=== PATIENT | male | born 1980 | race Caucasian/White ===

== ENCOUNTER 2025-04-27 23:52 | Inpatient (IN) | payer MEDICARE, SELFPAY ==
[2025-04-27] VITALS (16 sets, daily range): BP systolic 146–186; BP diastolic 69–94; PULSE 54; BMI 29.9
[2025-04-27 18:06] LABS: Hematocrit 19.3 % (39.0-52.0); Hemoglobin 6.4 g/dL (13.0-18.0); Mean Corp Hgb Conc. 33.2 g/dL (33.0-37.0); Mean Corpuscular Volume 90.6 fL (80.0-94.0); Nucleated Red Blood Cells % 0 % (-); Platelet Count 213 10^3/uL (130-400); Red Cell Dist. Width 14.4 % (11.5-14.5)
[2025-04-27 18:14] LABS: ALT (SGPT) 22 U/L (0-50); AST (SGOT) 19 U/L (17-59); Albumin 4.0 g/dl (3.5-5.0); Alkaline Phosphatase 188 U/L (38-126); Blood Urea Nitrogen 52 mg/dl (9-20); Calcium 8.7 mg/dl (8.4-10.2); Carbon Dioxide 27 mmol/L (22-30); Chloride 98 mmol/L (98-107); Estimated Creatinine Clearance 14 ml/min; Glucose 139 mg/dl (70-99); Potassium 5.2 mmol/L (3.5-5.1); Sodium 132 mmol/L (135-145); Total Protein 6.7 g/dl (6.3-8.2); eGFR 8.65
--- NOTE | 2025-04-27 18:32 | ED.GENMED ---
History of Present Illness
<Megha Romero NP - Last Filed: 04/28/25 15:01>
General
Chief Complaint: Abnormal Lab Value
Source: patient
Exam Limitations: none
Time Seen by Provider: 04/27/25 17:48
Nursing documentation reviewed up to this point in time: agreed with
History of Present Illness
History of Present Illness:
Patient to ED for anemia, SOB. He had dialysis today. Hgb noted to b 6.6, He reports fatigue. Brought to ED by EMS for eval. Denies any rectal bleeding, hematuria, vomiting. CRF by history. Dialysis m-w-
Past History
<Megha Romero NP - Last Filed: 04/28/25 15:01>
Past History
ED Past Medical History: COPD, HTN, Hypercholesterolemia, IDDM, Renal failure, Psychiatric (anxiety, depression, bipolar) and Other (Hyperkalemia, hypoxia )
Review of Systems
<Megha Romero NP - Last Filed: 04/28/25 15:01>
Review of Systems
Allergies reviewed?: Yes
All Other Systems: ROS reviewed and negative except as documented in HPI and ROS
Constitutional: Reports fatigue
EENT: Reports no symptoms
Respiratory: Reports no symptoms
Cardiac: Reports no symptoms
ABD/GI: Reports no symptoms
: Reports no symptoms
Musculoskeletal: Reports no symptoms
Skin: Reports no symptoms
Neurological: Reports weakness
Psychiatric: Reports no symptoms
Phy Exam
<Megha Romero NP - Last Filed: 04/28/25 15:01>
General Physical Exam
General Presentation: moderate distress
General age: appears stated age
General Skin: warm and dry
General Habitus: normal
General Mental: alert
Cardiovascular Exam
Cardiovascular Exam: regular rate/rhythm
Pulmonary Exam
Pulmonary Exam: chest non tender
Oxygen Status: oxygen 4 liters via NC (88%)
Cough: no cough
Breath Sounds: Crackles: left lower
Neurological Exam
Neurological Exam: alert and oriented x3
Musculoskeletal Exam
Musculoskeletal Exam: full ROM, edema (+2 edema bilateral feet/ankles) and neuro vasc intact
Skin Exam
Skin Exam: normal color, warm/dry and no rash
Psychiatric Exam
Psychiatric Exam: agitated
Course
<Megha Romero CORRESPONDENCE SPECIALIST - Last Filed: 04/28/25 15:01>
Orders/Labs/Results
Orders:
Orders
04/27/25 17:44
Type And Crossmatch [Type+Screen] Urgent
Complete Blood Count/With Diff Urgent
Comprehensive Metabolic Panel Urgent
Ferritin Urgent
Folate Urgent
Iron Urgent
Comment: ADD ON
NT-proBNP Urgent
Comment: ADD ON
Total Iron Binding Urgent
Vitamin B12 Urgent
Comment: ADD ON
04/27/25 18:25
* Blood Bank Products Urgent
Blood Bank Products: *Packed RBC Leuko (PRBC's
Quantity: 1
Transfuse Today: Yes
Reason: Anemia
04/27/25 21:01
CR Chest - 2 Views Urgent
Comment:
Reason For Exam: SOB
04/27/25 21:34
Acetaminophen [Tylenol] 1,000 mg .ROUTE .STK-MED ONE
04/27/25 21:37
Acetaminophen [Tylenol] 1,000 mg PO NOW STA
04/27/25 21:48
Azithromycin [Zithromax] 500 mg PO NOW STA
Doxycycline [Vibramycin] 100 mg PO NOW STA
04/27/25 22:40
Add On- LAB Urgent
Tests Added?: BNP
04/27/25 23:30
Nitroglycerin 100 mg/250 ml [Nitroglycerin Premix] 100 mg in 250 ml IV PER PROTOCOL
Initial dose in mcg/min, then titrate:: 5
Titrate to keep:: SBP < 160 mmHg
Titrate by mcg/min:: 5 mcg/min, may increase by 10 mcg/min if dose > 20 mcg/min
Frequency of titrations (minutes):: every 3-5 minutes
Maximum dose in mcg/min:: 200
Begin to taper infusion when:: Remained at goal for 2hrs
Taper by mcg/min:: 5 mcg/min
Frequency of taper (minutes) if patient maintains goal:: 30
Taper to off?: Yes
If infusion off & no longer maintaining goal:: Contact Provider
04/27/25 23:31
Admit/Transfer Patient As Directed
Co-Sign Provider:
Level of Care: Inpatient admission
Assign to:: ICU
Physician / Group: kristine holloway
Diagnosis: fluid overload, Esrd, anemia , hypoxic resp failure 2/2 fluid overload,
Reason for Hospitalization: fluid overload, Esrd, anemia , hypoxic resp failure 2/2 fluid overload,
Expected length of stay greater than two midnights?: Yes
ELOS- Estimated Length of Stay in days: 5
I certify the patient meets the requirements for IP care: Yes
NEPHROLOGY CONSULT Routine
Consulting Provider: Jenifer Mckeon
Was physician already notified: Yes
Reason for consult: esrd acute chf hypoxia
04/27/25 23:32
Code Status As Directed
Resuscitation Status: Full Code
04/27/25 23:40
PRN Pain Medication Management As Directed
May give lesser potent ordered pain med per pt: Yes
preference::
Protocol:: Medication orders for pain may be administered in a
manner that supports deferring to patient preference
when the pt is:
- Requesting an ordered lesser potent pain medication.
Least to most potent pain medications are defined
as: acetaminophen < NSAID < tramadol < opioids
(morphine, oxycodone, hydromorphone).
- Requesting a lesser dose of the same medication IF
ORDERED.
- Requesting a less intrusive route of administration
if both routes are prescribed by the provider (PO <
IV).
04/27/25 23:44
Add On- LAB Urgent
Tests Added?: iron tibc, ferritin b12 folate
04/27/25 23:46
Telemetry Rn Consult Routine
Consulting Provider: Christiano Toro
Was physician already notified: Yes
Reason for consult: ypoxic resp failure fluid overload, esrd anemia
04/28/25 01:19
Acetaminophen [Tylenol] 650 mg PO Q6HPRN PRN mild pain
Dextrose 50%-Water [Dextrose 50% Syringe] 12.5 grams IV [id number] PRN
Glucagon [GlucaGen] 1 mg IM PRN PRN
Sorbitol Solution [Sorbitol 70% Solution] 30 ml PO DAILYPRN PRN constipation
Tramadol HCl [Ultram] 50 mg PO BIDPRN PRN moderate pains
04/28/25 01:19
Activity As Directed
Activity Level: With Assistance
Comment: Patient transfers to wheelchair only
Bedside Glucose Monitoring As Directed
Frequency: AC&HS
Additional Instructions:: Change to q6h if pt on TPN, tube feeding or not eating
Intake/ Output As Directed
Frequency: Per unit guidelines
Vital Signs As Directed
Frequency: Per unit guidelines
Weight As Directed
Frequency: Daily
Pulse Ox/spot Check [RESP] Routine
Quantity: 1
Pt Eval And Treat Routine
Activity Level: With Assistance
DX Deep Vein Thrombosis Video Routine
04/28/25 03:43
Complete Blood Count/With Diff IN AM
Comprehensive Metabolic Panel IN AM
Glycohemoglobin (HgbA1c) IN AM
Magnesium IN AM
04/28/25 Breakfast
1800 calorie (15 carb) Diabetic
At Your Request: Full Participation
Does patient need a safe tray?: No
Fluid Restriction: 1200 mL/day (40 oz)
Diabetic Diet: Potassium, 2 Gram
Sodium, 2 Gram
04/28/25 07:30
Insulin Aspart Corrective Low [Novolog Flexpen-Low Resistance] See Protocol SC AC
Insulin Aspart Pen [Novolog Flexpen] 6 units SC AC
Sevelamer Carbonate [Renvela] 800 mg PO AC
04/28/25 08:00
ARIPiprazole [Abilify] 5 mg PO DAILY
Amlodipine [Norvasc] 10 mg PO DAILY
Aspirin Chewable [Low Strength Aspirin] 81 mg PO DAILY
Carvedilol [Coreg] 25 mg PO BID
Clopidogrel Bisulfate [Plavix] 75 mg PO DAILY
Diazepam [Valium] 5 mg PO BID
Gabapentin [Neurontin] 300 mg PO DAILY
Heparin 5,000 units SC Q12
Nicotine [Nicoderm Transdermal] 14 mg TRANSDERM DAILY
Sertraline HCl [Zoloft] 50 mg PO DAILY
04/28/25 18:00
Atorvastatin [Lipitor] 80 mg PO QPM
04/28/25 22:00
insulin glargine [Lantus Solostar U-100 Insulin] 15 unit SC HS
04/29/25 06:00
Complete Blood Count/With Diff IN AM
Comprehensive Metabolic Panel IN AM
04/29/25 08:00
Clonidine [Bwvjrssa-Tqe-9] 0.3 mg TRANSDERM FR
04/30/25 06:00
Complete Blood Count/With Diff IN AM
Comprehensive Metabolic Panel IN AM
05/01/25 06:00
Complete Blood Count/With Diff IN AM
Comprehensive Metabolic Panel IN AM
05/02/25 06:00
Complete Blood Count/With Diff IN AM
Comprehensive Metabolic Panel IN AM
Abnormal Lab Results
04/27/25
17:44
RBC 2.13 L 10^6/uL
(4.70-6.10)
Hgb 6.4 L* g/dL
(13.0-18.0)
Hct 19.3 L* %
(39.0-52.0)
Absolute Neuts (auto) 7.1 H 10^3/uL
(1.4-6.5)
Absolute Lymphs (auto) 0.5 L 10^3/uL
(1.2-3.4)
Absolute Monos (auto) 0.7 H 10^3/uL
(0.1-0.6)
Neutrophils % 84.5 H %
(42.2-75.2)
Lymphocytes % 6.1 L %
(20.5-51.1)
Sodium 132 L mmol/L
(135-145)
Potassium 5.2 H mmol/L
(3.5-5.1)
BUN 52 H mg/dl
(9-20)
Creatinine 7.3 H* mg/dL
(0.7-1.3)
Glucose 139 H mg/dl
(70-99)
% Saturation 62 H %
(20-50)
Alkaline Phosphatase 188 H U/L
(38-126)
Crossmatch IS Only See Detail
04/27/25 17:44
04/27/25 17:44
Vital Signs
Initial and Last Documented VS:
Initial Vital Signs
Temp Pulse Resp BP Pulse Ox
98.2 F 55 10 146/69 92
04/27/25 17:33 04/27/25 17:33 04/27/25 17:33 04/27/25 17:33 04/27/25 17:33
Last Documented Vital Signs
Temp Pulse Resp BP Pulse Ox
97.7 F 53 18 137/69 96
04/28/25 15:00 04/28/25 15:00 04/28/25 15:00 04/28/25 15:00 04/28/25 14:12
<Christiano Barajas, DO - Last Filed: 04/27/25 22:43>
Orders/Labs/Results
Orders:
Orders
04/27/25 17:44
Type And Crossmatch [Type+Screen] Urgent
Complete Blood Count/With Diff Urgent
Comprehensive Metabolic Panel Urgent
Ferritin Urgent
Folate Urgent
Iron Urgent
Comment: ADD ON
NT-proBNP Urgent
Comment: ADD ON
Total Iron Binding Urgent
Vitamin B12 Urgent
Comment: ADD ON
04/27/25 18:25
* Blood Bank Products Urgent
Blood Bank Products: *Packed RBC Leuko (PRBC's
Quantity: 1
Transfuse Today: Yes
Reason: Anemia
04/27/25 21:01
CR Chest - 2 Views Urgent
Comment:
Reason For Exam: SOB
04/27/25 21:34
Acetaminophen [Tylenol] 1,000 mg .ROUTE .STK-MED ONE
04/27/25 21:37
Acetaminophen [Tylenol] 1,000 mg PO NOW STA
04/27/25 21:48
Azithromycin [Zithromax] 500 mg PO NOW STA
Doxycycline [Vibramycin] 100 mg PO NOW STA
04/27/25 22:40
Add On- LAB Urgent
Tests Added?: BNP
04/27/25 23:30
Nitroglycerin 100 mg/250 ml [Nitroglycerin Premix] 100 mg in 250 ml IV PER PROTOCOL
Initial dose in mcg/min, then titrate:: 5
Titrate to keep:: SBP < 160 mmHg
Titrate by mcg/min:: 5 mcg/min, may increase by 10 mcg/min if dose > 20 mcg/min
Frequency of titrations (minutes):: every 3-5 minutes
Maximum dose in mcg/min:: 200
Begin to taper infusion when:: Remained at goal for 2hrs
Taper by mcg/min:: 5 mcg/min
Frequency of taper (minutes) if patient maintains goal:: 30
Taper to off?: Yes
If infusion off & no longer maintaining goal:: Contact Provider
04/27/25 23:31
Admit/Transfer Patient As Directed
Co-Sign Provider:
Level of Care: Inpatient admission
Assign to:: ICU
Physician / Group: kristine holloway
Diagnosis: fluid overload, Esrd, anemia , hypoxic resp failure 2/2 fluid overload,
Reason for Hospitalization: fluid overload, Esrd, anemia , hypoxic resp failure 2/2 fluid overload,
Expected length of stay greater than two midnights?: Yes
ELOS- Estimated Length of Stay in days: 5
I certify the patient meets the requirements for IP care: Yes
NEPHROLOGY CONSULT Routine
Consulting Provider: Jenifer Mckeon
Was physician already notified: Yes
Reason for consult: esrd acute chf hypoxia
04/27/25 23:32
Code Status As Directed
Resuscitation Status: Full Code
04/27/25 23:40
PRN Pain Medication Management As Directed
May give lesser potent ordered pain med per pt: Yes
preference::
Protocol:: Medication orders for pain may be administered in a
manner that supports deferring to patient preference
when the pt is:
- Requesting an ordered lesser potent pain medication.
Least to most potent pain medications are defined
as: acetaminophen < NSAID < tramadol < opioids
(morphine, oxycodone, hydromorphone).
- Requesting a lesser dose of the same medication IF
ORDERED.
- Requesting a less intrusive route of administration
if both routes are prescribed by the provider (PO <
IV).
04/27/25 23:44
Add On- LAB Urgent
Tests Added?: iron tibc, ferritin b12 folate
04/27/25 23:46
Telemetry Rn Consult Routine
Consulting Provider: Christiano Toro
Was physician already notified: Yes
Reason for consult: ypoxic resp failure fluid overload, esrd anemia
04/28/25 01:19
Acetaminophen [Tylenol] 650 mg PO Q6HPRN PRN mild pain
Dextrose 50%-Water [Dextrose 50% Syringe] 12.5 grams IV [id number] PRN
Glucagon [GlucaGen] 1 mg IM PRN PRN
Sorbitol Solution [Sorbitol 70% Solution] 30 ml PO DAILYPRN PRN constipation
Tramadol HCl [Ultram] 50 mg PO BIDPRN PRN moderate pains
04/28/25 01:19
Activity As Directed
Activity Level: With Assistance
Comment: Patient transfers to wheelchair only
Bedside Glucose Monitoring As Directed
Frequency: AC&HS
Additional Instructions:: Change to q6h if pt on TPN, tube feeding or not eating
Intake/ Output As Directed
Frequency: Per unit guidelines
Vital Signs As Directed
Frequency: Per unit guidelines
Weight As Directed
Frequency: Daily
Pulse Ox/spot Check [RESP] Routine
Quantity: 1
Pt Eval And Treat Routine
Activity Level: With Assistance
DX Deep Vein Thrombosis Video Routine
04/28/25 03:43
Complete Blood Count/With Diff IN AM
Comprehensive Metabolic Panel IN AM
Glycohemoglobin (HgbA1c) IN AM
Magnesium IN AM
04/28/25 Breakfast
1800 calorie (15 carb) Diabetic
At Your Request: Full Participation
Does patient need a safe tray?: No
Fluid Restriction: 1200 mL/day (40 oz)
Diabetic Diet: Potassium, 2 Gram
Sodium, 2 Gram
04/28/25 07:30
Insulin Aspart Corrective Low [Novolog Flexpen-Low Resistance] See Protocol SC AC
Insulin Aspart Pen [Novolog Flexpen] 6 units SC AC
Sevelamer Carbonate [Renvela] 800 mg PO AC
04/28/25 08:00
ARIPiprazole [Abilify] 5 mg PO DAILY
Amlodipine [Norvasc] 10 mg PO DAILY
Aspirin Chewable [Low Strength Aspirin] 81 mg PO DAILY
Carvedilol [Coreg] 25 mg PO BID
Clopidogrel Bisulfate [Plavix] 75 mg PO DAILY
Diazepam [Valium] 5 mg PO BID
Gabapentin [Neurontin] 300 mg PO DAILY
Heparin 5,000 units SC Q12
Nicotine [Nicoderm Transdermal] 14 mg TRANSDERM DAILY
Sertraline HCl [Zoloft] 50 mg PO DAILY
04/28/25 18:00
Atorvastatin [Lipitor] 80 mg PO QPM
04/28/25 22:00
insulin glargine [Lantus Solostar U-100 Insulin] 15 unit SC HS
04/29/25 06:00
Complete Blood Count/With Diff IN AM
Comprehensive Metabolic Panel IN AM
04/29/25 08:00
Clonidine [Eioluwwt-Ciu-2] 0.3 mg TRANSDERM FR
04/30/25 06:00
Complete Blood Count/With Diff IN AM
Comprehensive Metabolic Panel IN AM
05/01/25 06:00
Complete Blood Count/With Diff IN AM
Comprehensive Metabolic Panel IN AM
05/02/25 06:00
Complete Blood Count/With Diff IN AM
Comprehensive Metabolic Panel IN AM
Abnormal Lab Results
04/27/25
17:44
RBC 2.13 L 10^6/uL
(4.70-6.10)
Hgb 6.4 L* g/dL
(13.0-18.0)
Hct 19.3 L* %
(39.0-52.0)
Absolute Neuts (auto) 7.1 H 10^3/uL
(1.4-6.5)
Absolute Lymphs (auto) 0.5 L 10^3/uL
(1.2-3.4)
Absolute Monos (auto) 0.7 H 10^3/uL
(0.1-0.6)
Neutrophils % 84.5 H %
(42.2-75.2)
Lymphocytes % 6.1 L %
(20.5-51.1)
Sodium 132 L mmol/L
(135-145)
Potassium 5.2 H mmol/L
(3.5-5.1)
BUN 52 H mg/dl
(9-20)
Creatinine 7.3 H* mg/dL
(0.7-1.3)
Glucose 139 H mg/dl
(70-99)
% Saturation 62 H %
(20-50)
Alkaline Phosphatase 188 H U/L
(38-126)
Crossmatch IS Only See Detail
04/27/25 17:44
04/27/25 17:44
Vital Signs
Initial and Last Documented VS:
Initial Vital Signs
Temp Pulse Resp BP Pulse Ox
98.2 F 55 10 146/69 92
04/27/25 17:33 04/27/25 17:33 04/27/25 17:33 04/27/25 17:33 04/27/25 17:33
Last Documented Vital Signs
Temp Pulse Resp BP Pulse Ox
97.7 F 53 18 137/69 96
04/28/25 15:00 04/28/25 15:00 04/28/25 15:00 04/28/25 15:00 04/28/25 14:12
<Megha Romero CORRESPONDENCE SPECIALIST - Last Filed: 04/28/25 15:01>
*Radiology
Radiology exam reviewed: radiology read reviewed
*Pulse Oximetry
SaO2: 94
Nasal Cannula flow liters per minute: 4
Patient hypoxic: yes
Comment: 88% on 4L NC. Increased O2 to 5L, now 92%
*Critical Care Note
Total Time (30-74mins, 75-104mins- exclusive of procedures): Not Applicable
<Megha Romero NP - Last Filed: 04/28/25 15:01>
Update Note
Update Note:
Patient to ED for anemia, SOB. Hgb 6.4, transfused with 1U PRBc's. Pulse ox 88% on his typical 4L NC. O2 increased to 5L and he is now 92% at rest. CXR reveiwed - pulmonary edema, possible LLLpneumonia. CRF on dialysis. He had dialysis today
but is unsure if he completed session. Case discussed with Dr. Barajas who spoke with this patient. Recommend admission for his hypoxemia however he is refusing to stay. Risks discussed with him but he continues to decline admission. Transport is
unable to take him back to the assisted due to current hypoxemia. He does not have private transportation. He now agrees to admission WIll admit to hospitalist. ANtibiotics started.
ED Attending Note
<Megha Romero NP - Last Filed: 04/28/25 15:01>
-
Portions of this chart may have been created with voice recognition software.� Occasional wrong word or��sound alike� substitutions may have occurred due to the inherent limitations of voice recognition software.
<Christiano Barajas DO - Last Filed: 04/27/25 22:43>
ED Attending Note
Patient seen and examined by attending physician: Yes
I performed the substantive portion of visit, reviewed & personally made and approve the management plan that is documented in note by myself or SOPHIE.: Yes
ED Attending Note:
I have seen and evaluated the patient with a [id number] encounter. I have spoken to the advance practicer provider and involved in the medical history, the physical exam, medical decision making.
Evaluation and management service: agree unless noted differently below.
Results interpretation: agree unless noted differently below.
Focused HPI: 44-year-old male presenting for evaluation of low hemoglobin. Patient has history of renal failure and is on dialysis. Patient unsure if he received a full session today
Physical exam: Mildly edematous. Rhonchorous breath sounds throughout
Medical Decision Making: Patient was consented for 1 unit of blood transfusion. Initial plan was a discharge but patient becoming more hypoxic. At 1 point, patient was on 10 L of O2 to keep his sats at 90%. He initially refused admission.
Patient was going to sign out AMA and we called transport to take him back to his facility but transport also refused to take him due to his hypoxia. At this point, patient is consenting for admission
Discharge Plan
Departure
Patient Disposition: Admit
Date of Disposition: 04/27/25
Time of Disposition: 22:35
Presentation/result/management discussed w/ accepting MD/DO: Hospitalist
Patient with high blood pressure during this ER visit?: No
Condition: Fair
Covid-19: Not Applicable
Discharge Problem:
Anemia, Pneumonia, Hypoxemia
Interventions
Interventions:
*Risk Screen - Suicide Last Done: 04/27/25 17:37
*General Assessment Last Done: 04/27/25 17:37
*Neglect/Abuse Screening Last Done: 04/27/25 17:37
*ED COVID-19 Vaccine History Last Done: 04/27/25 17:37
*ED Influenza Vaccine History Last Done: 04/27/25 17:37
*Nursing Disposition Last Done: 04/28/25 01:26
Discharge Date and Time
Discharge Date/Time: 04/28/25 01:26
[2025-04-27] MEDS: TYLENOL 1000 MG PO (21:38)
[2025-04-27] MEDS: VIBRAMYCIN 100 MG PO (22:08)
[2025-04-27] MEDS: ZITHROMAX 500 MG PO (22:08)
--- NOTE | 2025-04-27 22:53 | HPS.HSE ---
Family Physician
-
Family Physician: Suad Sears
Chief Complaint
-
Fatigue, hypoxia, anemia
History of Present Illness
44-year-old male who states he had his dialysis today half session 1.5 hours normally gets 3-1/2 hours where hemoglobin was noted to be 6.6 he states he was brought to the emergency room by EMS for evaluation he does complain of fatigue. He reports
he has been at [facility] for approximately 1 to 2 weeks prior was at [facility] second week in March diagnosed with pneumonia, COPD put on chronic 4 L of oxygen. He reports prior to living at [facility] he was living in
[place] for 2 years but grew up in [place]. He denies any rectal bleeding, hematuria, hemataemesis, chest pain, palpitations, cough, abdominal pain, nausea, vomiting, diarrhea, urinary symptoms. He was hypoxic on arrival at 89% on room air
currently 94% on 5 L nasal cannula
He has past medical history ESRD dialysis Friday, diabetic type 1 diagnosed age 24, diabetic neuropathy feet,angina chronic right shoulder pain, HTN, HLD, COPD, chronic 4 L oxygen, former smoker 1 pack a day quit approximately 4
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
Medical History
Past Medical History
Past Medical History: Reports Other
Additional Past Medical History:
ESRD dialysis Friday
diabetic type 1 diagnosed age 24,
diabetic neuropathy feet
chronic right shoulder pain
angina
HTN
HLD
COPD, chronic 4 L oxygen
former smoker 1 pack a day quit approximately 4 weeks ago March 2025
bipolar disorder
anxiety
depression
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
Past Surgical History: Reports Other
Additional Past Surgical History:
Right upper chest wall catheter
Social History
Tobacco: Smoker (Former smoker up until 1 month ago)
Alcohol: None
Drug: None
Personal: Single
Living: [facility]entiary ([facility])
Employment: Disabled
Family History
Family History: Not pertinent
Allergies / Home Medications
Allergies reflects when Allergies were last updated in [employer].
Home Medications with original date entered in [employer]
Allergy/Medication List:
Allergies
Allergy/AdvReac Type Severity Reaction Status Date / Time
No Known Allergies Allergy Verified 04/27/25 17:46
Home Medications
acetaminophen 325 mg tablet (Tylenol) 650 mg PO Q6HPRN PRN mild pain 04/27/25
amlodipine 10 mg tablet (Norvasc) 10 mg PO DAILY 04/27/25
aripiprazole 5 mg tablet (Abilify) 5 mg PO DAILY 04/27/25
aspirin 81 mg chewable tablet 81 mg PO DAILY 04/27/25
atorvastatin 80 mg tablet (Lipitor) 80 mg PO QPM 04/27/25
bisacodyl 10 mg rectal suppository (Dulcolax (bisacodyl)) 10 mg [place] DAILYPRN PRN if no bm aftr mom 04/27/25
carvedilol 25 mg tablet (Coreg) 25 mg PO BID 04/27/25
clonidine 0.3 mg/24 hr weekly transdermal patch 1 patch transdermal FR 04/27/25
clopidogrel 75 mg tablet (Plavix) 75 mg PO DAILY 04/27/25
diazepam 5 mg tablet (Valium) 5 mg PO BID 04/27/25
gabapentin 300 mg capsule 300 mg PO DAILY 04/27/25
hydralazine 100 mg tablet 100 mg PO TID 04/27/25
insulin glargine 100 unit/mL (3 mL) subcutaneous pen (Lantus Solostar U-100 Insulin) 15 unit SC HS 04/27/25
insulin lispro 100 unit/mL subcutaneous pen 6 sliding scale dose SC AC 04/27/25
isosorbide mononitrate 30 mg tablet,extended release 24 hr 30 mg PO DAILY 04/27/25
lidocaine 5 % topical patch 1 patch topical DAILY 04/27/25
nicotine 14 mg/24 hr daily transdermal patch 1 patch transdermal DAILY 04/27/25
patiromer calcium sorbitex 16.8 gram oral powder packet 16.8 g PO DAILY 04/27/25
sertraline 50 mg tablet 50 mg PO DAILY 04/27/25
sevelamer carbonate 800 mg tablet 800 mg PO AC 04/27/25
sorbitol 70 % solution 30 ml PO DAILYPRN PRN constipation 04/27/25
tramadol 50 mg tablet 50 mg PO BIDPRN PRN moderate pains 04/27/25
Review of Systems
-
History Source: Patient and Other (Nurse)
A 12 point ROS was completed and negative except as noted: Yes
Constitutional: Reports Fatigue; Denies Chills
EENT: Reports Other (Upper eyelid swelling); Denies Sore Throat or Runny Nose
Respiratory: Reports Trouble Breathing and Other (Rales left lung); Denies Cough
Cardiac: Denies Chest Pain, Diaphoresis, Palpitations or Syncope
Abdomen/GI: Denies Abdominal Pain, Nausea, Vomiting, Diarrhea or Constipated
: Reports Other (Patient reports does not make urine is dialysis dependent)
Musculoskeletal: Reports Edema (+2 nonpitting edema lower legs); Denies Joint Pain
Skin: Denies Itching or Rash
Neurological: Denies Dizzy or Headache
Endocrine: Reports No Symptoms
Psych: Reports Calm
Physical Exam
Vital Signs
Vital Signs
Temp Pulse Resp BP Pulse Ox
97.7 F 60 22 171/94 94
04/27/25 20:32 04/27/25 22:00 04/27/25 22:00 04/27/25 22:00 04/27/25 22:00
Physical Exam
General: Conversant and Other (Dyspnea/hypoxia); No Fever or Chills
HEENT: NormoCephalic, Anicteric, PERRLA, [place] Conjunctivae, No Ptosis and Other (Swelling of upper eyelids)
Respiratory: Rales (Most prominent throughout left lung slight prominence right lung); No Wheezes
Cardiac: S1/S2, Regular Rhythm and Peripheral Edema (Bilateral lower legs +2 nonpitting); No Murmur, Rub or Gallop
Breast: Deferred by me
GI: Soft, Non Tender, Non Distended, Normal Bowel Sounds and No Hepatosplenomegaly
Rectal: Deferred by Provider
Genito-urinary: Deferred by me
Musculoskeletal: No Clubbing, No Cyanosis, Edema, Left Lower Extremity (+2 nonpitting) and Edema, Right Lower Extremity (+2 nonpitting); No Edema, Left Upper Extremity or Edema, Right Upper Extremity
Skin: Warm, Dry and Other (Dialysis catheter right upper chest wall); No Rash
Neuro: AO x 3, No Motor Deficits, Nonfocal/grossly intact, Cranial Nerves Intact and No Sensory Deficits; No Slurred Speech, Facial Droop, Tremors or Sedated
Psych: Calm
Laboratory Results
-
04/27/25 17:44
04/27/25 17:44
Laboratory Results
Total Bilirubin 0.5 mg/dl (0.2-1.3) 04/27/25 17:44
AST 19 U/L (17-59) 04/27/25 17:44
ALT 22 U/L (0-50) 04/27/25 17:44
Alkaline Phosphatase 188 U/L (38-126) H 04/27/25 17:44
Data Reviewed
-
Diagnostic Radiology: Report Reviewed by me
Lab Data: Labs Reviewed by me
Impression/Plan
-
Impression/plan:
Admit to ICU
#Acute hypoxic respiratory insufficiency likely secondary to fluid overload
83% room air currently 95% on 10 L of oxygen
-Will start BiPAP
- Consult aircraft line assembler
#History of COPD on chronic 4 L nasal cannula since March 2025
Reports has been on chronic 4 L of oxygen since March 2025 when seen at [facility] for pneumonia
#Acute symptomatic anemia history ESRD on dialysis
Hgb 6.4, MCV 90.6
-Type and screen
-Transfuse 1 units PRBC
-Check iron panel, B12, folate
#ESRD on dialysis Friday
Completed 1.5 hours out of 3-hour session today at [facility] 04/27/2025
As right upper chest dialysis catheter x 2 years
Patient does not make urine
Creat 7.3/bun 52
Check mag, Phos
-Consult Nephro
- Continue sevelamer 800 mg AC, Patiromer calcium sorbitex 16.8 g daily
#HTN
BP 171/94
-Continue Norvasc 10 mg daily, Coreg 25 mg twice daily, clonidine 1 patch transdermal Fridays,
-Hold hydralazine 100 mg 3 times daily
Angina
-Hold Imdur 30 mg daily
- Continue Plavix 75 mg daily
Obtain records from [facility] admission March 2025
#Diabetic type 1 Dx age 24
Accu-Cheks with SSI, check HgbA1c
Continue Lantus 15 units at bedtime, lispro 6 units with meals
#HLD
-Continue atorvastatin 80 mg every afternoon
#Bipolar disorder/anxiety/depression
-Continue Abilify 5 mg daily, Zoloft 50 mg daily
#Constipation
Continue sorbitol 30 mL daily as needed constipation
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
DVT prophSubcu heparin
Full code
[2025-04-27] MEDS: NITROGLYCERIN PREMIX 250 IV (23:52)
[2025-04-28] VITALS (64 sets, daily range): BP systolic 132–188; BP diastolic 64–99; PULSE 2–54; BMI 29.1
[2025-04-28 00:18] LABS: Iron 165 ug/dl (49-181)
[2025-04-28 00:30] LABS: Total Iron Binding Capacity 263 ug/dl (261-462)
[2025-04-28 00:38] LABS: Ferritin 391.0 ng/ml (17.9-464.0)
[2025-04-28 00:52] LABS: Vitamin B12 697 pg/ml (239-931)
--- NOTE | 2025-04-28 01:00 | W.PN.UPDATE ---
Update Note
Progress Note Update
Patient seen conjunction with EL. I agree with the findings on history and physical. I concur with assessment and plan.
Patient is a 44-year-old with insulin-dependent diabetes, end-stage renal disease on hemodialysis Friday currently via PermCath, bipolar, uncontrolled hypertension, ?CAD on aspirin and Plavix who presents to the emergency department
from [facility] for low hemoglobin of 6.6. Patient himself denied feeling lightheaded or dizzy. He denies having any abdominal pain nausea vomiting melena or hematochezia. He reports that he was recently admitted to [facility] several weeks
ago and treated for multifocal pneumonia. At the time of discharge patient was maintained on 4 L of oxygen. He states prior to that he has no known pulmonary disease and has not been on oxygen. He has been maintained on his 4 L. In the ED
patient was admitted for transfusion and then was found to be hypoxic on his 4 L 90 was 1 to 5 L. Despite this he remained hypoxic to the high 80s. He had no increased work of breathing.
Patient did report that he had a truncated dialysis session of about 1.5 hours. He is unclear how much fluid was removed. He does note increasing bilateral lower extremity edema. He reports some shortness of breath. Denies orthopnea or PND. He
denies having any chest pain. He denies any fevers or chills. He denies any cough. Reports that he is respiratory symptoms and chest discomfort has improved status post completion of his antibiotics. He otherwise has been on usual dialysis. He
denies no history of congestive heart failure.
In the emergency department he was afebrile with temp of 98.5, blood pressure was in the 170s over 80s with a pulse of 52 and was satting 87% on 5 L. Transiently to 92% on 5 L when awake. ECG pending. CBC with a hemoglobin of 6.4 white count of
8.4 platelet of 213. His electrolytes were stable given dialysis although K is 5.2 despite session of dialysis today. Chest x-ray shows bilateral vascular flow cephalization, increased interstitial lung markings diffusely with indistinctness of
the central pulmonary vasculature suggestive of mild interstitial edema, patchy remote confined parenchymal opacities within the left mid to lower lung. BNP is elevated at 13,000.
Auscultation does reveal crackles on the left side. No wheezing.
Assessment plan
Patient with end-stage renal disease who appears to be markedly volume overloaded and hypertensive with interstitial edema on x-ray and mild worsening of his baseline hypoxia since his recent pneumonia. No known history of CHF but appears to have
uncontrolled hypertension and dialysis dependent volume overload. The x-ray with a confirmed opacity likely reflects his recent pneumonia as he has no current signs symptoms of pneumonia.
Hypoxia -suspect secondary to volume overload with increased total body volume and mild CHF. Patient is effectively anuric. His work of breathing is moderate and is satting around 89% on 5 L. Work of breathing is moderate.
-Admit to ICU given new hypoxia and volume overload
-Started on BiPAP 06/24
-Titrate oxygen to keep SaO2 greater than 93%
-Nitroglycerin drip to keep SBP less than 140
-Echo in a.m.
-Cardiology consult
-Nephrology consult for UF
Anemia -suspect anemia of chronic disease. No evidence of acute bleed at this time. Iron ferritin and's saturation within the normal range.
- Type and screen, he was transfused for 1 unit, monitor while on this low transfusion with posttransfusion on dialysis likely tomorrow
- Transfuse to goal hemoglobin of 7
- Check reticulocyte
- Likely will need YAIR per renal
Cardiovascular disease/hypertension
-Continue carvedilol, clonidine patch
-Started on nitroglycerin drip, holding hold hydralazine until of nitroglycerin drip
- Continue DAPT and statin
- Echo as above
- Cardiology consult for acute CHF exacerbation
End-stage renal disease on hemodialysis Friday via PermCath
-Nephrology consultation
-Fluid restriction
-Continue patiromer, sevelamer
Pneumonia -suspect is sequela of his recent pneumonia
-Obtain records and imaging from recent physician at [facility]
DM II
- continue basal bolus insulin per home regimen
DVT PPX - heparin sq for now
Code status - Full Code
[2025-04-28 01:37] LABS: Glucose - Point of Care 153 mg/dl (70-99)
--- NOTE | 2025-04-28 02:00 | PTCARENOTE ---
Received pt from ED RN via stretcher. Received pt on nitro gtt at 10 mcg/min via left peripheral IV site. Pt also on bipap, 15/6 w/ 6L of O2 and is satting at 95% pulse ox. Pt alert and oriented x3 and can make needs known.
[2025-04-28 02:08] LABS: Folate 5.9 ng/ml (2.76-20)
[2025-04-28] MEDS: ULTRAM 50 MG PO ×3 (02:27→20:31)
[2025-04-28 04:13] LABS: Hematocrit 20.4 % (39.0-52.0); Hemoglobin 6.6 g/dL (13.0-18.0); Mean Corp Hgb Conc. 32.4 g/dL (33.0-37.0); Mean Corpuscular Volume 89.9 fL (80.0-94.0); Nucleated Red Blood Cells % 0 % (-); Platelet Count 202 10^3/uL (130-400); Red Cell Dist. Width 14.3 % (11.5-14.5)
[2025-04-28 04:18] LABS: ALT (SGPT) 20 U/L (0-50); AST (SGOT) 18 U/L (17-59); Albumin 3.7 g/dl (3.5-5.0); Alkaline Phosphatase 168 U/L (38-126); Blood Urea Nitrogen 54 mg/dl (9-20); Calcium 8.7 mg/dl (8.4-10.2); Carbon Dioxide 24 mmol/L (22-30); Chloride 99 mmol/L (98-107); Estimated Creatinine Clearance 13 ml/min; Glucose 150 mg/dl (70-99); Magnesium 2.1 mg/dl (1.6-2.3); Potassium 5.2 mmol/L (3.5-5.1); Sodium 133 mmol/L (135-145); Total Protein 6.3 g/dl (6.3-8.2); eGFR 8.24
--- NOTE | 2025-04-28 04:22 | W.PN.UPDATE ---
Update Note
Progress Note Update
HGB = 6.4, transfused�1 unit of�blood�in ED; only�increase to 6.6. �Discussed with admitting hospitalist richard Barriga to hold off on any�more�blood transfusion until dialysis.
[2025-04-28] MEDS: TYLENOL 650 MG PO ×4 (07:43→20:32)
[2025-04-28] MEDS: HEPARIN SC ×3 (07:43→20:33)
[2025-04-28] MEDS: NICODERM TRANSDERMAL 14 MG TRANSDERM (07:43)
[2025-04-28] MEDS: NEURONTIN 300 MG PO (07:44)
--- NOTE | 2025-04-28 08:24 | PTCARENOTE ---
Rec'd care of patient at 0700. Patient alert and oriented. MAEx4; weak in b/l LE. Agitated and uncooperative with care. Attempted to administer SQ Heparin; patient refused. While trying to educate patient on purpose and risk, patient angry and
refusing teaching. C/o headache; Tylenol administered. SB, rate in the 40-50's. Titrating Nitro gtt for SBP <160. +1 anasarca; +3 edema in b/l LE. Palpable pulses. RT at bedside to try and wean patient off BiPAP. Lung sounds shallow, diminished
throughout. Pulse ox low 90's on 4L nc. Patient tolerated a few minutes off mask before c/o SOB. Pulse ox down to low 80's. RT notified. Patient placed back on mask. Settings: 15/6 6L. +BS. Anuric. HD in progress.
[2025-04-28 08:42] LABS: Glycohemoglobin (HgbA1c) 6.0 % (4.0-5.6)
[2025-04-28] MEDS: RETACRIT 10000 UNITS IV (09:07)
[2025-04-28] MEDS: ROXICODONE 5 MG PO (09:28)
--- NOTE | 2025-04-28 09:34 | W.CON.NEPH ---
Consultation
-
Date/Time Consultation Requested: 04/27/25 5861
Date/Time Consultation Performed: 04/28/25 0995
Requesting Provider: Katrina Dean MD
Performing Provider: Jenifer Hammond
Reason for Consultation: ESRD
Medical History
-
Chief Complaint: Fatigue, hypoxia, anemia
History of Present Illness:
44-year-old with insulin-dependent diabetes since age of 24, end-stage renal disease on hemodialysis Friday currently via PermCath at [facility] for last 2weeks, bipolar on Abilify, valium, sertraline, uncontrolled hypertension on
Amlodipine, hydralazine, clonidine, coreg, ?CAD on imdur, aspirin and Plavix who presents to the emergency department from [facility] for low hemoglobin of 6.6. He reports that he was recently admitted to [facility] several weeks ago and
treated for multifocal pneumonia. At the time of discharge patient was maintained on 4 L of oxygen and discharged to [facility]. There no blood in stools, no n/v or kylah. In the ED patient noted hypoxic despite on O2 and needed to change to
BIPAP. CXR shows pulm edema and opacity of left mid and lower lobe likely PNA. he also started on Nitro gtt. He did get 1 unit of PRBC in ER however hb with out improvement at 6.6 from 6.4. DUring visit in ICU pt remains on BIPAP. c/o sob, mild
chest discomfort from fluids. He reports no issues with HD but only had half treatment yesterday, has catheter for 2yr. Not sure how complaint he is with diet and FR. History is limited since pt on BIPAP. Offers no fever or chills. No abd pain or
diarrhea.
per chart-prior to living at [facility] he was living in [place] for 2 years but grew up in [place].
Nephrology asked for dialysis management.
Past Medical History
ESRD dialysis Friday
diabetic type 1 diagnosed age 24,
diabetic neuropathy feet
chronic right shoulder pain
angina
HTN
HLD
COPD, chronic 4 L oxygen
former smoker 1 pack a day quit approximately 4 weeks ago March 2025
bipolar disorder
anxiety
depression
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
Past Surgical History: Other (Right upper chest wall catheter)
Social History
Tobacco: Smoker
Alcohol: None
Drug: None
Personal: Single
Living: Penitentiary
Employment: Disabled
Family History
Family History: Not Pertinent
Allergies / Home Medications
Allergy/AdvReac Type Severity Reaction Status Date / Time
No Known Allergies Allergy Verified 04/27/25 17:46
�Medication �Instructions �Recorded �Confirmed �Type
acetaminophen 325 mg tablet 650 mg PO Q6HPRN PRN mild pain 04/27/25 04/27/25 History
(Tylenol)
amlodipine 10 mg tablet (Norvasc) 10 mg PO DAILY 04/27/25 04/27/25 History
aripiprazole 5 mg tablet (Abilify) 5 mg PO DAILY 04/27/25 04/27/25 History
aspirin 81 mg chewable tablet 81 mg PO DAILY 04/27/25 04/27/25 History
atorvastatin 80 mg tablet (Lipitor) 80 mg PO QPM 04/27/25 04/27/25 History
bisacodyl 10 mg rectal suppository 10 mg [place] DAILYPRN PRN if no bm 04/27/25 04/27/25 History
(Dulcolax (bisacodyl)) aftr mom
carvedilol 25 mg tablet (Coreg) 25 mg PO BID 04/27/25 04/27/25 History
clonidine 0.3 mg/24 hr weekly 1 patch transdermal FR 04/27/25 04/27/25 History
transdermal patch
clopidogrel 75 mg tablet (Plavix) 75 mg PO DAILY 04/27/25 04/27/25 History
diazepam 5 mg tablet (Valium) 5 mg PO BID 04/27/25 04/27/25 History
gabapentin 300 mg capsule 300 mg PO DAILY 04/27/25 04/27/25 History
hydralazine 100 mg tablet 100 mg PO TID 04/27/25 04/27/25 History
insulin glargine 100 unit/mL (3 15 unit SC HS 04/27/25 04/27/25 History
mL) subcutaneous pen (Lantus
Solostar U-100 Insulin)
insulin lispro 100 unit/mL 6 sliding scale dose SC AC 04/27/25 04/27/25 History
subcutaneous pen
isosorbide mononitrate 30 mg 30 mg PO DAILY 04/27/25 04/27/25 History
tablet,extended release 24 hr
lidocaine 5 % topical patch 1 patch topical DAILY 04/27/25 04/27/25 History
nicotine 14 mg/24 hr daily 1 patch transdermal DAILY 04/27/25 04/27/25 History
transdermal patch
patiromer calcium sorbitex 16.8 16.8 g PO DAILY 04/27/25 04/27/25 History
gram oral powder packet
sertraline 50 mg tablet 50 mg PO DAILY 04/27/25 04/27/25 History
sevelamer carbonate 800 mg tablet 800 mg PO AC 04/27/25 04/27/25 History
sorbitol 70 % solution 30 ml PO DAILYPRN PRN constipation 04/27/25 04/27/25 History
tramadol 50 mg tablet 50 mg PO BIDPRN PRN moderate pains 04/27/25 04/27/25 History
Review of Systems
-
Unable to obtain full review of systems at this time due to: Other (On BIPAP so difficult to get history )
All other systems: Negative unless noted
Physical Exam
Vital Signs
Vital Signs
Temp Pulse Resp BP Pulse Ox
97.9 F 52 12 168/80 93
04/28/25 07:54 04/28/25 09:15 04/28/25 09:15 04/28/25 09:15 04/28/25 09:15
Lab Results
WBC 6.7 10^3/uL (4.8-10.8) 04/28/25 03:43
RBC 2.27 10^6/uL (4.70-6.10) L 04/28/25 03:43
Plt Count 202 10^3/uL (130-400) 04/28/25 03:43
Sodium 133 mmol/L (135-145) L 04/28/25 03:43
Potassium 5.2 mmol/L (3.5-5.1) H 04/28/25 03:43
Chloride 99 mmol/L (98-107) 04/28/25 03:43
Carbon Dioxide 24 mmol/L (22-30) 04/28/25 03:43
BUN 54 mg/dl (9-20) H 04/28/25 03:43
Creatinine 7.6 mg/dL (0.7-1.3) H* 04/28/25 03:43
eGFR 8.24 04/28/25 03:43
Glucose 150 mg/dl (70-99) H 04/28/25 03:43
Calcium 8.7 mg/dl (8.4-10.2) 04/28/25 03:43
Qoa-B-Jsjfqraluim Pept 92402 pg/ml 04/27/25 17:44
Albumin 3.7 g/dl (3.5-5.0) 04/28/25 03:43
Physical Exam
General: Awake, Alert, Oriented, AOx3 and No Distress
HEENT: EOMI, Conjunctivae Clear and Facial Symmetry
Respiratory: Crackels, Normal Excursion, Nonlabored Respirations and Other (on BIPAP)
Cardiac: S1/S2 and Regular Rate/Rhythm
Breast: Deferred by me
Abdomen: Soft, Nontender and Nondistended
Musculoskeletal: Edema (3+)
Skin: No Rash
Neuro: Nonfocal/Grossly Intact
Psych: Appropriate
Vascular Access: CVC
Assessment/Plan
-
IMP:
Acute hypoxic respiratory insufficiency likely secondary to fluid overload
History of COPD on chronic 4 L nasal cannula since March 2025
Acute symptomatic anemia history ESRD on dialysis
ESRD on dialysis Friday at [facility]
HTN
Hyponatremia
mild hyperkalemia
CAD
Diabetic type 1 Dx age 24
HLD
Bipolar disorder/anxiety/depression
Constipation
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
Hyperphosphatemia
Plan:
A/w SOB, anemia ,noted pulm edema , currently on BIPAP
will arrange HD today since he only has half HD yesterday
try UF as much as possible and attempt wean BIPAP and nitro gtt
transfuse for anemia, adequate fe stores and b12, folate
high dose of YAIR with HD
strict renal diet and FR
He seem non complaint with care and treatments and it will be challenge to keep him euvolemic
HD again tomorrow
resume phos binder
d/w pt and nursing
--- NOTE | 2025-04-28 10:12 | W.PN.NEPH.HD ---
Assessment
-
pt seen during HD
vitals stable on nitro gtt
attempt UF as much as possible
try weaning BIPAP and nitro post HD
need HD again tomorrow
CVC functions fine
pt wanted to leave, reviewed with him that he is not medically stable for d/c
Progress Note - Hemodialysis
-
Date of Service: April 28, 2025
Duration: 3 hours
Potassium Bath: 2
Calcium Bath: 2.5
Opti-Dialyzer: 160
Ultrafiltration: Other (3-3.5kg)
Blood Flow: 400
Dialysate Flow: 600
Heparin: no
EPO: [id number]
[2025-04-28] MEDS: VALIUM 5 MG PO ×2 (10:14→20:32)
[2025-04-28] MEDS: ZOLOFT 50 MG PO (10:14)
--- NOTE | 2025-04-28 10:25 | CON.INTV ---
Consultation
Consultation Request
Date/Time Consultation Requested: 04/27/2025 00:17
Date/Time Consultation Performed: 04/28/2025 08:00
Requesting Provider: Sejal Medina
Performing Provider: Atul Mcginnis DO (Resident); Christiano Bran MD
Reason for Consultation: Acute Hypoxic Respiratory Failure
Medical History
-
Chief Complaint: Fatigue, SOB, Low Hb
History of Present Illness:
Diogenes Og is a 44M PMHx ESRD on HD (MWF), T1DM , HTN, HLD, chronic oxygen at home? 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 for low Hb as found during a dialysis session.
Patient only received a truncated session of his HD yesterday (1.5 hours). He notes he was feeling fatigued and SOB. Otherwise denies lightheadedness, syncope, CP, abdominal pain, nausea/vomiting/diarrhea, melena, hematochezia, fever, chills, or
cough.
He had a recent admission to [facility] for pneumonia and was apparently discharged on 4L O2 at that time. Specific history is limited due to patient cooperativity.
ED COURSE
Afebrile, BP 170s over 80s, pulse 52, initially hypoxic to high 80s on 4 L with no increased work of breathing, supplemental oxygen increased to 5 L with 87% saturation, hemoglobin 6.4, normal WBC, normal platelet, electrolytes stable
Chest x-ray showed bilateral vascular flow cephalization, increased interstitial lung markings diffusely, mild interstitial edema. BNP elevated to 13K.
Admitted to ICU, started on BiPAP 12/5, nitroglycerin drip, transfused 1 unit of packed red blood cells.
Past Medical History
Past Medical History: Other (ESRD on HD (MWF), T1DM , HTN, HLD, chronic oxygen at home? 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
Past Surgical History: Other (permacath)
Social History
Tobacco: Former Smoker (quit 4 weeks ago)
Living: Other (currently at [facility])
Family History
Family History: Reviewed & Not Pertinent
Allergies / Home Medications
Allergies
Allergy/AdvReac Type Severity Reaction Status Date / Time
No Known Allergies Allergy Verified 04/27/25 17:46
Home Medications
�Medication �Instructions �Recorded �Confirmed �Last Taken �Type
acetaminophen 325 mg tablet 650 mg PO Q6HPRN PRN mild pain 04/27/25 04/27/25 Unknown History
(Tylenol)
amlodipine 10 mg tablet (Norvasc) 10 mg PO DAILY 04/27/25 04/27/25 Unknown History
aripiprazole 5 mg tablet (Abilify) 5 mg PO DAILY 04/27/25 04/27/25 Unknown History
aspirin 81 mg chewable tablet 81 mg PO DAILY 04/27/25 04/27/25 Unknown History
atorvastatin 80 mg tablet (Lipitor) 80 mg PO QPM 04/27/25 04/27/25 Unknown History
bisacodyl 10 mg rectal suppository 10 mg TX DAILYPRN PRN if no bm 04/27/25 04/27/25 Unknown History
(Dulcolax (bisacodyl)) aftr mom
carvedilol 25 mg tablet (Coreg) 25 mg PO BID 04/27/25 04/27/25 Unknown History
clonidine 0.3 mg/24 hr weekly 1 patch transdermal FR 04/27/25 04/27/25 Unknown History
transdermal patch
clopidogrel 75 mg tablet (Plavix) 75 mg PO DAILY 04/27/25 04/27/25 Unknown History
diazepam 5 mg tablet (Valium) 5 mg PO BID 04/27/25 04/27/25 Unknown History
gabapentin 300 mg capsule 300 mg PO DAILY 04/27/25 04/27/25 Unknown History
hydralazine 100 mg tablet 100 mg PO TID 04/27/25 04/27/25 Unknown History
insulin glargine 100 unit/mL (3 15 unit SC HS 04/27/25 04/27/25 Unknown History
mL) subcutaneous pen (Lantus
Solostar U-100 Insulin)
insulin lispro 100 unit/mL 6 sliding scale dose SC AC 04/27/25 04/27/25 Unknown History
subcutaneous pen
isosorbide mononitrate 30 mg 30 mg PO DAILY 04/27/25 04/27/25 Unknown History
tablet,extended release 24 hr
lidocaine 5 % topical patch 1 patch topical DAILY 04/27/25 04/27/25 Unknown History
nicotine 14 mg/24 hr daily 1 patch transdermal DAILY 04/27/25 04/27/25 Unknown History
transdermal patch
patiromer calcium sorbitex 16.8 16.8 g PO DAILY 04/27/25 04/27/25 Unknown History
gram oral powder packet
sertraline 50 mg tablet 50 mg PO DAILY 04/27/25 04/27/25 Unknown History
sevelamer carbonate 800 mg tablet 800 mg PO AC 04/27/25 04/27/25 Unknown History
sorbitol 70 % solution 30 ml PO DAILYPRN PRN constipation 04/27/25 04/27/25 Unknown History
tramadol 50 mg tablet 50 mg PO BIDPRN PRN moderate pains 04/27/25 04/27/25 Unknown History
Review of Systems
-
History Source: Patient
All other systems: Negative unless noted
Vitals / Labs / Diagnostic Testing
Vital Signs
Temp Pulse Resp BP Pulse Ox
97.9 F 59 18 163/91 96
04/28/25 07:54 04/28/25 10:16 04/28/25 10:16 04/28/25 10:16 04/28/25 10:16
Lab Data
04/28/25 03:43
Diagnostic Testing:
Physical Exam
-
HEENT: Normocephalic and Anicteric
Cardiovascular: S1/S2, Regular Rhythm and Other (bradycardia; 1-2+ lower extremity edema)
Respiratory: Other (Currently on BiPAP, with non labored respirations. No wheezing, difficult to auscultate bases secondary to body habitus and BiPAP, mildly diminished breath sounds )
GI: Soft
Neurology: Awake and Oriented
Skin: Warm
Assessment
-
Diogenes Og is a 44M PMHx ESRD on HD (MWF), T1DM , HTN, HLD, and chronic oxygen at home? (4L NC) who presents with increased oxygen requirements, hypertension, and low hemoglobin as found in the middle of a dialysis session, and was found to have
pulmonary congestion on chest imaging and a hemoglobin of 6.6 on admission.
ASSESSMENT
Acute Hypoxic Respiratory Failure 2/2 Volume Overload in the setting of insufficient hemodialysis
Severe Hypertension
Anemia of unknown etiology
Conditions Present Prior to Arrival
Chronic supplemental oxygen use
ESRD on dialysis
Type 1 diabetes
Hyperlipidemia
Bipolar disorder
Generalized anxiety disorder
Major depressive disorder
Chronic constipation
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
Wheelchair-bound
PLAN
Scheduled for dialysis today; may need extra tomorrow
Continue BiPAP and wean as tolerated to home O2 req
Will give 1 more unit of pRBC after dialysis complete this AM
Recheck CBC in PM
Continue nitro drip for now; wean as tolerated after dialyzed
Reintroduce home BP meds after taken off of drip
Other electrolytes as advised by nephrology
Follow up with ECHO
Data Reviewed
-
EKG: Tracing personally visualized and interpreted and Report reviewed by me
Radiology: Image personally visualized and interpreted and Report reviewed by me
Labs: Labs reviewed by me
[2025-04-28] MEDS: LOW STRENGTH ASPIRIN 81 MG PO (11:22)
[2025-04-28] MEDS: ABILIFY 5 MG PO (11:22)
[2025-04-28] MEDS: NORVASC 10 MG PO (11:22)
[2025-04-28] MEDS: PLAVIX 75 MG PO (11:22)
[2025-04-28] MEDS: RENVELA 800 MG PO ×3 (11:23→18:28)
[2025-04-28] MEDS: COREG 25 MG PO (11:23)
--- NOTE | 2025-04-28 11:32 | W.PN.HOSP.TC ---
Today's Communication/Plan
-
See plan
Assessment / Plan
Assessment / Plan
Physical exam:
General: Acutely ill
HEENT: Normocephalic, Atraumatic and Moist Mucous Membranes
Respiratory: Bilateral coarse crackles; Negative Wheezes, or Rhonchi
Cardiac: Regular Rhythm and S1/S2
GI: Soft, Nontender and Nondistended
Musculoskeletal: No Clubbing, No Cyanosis. Bilateral lower extremity edema
Neuro: Awake, Alert and Oriented, no neurological deficits but generalized weakness and wheelchair-bound
Psych: Calm
A/P:
#Acute hypoxic respiratory insufficiency likely secondary to fluid overload
83% room air currently 95% on 10 L of oxygen
-Will start BiPAP
- Consulted gis application developer
- Wean BiPAP as able
#History of COPD on chronic 4 L nasal cannula since March 2025
Reports has been on chronic 4 L of oxygen since March 2025 when seen at [facility] for pneumonia
#Acute symptomatic anemia history ESRD on dialysis
Hgb 6.4, MCV 90.6
-Type and screen
-Transfuse 1 units PRBC
-Check iron panel, B12, folate
#ESRD on dialysis Friday
Completed 1.5 hours out of 3-hour session today at [facility] 04/27/2025
As right upper chest dialysis catheter x 2 years
Creat 7.3/bun 52
Check mag, Phos
-Consult Nephro-discussed with nephrology today
- Continue sevelamer 800 mg AC, Patiromer calcium sorbitex 16.8 g daily
#HTN emergency
-On nitro drip
-Continue Norvasc 10 mg daily, Coreg 25 mg twice daily, clonidine 1 patch transdermal Fridays,
- Restart hydralazine 100 mg 3 times daily
- Wean off nitro drip
#Unknown coronary status
- Restart Imdur 30 mg daily
- Continue Plavix 75 mg daily
Obtain records from [facility] admission March 2025
#Diabetic type 1 Dx age 24
Accu-Cheks with SSI, check HgbA1c
Continue Lantus 15 units at bedtime, lispro 6 units with meals
#HLD
-Continue atorvastatin 80 mg every afternoon
#Bipolar disorder/anxiety/depression
-Continue Abilify 5 mg daily, Zoloft 50 mg daily
#Constipation
Continue sorbitol 30 mL daily as needed constipation
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
DVT proph- Subcu heparin
Full code
Total Critical Care Time___45__ minutes. I was immediately available to the patient and staff. I personally examined, reviewed labs, diagnostic images/reports, interpretations, treatment plans, discussed patient care with other providers and
family or caregivers (if patient is unable to make decisions), entered orders as appropriate and documented the medical record.
Anticipated Discharge: > 48 hours
Subjective/Interval History
-
Date of Service: April 28, 2025
Patient received hemodialysis and on BiPAP at the time of my evaluation. He still short of breath. Denies chest pain.
Objective Data
-
Labs:
Laboratory Results
04/28/25 04/28/25
03:43 10:00
WBC 6.7
Hgb 6.6 L* Pending
Hct 20.4 L* Pending
Plt Count 202
Sodium 133 L
Potassium 5.2 H
Chloride 99
Carbon Dioxide 24
BUN 54 H
Creatinine 7.6 H*
Glucose 150 H
Calcium 8.7
Total Bilirubin 0.7
AST 18
ALT 20
Alkaline Phosphatase 168 H
Vital Signs:
Vital Signs
Temp Pulse Resp BP Pulse Ox
97.9 F 64 10 157/79 94
04/28/25 07:54 04/28/25 11:22 04/28/25 11:00 04/28/25 11:22 04/28/25 11:00
I&O
04/27/25 04/28/25 04/29/25
06:59 06:59 06:59
Intake Total 250 / 251.5 7.5 / 7.5
Balance 250 / 251.5 7.5 / 7.5
[2025-04-28] MEDS: NOVOLOG FLEXPEN 6 UNITS SC ×3 (11:45→18:28)
[2025-04-28] MEDS: NOVOLOG FLEXPEN-LOW RESISTANCE SC ×2 (11:46→18:29)
[2025-04-28 11:56] LABS: Glucose - Point of Care 145 mg/dl (70-99)
--- NOTE | 2025-04-28 12:07 | VATNOTE ---
Second IV site requested by PCN. One attempt made and not successful. Midline suggested by this VAT RN, pt refusing. Legislators made aware.
--- NOTE | 2025-04-28 12:15 | W.PN.UPDATE ---
Update Note
Progress Note Update
Patient refusing additional IV line placement.
Completed dialysis with improvement.
No access to provide further blood transfusion.
For now hold off on further transfusion.
All other medications have been restarted
He is clinically improved-Will observe for a few hours in the ICU, hopefully as antihypertensive started we will be able to wean off nitroglycerin drip.
Suspect his blood pressure is always elevated as the patient states that his pressures are always high-Will target systolic blood pressure of around 150-- 160. Would not aim for normalization of blood pressures.
Continue to use BiPAP as needed for increased work of breathing.
--- NOTE | 2025-04-28 12:17 | PTCARENOTE ---
Patient continuing to refuse care. Currently, patient has one peripheral site. Nitro gtt infusing. Patient educated that additional access required to administer 1 unit PRBCs. VAT RN at bedside. Unsuccessful placement of peripheral site. VAT RN
requesting to place midline. Patient agitated and arguing that he had blood transfused last night through existing peripheral site. RN explained that blood products need to be administered in their own line. Patient telling RN to just get rid of the
nitro gtt. When attempting to explain the purpose of the nitro gtt, patient asking what his bp is. Blood pressure at the time 185/85. Patient screaming out 'that's it?'. Educated on risk of stroke. Patient's response, 'so what, I have already had
11'. Fireworks Maker notified. Blood transfusion postponed until able to wean off nitro gtt. Remainder of patient's home bp medications ordered.
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
[2025-04-28] MEDS: CATAPRES-TTS-3 0.3 MG TRANSDERM (12:42)
[2025-04-28] MEDS: APRESOLINE 100 MG PO ×2 (12:42→20:33)
[2025-04-28] MEDS: IMDUR (EXTENDED RELEASE) 30 MG PO (12:42)
[2025-04-28 14:29] LABS: Hematocrit 19.6 % (39.0-52.0); Hemoglobin 6.6 g/dL (13.0-18.0)
[2025-04-28] MEDS: NOVOLOG FLEXPEN-LOW RESISTANCE 1 UNITS SC (15:29)
--- NOTE | 2025-04-28 15:37 | PTCARENOTE ---
Nitro gtt weaned off at 1445. VSS. Repeat H&H- 6.6/19.6. 1 unit PRBCs transfusing. Patient more cooperative with care. C/o pain; prn Ultram administered. Oxygen weaned to 3L nc. No other changes.
[2025-04-28 15:46] LABS: Glucose - Point of Care 186 mg/dl (70-99)
--- NOTE | 2025-04-28 16:14 | PTCARENOTE ---
Echo in progress.
--- NOTE | 2025-04-28 16:59 | W.PN.UPDATE ---
Update Note
Progress Note Update
Clinically improved after dialysis-has not required BiPAP since.
On low rate supplemental oxygen
He ate lunch independently
Nitroglycerin drip has been discontinued-systolic blood pressure currently 155.
He reports clinical improvement
Will transfer to telemetry.
Critical care team will sign off, pulmonary will continue to follow briefly for hypoxemic respiratory failure.
May use BiPAP only as needed.
--- NOTE | 2025-04-28 17:12 | PTCARENOTE ---
Patient downgraded to tele level of care.
[2025-04-28] MEDS: LIPITOR 80 MG PO (17:20)
[2025-04-28 18:42] LABS: Glucose - Point of Care 114 mg/dl (70-99)
[2025-04-28] MEDS: COREG PO (21:10)
[2025-04-28 21:41] LABS: Glucose - Point of Care 129 mg/dl (70-99)
[2025-04-28] MEDS: NOVOLOG FLEXPEN 2 UNITS SC (21:50)
[2025-04-29] VITALS (37 sets, daily range): BP systolic 127–196; BP diastolic 50–147; PULSE 2–68; O2SAT 98; BMI 28.1
[2025-04-29] MEDS: TYLENOL 650 MG PO ×5 (02:33→20:05)
[2025-04-29] MEDS: ULTRAM 50 MG PO ×2 (02:38→12:04)
[2025-04-29] MEDS: ROXICODONE 5 MG PO (02:59)
[2025-04-29 03:21] LABS: Glucose - Point of Care 145 mg/dl (70-99)
[2025-04-29] MEDS: TYLENOL PO (05:17)
[2025-04-29] MEDS: NICODERM TRANSDERMAL 14 MG TRANSDERM (07:34)
[2025-04-29] MEDS: NOVOLOG FLEXPEN-LOW RESISTANCE SC (07:35)
[2025-04-29] MEDS: NOVOLOG FLEXPEN SC ×2 (07:35→07:44)
[2025-04-29] MEDS: ZOLOFT 50 MG PO (07:36)
[2025-04-29] MEDS: PLAVIX 75 MG PO (07:36)
[2025-04-29] MEDS: LOW STRENGTH ASPIRIN 81 MG PO (07:36)
[2025-04-29] MEDS: VALIUM 5 MG PO ×3 (07:36→20:05)
[2025-04-29] MEDS: NEURONTIN 300 MG PO (07:36)
[2025-04-29] MEDS: RENVELA PO (07:37)
[2025-04-29] MEDS: ABILIFY 5 MG PO (07:37)
[2025-04-29] MEDS: HEPARIN 5000 UNITS SC (07:38)
[2025-04-29] MEDS: LANTUS 0.15 UNITS SC (07:43)
[2025-04-29 07:51] LABS: Glucose - Point of Care 140 mg/dl (70-99)
[2025-04-29] MEDS: APRESOLINE PO (07:56)
[2025-04-29] MEDS: CATAPRES-TTS-3 TRANSDERM (07:56)
[2025-04-29] MEDS: IMDUR (EXTENDED RELEASE) PO (07:56)
[2025-04-29] MEDS: COREG PO (07:56)
[2025-04-29] MEDS: NORVASC PO (07:57)
[2025-04-29 08:24] LABS: Hematocrit 23.6 % (39.0-52.0); Hemoglobin 7.7 g/dL (13.0-18.0)
[2025-04-29] MEDS: MANNITOL 25% 12.5 GRAMS IV (08:51)
[2025-04-29] MEDS: RETACRIT 10000 UNITS IV (08:52)
[2025-04-29 08:53] LABS: Carbon Dioxide 27 mmol/L (22-30); Chloride 98 mmol/L (98-107); Potassium 4.9 mmol/L (3.5-5.1); Sodium 134 mmol/L (135-145)
--- NOTE | 2025-04-29 09:47 | W.PN.NEPH.HD ---
Assessment
-
Seen on HD. c/o right sided pain (shoulder, ribs, hips). VSS, access ok
wants to drink more, but understands that this will prolong his hospitalization to get volume under control
Progress Note - Hemodialysis
-
Date of Service: April 29, 2025
Duration: 45 minutes and 3 hours
Potassium Bath: 2
Calcium Bath: 2.5
Opti-Dialyzer: 160
Ultrafiltration: Other (4kg)
Blood Flow: 400
Dialysate Flow: 600
Heparin: 0
EPO: 04911 units
[2025-04-29 10:13] LABS: Hepatitis B Surface Antigen Negative (Negative)
[2025-04-29 10:31] LABS: Hepatitis C Antibody Negative (Negative)
--- NOTE | 2025-04-29 10:43 | PN.CDI ---
CDI
- -
CDI:
Physician Documentation Request
Admit Date: 04/27/25 23:52
Dear Doctor Daigle,
Please review the following and provide your response in the progress notes.
Clinical Indicators:
- 04/28 PN 'Acute hypoxic respiratory insufficiency'
- '83% room air currently 95% on 10 L of oxygen'
- 04/28 Pulmonary 'Acute Hypoxic Respiratory Failure'
- 04/27-04/29 on BiPAP intermittently
In an attempt to clarify potentially conflicting documentation, please clarify the respiratory status:
Acute on chronic respiratory failure
Hypoxia only
Other (please specify)
Additional information for Respiratory Failure:
Recognized criteria for Respiratory Failure (Source: Nahed Celestin. 2018June 09.
Documentation tips: Acute Respiratory Failure, The Hospitalist.)
ABGs: (1 or more) Symptoms Please indicate type if known
1. p)2 <60 or RA SPO2 <91% on RA 1. Tachypnea, SOB, dyspnea Hypoxic
2. pCO2 >45 and pH <7.35 2. Use of accessory muscles Hypercapnic
3. pO2 decrease of pCO2 increase by 3. Pallor or cyanosis Hypoxic and Hypercapnic
10 mmHg from baseline if known 4. Anxiety or restlessness Unable to determine
4. P/F Ratio (pO2/FiO2)nless than 300 5. Unable to speak in full sentences
Use of terms such as suspected, likely, concern for, or probable (associated with a specific diagnosis that is being evaluated, monitored, or treated as if it exists) are acceptable and can be coded in the inpatient setting, when documented at the
time of discharge.
Thank you,
Can Miller RN
CDI Specialist
Please use your independent medical judgment in providing your response.
--- NOTE | 2025-04-29 10:49 | PN.CDI ---
CDI
- -
CDI:
Physician Documentation Request
Admit Date: 04/27/25 23:52
Dear Doctor Pilo,
Please review the following and provide your response in the progress notes.
Clinical Indicators:
The diagnosis of pneumonia was documented on 04/27 H&P but is not consistently noted in subsequent documentation.
- 04/27 H&P '[facility]'
- 04/27 Update 'Pneumonia -suspect is sequela of his recent pneumonia'
- 04/27 CXR 'Patchy more confluent parenchymal opacity within the left mid to lower lung. This could represent pneumonia'
- IV abx azithromycin, doxycycline
Please clarify the following:
____ - Pneumonia was present on admission and is now resolved.
____ - Pneumonia was present on admission and is still being monitored, evaluated or treated
____ - Pneumonia was ruled out
____ - Pneumonia is still a likely, suspected, probable diagnosis
____ - Other
Use of terms such as suspected, likely, concern for, or probable (associated with a specific diagnosis that is being evaluated, monitored, or treated as if it exists) are acceptable and can be coded in the inpatient setting, when documented at the
time of discharge.
Thank you,
Can Miller RN
CDI Specialist
Please use your independent medical judgment in providing your response.
--- NOTE | 2025-04-29 10:59 | PN.CDI ---
CDI
- -
CDI:
Physician Documentation Request
Admit Date: 04/27/25 23:52
Dear Doctor Daigle,
Please review the following and provide your response in the progress notes.
Clinical Indicators:
- RN skin assessments indicates Stage 1 sacrum pressure injury, POA
- per H&P 'patient is wheelchair-bound can stand to transfer only'
Physician documentation of the type and location of wounds is required for compliant documentation. Based on the above clinical findings and your assessment, please provide the following in your progress note:
1. Location of the ulcer/wound, including laterality.
2. Type (etiology) of ulcer/wound:
- Diabetic ulcer
- Arterial (ischemic) ulcer
- Traumatic wound
- Venous stasis ulcer
- Pressure (decubitus) ulcer
- Other
Use of terms such as suspected, likely, concern for, or probable (associated with a specific diagnosis that is being evaluated, monitored, or treated as if it exists) are acceptable and can be coded in the inpatient setting, when documented at the
time of discharge.
Thank you,
Can Miller RN
CDI Specialist
Please use your independent medical judgment in providing your response.
*Source: National Pressure Ulcer Advisory Panel (NPUAP)
--- NOTE | 2025-04-29 11:02 | W.PN.INTV ---
Today's Communication / Plan
Recommendations
Dialysis ongoing
Continue antihypertensive
Wean down FiO2 as able
Discontinue BiPAP
Follow H&H
Repeat chest x-ray tomorrow morning
Pulmonary will follow
Assessment
-
Diogenes Og is a 44M PMHx ESRD on HD (MWF), T1DM , HTN, HLD, and chronic oxygen at home? (4L NC) who presents with increased oxygen requirements, hypertension, and low hemoglobin as found in the middle of a dialysis session, and was found to have
pulmonary congestion on chest imaging and a hemoglobin of 6.6 on admission.
ASSESSMENT
Acute Hypoxic Respiratory Failure 2/2 Volume Overload in the setting of insufficient hemodialysis
Hypertensive urgency
Anemia of unknown etiology
Conditions Present Prior to Arrival
Chronic supplemental oxygen use
ESRD on dialysis
Type 1 diabetes
Hyperlipidemia
Bipolar disorder
Generalized anxiety disorder
Major depressive disorder
Chronic constipation
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
Wheelchair-bound
PLAN
-
Overall clinically improved postdialysis
Did not require BiPAP overnight-Will discontinue
Continue oxygen supplementation currently at 8 L mid flow-pulse ox 100%
Undergoing dialysis-hopefully ongoing improvement
Echocardiogram 04/28/2025: Reviewed showed ejection fraction 55-60%. Mild LVH. Stage II diastolic dysfunction. Normal right ventricular size and function. Mild to moderate TR with pulmonary artery pressure 38 mmHg
-
Blood pressure control per primary team-outpatient medication restarted
Hopefully to continue to improve after dialysis.
Patient stated that his blood pressure is always hide
-
Incentive spirometry encouraged
Aspiration precautions
-
Repeat chest x-ray tomorrow morning to document improvement on infiltrate and to follow-up on pleural effusion plan
-
Severe anemia status post 2 units of packed red blood cells. Hemoglobin 7.7 04/29/2025.
Suspect due to chronic kidney disease
So far no evidence for bleeding
-
Pulmonary will continue to follow
Subjective Dataa
Subjective Data
Date of Service:
Date of Service: April 29, 2025
Chief Complaint: Project Management Specialist Follow Up (Acute hypoxemic respiratory failure-volume overload/pulmonary edema)
Subjective:
No particular complaints this morning
Did not require BiPAP overnight
Remains on supplemental oxygen
Review of Systems
General: Fever (n)
Cardiopulmonary: Dyspnea (none at rest) and Dyspnea on Exertion
GI: Abdominal Pain (n) and Nausea (n)
Objective Data
Data Reviewed
Vital Signs / I&O / Oxygen:
Vital Signs
Temp Pulse Resp BP Pulse Ox
97.8 F 53 10 166/79 93
04/29/25 08:00 04/29/25 05:43 04/29/25 05:43 04/29/25 05:43 04/29/25 08:05
Intake and Output
04/28/25 04/29/25 04/30/25
06:59 06:59 06:59
Intake Total 250 / 251.5 860.6 / 860.6 240 / 240
Balance 250 / 251.5 860.6 / 860.6 240 / 240
SaO2 93
Nasal Cannula flow liters per 6
minute
Physical Exam
General: Respiratory Distress (none at rest)
Cardiovascular: S1-S2
Respiratory: Crackles
GI: Soft and Non Distended
Neurology: Awake and Alert
Skin: Warm
Labs/Micro/Reports
Lab Data
04/29/25 07:50
04/29/25 07:50
Microbiology
04/28/25 03:43 Nose MRSA Screen - Final
No Methicillin Resistant Staphylococcus aureus isolated.
[2025-04-29] MEDS: RENVELA 800 MG PO ×2 (12:05→15:55)
[2025-04-29] MEDS: APRESOLINE 100 MG PO ×2 (12:08→22:20)
[2025-04-29] MEDS: NOVOLOG FLEXPEN 6 UNITS SC ×2 (12:17→15:56)
[2025-04-29] MEDS: NOVOLOG FLEXPEN-LOW RESISTANCE 1 UNITS SC ×2 (12:18→15:56)
--- NOTE | 2025-04-29 12:26 | W.PN.HOSP.TC ---
Addendum entered and electronically signed by Roverto Daigle MD 04/29/25 18:27:
Pneumonia was ruled out
Acute on chronic respiratory failure
Stage 1 sacrum pressure injury, POA
Original Note:
Today's Communication/Plan
-
Hemodialysis. Antihypertensive adjustments. Follow-up chest x-ray
Assessment / Plan
Assessment / Plan
Physical exam:
General: Acutely ill
HEENT: Normocephalic, Atraumatic and Moist Mucous Membranes
Respiratory: Bilateral coarse crackles; Negative Wheezes, or Rhonchi
Cardiac: Regular Rhythm and S1/S2
GI: Soft, Nontender and Nondistended
Musculoskeletal: No Clubbing, No Cyanosis. Bilateral lower extremity edema
Neuro: Awake, Alert and Oriented, no neurological deficits but generalized weakness and wheelchair-bound
Psych: Calm
A/P:
Acute on chronic hypoxic respiratory failure:
Due to pulmonary edema and end-stage renal disease
On BiPAP-plan to discontinue today
Apparently he is on home oxygen, (?4 L)
Status post hemodialysis x 2 [id number]
Echocardiogram EF 55 to 60%, stage II diastolic dysfunction, mild mitral valve regurgitation mild to moderate tricuspid regurgitation.
Probable left pleural effusion but no clinical evidence of pneumonia
Plan to repeat chest x-ray tomorrow
Hypertensive emergency:
Off nitro drip
Continue home antihypertensive regimen, including carvedilol 25 mg twice a day, clonidine 0.2 mg patch, amlodipine 10 mg p.o. daily, hydralazine 100 mg 3 times a day, Imdur 30 mg p.o. daily-increase to 60 mg.
Updated echocardiogram
Headache:
Known history of migraine
Add Tylenol as needed
On tramadol as needed
He is also on other pain medications that are not available in formulary
Probable CAD (unknown coronary anatomy):
On dual antiplatelet therapy beta-blockers nitrates and statins
Reviewed echocardiogram
Remains chest pain-free
Worsening anemia:
Worsening anemia of chronic disease
Status post blood transfusion
Hemoglobin as low as 6.4--> today hemoglobin 7.7
Continue to monitor hemoglobin
Hyperlipidemia:
Continue home statins, atorvastatin 80 mg p.o. every night
Diabetes mellitus type 1:
Continue Lantus 15 units daily
Continue aspart 6 units before meals
Continue insulin sliding scale
Generalized anxiety disorder:
On diazepam 5 mg twice a day
Needed extra dose today
Continue to monitor
End-stage renal disease on hemodialysis:
Nephrology on board
Hemodialysis per renal
On Renvela
Bipolar disorder:
Continue aripiprazole 5 mg p.o. daily
On Zoloft 50 mg p.o. daily
On benzodiazepine
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
Wheelchair-bound
DVT prophylaxis:
Heparin SQ
CODE STATUS:
Full code
Total time spent on today's encounter was 52 minutes which included time spent in counseling the patient/family regarding diagnosis and treatment plan as listed above, goals of care, and symptom management. Case was discussed with nursing staff,
specialists, and care coordinators/case management. All labs and imaging personally reviewed by me. Remainder the time spent in detailed review of previous records, lab data, imaging, and other medical provider documentation.
Anticipated Discharge: > 48 hours
Subjective/Interval History
-
Date of Service: April 29, 2025
Patient feels less short of breath. Receiving another session of hemodialysis today. No chest pain. Does complain of headache
Objective Data
-
Labs:
Laboratory Results
04/29/25
07:50
Hgb 7.7 L
Hct 23.6 L
Sodium 134 L
Potassium 4.9
Chloride 98
Carbon Dioxide 27
Vital Signs:
Vital Signs
Temp Pulse Resp BP Pulse Ox
98.1 F 59 10 183/74 96
04/29/25 11:55 04/29/25 12:08 04/29/25 05:43 04/29/25 12:08 04/29/25 12:13
I&O
04/28/25 04/29/25 04/30/25
06:59 06:59 06:59
Intake Total 250 / 251.5 860.6 / 860.6 240 / 240
Balance 250 / 251.5 860.6 / 860.6 240 / 240
[2025-04-29 12:28] LABS: Glucose - Point of Care 166 mg/dl (70-99)
[2025-04-29] MEDS: CATAPRES-TTS-3 0.3 MG TRANSDERM (13:46)
--- NOTE | 2025-04-29 15:33 | CM ---
Following up on Patient. JACKSON Norman saw previous Case Management note that patient will return to [facility]. JACKSON Norman left message for Vania because saw that patient was just STR there, but want to confirm. No call back as of yet so assuming
Authorization will be needed for a return.
PLAN: Return to [facility] needing SNF Auth
[2025-04-29 15:54] LABS: Glucose - Point of Care 153 mg/dl (70-99)
[2025-04-29] MEDS: IMDUR (EXTENDED RELEASE) 30 MG PO (15:55)
[2025-04-29] MEDS: APRESOLINE 10 MG IV (17:33)
[2025-04-29] MEDS: LIPITOR 80 MG PO (17:33)
[2025-04-29] MEDS: COMPAZINE 10 MG IV (18:23)
[2025-04-29] MEDS: HEPARIN SC ×2 (20:04→20:10)
[2025-04-29] MEDS: COREG 25 MG PO (20:05)
[2025-04-29 21:35] LABS: Glucose - Point of Care 190 mg/dl (70-99)
[2025-04-29 21:38] LABS: B.E. 4.0 mmol/L; HCO3 28.5 mmol/L (21-28); O2 Saturation % 89.9 % (94-98); PCO2 42 mmHg (35-48); PO2 60 mmHg (83-108)
--- NOTE | 2025-04-29 21:40 | PTCARENOTE ---
Patient calling out 'I can't breathe'. Increased work of breathing, sats in mid 80s on 6L, respiratory therapist contacted to place BiPAP. Even with BiPAP on, sats remain high 80s/low 90s. W[employer] BRUSHER covering house contacted and on floor to see patient.
Decision made to increase level of care. Telephone report called to receiving IMU RN. Patient transferred to IMU, with all belongings, with 2 RNs & RT.
--- NOTE | 2025-04-29 23:16 | PTCARENOTE ---
Pt received from 2N to IMU. Pt AAOX3. Denies pain or discomfort. Received on BIPAP 15/8/15L POX 96%. O2 decreased by RT to 10L on BIPAP POX remains 96%. Lungs diminished B/L. SB/PQT on CM rate 50's. Hypertensive 183/76. Received HS Apresoline before
arriving to IMU. Shadia GALLEGOS on floor and updated. Will continue to monitor for now. +2 edema LE's +P, +1 GA, trace facial edema. +BS. Foam intact to sacrum for stage 1. Heels elevated on pillow. Maintained on Q2hr turns. Rest of assessment as
documented. Call davis remains within reach. Will continue to monitor.
[2025-04-30] VITALS (13 sets, daily range): BP systolic 147–179; BP diastolic 65–97; PULSE 2–68
[2025-04-30] MEDS: ULTRAM 50 MG PO ×2 (00:13→09:28)
[2025-04-30] MEDS: APRESOLINE 10 MG IV ×2 (00:14→06:17)
--- NOTE | 2025-04-30 00:51 | RESPNOTE ---
PT is oredered a repeat ABG, but is refusing the blood draw. Will attempt again in the AM, if he allows.
[2025-04-30] MEDS: TYLENOL 650 MG PO ×3 (03:44→17:57)
--- NOTE | 2025-04-30 05:50 | W.PN.UPDATE ---
Update Note
Progress Note Update
episode of SOB, sats mid 80s.on 6 L NC placed on bipap.� ABG PO2 60. Transferred to IMU for bipap therapy refused second ABG at midnight. Maintained 92-95% overnight without further complaints.
[2025-04-30] MEDS: FLUSH (NSS) 2 FLUSH IV (06:18)
--- NOTE | 2025-04-30 08:18 | PTCARENOTE ---
Patient received from shift coordinator. Patient resting comfortably in bed. AAO, VSS. No events noted overnight once arriving on BiPAP. Currently on 6L N/C, will try to wean. BiPAP HS and for naps. No testing scheduled at this time. Moving patient
to new room once available for HD since current room is blocked for HD. Call davis in reach.
[2025-04-30 08:42] LABS: Glucose - Point of Care 139 mg/dl (70-99)
[2025-04-30] MEDS: PLAVIX 75 MG PO (08:45)
[2025-04-30] MEDS: COREG PO ×2 (08:46→19:35)
[2025-04-30] MEDS: ZOLOFT 50 MG PO (08:46)
[2025-04-30] MEDS: ABILIFY 5 MG PO (08:46)
[2025-04-30] MEDS: NEURONTIN 300 MG PO (08:46)
[2025-04-30] MEDS: APRESOLINE 100 MG PO ×3 (08:46→21:03)
[2025-04-30] MEDS: LOW STRENGTH ASPIRIN 81 MG PO (08:46)
[2025-04-30] MEDS: NORVASC 10 MG PO (08:46)
[2025-04-30] MEDS: VALIUM 5 MG PO ×2 (08:47→19:35)
[2025-04-30] MEDS: NICODERM TRANSDERMAL 14 MG TRANSDERM (08:47)
[2025-04-30] MEDS: HEPARIN SC ×3 (08:48→19:37)
[2025-04-30] MEDS: NOVOLOG FLEXPEN-LOW RESISTANCE SC (08:48)
[2025-04-30] MEDS: RENVELA 800 MG PO ×3 (08:48→16:53)
[2025-04-30] MEDS: IMDUR (EXTENDED RELEASE) 60 MG PO (09:28)
[2025-04-30] MEDS: NOVOLOG FLEXPEN 6 UNITS SC ×3 (09:29→17:02)
[2025-04-30] MEDS: LANTUS 0.15 UNITS SC (09:29)
--- NOTE | 2025-04-30 09:46 | CON.CAR ---
Addendum entered and electronically signed by Hector Haley DO 04/30/25 13:15:
I saw and examined the patient.
The Curtain Worker's note was reviewed and I agree with the note.
Comment:
Patient resting comfortably in bed on BiPAP. Denies any chest pain, shortness of breath, weakness. Notes mild headache. Patient with history of diabetes, end-stage renal disease, bipolar disorder, hypertension who presented due to low hemoglobin,
headache, hypertensive urgency.
GENERAL: no acute distress, on BiPAP
EYE: sclera anicteric
NECK: Supple, no JVD appreciated, difficult to assess due to BiPAP straps
ENT: normal nose, moist mucosal membranes
CARDIAC: Regular rate and rhythm, +S1/S2, 2/6 systolic murmur; no rubs, or gallops
CHEST/PULMONARY: Normal effort, bibasilar crackles
ABDOMEN: Soft, without focal tenderness or distention
NEUROLOGICAL: Alert and oriented x3
SKIN: Warm and dry, no rash
PSYCH: Normal and appropriate interaction.
Telemetry shows sinus rhythm
A/P as below
Blood pressure remains elevated despite significant medical therapy with 5 medications. Would strongly encourage aggressive fluid reduction through hemodialysis and compliance with full hemodialysis sessions. Would not increase current medical
therapy however, if following completion of full fluid reduction with dialysis patient still remains hypertensive, could consider up titration of Imdur as additional possibility. However, patient reported headaches associated with Imdur and
therefore I am reluctant to keep increasing this medication. Elevated BNP likely related to fluid and volume overload.
Continue goal-directed therapy on outpatient aspirin, Plavix, statin as well as carvedilol, amlodipine, hydralazine, Imdur
Echocardiography 04/28 normal LV RV function without regional wall motion abnormalities. EKG without evidence of ischemic changes no reported chest pain or anginal equivalents.
Strongly encourage outpatient follow-up primary care, nephrology, general cardiology
No further recommendations from CV standpoint. Will sign off. Please call back with questions.
Original Note:
Consultation
Consultation Request
Date/Time Consultation Performed: 04/30/25
Requesting Provider: Dr. Daigle
Performing Provider: Livia Gama PA-C for Dr. Haley
Reason for Consultation: HTN
Medical History
-
Chief Complaint: anemia
History of Present Illness:
Patient is a 44-year-old male with past medical history of type 1 diabetes since age 24, ESRD on HD Friday, bipolar disorder, hypertension who presented to ER from [facility] for hemoglobin of 6.6. He had a recent
admission to [facility] several weeks ago for pneumonia resulting in discharge to [facility]. In the ER here he required BiPAP. Reportedly has significant issues with compliance with full dialysis sessions and only had half treatment day
before admission. He states they 'kick him out' at times. He is not compliant with diet or fluid restriction. Cardiology consulted due to hypertension refractory to multiple medication regimen.
PMH:
Type 1 diabetes
ESRD Friday, noncompliant with full treatments
Bipolar disorder
Hypertension
Hyperlipidemia
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
Past Medical History
Past Medical History: Other (in HPI)
Social History
Tobacco: Former Smoker (quit 4 weeks ago)
Personal: Single
Living: Senior Living (SNF at [facility])
Employment: Not Employed
Family History
Family History: Reviewed & Not Pertinent
Allergies / Home Medications
Allergy/AdvReac Type Severity Reaction Status Date / Time
No Known Allergies Allergy Verified 04/27/25 17:46
�Medication �Instructions �Recorded �Confirmed �Type
acetaminophen 325 mg tablet 650 mg PO Q6HPRN PRN mild pain 04/27/25 04/27/25 History
(Tylenol)
amlodipine 10 mg tablet (Norvasc) 10 mg PO DAILY Blood Pressure 04/27/25 04/27/25 History
aripiprazole 5 mg tablet (Abilify) 5 mg PO DAILY Mental Health/Anxiety 04/27/25 04/27/25 History
aspirin 81 mg chewable tablet 81 mg PO DAILY Blood Pressure 04/27/25 04/27/25 History
atorvastatin 80 mg tablet (Lipitor) 80 mg PO QPM High Cholesterol 04/27/25 04/27/25 History
bisacodyl 10 mg rectal suppository 10 mg FL DAILYPRN PRN if no bm 04/27/25 04/27/25 History
(Dulcolax (bisacodyl)) aftr mom
carvedilol 25 mg tablet (Coreg) 25 mg PO BID Blood Pressure 04/27/25 04/27/25 History
clonidine 0.3 mg/24 hr weekly 1 patch transdermal FR Blood 04/27/25 04/27/25 History
transdermal patch Pressure
clopidogrel 75 mg tablet (Plavix) 75 mg PO DAILY Blood Clot 04/27/25 04/27/25 History
Prevention/Tx
diazepam 5 mg tablet (Valium) 5 mg PO BID Mental Health/Anxiety 04/27/25 04/27/25 History
gabapentin 300 mg capsule 300 mg PO DAILY Pain 04/27/25 04/27/25 History
hydralazine 100 mg tablet 100 mg PO TID Blood Pressure 04/27/25 04/27/25 History
insulin glargine 100 unit/mL (3 15 unit SC HS Diabetes 04/27/25 04/27/25 History
mL) subcutaneous pen (Lantus
Solostar U-100 Insulin)
insulin lispro 100 unit/mL 6 sliding scale dose SC AC Diabetes 04/27/25 04/27/25 History
subcutaneous pen
isosorbide mononitrate 30 mg 30 mg PO DAILY Blood Pressure 04/27/25 04/27/25 History
tablet,extended release 24 hr
lidocaine 5 % topical patch 1 patch topical DAILY Pain 04/27/25 04/27/25 History
nicotine 14 mg/24 hr daily 1 patch transdermal DAILY SMOKING 04/27/25 04/27/25 History
transdermal patch CESSASION
patiromer calcium sorbitex 16.8 16.8 g PO DAILY Kidney Disease 04/27/25 04/27/25 History
gram oral powder packet
sertraline 50 mg tablet 50 mg PO DAILY Mental 04/27/25 04/27/25 History
Health/Anxiety
sevelamer carbonate 800 mg tablet 800 mg PO AC Kidney Disease 04/27/25 04/27/25 History
sorbitol 70 % solution 30 ml PO DAILYPRN PRN constipation 04/27/25 04/27/25 History
tramadol 50 mg tablet 50 mg PO BIDPRN PRN moderate pains 04/27/25 04/27/25 History
Review of Systems
-
History Source: Patient
All other systems: Negative unless noted
Physical Exam
Vital Signs
Temp Pulse Resp BP Pulse Ox
98.3 F 58 14 160/66 98
04/30/25 08:03 04/30/25 08:46 04/30/25 06:00 04/30/25 08:46 04/30/25 06:00
Lab Results
Sjv-Y-Aqhtabvexel Pept 16472 pg/ml 04/27/25 17:44
Physical Exam
General: No Apparent Distress and Comfortable
HEENT: Normocephalic, Anicteric and Moist Mucous Membranes
Respiratory: Clear and Non Labored Respirations
Cardiac: S1/S2 and Regular Rhythm
GI: Soft, Non Tender, Non Distended and Normal Bowel Sounds
Musculoskeletal: No Clubbing, No Cyanosis and No Edema
Skin: Warm and Dry
Neuro: Awake (but lethargic)
Impression / Plan
-
Primary Call Box Wirer: none prior to admission
Assessment:
Presentation with acute on chronic anemia
Acute on chronic hypoxic respiratory failure
Hypertensive emergency
Recent admission to [facility] for pneumonia
Multidrug resistant hypertension
Type 1 diabetes
ESRD Friday, noncompliant with full treatments
Bipolar disorder
Hyperlipidemia
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
ECHO 04/28/25: EF 55 to 60%, mild concentric LVH, stage II diastolic dysfunction, Aortic sclerosis, mild MR, mild to moderate TR with PAP 38 mmHg, left pleural effusion noted
Plan:
- Patient presented with acute on chronic anemia. Workup ongoing per primary service
- Also noted to have acute on chronic hypoxic respiratory failure with associated hypertensive emergency
- Discussed with nephrology. Patient has issues with compliance with full HD sessions, frequently cutting sessions early or as patient describes 'they kick him out'
- Blood pressures remain elevated on regimen of Norvasc 10 mg daily, Coreg 25 mg twice daily, hydralazine 100 mg 3 times daily, clonidine 0.3 mg transdermally, Imdur 60 mg daily
- Would continue aggressive volume removal through HD. Encouraged compliance with full HD sessions
- Could consider increasing Imdur dose, however patient already complains of headaches, unclear if this is secondary to hypertension or from medication
- There has been speculation about patient having underlying CAD, which is reasonable to consider given his history of type 1 diabetes since age 24 with suboptimal control. Unfortunately at this time also presents with acute on chronic anemia and
with his compliance issues, would not cath patient at this time. Continue outpatient aspirin, Plavix, statin, Coreg, Norvasc. Patient does not complain of chest discomfort and EKG is sinus bradycardia without acute ischemic changes. Echo 04/28
with preserved EF and no regional wall motion abnormalities noted. Could reassess for ischemic evaluation in the outpatient setting if proves compliance and anemia improved
- Discussed with nephrology
Data Reviewed
-
EKG: Tracing Personally Visualized and interpreted
Radiology: Report Reviewed by me
Medical Tests (Nuc Med, Echo etc): Report Reviewed by me
Labs: Labs Reviewed by me
Old Records: Reviewed
--- NOTE | 2025-04-30 10:11 | W.PN.NEPH.PH ---
Today's Communication / Plan
-
HD friday
Assessment/Plan
-
IMP:
Acute hypoxic respiratory insufficiency likely secondary to fluid overload
History of COPD on chronic 4 L nasal cannula since March 2025
Acute symptomatic anemia history ESRD on dialysis
ESRD on dialysis Friday at [facility]
HTN
Hyponatremia
mild hyperkalemia
CAD
Diabetic type 1 Dx age 24
HLD
Bipolar disorder/anxiety/depression
Constipation
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
Hyperphosphatemia
Plan:
while additional antiHTN meds could be added, his noncompliance with HD and subsequently UF is likely a large factor in the HTN
he has been counselled on compliance in hospital and i am certain at [facility].
HD friday
-
-
Date of Service: April 30, 2025
CC / HPI / ROS
-
Chief Complaint:
ESRD
History of Present Illness:
tolerated HD yesterday
BP high stable
on CPAP
Review of Systems:
no CP/SOB
Labs
-
Labs:
WBC 6.7 10^3/uL (4.8-10.8) 04/28/25 03:43
RBC 2.27 10^6/uL (4.70-6.10) L 04/28/25 03:43
Plt Count 202 10^3/uL (130-400) 04/28/25 03:43
BUN 54 mg/dl (9-20) H 04/28/25 03:43
Creatinine 7.6 mg/dL (0.7-1.3) H* 04/28/25 03:43
eGFR 8.24 04/28/25 03:43
Glucose 150 mg/dl (70-99) H 04/28/25 03:43
Calcium 8.7 mg/dl (8.4-10.2) 04/28/25 03:43
Erb-C-Nhrznhlfqpz Pept 03508 pg/ml 04/27/25 17:44
Albumin 3.7 g/dl (3.5-5.0) 04/28/25 03:43
Physical Exam
-
Vital Signs:
Vital Signs
Temp Pulse Resp BP Pulse Ox
98.3 F 58 14 160/66 98
04/30/25 08:03 04/30/25 08:46 04/30/25 06:00 04/30/25 08:46 04/30/25 06:00
Cardiovascular:: Regular rate and rhythm
Respiratory:: Bilateral: Coarse
Lung Excursion:: Normal
Abdomen:: Nontender and Soft
Bowel Sounds:: Normal
Extremity Edema:: +1: Bilateral:
--- NOTE | 2025-04-30 11:29 | W.PN.HOSP.TC ---
Today's Communication/Plan
-
BiPAP. Antihypertensives
Assessment / Plan
Assessment / Plan
Physical exam:
General: Acutely ill
HEENT: Normocephalic, Atraumatic and Moist Mucous Membranes
Respiratory: Bilateral coarse crackles; Negative Wheezes, or Rhonchi
Cardiac: Regular Rhythm and S1/S2
GI: Soft, Nontender and Nondistended
Musculoskeletal: No Clubbing, No Cyanosis. Bilateral lower extremity edema
Neuro: Awake, Alert and Oriented, no neurological deficits but generalized weakness and wheelchair-bound
Psych: Calm
A/P:
Acute on chronic hypoxic respiratory failure:
Due to pulmonary edema and end-stage renal disease
On BiPAP-plan to discontinue today
Apparently he is on home oxygen, (?4 L)
Status post hemodialysis x 2 [id number]
Echocardiogram EF 55 to 60%, stage II diastolic dysfunction, mild mitral valve regurgitation mild to moderate tricuspid regurgitation.
Probable left pleural effusion but no clinical evidence of pneumonia
Plan to repeat chest x-ray tomorrow
04/30:
Back on BiPAP
Hemodialysis per nephrology
Follow-up pulmonary further recommendations
Hypertensive emergency:
Off nitro drip
Continue home antihypertensive regimen, including carvedilol 25 mg twice a day, clonidine 0.2 mg patch, amlodipine 10 mg p.o. daily, hydralazine 100 mg 3 times a day, Imdur 30 mg p.o. daily-increase to 60 mg.
Updated echocardiogram
04/30:
Cardiology consulted given difficult to control hypertension and on multiple antihypertensives and already adjusted doses
Headache:
Known history of migraine
Add Tylenol as needed
On tramadol as needed
He is also on other pain medications that are not available in formulary
Probable CAD (unknown coronary anatomy):
On dual antiplatelet therapy beta-blockers nitrates and statins
Reviewed echocardiogram
Remains chest pain-free
Worsening anemia:
Worsening anemia of chronic disease
Status post blood transfusion
Hemoglobin as low as 6.4--> today hemoglobin 7.7
Continue to monitor hemoglobin
Hyperlipidemia:
Continue home statins, atorvastatin 80 mg p.o. every night
Diabetes mellitus type 1:
Continue Lantus 15 units daily
Continue aspart 6 units before meals
Continue insulin sliding scale
Generalized anxiety disorder:
On diazepam 5 mg twice a day
Needed extra dose today
Continue to monitor
End-stage renal disease on hemodialysis:
Nephrology on board
Hemodialysis per renal
On Renvela
Bipolar disorder:
Continue aripiprazole 5 mg p.o. daily
On Zoloft 50 mg p.o. daily
On benzodiazepine
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
Wheelchair-bound
DVT prophylaxis:
Heparin SQ
CODE STATUS:
Full code
Total time spent on today's encounter was 55 minutes which included time spent in counseling the patient/family regarding diagnosis and treatment plan as listed above, goals of care, and symptom management. Case was discussed with nursing staff,
specialists, and care coordinators/case management. All labs and imaging personally reviewed by me. Remainder the time spent in detailed review of previous records, lab data, imaging, and other medical provider documentation.
Anticipated Discharge: > 48 hours
Subjective/Interval History
-
Date of Service: April 30, 2025
Patient was transferred to IMU overnight due to shortness of breath and hypertension. Placed back on BiPAP. Currently denies chest pain. Comfortable on BiPAP. Afebrile
Objective Data
-
Labs:
Laboratory Results
04/30/25 04/30/25
00:20 06:00
Hgb Pending
Hct Pending
HCO3 Pending
Sodium Pending
Potassium Pending
Chloride Pending
Carbon Dioxide Pending
Vital Signs:
Vital Signs
Temp Pulse Resp BP Pulse Ox
98.3 F 58 14 160/66 97
04/30/25 08:03 04/30/25 08:46 04/30/25 06:00 04/30/25 08:46 04/30/25 08:25
I&O
04/29/25 04/30/25 05/01/25
06:59 06:59 06:59
Intake Total 860.6 / 860.6 960 / 960
Balance 860.6 / 860.6 960 / 960
--- NOTE | 2025-04-30 12:03 | W.PN.PUL3 ---
Today's Communication / Plan
-
Continue dialysis
Continue cardiac medications
BiPAP at bedtime and with naps
Continue oxygen supplementation, wean off as able. Currently on 5 L
Assessment
-
Diogenes Og is a 44M PMHx ESRD on HD (MWF), T1DM , HTN, HLD, and chronic oxygen at home? (4L NC) who presents with increased oxygen requirements, hypertension, and low hemoglobin as found in the middle of a dialysis session, and was found to have
pulmonary congestion on chest imaging and a hemoglobin of 6.6 on admission.
ASSESSMENT
Acute Hypoxic Respiratory Failure 2/2 Volume Overload in the setting of insufficient hemodialysis
Hypertensive urgency
Anemia of unknown etiology
Conditions Present Prior to Arrival
Chronic supplemental oxygen use
ESRD on dialysis
Type 1 diabetes
Hyperlipidemia
Bipolar disorder
Generalized anxiety disorder
Major depressive disorder
Chronic constipation
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
Wheelchair-bound
PLAN
-
Initially transferred to telemetry but patient developed hypoxemia and shortness of breath overnight
Back on IMU level
-
Chest x-ray this morning: Improved pulmonary edema but persistent left lower lobe abnormality.
Left lower lobe abnormality may be reflection of recurrent pneumonia-recent admission in another institution.
No evidence for infection: Afebrile without leukocytosis
-
Continues to suspect main reason for hypoxemia and breathing issues with volume overload-likely dietary indiscretion
Continue dialysis per nephrology
Cardiology has evaluated the patient: Eventual ischemic evaluation in the future. Not necessary at this point.
Echocardiogram noted with normal LVEF. No regional motion wall abnormalities plan
-
Continue ox supplementation to maintain pulse ox above 90%.
Currently on mid flow oxygen-5 L.
He is comfortable.
Continue BiPAP 15/8 at bedtime and with naps, while in the hospital. He is benefiting from this
-
Hypertension,- Not controlled.
Continue dialysis continue medical management
Cardiology and nephrology following
-
Incentive spirometry encouraged
Aspiration precautions
-
Severe anemia status post 2 units of packed red blood cells. Hemoglobin 7.7 04/29/2025.
Suspect due to chronic kidney disease
So far no evidence for bleeding
-
Pulmonary will continue to follow
Echocardiogram 04/29/2025:
1. Normal left ventricular size and function.
2. Ejection fraction is 55-60% by visual assessment.
3. Mild concentric left ventricular hypertrophy.
4. Stage II diastolic dysfunction suggestive of abnormal relaxation and increased filling pressures.
5. Right ventricular size and systolic function are within normal limits.
6. Indexed left atrial volume is mildly abnormal (35-41 ml/m2).
7. Aortic sclerosis with no significant stenosis.
8. Mild mitral valve regurgitation.
9. Mild to moderate tricuspid regurgitation. Estimated pulmonary artery pressure of 38 mmHg assuming a right atrial pressure of 15 mmHg.
10. Left pleural effusion is noted.
11. There are no prior studies available for comparison.
Subjective Data
-
Date of Service:
Date of Service: April 30, 2025
Chief Complaint: Pulmonary Follow Up (Hypoxemic respiratory failure)
Objective Data
Data Reviewed
Vital Signs / I&O / Oxygen:
Vital Signs
Temp Pulse Resp BP Pulse Ox
98.3 F 58 14 160/66 97
04/30/25 08:03 04/30/25 08:46 04/30/25 06:00 04/30/25 08:46 04/30/25 08:25
Intake and Output
04/29/25 04/30/25 05/01/25
06:59 06:59 06:59
Intake Total 860.6 / 860.6 960 / 960
Balance 860.6 / 860.6 960 / 960
SaO2 97
Nasal Cannula flow liters per 6
minute
Labs/Micro/Reports
Laboratory Results
04/29/25
21:32
pH 7.44
pCO2 42
pO2 60 L
HCO3 28.5 H
O2 Delivery Level
Microbiology
04/28/25 03:43 Nose MRSA Screen - Final
No Methicillin Resistant Staphylococcus aureus isolated.
[2025-04-30 13:43] LABS: Glucose - Point of Care 198 mg/dl (70-99)
[2025-04-30] MEDS: NOVOLOG FLEXPEN-LOW RESISTANCE 1 UNITS SC ×2 (14:00→17:02)
[2025-04-30 15:55] LABS: Hematocrit 23.6 % (39.0-52.0); Hemoglobin 7.8 g/dL (13.0-18.0)
[2025-04-30 16:22] LABS: Carbon Dioxide 28 mmol/L (22-30); Chloride 97 mmol/L (98-107); Potassium 4.5 mmol/L (3.5-5.1); Sodium 133 mmol/L (135-145)
[2025-04-30] MEDS: LIPITOR 80 MG PO (17:02)
[2025-04-30 17:12] LABS: Glucose - Point of Care 150 mg/dl (70-99)
[2025-04-30 21:25] LABS: Glucose - Point of Care 95 mg/dl (70-99)
[2025-05-01] VITALS (23 sets, daily range): BP systolic 146–191; BP diastolic 64–92; PULSE 2–62; BMI 27.9
[2025-05-01 04:09] LABS: Glucose - Point of Care 55 mg/dl (70-99)
[2025-05-01 04:22] LABS: Glucose - Point of Care 81 mg/dl (70-99)
[2025-05-01] MEDS: ULTRAM 50 MG PO ×3 (04:42→19:45)
[2025-05-01] MEDS: TYLENOL 650 MG PO ×2 (04:43→19:44)
[2025-05-01] MEDS: APRESOLINE 10 MG IV ×3 (05:54→18:29)
[2025-05-01] MEDS: FLUSH (NSS) 2 FLUSH IV (05:55)
[2025-05-01 06:23] LABS: Glucose - Point of Care 87 mg/dl (70-99)
[2025-05-01] MEDS: NOVOLOG FLEXPEN SC ×2 (07:58→12:22)
[2025-05-01] MEDS: NOVOLOG FLEXPEN-LOW RESISTANCE SC ×2 (07:59→12:22)
[2025-05-01] MEDS: NEURONTIN 300 MG PO (08:08)
[2025-05-01] MEDS: APRESOLINE 100 MG PO ×3 (08:09→21:40)
[2025-05-01] MEDS: RENVELA 800 MG PO ×3 (08:09→16:03)
[2025-05-01] MEDS: IMDUR (EXTENDED RELEASE) 60 MG PO (08:09)
[2025-05-01] MEDS: PLAVIX 75 MG PO (08:09)
[2025-05-01] MEDS: ABILIFY 5 MG PO (08:09)
[2025-05-01] MEDS: LOW STRENGTH ASPIRIN 81 MG PO (08:10)
[2025-05-01] MEDS: NICODERM TRANSDERMAL 14 MG TRANSDERM (08:10)
[2025-05-01] MEDS: ZOLOFT 50 MG PO (08:10)
[2025-05-01] MEDS: VALIUM 5 MG PO ×2 (08:10→19:30)
[2025-05-01] MEDS: NORVASC 10 MG PO (08:10)
[2025-05-01] MEDS: COREG PO ×2 (08:10→19:30)
[2025-05-01] MEDS: HEPARIN SC ×2 (08:11→19:31)
--- NOTE | 2025-05-01 08:17 | PTCARENOTE ---
Patient refused SQ heparin this AM. Patient stated 'I take plavix, I am on enough blood thinners'. Patient education provided and he verbalized understanding. Dr. Daigle made aware.
[2025-05-01] MEDS: LANTUS 0.15 UNITS SC (08:42)
--- NOTE | 2025-05-01 08:43 | PTCARENOTE ---
OK to give AM lantus per Dr. Daigle. Blood sugar 139. aware of hypoglycemia overnight.
[2025-05-01 08:50] LABS: Glucose - Point of Care 139 mg/dl (70-99)
[2025-05-01 09:08] LABS: Hematocrit 27.5 % (39.0-52.0); Hemoglobin 8.9 g/dL (13.0-18.0)
[2025-05-01 09:48] LABS: Carbon Dioxide 26 mmol/L (22-30); Chloride 96 mmol/L (98-107); Potassium 4.9 mmol/L (3.5-5.1); Sodium 134 mmol/L (135-145)
[2025-05-01] MEDS: NOVOLOG FLEXPEN-LOW RESISTANCE 2 UNITS SC (12:35)
[2025-05-01] MEDS: NOVOLOG FLEXPEN 6 UNITS SC ×2 (12:35→17:21)
[2025-05-01 12:46] LABS: Glucose - Point of Care 234 mg/dl (70-99)
--- NOTE | 2025-05-01 14:09 | W.PN.NEPH.PH ---
Today's Communication / Plan
-
HD tomorrow
Assessment/Plan
-
IMP:
Acute hypoxic respiratory insufficiency likely secondary to fluid overload
History of COPD on chronic 4 L nasal cannula since March 2025
Acute symptomatic anemia history ESRD on dialysis
ESRD on dialysis Friday at [facility]
HTN
Hyponatremia
mild hyperkalemia
CAD
Diabetic type 1 Dx age 24
HLD
Bipolar disorder/anxiety/depression
Constipation
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
Hyperphosphatemia
Plan:
HD friday
-
-
Date of Service: May 01, 2025
CC / HPI / ROS
-
Chief Complaint:
ESRD
History of Present Illness:
tolerated HD friday
BP high stable
on CPAP
Review of Systems:
no CP/SOB
Labs
-
Labs:
WBC 6.7 10^3/uL (4.8-10.8) 04/28/25 03:43
RBC 2.27 10^6/uL (4.70-6.10) L 04/28/25 03:43
Hgb 8.9 g/dL (13.0-18.0) L 05/01/25 08:51
Hct 27.5 % (39.0-52.0) L 05/01/25 08:51
Plt Count 202 10^3/uL (130-400) 04/28/25 03:43
Sodium 134 mmol/L (135-145) L 05/01/25 08:51
Potassium 4.9 mmol/L (3.5-5.1) 05/01/25 08:51
Chloride 96 mmol/L (98-107) L 05/01/25 08:51
Carbon Dioxide 26 mmol/L (22-30) 05/01/25 08:51
BUN 54 mg/dl (9-20) H 04/28/25 03:43
Creatinine 7.6 mg/dL (0.7-1.3) H* 04/28/25 03:43
eGFR 8.24 04/28/25 03:43
Glucose 150 mg/dl (70-99) H 04/28/25 03:43
Calcium 8.7 mg/dl (8.4-10.2) 04/28/25 03:43
Bzn-[id number] Pept 52191 pg/ml 04/27/25 17:44
Albumin 3.7 g/dl (3.5-5.0) 04/28/25 03:43
Physical Exam
-
Vital Signs:
Vital Signs
Temp Pulse Resp BP Pulse Ox
97.5 F 60 16 177/85 95
05/01/25 11:17 05/01/25 12:27 05/01/25 12:25 05/01/25 12:27 05/01/25 12:25
Cardiovascular:: Regular rate and rhythm
Respiratory:: Bilateral: Coarse
Lung Excursion:: Normal
Abdomen:: Nontender and Soft
Bowel Sounds:: Normal
Extremity Edema:: +1: Bilateral:
--- NOTE | 2025-05-01 14:39 | W.PN.HOSP.TC ---
Today's Communication/Plan
-
BiPAP. Plan for hemodialysis tomorrow. Continue antihypertensives and monitor blood pressure.
Assessment / Plan
Assessment / Plan
Physical exam:
General: Acutely ill
HEENT: Normocephalic, Atraumatic and Moist Mucous Membranes
Respiratory: Bilateral coarse crackles; Negative Wheezes, or Rhonchi
Cardiac: Regular Rhythm and S1/S2
GI: Soft, Nontender and Nondistended
Musculoskeletal: No Clubbing, No Cyanosis. Bilateral lower extremity edema
Neuro: Awake, Alert and Oriented, no neurological deficits but generalized weakness and wheelchair-bound
Psych: Calm
A/P:
Acute on chronic hypoxic respiratory failure:
Due to pulmonary edema and end-stage renal disease
On BiPAP-plan to discontinue today
Apparently he is on home oxygen, (?4 L)
Status post hemodialysis x 2 [id number]
Echocardiogram EF 55 to 60%, stage II diastolic dysfunction, mild mitral valve regurgitation mild to moderate tricuspid regurgitation.
Probable left pleural effusion but no clinical evidence of pneumonia
Plan to repeat chest x-ray tomorrow
04/30:
Back on BiPAP
Hemodialysis per nephrology
Follow-up pulmonary further recommendations
05/01:
Continue to be on BiPAP this morning
Plan for hemodialysis tomorrow
Hypertensive emergency:
Off nitro drip
Continue home antihypertensive regimen, including carvedilol 25 mg twice a day, clonidine 0.2 mg patch, amlodipine 10 mg p.o. daily, hydralazine 100 mg 3 times a day, Imdur 30 mg p.o. daily-increase to 60 mg.
Updated echocardiogram
04/30:
Cardiology consulted given difficult to control hypertension and on multiple antihypertensives and already adjusted doses
05/01:
Already on 5 antihypertensives as mentioned above blood pressure remains difficult to control.
Follow-up further cardiology recommendations
Added IV hydralazine as needed
Will reevaluate blood pressure also after dialysis.
Follow-up chest x-ray showed improvement on the right side but persistent abnormality on the left and pulmonary on board.
Headache:
Known history of migraine
Add Tylenol as needed
On tramadol as needed
He is also on other pain medications that are not available in formulary
Probable CAD (unknown coronary anatomy):
On dual antiplatelet therapy beta-blockers nitrates and statins
Reviewed echocardiogram
Remains chest pain-free
Worsening anemia:
Worsening anemia of chronic disease
Status post blood transfusion
Hemoglobin as low as 6.4--> today hemoglobin 8.9
Continue to monitor hemoglobin
Hyperlipidemia:
Continue home statins, atorvastatin 80 mg p.o. every night
Diabetes mellitus type 1:
Continue Lantus 15 units daily
Continue aspart 6 units before meals
Continue insulin sliding scale
Generalized anxiety disorder:
On diazepam 5 mg twice a day
Continue to monitor
End-stage renal disease on hemodialysis:
Nephrology on board
Hemodialysis per renal
On Renvela
Bipolar disorder:
Continue aripiprazole 5 mg p.o. daily
On Zoloft 50 mg p.o. daily
On benzodiazepine
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
Wheelchair-bound
DVT prophylaxis:
Heparin SQ
CODE STATUS:
Full code
Total time spent on today's encounter was 55 minutes which included time spent in counseling the patient/family regarding diagnosis and treatment plan as listed above, goals of care, and symptom management. Case was discussed with nursing staff,
specialists, and care coordinators/case management. All labs and imaging personally reviewed by me. Remainder the time spent in detailed review of previous records, lab data, imaging, and other medical provider documentation.
Anticipated Discharge: > 48 hours
Subjective/Interval History
-
Date of Service: May 01, 2025
No chest pain. Patient on BiPAP earlier this morning. No fevers.
Objective Data
-
Labs:
Laboratory Results
05/01/25
08:51
Hgb 8.9 L
Hct 27.5 L
Sodium 134 L
Potassium 4.9
Chloride 96 L
Carbon Dioxide 26
Vital Signs:
Vital Signs
Temp Pulse Resp BP Pulse Ox
97.5 F 60 16 177/85 95
05/01/25 11:17 05/01/25 12:27 05/01/25 12:25 05/01/25 12:27 05/01/25 12:25
I&O
04/30/25 05/01/25 05/02/25
06:59 06:59 06:59
Intake Total 960 / 960 340 / 340
Balance 960 / 960 340 / 340
--- NOTE | 2025-05-01 15:43 | PTCARENOTE ---
Patient AOx3. Anxious and forgetful. Bed alarm on and audible. 4L NC with SpO2 92%. Wears BIPAP PRN. BP running high, PRN hydralazine given. Dr. Daigle aware. NSR-sinus neptali on monitor. Anuric. HD M,W,F. Tolerating oral diet. Call davis within reach,
bed in lowest position, and bed of wheels locked.
--- NOTE | 2025-05-01 16:07 | W.PN.PUL3 ---
Today's Communication / Plan
-
Dialysis tomorrow
Wean down FiO2-hopefully can be weaned off soon.
Home oxygen assessment prior to discharge
Will need radiographic follow-up in the future, particularly for the left lower lobe abnormality.
May use BiPAP while in the hospital at bedtime and as needed
Assessment
-
Diogenes Og is a 44M PMHx ESRD on HD (MWF), T1DM , HTN, HLD, and chronic oxygen at home? (4L NC) who presents with increased oxygen requirements, hypertension, and low hemoglobin as found in the middle of a dialysis session, and was found to have
pulmonary congestion on chest imaging and a hemoglobin of 6.6 on admission.
ASSESSMENT
Acute Hypoxic Respiratory Failure 2/2 Volume Overload in the setting of insufficient hemodialysis
Hypertensive urgency
Anemia of unknown etiology
Conditions Present Prior to Arrival
Chronic supplemental oxygen use
ESRD on dialysis
Type 1 diabetes
Hyperlipidemia
Bipolar disorder
Generalized anxiety disorder
Major depressive disorder
Chronic constipation
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
Wheelchair-bound
PLAN
-
Stable overnight.
Remains on supplemental oxygen
-
Chest x-ray 04/30/2025: Improved pulmonary edema but persistent left lower lobe abnormality.
Left lower lobe abnormality may be reflection of recurrent pneumonia-recent admission in another institution.
No evidence for infection: Afebrile without leukocytosis
-
Continues to suspect main reason for hypoxemia and breathing issues with volume overload-likely dietary indiscretion-he also did not complete last outpatient dialysis.
Continue dialysis per nephrology-next session on Friday. Responded well to 2 for sessions.
-
Cardiology has evaluated the patient: Eventual ischemic evaluation in the future. Not necessary at this point.
Echocardiogram noted with normal LVEF. No regional motion wall abnormalities plan
-
Continue ox supplementation to maintain pulse ox above 90%.
Currently on mid flow oxygen-5 L.(Usually not on oxygen therapy)
He is comfortable.
Continue BiPAP 04/03 at bedtime and with naps, while in the hospital. He is benefiting from this-can be also used for increased work of breathing.
-
Hypertension,- Not controlled.
Continue dialysis continue medical management
Cardiology and nephrology following
-
Incentive spirometry encouraged
Aspiration precautions
-
Severe anemia status post 2 units of packed red blood cells. Hemoglobin 7.7 04/29/2025.
Hemoglobin 8.9-10 07/09/2025
Suspect due to chronic kidney disease
So far no evidence for bleeding
-
Pulmonary will continue to follow
Echocardiogram 04/29/2025:
1. Normal left ventricular size and function.
2. Ejection fraction is 55-60% by visual assessment.
3. Mild concentric left ventricular hypertrophy.
4. Stage II diastolic dysfunction suggestive of abnormal relaxation and increased filling pressures.
5. Right ventricular size and systolic function are within normal limits.
6. Indexed left atrial volume is mildly abnormal (35-41 ml/m2).
7. Aortic sclerosis with no significant stenosis.
8. Mild mitral valve regurgitation.
9. Mild to moderate tricuspid regurgitation. Estimated pulmonary artery pressure of 38 mmHg assuming a right atrial pressure of 15 mmHg.
10. Left pleural effusion is noted.
11. There are no prior studies available for comparison.
Subjective Data
-
Date of Service:
Date of Service: May 01, 2025
Chief Complaint: Pulmonary Follow Up (Hypoxemic respiratory failure)
Subjective:
No new complaints
Remains on supplemental oxygen
Tolerating BiPAP at night while in the hospital
Objective Data
Data Reviewed
Vital Signs / I&O / Oxygen:
Vital Signs
Temp Pulse Resp BP Pulse Ox
97.5 F 55 16 191/64 92
05/01/25 15:28 05/01/25 16:00 05/01/25 16:00 05/01/25 16:03 05/01/25 16:00
Intake and Output
04/30/25 05/01/25 05/02/25
06:59 06:59 06:59
Intake Total 960 / 960 340 / 340
Balance 960 / 960 340 / 340
SaO2 92
Nasal Cannula flow liters per 6
minute
Physical Exam
General: Comfortable
HEENT: Normocephalic
Cardiovascular: S1-S2
Respiratory: Non-Labored Respirations
GI: Soft and Non Distended
Neurology: Awake, Alert and Oriented
Skin: Warm
Labs/Micro/Reports
Lab Data
05/01/25 08:51
05/01/25 08:51
Microbiology
04/28/25 03:43 Nose MRSA Screen - Final
No Methicillin Resistant Staphylococcus aureus isolated.
[2025-05-01 17:01] LABS: Glucose - Point of Care 186 mg/dl (70-99)
[2025-05-01] MEDS: LIPITOR 80 MG PO (17:21)
[2025-05-01] MEDS: NOVOLOG FLEXPEN-LOW RESISTANCE 1 UNITS SC (17:21)
[2025-05-01 21:34] LABS: Glucose - Point of Care 189 mg/dl (70-99)
[2025-05-02] VITALS (38 sets, daily range): BP systolic 130–186; BP diastolic 61–127; PULSE 2–58; BMI 28.5
[2025-05-02] MEDS: APRESOLINE 10 MG IV (01:03)
[2025-05-02] MEDS: ULTRAM 50 MG PO ×3 (01:07→19:53)
[2025-05-02] MEDS: TYLENOL 650 MG PO ×3 (04:19→22:01)
[2025-05-02 04:36] LABS: Glucose - Point of Care 178 mg/dl (70-99)
--- NOTE | 2025-05-02 06:04 | PTCARENOTE ---
Pt remains oriented. Rang for placement of BiPAP mask. Mask placed by RT. Pt removed mask and asked for it to be replaced several times throughout the night. Pt with episode of desat to 85% on 5L NC, NRB placed for recovery. RT placed pt back on
BiPAP with improvement to 92%. Call davis within reach. Care ongoing.
[2025-05-02 08:11] LABS: Glucose - Point of Care 130 mg/dl (70-99)
[2025-05-02] MEDS: NOVOLOG FLEXPEN-LOW RESISTANCE SC ×2 (08:17→16:52)
[2025-05-02] MEDS: NEURONTIN 300 MG PO (08:26)
[2025-05-02] MEDS: NICODERM TRANSDERMAL 14 MG TRANSDERM (08:26)
[2025-05-02] MEDS: PLAVIX 75 MG PO (08:26)
[2025-05-02] MEDS: LOW STRENGTH ASPIRIN 81 MG PO (08:26)
[2025-05-02] MEDS: IMDUR (EXTENDED RELEASE) 60 MG PO (08:26)
[2025-05-02] MEDS: RENVELA 800 MG PO ×3 (08:26→15:57)
[2025-05-02] MEDS: APRESOLINE 100 MG PO ×3 (08:27→22:01)
[2025-05-02] MEDS: COREG 25 MG PO ×2 (08:27→19:50)
[2025-05-02] MEDS: VALIUM 5 MG PO ×2 (08:27→19:50)
[2025-05-02] MEDS: ZOLOFT 50 MG PO (08:27)
[2025-05-02] MEDS: ABILIFY 5 MG PO (08:27)
[2025-05-02] MEDS: NORVASC 10 MG PO (08:27)
[2025-05-02] MEDS: LANTUS 0.15 UNITS SC (08:28)
[2025-05-02] MEDS: NOVOLOG FLEXPEN 6 UNITS SC ×3 (08:28→17:00)
[2025-05-02] MEDS: HEPARIN SC ×2 (08:28→19:54)
--- NOTE | 2025-05-02 09:50 | W.PN.PUL.V3 ---
Today's Communication / Plan
-
Wean oxygen.
Hemodialysis.
BiPAP as needed
Assessment
-
Diogenes Og is a 44M PMHx ESRD on HD (MWF), T1DM , HTN, HLD, and chronic oxygen at home? (4L NC) who presents with increased oxygen requirements, hypertension, and low hemoglobin as found in the middle of a dialysis session, and was found to have
pulmonary congestion on chest imaging and a hemoglobin of 6.6 on admission.
ASSESSMENT
Acute Hypoxic Respiratory Failure 2/2 Volume Overload in the setting of insufficient hemodialysis
Hypertensive urgency
Anemia of unknown etiology
Conditions Present Prior to Arrival
Chronic supplemental oxygen use
ESRD on dialysis
Type 1 diabetes
Hyperlipidemia
Bipolar disorder
Generalized anxiety disorder
Major depressive disorder
Chronic constipation
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
Wheelchair-bound
PLAN
Respiratory status slowly improving-suspect increased hypoxemia due to volume overload
Continue supplemental onset-attempt to wean to outpatient levels.
Aspiration precautions.
Nebulizers as needed.
Follow-up chest x-ray..
BiPAP. 15/8 cm as needed-at bedtime and with
Observe off antibiotics.
Nephrology follow
Hemodialysis.
Cardiology follow
Potential ischemia evaluation
Monitor hemoglobin-severe anemia felt to be secondary to end-stage renal disease.
No evidence for bleeding
Transfuse as needed
DVT prophylaxis-on heparin.
Nutrition-renal diet.
Reviewed with nursing
Data:
Echocardiogram 04/29/2025:
1. Normal left ventricular size and function.
2. Ejection fraction is 55-60% by visual assessment.
3. Mild concentric left ventricular hypertrophy.
4. Stage II diastolic dysfunction suggestive of abnormal relaxation and increased filling pressures.
5. Right ventricular size and systolic function are within normal limits.
6. Indexed left atrial volume is mildly abnormal (35-41 ml/m2).
7. Aortic sclerosis with no significant stenosis.
8. Mild mitral valve regurgitation.
9. Mild to moderate tricuspid regurgitation. Estimated pulmonary artery pressure of 38 mmHg assuming a right atrial pressure of 15 mmHg.
10. Left pleural effusion is noted.
11. There are no prior studies available for comparison.
Subjective Data
-
Date of Service:
Date of Service: May 02, 2025
Chief Complaint: Pulmonary Follow Up (Hypoxemic respiratory failure) and Dyspnea Follow Up
Subjective:
Complains of some chest congestion, some shortness of breath, tolerating BiPAP, no chest pain or abdominal pain
Review of Systems
General: Other (Per HPI)
Objective Data
Data Reviewed
Vital Signs / I&O:
Vital Signs
Temp Pulse Resp BP Pulse Ox
97.2 F 61 16 173/74 95
05/02/25 07:30 05/02/25 08:27 05/02/25 08:25 05/02/25 08:27 05/02/25 08:25
Intake and Output
05/01/25 05/02/25 05/03/25
06:59 06:59 06:59
Intake Total 340 / 340 1440 / 1440 360 / 360
Balance 340 / 340 1440 / 1440 360 / 360
SaO2: 95
Nasal Cannula flow liters per minute: 6
Physical Exam
General: Respiratory Distress (n) and Comfortable
HEENT: Normocephalic and Anicteric
Cardiovascular: Regular Rhythm
Respiratory: Crackles, Non-Labored Respirations, Accessory Resp Muscle Use (n) and Stridor (n)
GI: Soft, Non Distended and Non Tender
Neurology: Awake, Alert and No Motor Deficits
Skin: Warm, Good Color, Cyanosis (n), Jaundice (n) and Rash (n)
Labs/Micro/Reports
Microbiology
04/28/25 03:43 Nose MRSA Screen - Final
No Methicillin Resistant Staphylococcus aureus isolated.
[2025-05-02] MEDS: NOVOLOG FLEXPEN-LOW RESISTANCE 1 UNITS SC (11:52)
[2025-05-02 12:02] LABS: Glucose - Point of Care 186 mg/dl (70-99)
--- NOTE | 2025-05-02 12:36 | CM ---
Following up on Patient. Patient was in the ICU on admission than went to the floors, but now in the IMU on BIPAP due to fluid overload according to Hospitalist/ Nephrology Notes. No notes to say that patient was on BIPAP at [facility], will have to
see if patient truly needs this on discharge. PLAN: Return to [facility] when he is ready.
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
[2025-05-02 13:08] LABS: Hematocrit 23.1 % (39.0-52.0); Hemoglobin 7.5 g/dL (13.0-18.0)
[2025-05-02 13:30] LABS: Carbon Dioxide 27 mmol/L (22-30); Chloride 95 mmol/L (98-107); Potassium 5.3 mmol/L (3.5-5.1); Sodium 131 mmol/L (135-145)
[2025-05-02] MEDS: RETACRIT 10000 UNITS IV (13:55)
[2025-05-02] MEDS: DUONEB 3 ML INH ×2 (14:41→20:18)
--- NOTE | 2025-05-02 15:07 | W.PN.NEPH.HD ---
Assessment
-
Tolerating dialysis ultrafiltration goal 4 L
Progress Note - Hemodialysis
-
Date of Service: May 02, 2025
Duration: 45 minutes and 3 hours
Potassium Bath: 2
Calcium Bath: 2.5
Opti-Dialyzer: 160
Ultrafiltration: Other (4kg)
Blood Flow: 400
Dialysate Flow: 600
Heparin: 0
EPO: 76373 units
[2025-05-02] MEDS: HEPARIN 3200 UNITS INTRACATH (16:28)
[2025-05-02 16:50] LABS: Glucose - Point of Care 107 mg/dl (70-99)
[2025-05-02] MEDS: LIPITOR 80 MG PO (17:00)
--- NOTE | 2025-05-02 17:19 | PTCARENOTE ---
Patient AOx3. Anxious and forgetful. Bed alarm on and audible. Weaned patient to 4L NC with SpO2 92%. Wears BIPAP PRN. BP running high, PRN hydralazine given. NSR-sinus neptali on monitor. Anuric. HD completed during shift. Tolerating oral diet.
Refused hygiene to be completed. Call davis within reach, bed in lowest position, and bed of wheels locked.
[2025-05-02 22:27] LABS: Glucose - Point of Care 140 mg/dl (70-99)
[2025-05-03] VITALS (16 sets, daily range): BP systolic 146–189; BP diastolic 63–90; PULSE 2–60; O2SAT 92; BMI 28.0
[2025-05-03] MEDS: APRESOLINE 10 MG IV (02:04)
[2025-05-03 02:16] LABS: Glucose - Point of Care 144 mg/dl (70-99)
[2025-05-03] MEDS: TYLENOL 650 MG PO ×2 (05:31→16:13)
[2025-05-03 06:02] LABS: Blood Urea Nitrogen 29 mg/dl (9-20); Calcium 8.8 mg/dl (8.4-10.2); Carbon Dioxide 25 mmol/L (22-30); Chloride 98 mmol/L (98-107); Estimated Creatinine Clearance 22 ml/min; Glucose 109 mg/dl (70-99); Potassium 5.2 mmol/L (3.5-5.1); Sodium 131 mmol/L (135-145); eGFR 14.68
[2025-05-03 07:58] LABS: Glucose - Point of Care 115 mg/dl (70-99)
[2025-05-03] MEDS: VALIUM 5 MG PO ×2 (08:51→21:34)
[2025-05-03] MEDS: APRESOLINE 100 MG PO ×3 (08:51→21:40)
[2025-05-03] MEDS: ULTRAM 50 MG PO ×2 (08:52→21:44)
[2025-05-03] MEDS: ABILIFY 5 MG PO (08:52)
[2025-05-03] MEDS: COREG PO (08:53)
[2025-05-03] MEDS: NEURONTIN 300 MG PO (08:53)
[2025-05-03] MEDS: NORVASC 10 MG PO (08:53)
[2025-05-03] MEDS: IMDUR (EXTENDED RELEASE) 60 MG PO (08:53)
[2025-05-03] MEDS: RENVELA 800 MG PO ×3 (08:54→18:15)
[2025-05-03] MEDS: PLAVIX 75 MG PO (08:54)
[2025-05-03] MEDS: LOW STRENGTH ASPIRIN 81 MG PO (08:54)
[2025-05-03] MEDS: HEPARIN 5000 UNITS SC (08:54)
[2025-05-03] MEDS: ZOLOFT 50 MG PO (08:54)
[2025-05-03] MEDS: NICODERM TRANSDERMAL 14 MG TRANSDERM (08:54)
[2025-05-03] MEDS: LANTUS 0.15 UNITS SC (09:08)
[2025-05-03] MEDS: NOVOLOG FLEXPEN 6 UNITS SC ×3 (09:10→18:19)
[2025-05-03] MEDS: NOVOLOG FLEXPEN-LOW RESISTANCE SC ×2 (09:10→18:19)
--- NOTE | 2025-05-03 09:48 | W.PN.PUL.V3 ---
Today's Communication / Plan
-
Wean oxygen
Hemodialysis tomorrow
BiPAP at night and during the daytime as needed
Assessment
-
Diogenes Og is a 44M PMHx ESRD on HD (MWF), T1DM , HTN, HLD, and chronic oxygen at home? (4L NC) who presents with increased oxygen requirements, hypertension, and low hemoglobin as found in the middle of a dialysis session, and was found to have
pulmonary congestion on chest imaging and a hemoglobin of 6.6 on admission.
ASSESSMENT
Acute Hypoxic Respiratory Failure 2/2 Volume Overload in the setting of insufficient hemodialysis
Hypertensive urgency
Anemia of unknown etiology
Conditions Present Prior to Arrival
Chronic supplemental oxygen use
ESRD on dialysis
Type 1 diabetes
Hyperlipidemia
Bipolar disorder
Generalized anxiety disorder
Major depressive disorder
Chronic constipation
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
Wheelchair-bound
PLAN
Respiratory status slowly improving-suspect increased hypoxemia due to volume overload-improving with hemodialysis
Continue supplemental onset-attempt to wean to outpatient levels.
Aspiration precautions.
Nebulizers as needed.
Follow-up chest x-ray..
BiPA. 15/8 cm as needed-at bedtime and with
Observe off antibiotics.
Nephrology follow
Hemodialysis planned for tomorrow
Cardiology follow
Potential ischemia evaluation
Monitor hemoglobin-severe anemia felt to be secondary to end-stage renal disease.
No evidence for bleeding
Transfuse as needed
DVT prophylaxis-on heparin.
Nutrition-renal diet.
Patient's respiratory status much improved and stable-expected discharge after hemodialysis tomorrow
Reviewed with nursing
Data:
Echocardiogram 04/29/2025:
1. Normal left ventricular size and function.
2. Ejection fraction is 55-60% by visual assessment.
3. Mild concentric left ventricular hypertrophy.
4. Stage II diastolic dysfunction suggestive of abnormal relaxation and increased filling pressures.
5. Right ventricular size and systolic function are within normal limits.
6. Indexed left atrial volume is mildly abnormal (35-41 ml/m2).
7. Aortic sclerosis with no significant stenosis.
8. Mild mitral valve regurgitation.
9. Mild to moderate tricuspid regurgitation. Estimated pulmonary artery pressure of 38 mmHg assuming a right atrial pressure of 15 mmHg.
10. Left pleural effusion is noted.
11. There are no prior studies available for comparison.
Subjective Data
-
Date of Service:
Date of Service: May 03, 2025
Chief Complaint: Pulmonary Follow Up (Hypoxemic respiratory failure) and Dyspnea Follow Up
Subjective:
. He feels better, 'I want to go home', some shortness of breath, tolerated BiPAP, some chest congestion, no chest pain or abdominal pain
Review of Systems
General: Other (Per HPI)
Objective Data
Data Reviewed
Vital Signs / I&O:
Vital Signs
Temp Pulse Resp BP Pulse Ox
98.0 F 55 11 172/90 96
05/03/25 03:00 05/03/25 08:53 05/03/25 06:29 05/03/25 08:53 05/03/25 06:29
Intake and Output
05/02/25 05/03/25 05/04/25
06:59 06:59 06:59
Intake Total 1440 / 1440 1560 / 1560
Balance 1440 / 1440 1560 / 1560
SaO2: 96
Nasal Cannula flow liters per minute: 4
Physical Exam
General: Respiratory Distress (n) and Comfortable
HEENT: Normocephalic and Anicteric
Cardiovascular: Regular Rhythm
Respiratory: Crackles, Non-Labored Respirations, Accessory Resp Muscle Use (n) and Stridor (n)
GI: Soft, Non Distended and Non Tender
Neurology: Awake, Alert and No Motor Deficits
Skin: Warm, Good Color, Cyanosis (n), Jaundice (n) and Rash (n)
Labs/Micro/Reports
Lab Data
05/03/25 05:34
[2025-05-03 09:56] LABS: Hematocrit 26.5 % (39.0-52.0); Hemoglobin 8.3 g/dL (13.0-18.0); Mean Corp Hgb Conc. 31.3 g/dL (33.0-37.0); Mean Corpuscular Volume 96.4 fL (80.0-94.0); Platelet Count 232 10^3/uL (130-400); Red Cell Dist. Width 15.7 % (11.5-14.5)
--- NOTE | 2025-05-03 10:34 | W.PN.HOSP.TC ---
Addendum entered and electronically signed by Joe Jacinto MD 05/03/25 13:14:
Acute non-cardiac pulmonary edema due to fluid overload
Original Note:
Today's Communication/Plan
-
d/c tomorrow after HD
Assessment / Plan
Assessment / Plan
Gen: NAD
CV: remains RRR, +S1/S2, no m/r/g.
Resp: remains CTAB anteriorly, no rales, wheezes, or rhonchi.
Abd: remains +BS, soft, NT, ND
Skin: No rashes. 1+ B/L LE edema
Neuro: sleeping
Psych: calm
CXR 04/27: Right-sided hemodialysis catheter is present with tip near the cavoatrial junction. Vascular flow appears cephalized, suggesting elevated pulmonary venous pressures. Slight increase in interstitial lung markings diffusely with
indistinctness of the central pulmonary vasculature, findings suggestive of mild interstitial edema. Patchy more confluent parenchymal opacity within the left mid to lower lung. This could represent pneumonia. With no comparison examination
available, this could also represent chronic parenchymal disease/scarring. Minimal blunting of the posterior costophrenic angles, and could represent minimal bilateral pleural effusions versus chronic pleural thickening.
CXR 04/30: Interval improved aeration on the right. Persistent and slightly increased opacity left lung base. This could represent progressive pneumonia versus atelectasis. The possibility of small left pleural effusion cannot be excluded.
Echo 04/28:
1. Normal left ventricular size and function.
2. Ejection fraction is 55-60% by visual assessment.
3. Mild concentric left ventricular hypertrophy.
4. Stage II diastolic dysfunction suggestive of abnormal relaxation and increased filling pressures.
5. Right ventricular size and systolic function are within normal limits.
6. Indexed left atrial volume is mildly abnormal (35-41 ml/m2).
7. Aortic sclerosis with no significant stenosis.
8. Mild mitral valve regurgitation.
9. Mild to moderate tricuspid regurgitation. Estimated pulmonary artery pressure of 38 mmHg assuming a right atrial pressure of 15 mmHg.
10. Left pleural effusion is noted.
11. There are no prior studies available for comparison.
Acute on chronic hypoxic respiratory failure:
-due to pulmonary edema due to ESRD and hypertensive emergency
-was on BiPAP, now on 4L NC O2 (reportedly on 5L NC O2 at baseline) and BIPAP HS
-volume removal via HD (wt down 6.5kg)
-was on NTG gtt, now off
-cont Norvasc/Coreg/Clonidine/Hydralazine/Imdur
-renal/pulm following
Other problems:
Migraine h/a: Tramadol/Tylenol PRN
Probable CAD: cont ASA/Plavix/statin/BB
Anemia of chronic renal disease: s/p 2U pRBCs
Hyperlipidemia: cont statin
DM1: cont Lantus/premeal Novolog/SSI/accuchecks/diabetic diet
Anxiety/Bipolar: cont Valium/Zoloft/Abilify
History of Guillain-Smith� syndrome: Wheelchair-bound
Right hip and shoulder pain:
-Xrays without fx
FULL/Heparin
Anticipated Discharge: Within 24 hours
Subjective/Interval History
-
Date of Service: May 03, 2025
Pt sleeping comfortably.
Objective Data
-
Labs:
Laboratory Results
05/03/25 05/03/25
05:34 09:46
WBC 8.8
Hgb 8.3 L
Hct 26.5 L
Plt Count 232
Sodium 131 L
Potassium 5.2 H
Chloride 98
Carbon Dioxide 25
BUN 29 H
Creatinine 4.7 H*
Glucose 109 H
Calcium 8.8
Vital Signs:
Vital Signs
Temp Pulse Resp BP Pulse Ox
98.0 F 55 11 172/90 96
05/03/25 03:00 05/03/25 08:53 05/03/25 06:29 05/03/25 08:53 05/03/25 09:48
I&O
05/02/25 05/03/25 05/04/25
06:59 06:59 06:59
Intake Total 1440 / 1440 1560 / 1560
Balance 1440 / 1440 1560 / 1560
--- NOTE | 2025-05-03 11:52 | PN.CDI ---
CDI
- -
CDI:
Physician Documentation Request
Admit Date: 04/27/25 23:52
Dear Doctor Ophelia,
Please review the following and provide your response in the progress notes.
Clinical Indicators:
- 05/03 PN Respiratory failure 'due to pulmonary edema due to ESRD and hypertensive emergency'
- 'volume removal via HD'
- 04/28 Echo 'Stage II diastolic dysfunction suggestive of abnormal relaxation and increased filling pressures'
- 04/28 CXR 'Slight increase in interstitial lung markings...suggestive of mild interstitial edema'
-
Please clarify the acuity and etiology of the pulmonary edema:
Acute non-cardiac pulmonary edema due to fluid overload
Acute non-cardiac pulmonary edema due to other cause (please specify)
Acute pulmonary edema due to heart failure (please specify type and acuity)
Type: systolic, diastolic, combined or other type
Acuity: acute (new onset), chronic or acute on chronic
Chronic pulmonary edema due to non-cardiac etiology (specify cause)
Chronic pulmonary edema due to heart failure - (specify type and acuity as above)
Other (please specify)
Use of terms such as suspected, likely, concern for, or probable (associated with a specific diagnosis that is being evaluated, monitored, or treated as if it exists) are acceptable and can be coded in the inpatient setting, when documented at the
time of discharge.
Thank you,
Can Miller RN
CDI Specialist
Please use your independent medical judgment in providing your response.
[2025-05-03 12:11] LABS: Glucose - Point of Care 193 mg/dl (70-99)
--- NOTE | 2025-05-03 12:20 | W.PN.NEPH.PH ---
Today's Communication / Plan
-
No acute need for dialysis today. HD tomorrow
Assessment/Plan
-
IMP:
Acute hypoxic respiratory insufficiency likely secondary to fluid overload
History of COPD on chronic 4 L nasal cannula since March 2025
Acute symptomatic anemia history ESRD on dialysis
ESRD on dialysis Friday at [facility]
HTN
Hyponatremia
mild hyperkalemia
CAD
Diabetic type 1 Dx age 24
HLD
Bipolar disorder/anxiety/depression
Constipation
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
Hyperphosphatemia
Plan:
Continue MWF
See orders for tomorrow
Epogen for anemia
UF 4 plus liters as tolerated
-
-
Date of Service: May 03, 2025
CC / HPI / ROS
-
Chief Complaint:
ESRD
History of Present Illness:
tolerated HD friday
BP high stable
on CPAP
Review of Systems:
no CP/SOB
Labs
-
Labs:
WBC 8.8 10^3/uL (4.8-10.8) 05/03/25 09:46
RBC 2.75 10^6/uL (4.70-6.10) L 05/03/25 09:46
Hgb 8.3 g/dL (13.0-18.0) L 05/03/25 09:46
Hct 26.5 % (39.0-52.0) L 05/03/25 09:46
Plt Count 232 10^3/uL (130-400) 05/03/25 09:46
Sodium 131 mmol/L (135-145) L 05/03/25 05:34
Potassium 5.2 mmol/L (3.5-5.1) H 05/03/25 05:34
Chloride 98 mmol/L (98-107) 05/03/25 05:34
Carbon Dioxide 25 mmol/L (22-30) 05/03/25 05:34
BUN 29 mg/dl (9-20) H 05/03/25 05:34
Creatinine 4.7 mg/dL (0.7-1.3) H* 05/03/25 05:34
eGFR 14.68 05/03/25 05:34
Glucose 109 mg/dl (70-99) H 05/03/25 05:34
Calcium 8.8 mg/dl (8.4-10.2) 05/03/25 05:34
Jgp-P-Suclaeehnqq Pept 65353 pg/ml 04/27/25 17:44
Albumin 3.7 g/dl (3.5-5.0) 04/28/25 03:43
Physical Exam
-
Vital Signs:
Vital Signs
Temp Pulse Resp BP Pulse Ox
98.0 F 55 13 160/71 95
05/03/25 03:00 05/03/25 11:00 05/03/25 11:00 05/03/25 10:00 05/03/25 11:07
Cardiovascular:: Regular rate and rhythm
Respiratory:: Bilateral: Coarse
Lung Excursion:: Normal
Abdomen:: Nontender and Soft
Bowel Sounds:: Normal
Extremity Edema:: +1: Bilateral:
[2025-05-03] MEDS: NOVOLOG FLEXPEN-LOW RESISTANCE 1 UNITS SC (13:18)
--- NOTE | 2025-05-03 13:31 | CM ---
F/U: JACKSON Norman saw note that patient will be ready tomorrow. Sent updates to [facility] and spoke to Liaison. PLAN: Return to [facility].
--- NOTE | 2025-05-03 16:22 | PTCARENOTE ---
Rec'd pt this AM. vital signs stable. refused PT today. can be argumentative at times. Does not want to move to new room. RN educated pt on Med Surg status and encouraged him to cooperate as he has been doing much better. He remained calm. for 2
[facility]olar for report for transfer.
--- NOTE | 2025-05-03 17:56 | PTCARENOTE ---
Received pt as a transfer from IMU, VSS, assessment as documented.
[2025-05-03] MEDS: LIPITOR 80 MG PO (18:15)
[2025-05-03 18:19] LABS: Glucose - Point of Care 92 mg/dl (70-99)
[2025-05-03 21:19] LABS: Glucose - Point of Care 127 mg/dl (70-99)
[2025-05-03] MEDS: HEPARIN SC ×2 (21:34→21:42)
[2025-05-03] MEDS: COREG 25 MG PO (21:41)
[2025-05-04] MEDS: TYLENOL 650 MG PO (01:14)
[2025-05-04 04:25] VITALS: PULSE 2; PULSE 66
[2025-05-04 04:35] VITALS: BP 165/73
[2025-05-04 05:22] VITALS: BMI 28.3
[2025-05-04 07:00] VITALS: BP 181/103
[2025-05-04] MEDS: NOVOLOG FLEXPEN-LOW RESISTANCE SC (08:04)
[2025-05-04 08:05] LABS: Glucose - Point of Care 93 mg/dl (70-99)
[2025-05-04] MEDS: NICODERM TRANSDERMAL 14 MG TRANSDERM (08:05)
[2025-05-04] MEDS: NEURONTIN 300 MG PO (08:07)
[2025-05-04] MEDS: VALIUM 5 MG PO (08:07)
[2025-05-04] MEDS: PLAVIX 75 MG PO (08:07)
[2025-05-04] MEDS: LANTUS 0.15 UNITS SC (08:07)
[2025-05-04] MEDS: ZOLOFT 50 MG PO (08:08)
[2025-05-04] MEDS: LOW STRENGTH ASPIRIN 81 MG PO (08:08)
[2025-05-04] MEDS: ABILIFY 5 MG PO (08:09)
[2025-05-04] MEDS: ULTRAM 50 MG PO (08:10)
[2025-05-04] MEDS: NOVOLOG FLEXPEN 6 UNITS SC ×2 (08:27→12:04)
[2025-05-04] MEDS: RENVELA 800 MG PO ×2 (08:29→12:03)
[2025-05-04 08:34] LABS: Carbon Dioxide 27 mmol/L (22-30); Chloride 93 mmol/L (98-107); Potassium 5.2 mmol/L (3.5-5.1); Sodium 130 mmol/L (135-145)
--- NOTE | 2025-05-04 08:49 | W.PN.HOSP.TC ---
Today's Communication/Plan
-
d/c
Assessment / Plan
Assessment / Plan
Gen: NAD, Awake and alert
Eyes: EOMI, PERRLA, no scleral icterus.
Neck: supple.
CV: RRR, +S1/S2, no m/r/g.
Resp: CTAB anteriorly, no rales, wheezes, or rhonchi.
Abd: +BS, soft, NT, ND
Skin: No rashes.
Neuro: CN 2-12 intact, non-focal.
Psych: Normal mood and affect.
CXR 04/27: Right-sided hemodialysis catheter is present with tip near the cavoatrial junction. Vascular flow appears cephalized, suggesting elevated pulmonary venous pressures. Slight increase in interstitial lung markings diffusely with
indistinctness of the central pulmonary vasculature, findings suggestive of mild interstitial edema. Patchy more confluent parenchymal opacity within the left mid to lower lung. This could represent pneumonia. With no comparison examination
available, this could also represent chronic parenchymal disease/scarring. Minimal blunting of the posterior costophrenic angles, and could represent minimal bilateral pleural effusions versus chronic pleural thickening.
CXR 04/30: Interval improved aeration on the right. Persistent and slightly increased opacity left lung base. This could represent progressive pneumonia versus atelectasis. The possibility of small left pleural effusion cannot be excluded.
Echo 04/28:
1. Normal left ventricular size and function.
2. Ejection fraction is 55-60% by visual assessment.
3. Mild concentric left ventricular hypertrophy.
4. Stage II diastolic dysfunction suggestive of abnormal relaxation and increased filling pressures.
5. Right ventricular size and systolic function are within normal limits.
6. Indexed left atrial volume is mildly abnormal (35-41 ml/m2).
7. Aortic sclerosis with no significant stenosis.
8. Mild mitral valve regurgitation.
9. Mild to moderate tricuspid regurgitation. Estimated pulmonary artery pressure of 38 mmHg assuming a right atrial pressure of 15 mmHg.
10. Left pleural effusion is noted.
11. There are no prior studies available for comparison.
Acute on chronic hypoxic respiratory failure:
-due to pulmonary edema due to ESRD and hypertensive emergency
-was on BiPAP, now on 4L NC O2 (reportedly on 5L NC O2 at baseline) and BIPAP PRN
-volume removal via HD (wt down 5.3kg)
-was on NTG gtt, now off
-cont Norvasc/Coreg/Clonidine/Hydralazine/Imdur
-renal/pulm following
Other problems:
Migraine h/a: Tramadol/Tylenol PRN
Probable CAD: cont ASA/Plavix/statin/BB
Anemia of chronic renal disease: s/p 2U pRBCs
Hyperlipidemia: cont statin
DM1: cont Lantus/premeal Novolog/SSI/accuchecks/diabetic diet
Anxiety/Bipolar: cont Valium/Zoloft/Abilify
History of Guillain-Smith� syndrome: Wheelchair-bound
Right hip and shoulder pain:
-Xrays without fx
FULL/Heparin
Medically cleared for d/c after HD today.
Total time spent on d/c = 32 min. This included today's physical exam, progress note, review of laboratory and diagnostic data, preparation of discharge documents and prescriptions, and discussions about the pt's hospital course and discharge plan
with the patient and other medical imaging specialist involved in the patient's care.
Anticipated Discharge: Today
Subjective/Interval History
-
Date of Service: May 04, 2025
No new complaints.
Objective Data
-
Labs:
Laboratory Results
05/04/25
07:50
Sodium 130 L
Potassium 5.2 H
Chloride 93 L
Carbon Dioxide 27
Vital Signs:
Vital Signs
Temp Pulse Resp BP Pulse Ox
98.1 F 51 16 165/73 96
05/03/25 23:10 05/04/25 04:35 05/03/25 23:10 05/04/25 04:35 05/04/25 01:35
I&O
05/03/25 05/04/25 05/05/25
06:59 06:59 06:59
Intake Total 1560 / 1560 960 / 960
Balance 1560 / 1560 960 / 960
[2025-05-04] MEDS: RETACRIT 10000 UNITS IV (09:25)
--- NOTE | 2025-05-04 09:42 | W.PN.NEPH.HD ---
Assessment
-
pt seen during HD
vitals stable
UF as tolerates
CVC functions fine
reviewed in detail about imp of FR -32ounces.day
for d/c to [facility] today
Progress Note - Hemodialysis
-
Date of Service: May 04, 2025
Duration: 45 minutes and 3 hours
Potassium Bath: 2
Calcium Bath: 2.5
Opti-Dialyzer: 160
Ultrafiltration: Other (3.5-4)
Blood Flow: 400
Dialysate Flow: 600
Heparin: no
EPO: [id number]
--- NOTE | 2025-05-04 09:46 | W.PN.PUL.V3 ---
Today's Communication / Plan
-
Hemodialysis
Wean oxygen
Increase activity
Assessment
-
Diogenes Og is a 44M PMHx ESRD on HD (MWF), T1DM , HTN, HLD, and chronic oxygen at home? (4L NC) who presents with increased oxygen requirements, hypertension, and low hemoglobin as found in the middle of a dialysis session, and was found to have
pulmonary congestion on chest imaging and a hemoglobin of 6.6 on admission.
ASSESSMENT
Acute Hypoxic Respiratory Failure 2/2 Volume Overload in the setting of insufficient hemodialysis
Hypertensive urgency
Anemia of unknown etiology
Conditions Present Prior to Arrival
Chronic supplemental oxygen use
ESRD on dialysis
Type 1 diabetes
Hyperlipidemia
Bipolar disorder
Generalized anxiety disorder
Major depressive disorder
Chronic constipation
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
Wheelchair-bound
PLAN
Respiratory status slowly improving-suspect increased hypoxemia due to volume overload-improving with hemodialysis
Continue supplemental onset-attempt to wean to outpatient levels.
Aspiration precautions.
Nebulizers as needed.
Follow radiographically
BiPAP 15/8 cm as needed-at bedtime and with
Continue to observe-correspondence reviewed off antibiotics.
Nephrology follow
Hemodialysis today-goal for liter removal
Cardiology follow-correspondence reviewed
Potential ischemia evaluation
Monitor hemoglobin-severe anemia felt to be secondary to end-stage renal disease.
No evidence for bleeding
Transfuse as needed
Ongoing smoking cessation counseling-quit 1 month ago
Nicotine patch
DVT prophylaxis-on heparin.
Nutrition-renal diet.
Respiratory status stable for proposed discharge after hemodialysis
Data:
Echocardiogram 04/29/2025:
1. Normal left ventricular size and function.
2. Ejection fraction is 55-60% by visual assessment.
3. Mild concentric left ventricular hypertrophy.
4. Stage II diastolic dysfunction suggestive of abnormal relaxation and increased filling pressures.
5. Right ventricular size and systolic function are within normal limits.
6. Indexed left atrial volume is mildly abnormal (35-41 ml/m2).
7. Aortic sclerosis with no significant stenosis.
8. Mild mitral valve regurgitation.
9. Mild to moderate tricuspid regurgitation. Estimated pulmonary artery pressure of 38 mmHg assuming a right atrial pressure of 15 mmHg.
10. Left pleural effusion is noted.
11. There are no prior studies available for comparison.
Subjective Data
-
Date of Service:
Date of Service: May 04, 2025
Chief Complaint: Pulmonary Follow Up (Hypoxemic respiratory failure) and Dyspnea Follow Up
Subjective:
Overall feels better, less short of breath, no chest pain or abdominal pain, on dialysis
Review of Systems
General: Other (Per HPI)
Objective Data
Data Reviewed
Vital Signs / I&O:
Vital Signs
Temp Pulse Resp BP Pulse Ox
97.7 F 54 20 181/103 95
05/04/25 07:00 05/04/25 07:00 05/04/25 07:00 05/04/25 07:00 05/04/25 07:35
Intake and Output
05/03/25 05/04/25 05/05/25
06:59 06:59 06:59
Intake Total 1560 / 1560 960 / 960
Balance 1560 / 1560 960 / 960
SaO2: 95
Nasal Cannula flow liters per minute: 4
Physical Exam
General: Respiratory Distress (n) and Comfortable
HEENT: Normocephalic and Anicteric
Cardiovascular: Regular Rhythm
Respiratory: Crackles, Non-Labored Respirations, Accessory Resp Muscle Use (n) and Stridor (n)
GI: Soft, Non Distended and Non Tender
Neurology: Awake, Alert and No Motor Deficits
Skin: Warm, Good Color, Cyanosis (n), Jaundice (n) and Rash (n)
Labs/Micro/Reports
Lab Data
05/03/25 09:46
05/04/25 07:50
--- NOTE | 2025-05-04 09:57 | CM ---
CM following re: discharge planning.
Reviewed pt's chart, met with pt during HD treatment.
Discharge order noted. Pt is aware, expressed his agreement and stated [facility] is [facility].
IMM reviewed, placed on chart, pt has a copy.
Updated clinical faxed to [facility], spoke to liaison Vania and she confirmed that pt is a short term at [facility], was there only 3 weeks and an auth for skilled services requested.
An auth for SNF level of care at [facility] from [employer] initiated, spoke to branch sales and service representative lady Boss and based on pt's clinical pt is approved for skilled level of care for 7 initial days from today 05/04/25 till 05/10/25 with LCD and NRD 05/10/25.
Auth: [id number]. Per branch sales and service representative lady Boss no clinical needed for approval and SNF needs to send clinical to [phone].
Auth information forwarded to [facility] student liaison officer and she confirmed that pt is accepted for admission today.
Requested flow sheet will be faxed to [facility] at [phone]
to arrange ambulance transport [facility] with pickling tank operator time 2:00 p.m. [facility] and [facility] with .
[facility] nursing rapport: [phone]
Discharge instructions fax: [phone]
D/C plan: return back to [facility] to continue on skilled services and transitioning to a LTC.
[2025-05-04 11:39] LABS: Glucose - Point of Care 160 mg/dl (70-99)
[2025-05-04] MEDS: COREG 25 MG PO (12:00)
[2025-05-04] MEDS: IMDUR (EXTENDED RELEASE) 60 MG PO (12:00)
[2025-05-04] MEDS: APRESOLINE 100 MG PO (12:01)
[2025-05-04] MEDS: NORVASC 10 MG PO (12:01)
[2025-05-04] MEDS: HEPARIN 5000 UNITS SC (12:02)
[2025-05-04] MEDS: NOVOLOG FLEXPEN-LOW RESISTANCE 1 UNITS SC (12:04)
[2025-05-04 12:07] VITALS: BP 155/73
--- NOTE | 2025-05-04 13:12 | PTCARENOTE ---
Discharge in place s/p HD. Report called to Maico at [facility]. IV site removed. Acute care transport picked up pt.
--- NOTE | 2025-05-04 14:02 | W.DCSUMMARY ---
Discharge Summary
Discharge Data
Date of Admission: 04/27/25
Date of Discharge: 05/04/25
-
Pending Results: No
Hospital Course
Primary diagnoses:
Acute on chronic hypoxic respiratory failure due to pulmonary edema due to hypertensive emergency in the setting of ESRD
Secondary diagnoses:
Migraine headaches
Probable coronary artery disease
Anemia of chronic renal disease
Hyperlipidemia
Type 1 diabetes mellitus
Anxiety
Bipolar disorder
History of Guillain-Msith� syndrome, Wheelchair-bound
Consultants:
Nephrology
Pulmonary/Critical care medicine
Imaging:
CXR 04/27: Right-sided hemodialysis catheter is present with tip near the cavoatrial junction. Vascular flow appears cephalized, suggesting elevated pulmonary venous pressures. Slight increase in interstitial lung markings diffusely with
indistinctness of the central pulmonary vasculature, findings suggestive of mild interstitial edema. Patchy more confluent parenchymal opacity within the left mid to lower lung. This could represent pneumonia. With no comparison examination
available, this could also represent chronic parenchymal disease/scarring. Minimal blunting of the posterior costophrenic angles, and could represent minimal bilateral pleural effusions versus chronic pleural thickening.
CXR 04/30: Interval improved aeration on the right. Persistent and slightly increased opacity left lung base. This could represent progressive pneumonia versus atelectasis. The possibility of small left pleural effusion cannot be excluded.
Echo 04/28:
1. Normal left ventricular size and function.
2. Ejection fraction is 55-60% by visual assessment.
3. Mild concentric left ventricular hypertrophy.
4. Stage II diastolic dysfunction suggestive of abnormal relaxation and increased filling pressures.
5. Right ventricular size and systolic function are within normal limits.
6. Indexed left atrial volume is mildly abnormal (35-41 ml/m2).
7. Aortic sclerosis with no significant stenosis.
8. Mild mitral valve regurgitation.
9. Mild to moderate tricuspid regurgitation. Estimated pulmonary artery pressure of 38 mmHg assuming a right atrial pressure of 15 mmHg.
10. Left pleural effusion is noted.
11. There are no prior studies available for comparison.
Hospital course: 44-year-old male presented with chief complaints of fatigue, hypoxemia, and anemia as outlined in the H&P done on admission. On the day of admission the patient only had a half session of hemodialysis. His hemoglobin was noted to
be 6.6. Chest x-ray above and notable for interstitial edema. The patient developed hypertensive emergency and required a nitroglycerin drip. He was volume overloaded and had volume removed via hemodialysis. His weight decreased by 5.3 kg while
hospitalized. His blood pressures improved and his nitroglycerin drip was weaned off. He was continued on Norvasc/Coreg/Clonidine/Hydralazine/Imdur. Patient required BiPAP for respiratory support. Of note he was on BiPAP at baseline as needed.
By the time of discharge the patient's oxygen requirements had improved to 4L NC O2 (reportedly on 5L NC O2 at baseline). Patient was discharged in medically stable condition. He has a very high risk of readmission.
Discharge Plan
-
Patient Disposition: Skilled Nursing/SNF
Discharge Diagnosis/Procedures: Acute on chronic hypoxic respiratory failure due to pulmonary edema due to ESRD and hypertensive emergency
Condition: Fair
Diet: Diabetic, Carb Controlled
Activity: Other activity
Additional Activity: as prior to admission
Driving Restrictions: No driving
Bathing Restrictions: None
Specialty Instructions: Weigh Daily- Call MD for wt gain/loss 3 lbs overnight/5 lbs in 1 week
Activity Restrictions/Additional Instructions:
Pt is on BIPAP when sleeping as well as PRN 15/8, 4L O2
Referrals:
Suad Sears MD [Family Provider] - in less than 1 week
Prescriptions:
Continued
atorvastatin [Lipitor] 80 mg Tablet
80 mg PO QPM
carvedilol [Coreg] 25 mg Tablet
25 mg PO BID
acetaminophen [Tylenol] 325 mg Tablet
650 mg PO Q6HPRN PRN (Reason: mild pain)
nicotine 14 mg/24 hr Patch 24 Hour
1 patch TRANSDERMAL DAILY
isosorbide mononitrate 30 mg Tablet Extended Release 24 Hr
30 mg PO DAILY
clopidogrel [Plavix] 75 mg Tablet
75 mg PO DAILY
tramadol 50 mg Tablet
50 mg PO BIDPRN PRN (Reason: moderate pains)
amlodipine [Norvasc] 10 mg Tablet
10 mg PO DAILY
bisacodyl [Dulcolax (bisacodyl)] 10 mg Suppository
[address] DAILYPRN PRN (Reason: if no bm aftr mom)
hydralazine 100 mg Tablet
100 mg PO TID
lidocaine 5 % Adhesive Patch,Medicated
1 patch TOPICAL DAILY
gabapentin 300 mg Capsule
300 mg PO DAILY
aspirin 81 mg Tablet,Chewable
81 mg PO DAILY
clonidine 0.3 mg/24 hr Patch Weekly
1 patch TRANSDERMAL FR
sorbitol 70 % Solution
30 ml PO DAILYPRN PRN (Reason: constipation)
sertraline 50 mg Tablet
50 mg PO DAILY
diazepam [Valium] 5 mg Tablet
5 mg PO BID
insulin lispro 100 unit/mL Insulin Pen
6 sliding scale dose SC AC
aripiprazole [Abilify] 5 mg Tablet
5 mg PO DAILY
insulin glargine [Lantus Solostar U-100 Insulin] 100 unit/mL (3 mL) Insulin Pen
15 unit SC HS
sevelamer carbonate 800 mg Tablet
800 mg PO AC
patiromer calcium sorbitex 16.8 gram Powder In Packet
16.8 g PO DAILY
Discharge Orders:
Discharge Patient (As Directed); Ordered 05/04/25
Ordered By: Joe Jacinto
Discharge Date and Time
Discharge Date/Time: 05/04/25 13:07
Print Language: [id number]
== END 2025-05-04 13:07 | DRG 640 ==
LOC: 2 NORTH 23:52
PROVIDERS: Clinical Nurse Specialist Family Health; Hospitalist; Nurse Practitioner Primary Care; Registered Nurse; Specialist; ADMITTING PHYSICIAN Internal Medicine; ATTENDING PHYSICIAN Internal Medicine; CONSULT PHYSICIAN Internal Medicine; CONSULT PHYSICIAN Internal Medicine Cardiovascular Disease; CONSULT PHYSICIAN Internal Medicine Critical Care Medicine; EMERGENCY PHYSICIAN Student in an Organized Health Care Education/Training Program; FAMILY PHYSICIAN Internal Medicine
DX: E87.79 Other fluid overload (principal); J96.21 Acute and chronic respiratory failure with hypoxia; N18.6 End stage renal disease; I16.1 Hypertensive emergency; I12.0 Hypertensive chronic kidney disease with stage 5 chronic kidney disease or end stage renal disease; G61.0 Guillain-Barre syndrome; E87.1 Hypo-osmolality and hyponatremia; Z99.2 Dependence on renal dialysis; E10.22 Type 1 diabetes mellitus with diabetic chronic kidney disease; G43.909 Migraine, unspecified, not intractable, without status migrainosus; I25.119 Atherosclerotic heart disease of native coronary artery with unspecified angina pectoris; D63.1 Anemia in chronic kidney disease; F31.9 Bipolar disorder, unspecified; Z99.3 Dependence on wheelchair; E10.40 Type 1 diabetes mellitus with diabetic neuropathy, unspecified; G89.29 Other chronic pain; J44.9 Chronic obstructive pulmonary disease, unspecified; L89.151 Pressure ulcer of sacral region, stage 1; E78.00 Pure hypercholesterolemia, unspecified; E87.5 Hyperkalemia; F17.200 Nicotine dependence, unspecified, uncomplicated; F41.1 Generalized anxiety disorder; K59.09 Other constipation; Z79.02 Long term (current) use of antithrombotics/antiplatelets; Z79.4 Long term (current) use of insulin; Z79.82 Long term (current) use of aspirin; Z79.899 Other long term (current) drug therapy; Z91.199 Patient's noncompliance with other medical treatment and regimen due to unspecified reason
CPT/HCPCS: 36600; 71045; 71046; 73030; 73502; 80048; 80051; 80053; 82607; 82728; 82746; 82805; 82962; 83036; 83540; 83550; 83735; 83880; 85014; 85018; 85025; 85027; 86704; 86803; 86850; 86900; 86901; 86920; 87070; 87340; 93005; 93306; 94640; 94660; 97163; 97167; 97530; 99285; P9016; P9047; Q5106

== ENCOUNTER 2025-05-15 13:02 | Inpatient (IN) | payer MEDICARE, SELFPAY ==
[2025-05-15] VITALS (32 sets, daily range): BP systolic 153–212; BP diastolic 77–104; PULSE 2–69; BMI 29.7; BMI 29.4
--- NOTE | 2025-05-15 11:29 | ED.GENMED ---
History of Present Illness
<Abe Hall PA-C - Last Filed: 05/15/25 17:47>
General
Chief Complaint: Breathing Problem
Source: patient and records
Time Seen by Provider: 05/15/25 11:10
History of Present Illness
History of Present Illness:
44-year-old male with past medical history of chronic kidney disease (dialysis Friday/Friday/Friday), hypertension, hyperlipidemia, insulin-dependent diabetes, anxiety and bipolar disorder presenting to the emergency department from [facility]
where patient is a long-term resident for evaluation of acute on chronic shortness of breath patient stating he feels as if he cannot catch his breath, slight cough, diffuse headache and generally feeling unwell. No reported fevers. Patient did
report that he got dialysis on Friday but states to me that he believes he is only getting half sessions and is not sure as to why he is not getting a full dialysis session. Currently denying any chest pain, palpitations, diaphoresis, abdominal
pain, nausea or vomiting. At baseline patient does not make urine anymore. Recently discharged from this facility for similar presentation.
Past History
<Abe Hall PA-C - Last Filed: 05/15/25 17:47>
Past History
ED Past Medical History: COPD, HTN, Hypercholesterolemia, IDDM, Renal failure, Psychiatric (anxiety, depression, bipolar) and Other (Hyperkalemia, hypoxia )
ED Past Surgical History: None
Social History
Tobacco: Non-smoker
Alcohol: None
Drug: None
Personal: Single
Living: alf
Review of Systems
<Abe Hall PA-C - Last Filed: 05/15/25 17:47>
Review of Systems
All Other Systems: ROS reviewed and negative except as documented in HPI and ROS
Phy Exam
<Abe Hall PA-C - Last Filed: 05/15/25 17:47>
Physical Exam
Physical Exam:
GENERAL: Alert , appears older than stated age, sickly, increased WOB
HEAD: Normocephalic atraumatic
EYE: clear conjunctiva
NECK: Supple
ENT: o/p clr, mmm.
CARDIAC: Regular rate and rhythm .
LUNGS: Bilateral rails, left slightly worse than right, increased work of breathing, mild accessory muscle use, somewhat rapid pressured speech
ABDOMEN: Soft, without focal tenderness, no r/g, no cvat
NEUROLOGICAL: Alert and oriented
SKIN: Warm and dry, skin intact.
MUSCULOSKELETAL: Bilateral pitting edema to the knees, well perfused.
PSYCH: Normal and appropriate interaction.
Scores
<Abe Hall PA-C - Last Filed: 05/15/25 17:47>
Heart Failure Risk
Heart Failure Risk Score: Not Applicable
Heart Score for Chest Pain Patients
STEMI patient?: Not applicable
Withdrawal Assessment of Alcohol
Withdrawal Assessment Completed?: Not applicable
Course
<Abe Hall PA-C - Last Filed: 05/15/25 17:47>
Orders/Labs/Results
Orders:
Orders
05/15/25 08:50
Electrocardiogram (*1) Urgent
Reason for Study: Shortness of Breath
EKG- Treatment ONCE
05/15/25 11:25
CR Chest Portable - 1 View Urgent
Comment:
Reason For Exam: SOB, hypoxia, dialysis
Reason Study Needs to be Portable: Patient Unstable
Bipap [RESP] Urgent
Patient to use own unit?: No
Inspiratory Pressure (cm H2O): 14
Expiratory Pressure (cm H2O): 6
05/15/25 12:04
ABG [Arterial Blood Gas] Urgent
%Oxygen/Room Air: NRB
05/15/25 12:05
Epoetin Kamron-Epbx [Retacrit] 10,000 units IV HD-ONCE ONE
Heparin See Dose Instructions INTRACATH HD-ONCE ONE
Mannitol 25% 12.5 grams IV HD-Q1HPRN PRN
Sodium Chloride [Sodium Chloride 4 Meq/ml For Hemodialysis] 10 ml IV HD-Q1HPRN PRN
Hemodialysis treatment As Directed
Treatment date:: 05/15/25
Treatment type: Hemodialysis
Ultrafiltration (kg): 3-1/2 to 4 kg
Treatment time (duration): 3 hours 30 minutes
Use dialysis access:: Tunneled Cath
Dialyzer:: Optiflux 160
Blood flow rate minimum: 300
Blood flow rate maximum: 400
Dialysis flow rate: 600 mL/min
Dialysate temperature: 37 degrees Celsius
Sodium (Na): 137
Potassium (K): 2
Calcium (Ca): 2.5
Bicarbonate (HCO3): 38
05/15/25 12:08
CT Head W/o Iv Contrast Urgent
Comment:
Reason For Exam: headache, HTN
05/15/25 12:22
Add On- LAB Urgent
Tests Added?: mag phos
05/15/25 12:23
Real Estate Investor Consult Routine
Consulting Provider: Dominic Shipman
Was physician already notified: Yes
Reason for consult: acute chronc hypoxic resp failyre acute overload/esrd
NEPHROLOGY CONSULT Routine
Consulting Provider: Ry Mccauley V.
Was physician already notified: Yes
Reason for consult: esrd volume overload hypoxic resp failure
05/15/25 12:25
Admit/Transfer Patient As Directed
Co-Sign Provider:
Level of Care: Inpatient admission
Assign to:: ICU
Physician / Group: cesar rubin
Diagnosis: anasarca/volume overload, esrd/dialysis, a./Ch hypoxic resp failure
Reason for Hospitalization: anasarca/volume overload, esrd/dialysis, a./Ch hypoxic resp failure
Expected length of stay greater than two midnights?: Yes
ELOS- Estimated Length of Stay in days: 5
I certify the patient meets the requirements for IP care: Yes
Code Status As Directed
Resuscitation Status: Full Code
05/15/25 12:29
PRN Pain Medication Management As Directed
May give lesser potent ordered pain med per pt: Yes
preference::
Protocol:: Medication orders for pain may be administered in a
manner that supports deferring to patient preference
when the pt is:
- Requesting an ordered lesser potent pain medication.
Least to most potent pain medications are defined
as: acetaminophen < NSAID < tramadol < opioids
(morphine, oxycodone, hydromorphone).
- Requesting a lesser dose of the same medication IF
ORDERED.
- Requesting a less intrusive route of administration
if both routes are prescribed by the provider (PO <
IV).
05/15/25 12:57
Type+Screen Urgent
Complete Blood Count/With Diff Urgent
Comprehensive Metabolic Panel Urgent
Magnesium Urgent
Comment: ADD ON
Phosphorus Urgent
Comment: ADD ON
Troponin I Urgent
05/15/25 12:59
Acetaminophen [Tylenol] 650 mg PO NOW STA
05/15/25 13:45
Bisacodyl [Dulcolax] 10 mg RECTAL [id number] PRN
Docusate W/Senna [Senokot-S] 1 tablet PO BIDPRN PRN
Polyethylene Glycol Powder [Miralax] 17 grams PO DAILYPRN PRN
Sorbitol Solution [Sorbitol 70% Solution] 30 ml PO DAILYPRN PRN constipation
Tramadol HCl [Ultram] 50 mg PO BIDPRN PRN moderate pains
05/15/25 13:45
Activity As Directed
Activity Level: With Assistance
Intake/ Output As Directed
Frequency: Per unit guidelines
Pneumatic Compression Sleeves As Directed
Type: Knee high
Vital Signs As Directed
Frequency: Per unit guidelines
Weight As Directed
Frequency: Daily
O2 Therapy [RESP] Routine
Non-Rebreather Mask: Yes
Titrate/Wean O2 to maintain O2 sat greater than (%): 92
Special Instructions: pt normally on 4-5 liters nc depenedent , may wean to this as tolerated
Pulse Ox/spot Check [RESP] Routine
Quantity: 1
Pt Eval And Treat Routine
Activity Level: As Tolerated
DX Deep Vein Thrombosis Video Routine
DX Deep Vein Thrombosis Video Routine
05/15/25 Dinner
1800 calorie (15 carb) Diabetic
At Your Request: Limited Participation
Diabetic Diet: Potassium, 2 Gram
05/15/25 16:00
HydrALAZINE [Apresoline] 100 mg PO TID
05/15/25 16:30
Sevelamer Carbonate [Renvela] 800 mg PO AC
05/15/25 18:00
Atorvastatin [Lipitor] 80 mg PO QPM
05/15/25 20:00
Carvedilol [Coreg] 25 mg PO BID
Diazepam [Valium] 5 mg PO BID
Heparin 5,000 units SC Q12
05/16/25 06:00
Complete Blood Count/With Diff IN AM
Comprehensive Metabolic Panel IN AM
05/16/25 08:00
ARIPiprazole [Abilify] 5 mg PO DAILY
Amlodipine [Norvasc] 10 mg PO DAILY
Aspirin Chewable [Low Strength Aspirin] 81 mg PO DAILY
Clopidogrel Bisulfate [Plavix] 75 mg PO DAILY
ISOSORBIDE MONOnitrate ER [Imdur (Extended Release)] 30 mg PO DAILY
Lidocaine [Lidocaine 4% Patch] 1 patch TOPICAL DAILY
Apply Lidocaine patch(s) to:: shoulder right
Lisinopril [Zestril] 40 mg PO DAILY
Nicotine [Nicoderm Transdermal] 14 mg TRANSDERM DAILY
Sertraline HCl [Zoloft] 50 mg PO DAILY
patiromer calcium sorbitex 16.8 grams PO DAILY
05/17/25 06:00
Complete Blood Count/With Diff IN AM
Comprehensive Metabolic Panel IN AM
05/18/25 06:00
Complete Blood Count/With Diff IN AM
Comprehensive Metabolic Panel IN AM
05/19/25 06:00
Complete Blood Count/With Diff IN AM
Comprehensive Metabolic Panel IN AM
05/20/25 08:00
Clonidine [Rytyengv-Riy-0] 0.3 mg TRANSDERM FR
Abnormal Lab Results
05/15/25 05/15/25
12:04 12:57
RBC 2.98 L 10^6/uL
(4.70-6.10)
Hgb 8.9 L g/dL
(13.0-18.0)
Hct 27.0 L %
(39.0-52.0)
Absolute Neuts (auto) 8.9 H 10^3/uL
(1.4-6.5)
Absolute Lymphs (auto) 0.6 L 10^3/uL
(1.2-3.4)
Neutrophils % 88.0 H %
(42.2-75.2)
Lymphocytes % 5.4 L %
(20.5-51.1)
pH 7.34 L
(7.35-7.45)
pO2 69 L mmHg
(83-108)
Sodium 132 L mmol/L
(135-145)
Potassium 5.9 H mmol/L
(3.5-5.1)
Carbon Dioxide 20 L mmol/L
(22-30)
BUN 63 H mg/dl
(9-20)
Creatinine 9.6 H* mg/dL
(0.7-1.3)
Glucose 202 H mg/dl
(70-99)
Phosphorus 8.0 H mg/dl
(2.5-4.5)
Alkaline Phosphatase 195 H U/L
(38-126)
05/15/25 12:57
05/15/25 12:57
Vital Signs
Initial and Last Documented VS:
Initial Vital Signs
Temp Pulse Resp BP Pulse Ox
97.7 F 78 20 208/91 98
05/15/25 08:54 05/15/25 08:54 05/15/25 08:54 05/15/25 08:54 05/15/25 08:54
Last Documented Vital Signs
Temp Pulse Resp BP Pulse Ox
98 F 73 17 178/81 99
05/15/25 14:00 05/15/25 17:30 05/15/25 17:30 05/15/25 17:15 05/15/25 17:30
<Colin Downey, DO - Last Filed: 05/15/25 14:56>
Orders/Labs/Results
Orders:
Orders
05/15/25 08:50
Electrocardiogram (*1) Urgent
Reason for Study: Shortness of Breath
EKG- Treatment ONCE
05/15/25 11:25
CR Chest Portable - 1 View Urgent
Comment:
Reason For Exam: SOB, hypoxia, dialysis
Reason Study Needs to be Portable: Patient Unstable
Bipap [RESP] Urgent
Patient to use own unit?: No
Inspiratory Pressure (cm H2O): 14
Expiratory Pressure (cm H2O): 6
05/15/25 12:04
ABG [Arterial Blood Gas] Urgent
%Oxygen/Room Air: NRB
05/15/25 12:05
Epoetin Kamron-Epbx [Retacrit] 10,000 units IV HD-ONCE ONE
Heparin See Dose Instructions INTRACATH HD-ONCE ONE
Mannitol 25% 12.5 grams IV HD-Q1HPRN PRN
Sodium Chloride [Sodium Chloride 4 Meq/ml For Hemodialysis] 10 ml IV HD-Q1HPRN PRN
Hemodialysis treatment As Directed
Treatment date:: 05/15/25
Treatment type: Hemodialysis
Ultrafiltration (kg): 3-1/2 to 4 kg
Treatment time (duration): 3 hours 30 minutes
Use dialysis access:: Tunneled Cath
Dialyzer:: Optiflux 160
Blood flow rate minimum: 300
Blood flow rate maximum: 400
Dialysis flow rate: 600 mL/min
Dialysate temperature: 37 degrees Celsius
Sodium (Na): 137
Potassium (K): 2
Calcium (Ca): 2.5
Bicarbonate (HCO3): 38
05/15/25 12:08
CT Head W/o Iv Contrast Urgent
Comment:
Reason For Exam: headache, HTN
05/15/25 12:22
Add On- LAB Urgent
Tests Added?: mag phos
05/15/25 12:23
Real Estate Investor Consult Routine
Consulting Provider: Dominic Shipman
Was physician already notified: Yes
Reason for consult: acute chronc hypoxic resp failyre acute overload/esrd
NEPHROLOGY CONSULT Routine
Consulting Provider: Ry Mccauley V.
Was physician already notified: Yes
Reason for consult: esrd volume overload hypoxic resp failure
05/15/25 12:25
Admit/Transfer Patient As Directed
Co-Sign Provider:
Level of Care: Inpatient admission
Assign to:: ICU
Physician / Group: cesar rubin
Diagnosis: anasarca/volume overload, esrd/dialysis, a./Ch hypoxic resp failure
Reason for Hospitalization: anasarca/volume overload, esrd/dialysis, a./Ch hypoxic resp failure
Expected length of stay greater than two midnights?: Yes
ELOS- Estimated Length of Stay in days: 5
I certify the patient meets the requirements for IP care: Yes
Code Status As Directed
Resuscitation Status: Full Code
05/15/25 12:29
PRN Pain Medication Management As Directed
May give lesser potent ordered pain med per pt: Yes
preference::
Protocol:: Medication orders for pain may be administered in a
manner that supports deferring to patient preference
when the pt is:
- Requesting an ordered lesser potent pain medication.
Least to most potent pain medications are defined
as: acetaminophen < NSAID < tramadol < opioids
(morphine, oxycodone, hydromorphone).
- Requesting a lesser dose of the same medication IF
ORDERED.
- Requesting a less intrusive route of administration
if both routes are prescribed by the provider (PO <
IV).
05/15/25 12:57
Type+Screen Urgent
Complete Blood Count/With Diff Urgent
Comprehensive Metabolic Panel Urgent
Magnesium Urgent
Comment: ADD ON
Phosphorus Urgent
Comment: ADD ON
Troponin I Urgent
05/15/25 12:59
Acetaminophen [Tylenol] 650 mg PO NOW STA
05/15/25 13:45
Bisacodyl [Dulcolax] 10 mg RECTAL [id number] PRN
Docusate W/Senna [Senokot-S] 1 tablet PO BIDPRN PRN
Polyethylene Glycol Powder [Miralax] 17 grams PO DAILYPRN PRN
Sorbitol Solution [Sorbitol 70% Solution] 30 ml PO DAILYPRN PRN constipation
Tramadol HCl [Ultram] 50 mg PO BIDPRN PRN moderate pains
05/15/25 13:45
Activity As Directed
Activity Level: With Assistance
Intake/ Output As Directed
Frequency: Per unit guidelines
Pneumatic Compression Sleeves As Directed
Type: Knee high
Vital Signs As Directed
Frequency: Per unit guidelines
Weight As Directed
Frequency: Daily
O2 Therapy [RESP] Routine
Non-Rebreather Mask: Yes
Titrate/Wean O2 to maintain O2 sat greater than (%): 92
Special Instructions: pt normally on 4-5 liters nc depenedent , may wean to this as tolerated
Pulse Ox/spot Check [RESP] Routine
Quantity: 1
Pt Eval And Treat Routine
Activity Level: As Tolerated
DX Deep Vein Thrombosis Video Routine
DX Deep Vein Thrombosis Video Routine
05/15/25 Dinner
1800 calorie (15 carb) Diabetic
At Your Request: Limited Participation
Diabetic Diet: Potassium, 2 Gram
05/15/25 16:00
HydrALAZINE [Apresoline] 100 mg PO TID
05/15/25 16:30
Sevelamer Carbonate [Renvela] 800 mg PO AC
05/15/25 18:00
Atorvastatin [Lipitor] 80 mg PO QPM
05/15/25 20:00
Carvedilol [Coreg] 25 mg PO BID
Diazepam [Valium] 5 mg PO BID
Heparin 5,000 units SC Q12
05/16/25 06:00
Complete Blood Count/With Diff IN AM
Comprehensive Metabolic Panel IN AM
05/16/25 08:00
ARIPiprazole [Abilify] 5 mg PO DAILY
Amlodipine [Norvasc] 10 mg PO DAILY
Aspirin Chewable [Low Strength Aspirin] 81 mg PO DAILY
Clopidogrel Bisulfate [Plavix] 75 mg PO DAILY
ISOSORBIDE MONOnitrate ER [Imdur (Extended Release)] 30 mg PO DAILY
Lidocaine [Lidocaine 4% Patch] 1 patch TOPICAL DAILY
Apply Lidocaine patch(s) to:: shoulder right
Lisinopril [Zestril] 40 mg PO DAILY
Nicotine [Nicoderm Transdermal] 14 mg TRANSDERM DAILY
Sertraline HCl [Zoloft] 50 mg PO DAILY
patiromer calcium sorbitex 16.8 grams PO DAILY
05/17/25 06:00
Complete Blood Count/With Diff IN AM
Comprehensive Metabolic Panel IN AM
05/18/25 06:00
Complete Blood Count/With Diff IN AM
Comprehensive Metabolic Panel IN AM
05/19/25 06:00
Complete Blood Count/With Diff IN AM
Comprehensive Metabolic Panel IN AM
05/20/25 08:00
Clonidine [Kolidesz-Noh-7] 0.3 mg TRANSDERM FR
Abnormal Lab Results
05/15/25 05/15/25
12:04 12:57
RBC 2.98 L 10^6/uL
(4.70-6.10)
Hgb 8.9 L g/dL
(13.0-18.0)
Hct 27.0 L %
(39.0-52.0)
Absolute Neuts (auto) 8.9 H 10^3/uL
(1.4-6.5)
Absolute Lymphs (auto) 0.6 L 10^3/uL
(1.2-3.4)
Neutrophils % 88.0 H %
(42.2-75.2)
Lymphocytes % 5.4 L %
(20.5-51.1)
pH 7.34 L
(7.35-7.45)
pO2 69 L mmHg
(83-108)
Sodium 132 L mmol/L
(135-145)
Potassium 5.9 H mmol/L
(3.5-5.1)
Carbon Dioxide 20 L mmol/L
(22-30)
BUN 63 H mg/dl
(9-20)
Creatinine 9.6 H* mg/dL
(0.7-1.3)
Glucose 202 H mg/dl
(70-99)
Phosphorus 8.0 H mg/dl
(2.5-4.5)
Alkaline Phosphatase 195 H U/L
(38-126)
05/15/25 12:57
05/15/25 12:57
Vital Signs
Initial and Last Documented VS:
Initial Vital Signs
Temp Pulse Resp BP Pulse Ox
97.7 F 78 20 208/91 98
05/15/25 08:54 05/15/25 08:54 05/15/25 08:54 05/15/25 08:54 05/15/25 08:54
Last Documented Vital Signs
Temp Pulse Resp BP Pulse Ox
98 F 73 17 178/81 99
05/15/25 14:00 05/15/25 17:30 05/15/25 17:30 05/15/25 17:15 05/15/25 17:30
<Abe Hall PA-C - Last Filed: 05/15/25 17:47>
MDM/Problems Addressed
Differential Diagnosis Includes:
Acute on chronic respiratory failure
Volume overload
Htn urgency
ACS
Electrolyte imbalance
hypercapnia
MDM/Problems Addressed:
44-year-old male with longstanding chronic medical conditions presenting to the ER with respiratory distress/respiratory failure. Currently on a nonrebreather from EMS. Patient still with increased work of breathing. Recently admitted here for
similar, required dialysis due to volume overload as well as hypertensive urgency. Patient questionably did not receive a full dialysis session this past Friday. Based off physical exam he does appear significantly volume overloaded. He is quite
hypertensive here. Unfortunately patient does not make urine and unable to treat with diuretics. Given the respiratory distress we will attempt BiPAP as this seemed to have helped patient in the past based off of record review. I notified
nephrology but we are unable to dialyze till later this evening as there is currently no nurses available. Will plan for admission pending workup. Patient very difficult IV stick, multiple attempts were already tried and unsuccessful. IV team to
attempt midline placement
Chronic conditions affecting care: DM, HTN and Kidney disease
Acute Exacerbation and/or Progression of Chronic Illness: Kidney disease
<Abe Hall PA-C - Last Filed: 05/15/25 17:47>
*Pulse Oximetry
SaO2: 94
Oxygen Mode of Delivery: Non-rebreather mask
Patient hypoxic: yes
*EKG
Heart Rate: 73
Rate: normal
Rhythm: sinus
Ischemia: no ischemia
*Ios Developer Interpretation
Rate: normal
Heart Rate: 85
Rhythm: sinus
*Critical Care Note
Total Time (30-74mins, 75-104mins- exclusive of procedures): 35
comment:
Critical care statement: A total of 35 minutes of critical care time was provided for this patient. This includes management of unstable vital signs, evaluation of the patient at bedside, reviewing the patient's pertinent medical records, discussion
with consultants, review of old EKGs and review of pertinent medical records. This time with separate from time utilized to perform the aforementioned documented procedures
Data Reviewed
Review of Other/Old Records Reveals: Labs, Records, Radiology Studies and Discharge Summary
<Abe Hall PA-C - Last Filed: 05/15/25 17:47>
Patient Management
Discussion with other providers: Hospitalist and Looper Operator
Escalation/DeEscalation of care consider admission/obs:
Notified nephrology that patient will likely need stat dialysis to help with respiratory status. They will come to the ER to evaluate the patient and help set up dialysis. Hospitalist team accepts for continued evaluation and treatment.
ED Attending Note
<Abe Hall PA-C - Last Filed: 05/15/25 17:47>
-
Portions of this chart may have been created with voice recognition software.� Occasional wrong word or��sound alike� substitutions may have occurred due to the inherent limitations of voice recognition software.
<Colin Downey DO - Last Filed: 05/15/25 14:56>
ED Attending Note
Patient seen and examined by attending physician: Yes
ED Attending Note:
I have reviewed and agree with history treatment plan by Jose Hall. My exam revealed 44-year-old male with Rales bilaterally moderate respiratory distress. Patient requires urgent dialysis. Admit to ICU. Patient seen by Dr. Mccauley.
Discharge Plan
Departure
Patient Disposition: Admit
Date of Disposition: 05/15/25
Time of Disposition: 11:59
Presentation/result/management discussed w/ accepting MD/DO: Hospitalist
Discharge Problem:
Respiratory failure, Hypertensive urgency, CKD (chronic kidney disease)
Interventions
Interventions:
*Risk Screen - Suicide Last Done: 05/15/25 08:51
*General Assessment Last Done: 05/15/25 08:53
*Neglect/Abuse Screening Last Done: 05/15/25 08:51
*ED- Fall Risk Assessment Last Done: 05/15/25 08:52
*ED COVID-19 Vaccine History Last Done: 05/15/25 08:52
*ED Influenza Vaccine History Last Done: 05/15/25 08:52
*Nursing Disposition Last Done: 05/15/25 13:50
ED- Cardiac Assessment Last Done: 05/15/25 09:02
ED- Pulmonary Assessment Last Done: 05/15/25 09:02
Discharge Date and Time
Discharge Date/Time: 05/15/25 13:58
--- NOTE | 2025-05-15 11:44 | W.CON.NEPH ---
Consultation
-
Date/Time Consultation Requested: 05/15/2025 11:35 AM
Date/Time Consultation Performed: 05/15/2025 11:45 AM
Requesting Provider: Dr. Downey
Performing Provider: Dr. Mccauley
Reason for Consultation: ESRD/hypoxic respiratory failure
Medical History
-
Chief Complaint: Hypoxic respiratory failure/ESRD
History of Present Illness:
44-year-old with insulin-dependent diabetes since age of 24, end-stage renal disease on hemodialysis Friday currently via Perm[facility] at [facility] for last 2weeks, bipolar on Abilify, valium, sertraline, uncontrolled hypertension on
Amlodipine, hydralazine, clonidine, coreg, ?CAD on imdur, aspirin and Plavix who presents to the emergency department from from [facility] with hypoxia and shortness of breath. The patient was recently just hospitalized here and was discharged 2
weeks prior with similar presentation. He is now on nonrebreather and nephrology was emergently consulted for pulmonary edema in the setting of his ESRD
Past Medical History
ESRD dialysis Friday
diabetic type 1 diagnosed age 24,
diabetic neuropathy feet
chronic right shoulder pain
angina
HTN
HLD
COPD, chronic 4 L oxygen
former smoker 1 pack a day quit approximately 4 weeks ago March 2025
bipolar disorder
anxiety
depression
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
Past Surgical History: Other (Right upper chest wall catheter)
Social History
Tobacco: Smoker
Alcohol: None
Drug: None
Personal: Single
Living: Halfway
Employment: Disabled
Family History
Family History: Not Pertinent
Allergies / Home Medications
Allergy/AdvReac Type Severity Reaction Status Date / Time
No Known Allergies Allergy Verified 05/15/25 09:01
�Medication �Instructions �Recorded �Confirmed �Type
acetaminophen 325 mg tablet 650 mg PO Q6HPRN PRN mild pain 04/27/25 04/27/25 History
(Tylenol)
amlodipine 10 mg tablet (Norvasc) 10 mg PO DAILY Blood Pressure 04/27/25 04/27/25 History
aripiprazole 5 mg tablet (Abilify) 5 mg PO DAILY Mental Health/Anxiety 04/27/25 04/27/25 History
aspirin 81 mg chewable tablet 81 mg PO DAILY Blood Pressure 04/27/25 04/27/25 History
atorvastatin 80 mg tablet (Lipitor) 80 mg PO QPM High Cholesterol 04/27/25 04/27/25 History
bisacodyl 10 mg rectal suppository 10 mg [place] DAILYPRN PRN if no bm 04/27/25 04/27/25 History
(Dulcolax (bisacodyl)) aftr mom
carvedilol 25 mg tablet (Coreg) 25 mg PO BID Blood Pressure 04/27/25 04/27/25 History
clonidine 0.3 mg/24 hr weekly 1 patch transdermal FR Blood 04/27/25 04/27/25 History
transdermal patch Pressure
clopidogrel 75 mg tablet (Plavix) 75 mg PO DAILY Blood Clot 04/27/25 04/27/25 History
Prevention/Tx
diazepam 5 mg tablet (Valium) 5 mg PO BID Mental Health/Anxiety 04/27/25 04/27/25 History
gabapentin 300 mg capsule 300 mg PO DAILY Pain 04/27/25 04/27/25 History
hydralazine 100 mg tablet 100 mg PO TID Blood Pressure 04/27/25 04/27/25 History
insulin glargine 100 unit/mL (3 15 unit SC HS Diabetes 04/27/25 04/27/25 History
mL) subcutaneous pen (Lantus
Solostar U-100 Insulin)
insulin lispro 100 unit/mL 6 sliding scale dose SC AC Diabetes 04/27/25 04/27/25 History
subcutaneous pen
isosorbide mononitrate 30 mg 30 mg PO DAILY Blood Pressure 04/27/25 04/27/25 History
tablet,extended release 24 hr
lidocaine 5 % topical patch 1 patch topical DAILY Pain 04/27/25 04/27/25 History
nicotine 14 mg/24 hr daily 1 patch transdermal DAILY SMOKING 04/27/25 04/27/25 History
transdermal patch CESSASION
patiromer calcium sorbitex 16.8 16.8 g PO DAILY Kidney Disease 04/27/25 04/27/25 History
gram oral powder packet
sertraline 50 mg tablet 50 mg PO DAILY Mental 04/27/25 04/27/25 History
Health/Anxiety
sevelamer carbonate 800 mg tablet 800 mg PO AC Kidney Disease 04/27/25 04/27/25 History
sorbitol 70 % solution 30 ml PO DAILYPRN PRN constipation 04/27/25 04/27/25 History
tramadol 50 mg tablet 50 mg PO BIDPRN PRN moderate pains 04/27/25 04/27/25 History
Review of Systems
-
Unable to obtain full review of systems at this time due to: Other (On BIPAP so difficult to get history )
All other systems: Negative unless noted
Respiratory: Trouble Breathing (Hypoxic on nonrebreather, on baseline 4 L nasal cannula)
Hematologic/Lymphatic: Other (Right tunneled IJ catheter)
Physical Exam
Vital Signs
Vital Signs
Temp Pulse Resp BP Pulse Ox
97.7 F 70 24 190/80 94
05/15/25 08:54 05/15/25 11:15 05/15/25 11:15 05/15/25 11:00 05/15/25 11:30
Lab Results
Nkw-O-Slizrlthjnj Pept Cancelled 05/15/25 08:50
Physical Exam
General: Awake, Alert, Oriented, AOx3 and Other (Severe respiratory distress on BiPAP)
HEENT: EOMI, Conjunctivae Clear, Facial Symmetry and Other (Periorbital edema)
Respiratory: Crackels, Normal Excursion and Other (on BIPAP, labored respiration)
Cardiac: S1/S2 and Regular Rate/Rhythm
Breast: Deferred by me
Abdomen: Soft, Nontender and Nondistended
Genito-urinary: Other (And uric baseline)
Musculoskeletal: Edema (3+)
Skin: No Rash
Neuro: Nonfocal/Grossly Intact
Psych: Appropriate
Vascular Access: CVC (Tunneled right IJ catheter)
Data Reviewed
-
Radiology: Image Personally Visualized and interpreted (Bilateral pulmonary edema)
Labs: Labs Reviewed by me (To be reviewed by me on dialysis)
Old Records: Reviewed (Reviewed previous nephrology consultation for ESRD and discharge summary from April 2025 in electronic medical)
Assessment/Plan
-
IMP:
Acute hypoxic respiratory insufficiency likely secondary to fluid overload
History of COPD on chronic 4 L nasal cannula since March 2025
Acute symptomatic anemia history ESRD on dialysis
ESRD on dialysis Friday at [facility]
HTN
Hyponatremia
mild hyperkalemia
CAD
Diabetic type 1 Dx age 24
HLD
Bipolar disorder/anxiety/depression
Constipation
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
Hyperphosphatemia
Right IJ catheter
Plan:
Emergent dialysis to be performed for pulmonary edema and hypoxic respiratory
Labs difficult to obtain by emergency room staff I will obtain them on dialysis via his right IJ cath
Labs and chest x-ray to be personally reviewed: Bilateral CHF by my interpretation of the
Patient is critically ill with hypoxic respiratory failure in the setting of pulmonary edema requiring emergent dialysis
45 minutes critical care time spent with patient
Total Time Spent with Patient (in minutes): 45 minutes
--- NOTE | 2025-05-15 12:18 | W.PN.UPDATE ---
Addendum entered and electronically signed by Puma Palumbo MD 05/16/25 07:47:
CORRECTION:
Acute on chronic hypoxic respiratory failure due to [place] Pul edema
- Anasarca
-due to pulmonary edema due to ESRD and hypertensive emergency
- on BiPAP <del>NRM</del>
- For urgent volume removal via HD
- on NTG gtt, now off
- cont Norvasc/Coreg/Clonidine/Hydralazine/Imdur
- Nephro and ICU consult
Original Note:
Update Note
Progress Note Update
This note serves as an addendum to the H&P by warp knitter Curt Medina
CC: Urgent eval for prompt HD request by [employer]
HPI
44M SNF Res at [facility] HX advanced CKD on HD ( MWF) hypertension, hyperlipidemia, insulin-dependent diabetes, anxiety and bipolar disorder seen at ER
- evaluation of acute on chronic shortness of breath patient stating he feels as if he cannot catch his breath, slight cough, diffuse headache and generally feeling unwell.
- No reported fevers. Patient did report that he got dialysis on Friday but states to me that he believes he is only getting half sessions and is not sure as to why he is not getting a full dialysis session. - - Currently denying any chest pain,
palpitations, diaphoresis, abdominal pain, nausea or vomiting.
- At baseline patient does not make urine anymore. Recently discharged from this facility for similar presentation.
ROS: DUCKWORTH
PHX:
Relevant VS
Temp Pulse Resp BP Pulse Ox
97.7 F 67 24 190/92 95
05/15/25 08:54 05/15/25 12:00 05/15/25 12:00 05/15/25 11:30 05/15/25 12:00
Relevant Data�
05/04/25 05/15/25
07:50 08:50
Sodium 130 L Pending
Potassium 5.2 H Pending
Chloride 93 L Pending
Carbon Dioxide 27 Pending
Creatinine Pending
Calcium Pending
AST Pending
ALT Pending
Alkaline Phosphatase Pending
Albumin Pending
Echo
1. Normal left ventricular size and function.
2. Ejection fraction is 55-60% by visual assessment.
3. Mild concentric left ventricular hypertrophy.
4. Stage II diastolic dysfunction suggestive of abnormal relaxation and increased filling pressures.
5. Right ventricular size and systolic function are within normal limits.
6. Indexed left atrial volume is mildly abnormal (35-41 ml/m2).
7. Aortic sclerosis with no significant stenosis.
8. Mild mitral valve regurgitation.
9. Mild to moderate tricuspid regurgitation. Estimated pulmonary artery pressure of 38 mmHg assuming a right atrial pressure of 15 mmHg.
10. Left pleural effusion is noted.
11. There are no prior studies available for comparison.
Last hospitalist admission:Date of Admission: 04/27/25 - 05/04/25
Primary diagnoses:
Acute on chronic hypoxic respiratory failure due to pulmonary edema due to hypertensive emergency in the setting of ESRD
Secondary diagnoses:
Migraine headaches
Probable coronary artery disease
Anemia of chronic renal disease
Hyperlipidemia
Type 1 diabetes mellitus
Anxiety
Bipolar disorder
HX Guillain-Smith� syndrome, Wheelchair-bound
ASSESSMENT & PLAN
Pending Rx reconciliation
Acute on chronic hypoxic respiratory failure due to [place] Pul edema
- Anasarca
-due to pulmonary edema due to ESRD and hypertensive emergency
- on NRM
- For urgent volume removal via HD
- on NTG gtt, now off
- cont Norvasc/Coreg/Clonidine/Hydralazine/Imdur
- Nephro and ICU consult
UDCKWORTH
HX Migraine DUCKWORTH Tramadol/Tylenol PRN
- HCT when stable after HD
Other problems:
Migraine h/a: Tramadol/Tylenol PRN
Probable CAD: cont ASA/Plavix/statin/BB
Anemia of chronic renal disease:
Hyperlipidemia: cont statin
DM1: cont Lantus/premeal Novolog/SSI/accuchecks/diabetic diet
Anxiety/Bipolar: cont Valium/Zoloft/Abilify
History of Guillain-Smith� syndrome: Wheelchair-bound
Right hip and shoulder pain: XR without fx
DVT Px: SQH
Full code
ICU
--- NOTE | 2025-05-15 12:19 | HPS.HSE ---
Family Physician
-
Family Physician: Suad Sears
Chief Complaint
-
Anasarca, headache, shortness breath, dyspnea
History of Present Illness
44-year-old male sent from [facility] with acute on chronic shortness of breath, dyspnea, cough, headache, swelling to upper eyelids and extremities. Patient is on dialysis Friday he reports receiving half session only
Friday 2 days ago. Patient denies fever, chest pain, palpitations, abdominal pain, nausea, vomiting, diarrhea. At baseline does not make urine. He had recent admission 04/27 - 05/04/2025 due to hypoxic respiratory failure from pulmonary edema and
hypertensive emergency in setting of ESDR. He did require IV nitro drip for hypertensive emergency. He was diuresed with dialysis. He was able to wean from BiPAP to nasal cannula oxygen where he was discharged on 4 to 5 L nasal cannula baseline.
He past medical history ESRD dialysis Friday, diabetic type 1 diagnosed age 24, diabetic neuropathy feet,angina chronic right shoulder pain, HTN, HLD, COPD, chronic 4 L oxygen, former smoker 1 pack a day quit approximately 4 weeks
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
Medical History
Past Medical History
Past Medical History: Reports Other
Additional Past Medical History:
ESRD dialysis Friday
diabetic type 1 diagnosed age 24,
diabetic neuropathy feet
chronic right shoulder pain
angina
HTN
HLD
COPD, chronic 4 L oxygen
former smoker 1 pack a day quit approximately 4 weeks ago March 2025
bipolar disorder
anxiety
depression
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
Past Surgical History: Reports Other
Additional Past Surgical History:
Right upper chest wall catheter
Social History
Tobacco: Smoker (Former smoker up until 1 month ago)
Alcohol: None
Drug: None
Personal: Single
Living: Custodial ([facility])
Employment: Disabled
Family History
Family History: Not pertinent
Allergies / Home Medications
Allergies reflects when Allergies were last updated in [facility].
Home Medications with original date entered in [facility]
Allergy/Medication List:
Allergies
Allergy/AdvReac Type Severity Reaction Status Date / Time
No Known Allergies Allergy Verified 05/15/25 09:01
Home Medications
acetaminophen 325 mg tablet (Tylenol) 650 mg PO Q6HPRN PRN mild pain 04/27/25
amlodipine 10 mg tablet (Norvasc) 10 mg PO DAILY Blood Pressure 04/27/25
aripiprazole 5 mg tablet (Abilify) 5 mg PO DAILY Mental Health/Anxiety 04/27/25
aspirin 81 mg chewable tablet 81 mg PO DAILY Blood Pressure 04/27/25
atorvastatin 80 mg tablet (Lipitor) 80 mg PO QPM High Cholesterol 04/27/25
bisacodyl 10 mg rectal suppository (Dulcolax (bisacodyl)) 10 mg [place] DAILYPRN PRN if no bm aftr mom 04/27/25
carvedilol 25 mg tablet (Coreg) 25 mg PO BID Blood Pressure 04/27/25
clonidine 0.3 mg/24 hr weekly transdermal patch 1 patch transdermal FR Blood Pressure 04/27/25
clopidogrel 75 mg tablet (Plavix) 75 mg PO DAILY Blood Clot Prevention/Tx 04/27/25
diazepam 5 mg tablet (Valium) 5 mg PO BID Mental Health/Anxiety 04/27/25
gabapentin 300 mg capsule 300 mg PO DAILY Pain 04/27/25
hydralazine 100 mg tablet 100 mg PO TID Blood Pressure 04/27/25
insulin glargine 100 unit/mL (3 mL) subcutaneous pen (Lantus Solostar U-100 Insulin) 15 unit SC HS Diabetes 04/27/25
insulin lispro 100 unit/mL subcutaneous pen 6 sliding scale dose SC AC Diabetes 04/27/25
isosorbide mononitrate 30 mg tablet,extended release 24 hr 30 mg PO DAILY Blood Pressure 04/27/25
lidocaine 5 % topical patch 1 patch topical DAILY 04/27/25
nicotine 14 mg/24 hr daily transdermal patch 1 patch transdermal DAILY SMOKING CESSASION 04/27/25
patiromer calcium sorbitex 16.8 gram oral powder packet 16.8 g PO DAILY Kidney Disease 04/27/25
sertraline 50 mg tablet 50 mg PO DAILY Mental Health/Anxiety 04/27/25
sevelamer carbonate 800 mg tablet 800 mg PO AC Kidney Disease 04/27/25
sorbitol 70 % solution 30 ml PO DAILYPRN PRN constipation 04/27/25
tramadol 50 mg tablet 50 mg PO BIDPRN PRN moderate pains 04/27/25
lisinopril 40 mg tablet 40 mg PO DAILY 05/15/25
Review of Systems
-
History Source: Patient
A 12 point ROS was completed and negative except as noted: Yes
Constitutional: Denies Fatigue or Chills
EENT: Reports Other (Swelling to face, upper eyelids due to anasarca); Denies Sore Throat or Runny Nose
Respiratory: Reports Cough and Trouble Breathing
Cardiac: Denies Chest Pain, Diaphoresis, Palpitations or Syncope
Abdomen/GI: Denies Abdominal Pain, Nausea, Vomiting, Diarrhea or Constipated
: Reports Other (Patient end-stage renal disease does not make urine)
Musculoskeletal: Reports Edema (+3 bilateral legs +2 upper arms); Denies Joint Pain
Skin: Denies Itching or Rash
Neurological: Reports Headache; Denies Dizzy
Endocrine: Reports No Symptoms
Hematologic/Lymphatic: Reports No Symptoms
Psych: Reports Calm
Physical Exam
Vital Signs
Vital Signs
Temp Pulse Resp BP Pulse Ox
97.7 F 67 24 190/92 95
05/15/25 08:54 05/15/25 12:00 05/15/25 12:00 05/15/25 11:30 05/15/25 12:00
Physical Exam
General: No Fever or Chills
HEENT: NormoCephalic, Anicteric, Moist mucous membranes, PERRLA (Swelling to upper eyelids and face due to anasarca), [place] Conjunctivae, No Ptosis and Oxygen
Respiratory: Clear; No Wheezes, Rales or Rhonchi
Cardiac: S1/S2, Regular Rhythm and Peripheral Edema (+3 bilateral leg); No Murmur, Rub or Gallop
Breast: Deferred by me
GI: Soft, Non Tender, Non Distended, Normal Bowel Sounds and No Hepatosplenomegaly
Genito-urinary: Deferred by me
Musculoskeletal: No Clubbing, No Cyanosis, Edema, Left Upper Extremity (+1-2), Edema, Right Upper Extremity, Edema, Left Lower Extremity (+3 edema) and Edema, Right Lower Extremity (+3 edema)
Skin: Warm, Dry and Other (Dialysis catheter right upper chest wall); No Rash
Neuro: AO x 3, No Motor Deficits, Nonfocal/grossly intact, Cranial Nerves Intact and No Sensory Deficits; No Slurred Speech, Facial Droop, Tremors or Sedated
Psych: Calm
Impression/Plan
-
Impression/plan:
Admit to ICU
#Acute on chronic hypoxic respiratory failure due to volume overload
#Chronic respiratory failure typically uses 4 to 5 L nasal cannula at baseline
#History of COPD on chronic 4 L nasal cannula since March 2025
Reports has been on chronic 4 L of oxygen since March 2025 when seen at [facility] for pneumonia
93% BiPAP
Monitor pulse oximetry goal to taper back to baseline 4 to 5 L
- Consult orange peel operator
- Patient refusing midline and PICC line
#Hypertensive urgency/HTN�benign
BP 205/85
--Continue Norvasc 10 mg daily, Coreg 25 mg twice daily, clonidine 1 patch transdermal Fridays,
- Continue hydralazine 100 mg 3 times daily
#ESRD on dialysis Friday
Completed 1.5 hours out of 3-hour session today at [facility] 05/13/2025
As right upper chest dialysis catheter x 2 years
Patient does not make urine
Labs pending as patient is difficult stick-midline being attempted in ER
-Check mag, Phos
-Consult Nephro- Pt for dilaysis today
- Continue sevelamer 800 mg AC, Patiromer calcium sorbitex 16.8 g daily
# Chronic anemia anemia history ESRD on dialysis
Patient did require 1 unit PRBC on recent admission 04/27/2025
Labs pending
-Type and screen
- Obtain blood consent
#History angina
-Continue Imdur 30 mg daily
- Continue Plavix 75 mg daily
#Diabetic type 1 Dx age 24
Accu-Cheks with SSI, check HgbA1c
-Continue Lantus 15 units at bedtime, lispro 6 units with meals
#HLD
-Continue atorvastatin 80 mg every afternoon
#Bipolar disorder/anxiety/depression
-Continue Abilify 5 mg daily, Zoloft 50 mg daily
#Constipation
Continue sorbitol 30 mL daily as needed constipation
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
DVT proph subcu heparin
Full code
[2025-05-15 12:23] LABS: B.E. -3.9 mmol/L; HCO3 21.6 mmol/L (21-28); O2 Saturation % 94.0 % (94-98); PCO2 40 mmHg (35-48); PO2 69 mmHg (83-108)
[2025-05-15 12:24] LABS: O2 Therapy NRB
--- NOTE | 2025-05-15 12:57 | VATNOTE ---
PT HAD MULTIPLE IV ATTEMPTS WITHOUT SUCCESS. VAT ATTEMPTED X2 WITHOUT SUCCESS. PATIENT YELLING AT THIS NURSE BECAUSE IV ACCESS HAD NOT BEEN ESTABLISHED. PT STATED THAT HE WAS WILLING TO HAVE A MIDLINE PLACED, HOWEVER MID ATTEMPT TO PLACE MIDLINE BY
THIS VAT RN, PT BEGAN YELLING AND RAISED RIGHT ARM ACROSS STERILE FIELD TOWARD THIS NURSE, APPEARING ANGRY AND AGGRESSIVE. VAT AND STAFF TRIED MANY TIMES TO CALM THE PATIENT AND EXPLAIN WHY THE LINE WAS NEEDED. PATIENT YELLING 'I DONT WANT THIS'.
MIDLINE ATTEMPT ABORTED. PATIENT WITHOUT PERIPHERAL ACCESS AT THIS TIME, RIGHT HD CATH IN PLACE. PROVIDER AND RN IN ED AWARE
--- NOTE | 2025-05-15 13:00 | PTCARENOTE ---
Pt had multiple attempts at IV access. Pt states he doesn't want any more 'sticks'. Pt very agitated and just saying 'NO' over and over again. Jose SERRANO and Sejal Medina DIAMOND SORTER bedside to explain need for IV access. Central line offered to pt
by Jose SERRANO. Pt refused this as well as a Midline. Sejal Medina DIAMOND SORTER able to get a 22G in Left hand 2nd finger. Pt's hand placed around Kerlix and wrapped with Bulmaro. Rea RN in ICU advised on difficulty on getting IV access.
[2025-05-15] MEDS: TYLENOL 650 MG PO ×2 (13:03→19:46)
[2025-05-15 13:06] LABS: Hematocrit 27.0 % (39.0-52.0); Hemoglobin 8.9 g/dL (13.0-18.0); Mean Corp Hgb Conc. 33.0 g/dL (33.0-37.0); Mean Corpuscular Volume 90.6 fL (80.0-94.0); Nucleated Red Blood Cells % 0 % (-); Platelet Count 255 10^3/uL (130-400); Red Cell Dist. Width 14.3 % (11.5-14.5)
--- NOTE | 2025-05-15 13:16 | CON.INTV ---
Consultation
Consultation Request
Date/Time Consultation Requested: 05/15/2025 - 1223
Date/Time Consultation Performed: 05/15/2025 - 1246
Requesting Provider: EL Fitzgerald
Performing Provider: Dr. Shipman
Reason for Consultation: Hyperkalemia/HTN crisis need for emergent HD
Medical History
-
Chief Complaint: SOB
History of Present Illness:
44-year-old female with a past medical history of DM type I, hypertension, hyperlipidemia, chronic hypoxic respiratory failure and ESRD on HD MWF who presented from [facility] with shortness of breath. Arrived to the ER on nonrebreather at 15
L/min. Last dialysis on Friday. At baseline does not make urine. Recent hospitalization from 04/27 - 05/04/2025 due to acute hypoxic respite failure from pulmonary edema and hypertensive crisis in setting of ESRD. He required IV nitroglycerin
drip for hypertensive emergency at the time and underwent dialysis. Currently in the ER, he was requiring 8 nonrebreather and was saturating 90%, hypertensive to 208/91, pulse rate 78, breathing at 20-27 breaths/min and he was afebrile. Labs
pertinent for Hb 8.9, WBC 10.1, sodium 132, potassium 5.9, and glucose 202. CXR showed interstitial opacification with mild interstitial edema with patchy airspace opacities in the left midlung concerning for pneumonia versus atelectasis. CT head
obtained due to headache showing no acute intracranial abnormalities. Nephrology consulted and given the pulmonary edema and hypoxia, emergent dialysis was arranged. Patient was admitted to the ICU for further care and environmental health sanitarian service
consulted for additional management/recommendations.
PMHx: ESRD on HD MWF via permacath, bipolar disorder, hypertension, DM type I (diagnosed at age 24) complicated by peripheral neuropathy, chronic right shoulder pain, angina, hypertension, hyperlipidemia, history of COPD on chronic O2 at 4 L/min,
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
PSHx: Permacath placement
Past Medical History
Past Medical History: Other (Above as per HPI)
Past Surgical History: Other (Above as per HPI)
Social History
Tobacco: Former Smoker (Quit March 2025)
Alcohol: None
Drug: None
Personal: Single
Living: Longterm
Employment: Disabled
Family History
Family History: Reviewed & Not Pertinent
Allergies / Home Medications
Allergies
Allergy/AdvReac Type Severity Reaction Status Date / Time
No Known Allergies Allergy Verified 05/15/25 09:01
Home Medications
�Medication �Instructions �Recorded �Confirmed �Last Taken �Type
acetaminophen 325 mg tablet 650 mg PO Q6HPRN PRN mild pain 04/27/25 05/15/25 05/14/25 History
(Tylenol)
amlodipine 10 mg tablet (Norvasc) 10 mg PO DAILY Blood Pressure 04/27/25 05/15/25 05/14/25 History
aripiprazole 5 mg tablet (Abilify) 5 mg PO DAILY Mental Health/Anxiety 04/27/25 05/15/25 05/14/25 History
aspirin 81 mg chewable tablet 81 mg PO DAILY Blood Pressure 04/27/25 05/15/25 05/14/25 History
atorvastatin 80 mg tablet (Lipitor) 80 mg PO QPM High Cholesterol 04/27/25 05/15/25 05/14/25 History
bisacodyl 10 mg rectal suppository 10 mg KS DAILYPRN PRN if no bm 04/27/25 05/15/25 Unknown History
(Dulcolax (bisacodyl)) aftr mom
carvedilol 25 mg tablet (Coreg) 25 mg PO BID Blood Pressure 04/27/25 05/15/25 05/13/25 History
clonidine 0.3 mg/24 hr weekly 1 patch transdermal FR Blood 04/27/25 05/15/25 05/13/25 History
transdermal patch Pressure
clopidogrel 75 mg tablet (Plavix) 75 mg PO DAILY Blood Clot 04/27/25 05/15/25 05/14/25 History
Prevention/Tx
diazepam 5 mg tablet (Valium) 5 mg PO BID Mental Health/Anxiety 04/27/25 05/15/25 05/14/25 History
gabapentin 300 mg capsule 300 mg PO DAILY Pain 04/27/25 05/15/25 05/14/25 History
hydralazine 100 mg tablet 100 mg PO TID Blood Pressure 04/27/25 05/15/25 05/15/25 History
insulin glargine 100 unit/mL (3 15 unit SC HS Diabetes 04/27/25 05/15/25 05/12/25 History
mL) subcutaneous pen (Lantus
Solostar U-100 Insulin)
insulin lispro 100 unit/mL 6 sliding scale dose SC AC Diabetes 04/27/25 05/15/25 05/14/25 History
subcutaneous pen
isosorbide mononitrate 30 mg 30 mg PO DAILY Blood Pressure 04/27/25 05/15/25 05/14/25 History
tablet,extended release 24 hr
lidocaine 5 % topical patch 1 patch topical DAILY 04/27/25 05/15/25 05/12/25 History
nicotine 14 mg/24 hr daily 1 patch transdermal DAILY SMOKING 04/27/25 05/15/25 05/14/25 History
transdermal patch CESSASION
patiromer calcium sorbitex 16.8 16.8 g PO DAILY Kidney Disease 04/27/25 05/15/25 05/12/25 History
gram oral powder packet
sertraline 50 mg tablet 50 mg PO DAILY Mental 04/27/25 05/15/25 05/14/25 History
Health/Anxiety
sevelamer carbonate 800 mg tablet 800 mg PO AC Kidney Disease 04/27/25 05/15/25 05/14/25 History
sorbitol 70 % solution 30 ml PO DAILYPRN PRN constipation 04/27/25 05/15/25 Unknown History
tramadol 50 mg tablet 50 mg PO BIDPRN PRN moderate pains 04/27/25 05/15/25 05/14/25 History
lisinopril 40 mg tablet 40 mg PO DAILY 05/15/25 05/15/25 05/14/25 History
Review of Systems
-
History Source: Patient
All other systems: Negative unless noted
Vitals / Labs / Diagnostic Testing
Vital Signs
Temp Pulse Resp BP Pulse Ox
98 F 69 12 204/94 100
05/15/25 14:00 05/15/25 13:15 05/15/25 13:15 05/15/25 13:07 05/15/25 13:15
Lab Data
05/15/25 12:57
05/15/25 12:57
Laboratory Results
05/15/25 05/15/25
12:04 14:09
PT 16.8 H
INR 1.33
APTT 35.5 H
pH 7.34 L
pCO2 40
pO2 69 L
HCO3 21.6
O2 Delivery Level Nrb
Diagnostic Testing:
Physical Exam
-
HEENT: Normocephalic, Anicteric and Other (facial/eye lid edema)
Cardiovascular: S1/S2 and Peripheral Edema (+3 LE edema bilaterally)
Respiratory: Wheeze (negative), Rales (bilateral), Rhonchi (negative) and Non-Labored Respirations
GI: Soft, Non Distended, Non Tender and Normal Bowel Sounds
Neurology: Awake and Tremors (negative)
Skin: Warm, Dry and Other (R-anterior chest wall permacath)
General: Respiratory Distress (negative), Fever (negative) and Chills (negative)
Assessment
-
Assessment: 44-year-old female with a past medical history of DM type I, hypertension, hyperlipidemia, chronic hypoxic respiratory failure and ESRD on HD MWF who presented from [facility] with shortness of breath. Arrived to the ER on
nonrebreather at 15 L/min. Last dialysis on Friday. At baseline does not make urine. Recent hospitalization from 04/27 - 05/04/2025 due to acute hypoxic respite failure from pulmonary edema and hypertensive crisis in setting of ESRD. He required
IV nitroglycerin drip for hypertensive emergency at the time and underwent dialysis. Currently in the ER, he was requiring 8 nonrebreather and was saturating 90%, hypertensive to 208/91, pulse rate 78, breathing at 20-27 breaths/min and he was
afebrile. Labs pertinent for Hb 8.9, WBC 10.1, sodium 132, potassium 5.9, and glucose 202. CXR showed interstitial opacification with mild interstitial edema with patchy airspace opacities in the left midlung concerning for pneumonia versus
atelectasis. CT head obtained due to headache showing no acute intracranial abnormalities. Nephrology consulted and given the pulmonary edema and hypoxia, emergent dialysis was arranged. Patient was admitted to the ICU for further care and
environmental health sanitarian service consulted for additional management/recommendations.
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
Impression:
#Acute on chronic hypoxic respiratory failure due to acute pulmonary edema in setting of hypertensive crisis + COPD on home O2
#Hypertensive crisis with history of resistant hypertension
#Chronic anemia
#ESRD on HD MWF
#History of COPD not in an acute exacerbation
#DM type I
#Diastolic heart failure
#Valvular heart disease with mild MR and mild�moderate TR (per TTE from 04/28/2025)
#Pulmonary hypertension likely group V in setting of ESRD as well as group 2 in setting of chronic diastolic heart failure and group 3 in setting of COPD
#Hypertension
#Hyperlipidemia
#Chronic hypoxic respite failure on 4 L O2 at home
Plan:
- Patient now in ICU for emergent HD given his acute volume overload with SOB, acute on chronic hypoxia and hyperkalemia
- Will need tp re-check BMP s/p HD to assure [K] improves
- Tx hyperkalemia with temporizing agents, including regular insulin (0.1units/kg), D50 +/- albuterol as needed until HD has been completed
- Nephrology on board and recs appreciated
- Continue anti-HTN meds as scheduled, holding for hypotension
- Would keep goal SBP for next 24 hours between 140-160mmHg, being cautious not to reduce SBP by more than 25 %
- Defer secondary HTN workup to primary team + Nephrology
- Patient currently on BiPAP 14/6 cmH2O and bled with 15L/min - -> reduce supplemental O2 flow rate as he clinically improves
- Wean off BiPAP once HD is completed and onto midflow nasal cannula vs high flow NC, depending on how symptomatic he is
- Maintain SpO2 88-95% (given his Hx of COPD)
- Does not appear he takes any maintenance COPD inhalers - can use prn DuoNebs (not currently bronchospastic)
- Maintain MAP>65, using vasopressors if needed; currently no need given he remains hypertensives
- Replete electrolytes with K>4, Mg>2
- Maintain euglycemia with goal BG 140-180; HbA1c: 6 on 04/28/2025; continue basal-bolus insulin; if he remains on BiPAP and is not eating, then check BG q6hr instead of AC
- Trend H/H and transfuse if needed to keep Hb>7g/dL; keep plt>20k, unless there is concern for bleeding then keep plt>50k
- Once he stabilizes, then would encourage use of incentive spirometer 10x per hour for at least 4 hrs a day
- Early nutrition, once stable and off BiPAP
- PT/OT (of note, he is wheelchair bound but can stand to transfer)
- DVT ppx: HSQ
Continue ICU level of care for this critically ill patient.
Critical care statement: A total of 43 minutes of critical care time was provided for this patient today. This includes management of unstable vital signs, evaluation of the patient at bedside, reviewing the patient's pertinent medical records
including radiographs, microbiology, laboratory evaluations, and discussion with primary team, consultants, pharmacy, nutrition, physical therapy, case management, charge nurse, critical care nursing, and respiratory therapy.
Data:
CXR 05/15/2025:
There is mild interstitial opacification which likely represents mild interstitial edema.
There is increased patchy airspace opacities projecting over the left midlung concerning for worsening pneumonia although atelectasis is possible.
Possible trace left pleural effusion.
[2025-05-15 13:28] LABS: ALT (SGPT) 16 U/L (0-50); AST (SGOT) 18 U/L (17-59); Albumin 4.4 g/dl (3.5-5.0); Alkaline Phosphatase 195 U/L (38-126); Blood Urea Nitrogen 63 mg/dl (9-20); Calcium 8.9 mg/dl (8.4-10.2); Carbon Dioxide 20 mmol/L (22-30); Chloride 98 mmol/L (98-107); Estimated Creatinine Clearance 11 ml/min; Glucose 202 mg/dl (70-99); Magnesium 2.3 mg/dl (1.6-2.3); Potassium 5.9 mmol/L (3.5-5.1); Sodium 132 mmol/L (135-145); Total Protein 7.5 g/dl (6.3-8.2); eGFR 6.23
[2025-05-15 13:35] LABS: Troponin I 0.026 ng/ml
--- NOTE | 2025-05-15 13:45 | PTCARENOTE ---
Received patient from ED, A&Ox3, looked anxious and irritated, on BiPAP 14/6 Rate 12 O2 10L, Coarse crackles throughout, NSR, BP elevated, B/L eyelids swelling, +3 edema on B/L hands and B/L LE, Anuric baseline, Right Chest Tunneled HD catheter in
place, pending emergent HD session for volume overload.
[2025-05-15 14:57] LABS: INR 1.33; PT 16.8 Sec (11.4-14.6)
[2025-05-15 14:58] LABS: APTT 35.5 Sec (23.4-35.0)
[2025-05-15] MEDS: RETACRIT 10000 UNITS IV (15:27)
[2025-05-15] MEDS: ULTRAM 50 MG PO ×2 (15:56→21:55)
--- NOTE | 2025-05-15 16:00 | PTCARENOTE ---
Reassessed the patient, looking anxious and irritable at times, currently on emergent HD, pending BMP and VBG recheck.
[2025-05-15 17:02] LABS: Glucose - Point of Care 138 mg/dl (70-99)
[2025-05-15] MEDS: NOVOLOG FLEXPEN-LOW RESISTANCE SC (17:05)
[2025-05-15] MEDS: HEPARIN 3200 UNITS INTRACATH (17:09)
[2025-05-15 17:23] LABS: Venous Blood Gas B.E. 5.4 mmol/L (-4 to +4); Venous Blood Gas O2 Sat % 96.9 %
[2025-05-15 17:47] LABS: Blood Urea Nitrogen 30 mg/dl (9-20); Calcium 8.4 mg/dl (8.4-10.2); Carbon Dioxide 29 mmol/L (22-30); Chloride 98 mmol/L (98-107); Estimated Creatinine Clearance 23 ml/min; Glucose 136 mg/dl (70-99); Potassium 3.5 mmol/L (3.5-5.1); Sodium 135 mmol/L (135-145); eGFR 15.46
--- NOTE | 2025-05-15 17:49 | PTCARENOTE ---
Patient completed and tolerated emergent HD session, 4L removed.
[2025-05-15] MEDS: LIPITOR 80 MG PO (18:26)
[2025-05-15] MEDS: APRESOLINE 100 MG PO ×2 (18:27→21:56)
[2025-05-15] MEDS: RENVELA 800 MG PO (18:27)
--- NOTE | 2025-05-15 19:00 | PTCARENOTE ---
prev shift vitals captured, can only verify accuracy of vs starting at 1900 for this shift.
[2025-05-15] MEDS: VALIUM 5 MG PO (19:46)
[2025-05-15] MEDS: COREG 25 MG PO (19:46)
[2025-05-15] MEDS: NEURONTIN 300 MG PO (19:46)
--- NOTE | 2025-05-15 20:00 | PTCARENOTE ---
assessment nurse, pt aaox3, SR HR 70-80s, SBP 206- scheduled coreg given. Sat 95% on 10LMFNC, pt slightly tachypneic and c/o SOB/requesting Bipap back on. RT to bedside to reapply. POC discussed. call davis with pt.
[2025-05-15] MEDS: HEPARIN SC (20:02)
[2025-05-15] MEDS: NICODERM TRANSDERMAL 21 MG TRANSDERM (20:02)
[2025-05-15 22:10] LABS: Glucose - Point of Care 189 mg/dl (70-99)
--- NOTE | 2025-05-15 23:37 | PTCARENOTE ---
pt SBP remains elevated ar 190- pt received all scheduled po BP meds. KFlahertyNP aware. IV dilaudid ordered per SEP.
[2025-05-15] MEDS: DILAUDID 0.5 MG IV (23:46)
[2025-05-16] VITALS (24 sets, daily range): BP systolic 133–196; BP diastolic 66–105; PULSE 2–56; O2SAT 97; BMI 29.7
[2025-05-16] MEDS: ULTRAM 50 MG PO ×2 (02:52→14:56)
[2025-05-16] MEDS: DESENEX/MITRAZOL/ZEASORB 1 APPLIC TOPICAL (02:53)
[2025-05-16 03:16] LABS: Venous Blood Gas B.E. 4.2 mmol/L (-4 to +4); Venous Blood Gas O2 Sat % 97.6 %
[2025-05-16 03:17] LABS: Hematocrit 25.2 % (39.0-52.0); Hemoglobin 8.0 g/dL (13.0-18.0); Mean Corp Hgb Conc. 31.7 g/dL (33.0-37.0); Mean Corpuscular Volume 93.0 fL (80.0-94.0); Nucleated Red Blood Cells % 0 % (-); Platelet Count 216 10^3/uL (130-400); Red Cell Dist. Width 14.3 % (11.5-14.5)
[2025-05-16 03:41] LABS: ALT (SGPT) 14 U/L (0-50); AST (SGOT) 19 U/L (17-59); Albumin 3.8 g/dl (3.5-5.0); Alkaline Phosphatase 153 U/L (38-126); Blood Urea Nitrogen 39 mg/dl (9-20); Calcium 8.8 mg/dl (8.4-10.2); Carbon Dioxide 28 mmol/L (22-30); Chloride 97 mmol/L (98-107); Estimated Creatinine Clearance 18 ml/min; Glucose 160 mg/dl (70-99); Magnesium 2.1 mg/dl (1.6-2.3); Potassium 4.5 mmol/L (3.5-5.1); Sodium 133 mmol/L (135-145); Total Protein 6.9 g/dl (6.3-8.2); eGFR 11.64
--- NOTE | 2025-05-16 03:56 | PTCARENOTE ---
pt requested break from Bipap, switched to 8L MFNC, within 20 min pt requesting to go back on Bipap due to SOB, RT to bedside to reapply, no further changes.
[2025-05-16] MEDS: TYLENOL 650 MG PO ×3 (05:18→19:41)
--- NOTE | 2025-05-16 07:34 | W.PN.INTV ---
Today's Communication / Plan
Recommendations
Continue with BiPAP as able
Wean oxygen
HD per nephrology
Follow chest x-ray for resolution of infiltrates
Add sequential teds, patient refusing subcutaneous heparin
Okay for transfer out of ICU. Pulmonary will continue to follow
Assessment
-
Assessment: 44-year-old female with a past medical history of DM type I, hypertension, hyperlipidemia, chronic hypoxic respiratory failure and ESRD on HD MWF who presented from [facility] with shortness of breath. Arrived to the ER on
nonrebreather at 15 L/min. Last dialysis on Friday. At baseline does not make urine. Recent hospitalization from 04/27 - 05/04/2025 due to acute hypoxic respite failure from pulmonary edema and hypertensive crisis in setting of ESRD. He required
IV nitroglycerin drip for hypertensive emergency at the time and underwent dialysis. Currently in the ER, he was requiring 8 nonrebreather and was saturating 90%, hypertensive to 208/91, pulse rate 78, breathing at 20-27 breaths/min and he was
afebrile. Labs pertinent for Hb 8.9, WBC 10.1, sodium 132, potassium 5.9, and glucose 202. CXR showed interstitial opacification with mild interstitial edema with patchy airspace opacities in the left midlung concerning for pneumonia versus
atelectasis. CT head obtained due to headache showing no acute intracranial abnormalities. Nephrology consulted and given the pulmonary edema and hypoxia, emergent dialysis was arranged. Patient was admitted to the ICU for further care and
track laborer service consulted for additional management/recommendations.
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
Impression:
#Acute on chronic hypoxic respiratory failure due to acute pulmonary edema in setting of hypertensive crisis + COPD on home O2
#Hypertensive crisis with history of resistant hypertension
#Chronic anemia
#ESRD on HD MWF
#History of COPD not in an acute exacerbation
#DM type I
#Diastolic heart failure
#Valvular heart disease with mild MR and mild�moderate TR (per TTE from 04/28/2025)
#Pulmonary hypertension likely group V in setting of ESRD as well as group 2 in setting of chronic diastolic heart failure and group 3 in setting of COPD
#Hypertension
#Hyperlipidemia
#Chronic hypoxic respite failure on 4 L O2 at home
Plan/recommendations:
At this time, patient appears to be improved objectively and subjectively.
Blood pressures noted, systolic pressure 180s
Remains on outpatient regiment
-4 L removed per HD 05/15
Electrolytes stable
Hemoglobin 8.0
Moving forward
Continue with supportive care
Continue with outpatient regimen
Nephrology continues to follow
Await input regarding HD today
Maintain negative fluid status
Chest x-ray with bilateral patchy infiltrates, slightly improved
Cannot differentiate between pneumonia versus heart failure but suspect the latter
No white count, no fevers
Follow-up for resolution
Continue with BiPAP intermittently, 14/6, 6 L
When off BiPAP, requires mid flow oxygen
Patient states he is on home oxygen
Continue to follow electrolytes
Patient refusing DVT prophylaxis
Will try to place sequential teds
Continue to follow blood sugars. Patient refused p.m. insulin
Follow
PT/OT (of note, he is wheelchair bound but can stand to transfer)
DVT ppx: HSQ. Unfortunately patient is refusing. Attempted to place sequential teds
Patient refused placement of midline
Has upper extremity small IV
Reviewed with patient potential need for midline.
Okay for transfer out of ICU
Pulmonary will continue to follow given oxygen requirement
Reviewed with critical care nursing, respiratory care, pharmacy, primary service
Data:
CXR 05/15/2025:
There is mild interstitial opacification which likely represents mild interstitial edema.
There is increased patchy airspace opacities projecting over the left midlung concerning for worsening pneumonia although atelectasis is possible.
Possible trace left pleural effusion.
Subjective Dataa
Subjective Data
Date of Service:
Date of Service: May 16, 2025
Subjective:
Patient is without complaints. Unfortunately is refusing lots of therapies, refused subcutaneous heparin, refused p.m. insulin, refused BiPAP intermittently. He denies shortness of breath, chest pain, abdominal pain, nausea. He wants to know when
he is able to go home. He does complain of some headaches.
Objective Data
Data Reviewed
Vital Signs / I&O / Oxygen:
Vital Signs
Temp Pulse Resp BP Pulse Ox
97.5 F 57 23 182/77 96
05/16/25 07:20 05/16/25 07:00 05/16/25 07:00 05/16/25 07:00 05/16/25 07:00
Intake and Output
05/15/25 05/16/25 05/17/25
06:59 06:59 06:59
Intake Total 300 / 300
Balance 300 / 300
SaO2 96
Nasal Cannula flow liters per 10
minute
Physical Exam
General: Comfortable and Other (Right anterior HD catheter)
HEENT: Normocephalic and Anicteric
Cardiovascular: S1-S2, Regular Rhythm, Murmur (n), Rub (n) and Peripheral Edema (n)
Respiratory: Wheeze (n), Crackles (n), Rhonchi (n), Non-Labored Respirations and Stridor (n)
GI: Soft, Non Distended and Non Tender
Neurology: Awake, Alert and No Motor Deficits (Moves all extremities, generally weak)
Skin: Cyanosis (n), Jaundice (n) and Rash (n)
Labs/Micro/Reports
Lab Data
05/16/25 03:03
05/16/25 03:03
Laboratory Results
05/15/25 05/15/25 05/16/25
12:04 14:09 06:00
PT 16.8 H
INR 1.33
APTT 35.5 H
pH 7.34 L Cancelled
pCO2 40 Cancelled
pO2 69 L Cancelled
HCO3 21.6 Cancelled
O2 Delivery Level Nrb Cancelled
[2025-05-16 07:53] LABS: Glucose - Point of Care 205 mg/dl (70-99)
--- NOTE | 2025-05-16 08:11 | W.PN.HOSP.TC ---
Today's Communication/Plan
-
see A/P
Assessment / Plan
Assessment / Plan
HPI: 44 yo M NF Resident from [facility] with PMH ESRD on HD (MWF), hypertension, hyperlipidemia, insulin-dependent diabetes, anxiety and bipolar disorder; p/w acute on chronic shortness of breath, slight cough, diffuse headache and generalized
weakness.
Patient did report that he got dialysis on Friday but believes that he is only getting half sessions and is not sure as to why he is not getting full dialysis session.
At baseline, patient does not make urine anymore.
Echo 04/28/25
1. Normal left ventricular size and function.
2. Ejection fraction is 55-60% by visual assessment.
3. Mild concentric left ventricular hypertrophy.
4. Stage II diastolic dysfunction suggestive of abnormal relaxation and increased filling pressures.
5. Right ventricular size and systolic function are within normal limits.
6. Indexed left atrial volume is mildly abnormal (35-41 ml/m2).
7. Aortic sclerosis with no significant stenosis.
8. Mild mitral valve regurgitation.
9. Mild to moderate tricuspid regurgitation. Estimated pulmonary artery pressure of 38 mmHg assuming a right atrial pressure of 15 mmHg.
10. Left pleural effusion is noted.
11. There are no prior studies available for comparison.
Last hospitalist admission:Date of Admission: 04/27/25 - 05/04/25
Primary diagnoses:
Acute on chronic hypoxic respiratory failure due to pulmonary edema due to hypertensive emergency in the setting of ESRD
Secondary diagnoses:
A/P:
# Acute on chronic hypoxic respiratory failure due to pulmonary edema with hypertensive emergency POA
# Anasarca
# ESRD on HD
Cont O2 support, currently on 10L midflow, wean O2 as tolerated, baseline on 5L NC
urgent volume removal via HD 05/15, cont further HD per Renal
s/p Nitro drip
cont Norvasc/Coreg/Clonidine/Hydralazine/Imdur for BP Control
CT head on admission: No acute intracranial abnormalities.
Renal CS
Customer Engagement Specialist CS
Psych CS for capacity eval as pt wants to leave AMA
Other medical problems:
# Migraine headaches,
Cont Tramadol/Tylenol PRN
# Probable coronary artery disease
cont ASA/Plavix/statin/BB
# Anemia of chronic renal disease
# Hyperlipidemia
cont statin
# Type 1 diabetes mellitus/ IDDM
Cont WATER TREATMENT OPERATOR Lantus 15 units HS, Aspart 5 units AC
Cover with ISS
# Anxiety
# Bipolar disorder
cont Valium/Zoloft/Abilify
# HX Guillain-Smith� syndrome, Wheelchair-bound
DVT Px: HSQ
Full code
DW RN
total time 51 min
Anticipated Discharge: > 48 hours
Subjective/Interval History
-
Date of Service: May 16, 2025
Objective Data
-
Labs:
Laboratory Results
05/16/25 05/16/25
03:03 06:00
WBC 7.9
Hgb 8.0 L
Hct 25.2 L
Plt Count 216
HCO3 Cancelled
Sodium 133 L
Potassium 4.5 D
Chloride 97 L
Carbon Dioxide 28
BUN 39 H
Creatinine 5.7 H*
Glucose 160 H
Calcium 8.8
Total Bilirubin 0.8
AST 19
ALT 14
Alkaline Phosphatase 153 H
Vital Signs:
Vital Signs
Temp Pulse Resp BP Pulse Ox
36.4 C 57 23 182/77 96
05/16/25 07:20 05/16/25 07:00 05/16/25 07:00 05/16/25 07:00 05/16/25 07:00
I&O
05/15/25 05/16/25 05/17/25
06:59 06:59 06:59
Intake Total 300 / 300
Balance 300 / 300
Review of Systems
-
History Source: Patient
All other systems: Not reviewed unless documented (pt not cooperative, wants to leave )
Physical Exam
-
General: Comfortable, Respiratory Distress (acute on chronic ), Conversant and Appears Chronically Ill
HEENT: Normocephalic, Atraumatic, Nose Appears Normal, Ears Appear Normal and Oxygen (10 L midflow )
Respiratory: Clear to Auscultation, Crackles and Non Labored Respirations; Negative Accessory Resp Muscle Use
Cardiac: Regular Rhythm and S1/S2
GI: Soft, Nontender, Nondistended and Normal Bowel Sounds
Skin: Warm and Dry
Neuro: Awake and Alert
Psych: Calm
Data Reviewed
-
Diagnostic Radiology: Image personally visualized and interpreted and Report Reviewed by me
Labs: Labs Reviewed by me
[2025-05-16] MEDS: RENVELA 800 MG PO ×3 (08:14→16:56)
[2025-05-16] MEDS: APRESOLINE 100 MG PO ×3 (08:15→22:14)
[2025-05-16] MEDS: COREG 25 MG PO ×2 (08:15→19:42)
[2025-05-16] MEDS: ABILIFY 5 MG PO (08:15)
[2025-05-16] MEDS: HEPARIN SC ×2 (08:16→08:28)
[2025-05-16] MEDS: IMDUR (EXTENDED RELEASE) 30 MG PO (08:16)
[2025-05-16] MEDS: LIDOCAINE 4% PATCH TOPICAL (08:16)
[2025-05-16] MEDS: LOW STRENGTH ASPIRIN 81 MG PO (08:17)
[2025-05-16] MEDS: NICODERM TRANSDERMAL 14 MG TRANSDERM (08:17)
[2025-05-16] MEDS: LOKELMA PO ×2 (08:17→08:24)
[2025-05-16] MEDS: NEURONTIN 300 MG PO (08:17)
[2025-05-16] MEDS: NORVASC 10 MG PO (08:18)
[2025-05-16] MEDS: ZOLOFT 50 MG PO (08:18)
[2025-05-16] MEDS: ZESTRIL 40 MG PO (08:18)
[2025-05-16] MEDS: PLAVIX 75 MG PO (08:18)
[2025-05-16] MEDS: VALIUM 5 MG PO ×2 (08:18→19:45)
[2025-05-16] MEDS: LIDOCAINE 4% PATCH 1 PATCH TOPICAL (08:36)
[2025-05-16] MEDS: NOVOLOG FLEXPEN-LOW RESISTANCE 300 UNITS SC (08:40)
[2025-05-16] MEDS: NOVOLOG FLEXPEN 5 UNITS SC ×3 (08:47→16:56)
--- NOTE | 2025-05-16 09:23 | PTCARENOTE ---
Pt refused am lokelma, heparin despite being educated on importance of both. Pt cursing at staff for asking orientation questions ie birthday and location. Pt also requiring increased oxygen from 4lnc at baseline. Dr Steven in and aware. Pt asking
to go home 'after hd'. Pt is aware that hd not currently scheduled. Stated that today is his usual day. Psychiatry consult ordered to deem competency.
--- NOTE | 2025-05-16 11:26 | PTCARENOTE ---
went in room to put scd's on pt and he refused. He said 'I'm on plavix.' Made him aware that this doesn't prevent him from getting dvt while in hospital necessarily. He continued to refuse but said he would take heparin.
[2025-05-16 12:31] LABS: Glucose - Point of Care 176 mg/dl (70-99)
[2025-05-16] MEDS: NOVOLOG FLEXPEN-LOW RESISTANCE 1 UNITS SC (12:38)
--- NOTE | 2025-05-16 13:10 | CM ---
Patient came from [facility]. This CM spoke with Vania in admissions. Ultimate plan is for patient to return to [facility] and they will set up O2, outpatient HD for discharge to mother's home. They were in the process of discharge planning.
Will need insurance auth. Patient is w/ch dependent. Can stand/pivot and transfer with staff. He does not drive. He is on continuous O2 @ 4-6 L. He also is on hemodialysis on . [facility] is in the process of setting up outpatient HD
services. No HC-POA. No VA benefits. No psychiatric hospitalizations but does have a history of bipolar disorder. PCP is Dr. Suad Sears. Pharmacy is [facility] through [facility]. Discharge POC: Return to [facility] for STR.
--- NOTE | 2025-05-16 13:59 | PTCARENOTE ---
Pt asking to have bipap placed after lunch.
--- NOTE | 2025-05-16 16:34 | W.PN.NEPH.PH ---
Today's Communication / Plan
-
HD tomorrow
Assessment/Plan
-
IMP:
Acute hypoxic respiratory insufficiency likely secondary to fluid overload
History of COPD on chronic 4 L nasal cannula since March 2025
Acute symptomatic anemia history ESRD on dialysis
ESRD on dialysis Friday at [facility]
HTN
Hyponatremia
mild hyperkalemia
CAD
Diabetic type 1 Dx age 24
HLD
Bipolar disorder/anxiety/depression
Constipation
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
Hyperphosphatemia
Right IJ catheter
Plan:
No emergent dialysis today
Dialysis tomorrow
Will likely require additional UF when able
Maintain strict fluid restriction
-
-
Date of Service: May 16, 2025
CC / HPI / ROS
-
Chief Complaint:
ESRD
History of Present Illness:
Tolerated dialysis yesterday
Remains on O2
Hemoglobin stable 8.0
Potassium stable 4.5
Review of Systems:
No chest pain
Mild shortness of breath
Labs
-
Labs:
WBC 7.9 10^3/uL (4.8-10.8) 05/16/25 03:03
RBC 2.71 10^6/uL (4.70-6.10) L 05/16/25 03:03
Hgb 8.0 g/dL (13.0-18.0) L 05/16/25 03:03
Hct 25.2 % (39.0-52.0) L 05/16/25 03:03
Plt Count 216 10^3/uL (130-400) 05/16/25 03:03
Sodium 133 mmol/L (135-145) L 05/16/25 03:03
Potassium 4.5 mmol/L (3.5-5.1) D 05/16/25 03:03
Chloride 97 mmol/L (98-107) L 05/16/25 03:03
Carbon Dioxide 28 mmol/L (22-30) 05/16/25 03:03
BUN 39 mg/dl (9-20) H 05/16/25 03:03
Creatinine 5.7 mg/dL (0.7-1.3) H* 05/16/25 03:03
eGFR 11.64 05/16/25 03:03
Glucose 160 mg/dl (70-99) H 05/16/25 03:03
Calcium 8.8 mg/dl (8.4-10.2) 05/16/25 03:03
Phosphorus 5.6 mg/dl (2.5-4.5) H 05/16/25 03:03
Qgq-B-Defnasnpaon Pept 19477 pg/ml 05/16/25 03:03
Albumin 3.8 g/dl (3.5-5.0) 05/16/25 03:03
Physical Exam
-
Vital Signs:
Vital Signs
Temp Pulse Resp BP Pulse Ox
97.6 F 51 13 150/67 95
05/16/25 12:00 05/16/25 16:04 05/16/25 16:04 05/16/25 16:04 05/16/25 16:18
Cardiovascular:: Regular rate and rhythm
Respiratory:: Bilateral: Coarse
Lung Excursion:: Normal
Abdomen:: Nontender and Soft
Bowel Sounds:: Normal
Extremity Edema:: +3: Bilateral:
[2025-05-16] MEDS: LIPITOR 80 MG PO (16:56)
[2025-05-16] MEDS: NOVOLOG FLEXPEN-LOW RESISTANCE SC (16:56)
[2025-05-16 17:03] LABS: Glucose - Point of Care 117 mg/dl (70-99)
--- NOTE | 2025-05-16 17:44 | PN.CDI ---
CDI
- -
CDI:
Physician Documentation Request
Admit Date: 05/15/25 13:02
Dear Doctor Maurizio,
Please review the following and provide your response in the progress notes.
Clinical Indicators:
Nurses Notes, 05/15
Selected Entries
05/15/25
14:00
Pressure injury stage [Present on admission Sacrum] Stage 1
Physician documentation of the type and location of wounds is required for compliant documentation. Based on the above clinical findings and your assessment, please provide the following in your progress note:
Yes, sacrum stage 1 pressure injury, POA
No, sacrum stage 1 pressure injury
Other (please specify)
1. Location of the ulcer/wound, including laterality.
2. Type (etiology) of ulcer/wound:
- Diabetic ulcer
- Arterial (ischemic) ulcer
- Traumatic wound
- Venous stasis ulcer
- Pressure (decubitus) ulcer
3. For a pressure ulcer, please also include the stage* of the ulcer:
- Stage 1 - Skin intact, non-blanchable redness
- Stage 2 - Partial thickness loss of dermis, includes intact or open blister
- Stage 3 - Full thickness tissue not including bone, tendon or muscle
- Stage 4 - Full thickness tissue loss, including exposed bone, tendon or muscle
- Unstageable - Full thickness loss in which the base of the ulcer is covered by slough (yellow, swift, monge, green or brown) and/or eschar (swift, brown or black) in the wound bed.
- Unable to determine
Use of terms such as suspected, likely, concern for, or probable (associated with a specific diagnosis that is being evaluated, monitored, or treated as if it exists) are acceptable and can be coded in the inpatient setting, when documented at the
time of discharge.
Thank you,
Cassi Segura RN BSN CCDS
CDI Specialist
Please contact via tiger text
Please use your independent medical judgment in providing your response.
*Source: National Pressure Ulcer Advisory Panel (NPUAP)
[2025-05-16] MEDS: REMOVE LIDOCAINE PATCH 1 PATCH REMOVE (19:42)
[2025-05-16] MEDS: HEPARIN 5000 UNITS SC (19:45)
--- NOTE | 2025-05-16 22:18 | CS.PSYCHR ---
Consult Summary - Psychiatry
-
pt seen by me at noon today in consultation concerning pt/s capacity to decide to leave AMA
44 yo man resident of [facility] due to CHF, ESRD, COPD, Guillain-[place] following vaccination, DM type 1 admitted for shortness of breath found to have pulmonary edema, perhaps related to insufficient dialysis. Pt has had some improvement in
shortness of breath and is now interested in leaving hospital to make sure his belongings are secure at long-term. Has had experience with losses there before, wants to be sure his computer and other things are not stolen.
Met with patient for some time, able to peruade him to allow team here to help get him a bit more stable prior to leaving; he agrees.
States he is hoping he can return to [place] (where he was raised and where his family is) rather than staying here.
Aware he is very ill, but says that he is feeling better.
Past psychiatric history of bipolar disorder, no hospitalizations but has been treated with sertraline, abilify and valium
Pt states he received his master's degree in counseling from [employer]; had been in [place] 'for love' with man he had met on vacation. 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
Not currently in relationship. Has sister and mother he is close to at present.
On exam, pt is wearing bipap but can make himself heard. Alert and oriented, pleasant and cooperative. Able to give history consistent with what is contained in records, aware of dialysis effects on pulmonary edema. insight fair, judgment fair. No
signs of hallucinations, no gross cognitive deficits.
Impression: At this point appears to have capacity to decide his care. Will need clear statements of what has been explained to him about risks and benefits of decisions he needs to make in order to fully assess capacity if he again insists on
leaving.
[2025-05-16 22:25] LABS: Glucose - Point of Care 135 mg/dl (70-99)
[2025-05-17] VITALS (38 sets, daily range): BP systolic 136–194; BP diastolic 61–105; PULSE 2–57; BMI 28.3
[2025-05-17] MEDS: ULTRAM 50 MG PO ×2 (01:51→14:26)
[2025-05-17 07:51] LABS: Glucose - Point of Care 142 mg/dl (70-99)
--- NOTE | 2025-05-17 07:53 | W.PN.HOSP.TC ---
Addendum entered and electronically signed by Aditi Steven MD 05/17/25 10:28:
# sacrum stage 1 pressure injury, POA
Original Note:
Today's Communication/Plan
-
see A/P
Assessment / Plan
Assessment / Plan
HPI: 44 yo M NF Resident from [facility] with PMH ESRD on HD (MWF), hypertension, hyperlipidemia, insulin-dependent diabetes, anxiety and bipolar disorder; p/w acute on chronic shortness of breath, slight cough, diffuse headache and generalized
weakness.
Patient did report that he got dialysis on Friday but believes that he is only getting half sessions and is not sure as to why he is not getting full dialysis session.
At baseline, patient does not make urine anymore.
Echo 04/28/25
1. Normal left ventricular size and function.
2. Ejection fraction is 55-60% by visual assessment.
3. Mild concentric left ventricular hypertrophy.
4. Stage II diastolic dysfunction suggestive of abnormal relaxation and increased filling pressures.
5. Right ventricular size and systolic function are within normal limits.
6. Indexed left atrial volume is mildly abnormal (35-41 ml/m2).
7. Aortic sclerosis with no significant stenosis.
8. Mild mitral valve regurgitation.
9. Mild to moderate tricuspid regurgitation. Estimated pulmonary artery pressure of 38 mmHg assuming a right atrial pressure of 15 mmHg.
10. Left pleural effusion is noted.
11. There are no prior studies available for comparison.
Last hospitalist admission:Date of Admission: 04/27/25 - 05/04/25
Primary diagnoses:
Acute on chronic hypoxic respiratory failure due to pulmonary edema due to hypertensive emergency in the setting of ESRD
Secondary diagnoses:
A/P:
# Acute on chronic hypoxic respiratory failure due to pulmonary edema with hypertensive emergency POA
# Anasarca
# ESRD on HD
Was on 10L midflow, now on BIPAP per pt request, wean O2 as tolerated, baseline on 5L NC
urgent volume removal via HD on admission, cont further HD per Renal
s/p Nitro drip
cont Norvasc/Coreg/Clonidine/Hydralazine/Imdur for BP Control
CT head on admission: No acute intracranial abnormalities.
Renal on board
Appreciate Psych input, pt appears to be 'have capacity to decide his care' (in case pt wants to leave AMA)
Other medical problems:
# Migraine headaches,
Cont Tramadol/Tylenol PRN
# Probable coronary artery disease
cont ASA/Plavix/statin/BB
# Anemia of chronic renal disease
# Hyperlipidemia
cont statin
# Type 1 diabetes mellitus/ IDDM
Cont MATERIAL MAN Lantus 15 units HS, Aspart 5 units AC
Cover with ISS
# Anxiety
# Bipolar disorder
cont Valium/Zoloft/Abilify
# HX Guillain-Smith� syndrome, Wheelchair-bound
DVT Px: HSQ
Full code
DW RN
Anticipated Discharge: 24 - 48 hours
Subjective/Interval History
-
Date of Service: May 17, 2025
Objective Data
-
Labs:
Laboratory Results
05/17/25 05/17/25
06:00 07:00
Hgb Pending
Hct Pending
Sodium Pending
Potassium Pending
Chloride Pending
Carbon Dioxide Pending
BUN Pending
Creatinine Pending
Glucose Pending
Calcium Pending
Vital Signs:
Vital Signs
Temp Pulse Resp BP Pulse Ox
36.6 C 53 15 177/78 98
05/17/25 00:11 05/17/25 05:00 05/17/25 05:00 05/17/25 04:00 05/17/25 05:00
I&O
05/16/25 05/17/25 05/18/25
06:59 06:59 06:59
Intake Total 300 / 300 1200 / 1200
Balance 300 / 300 1200 / 1200
Review of Systems
-
History Source: Patient
All other systems: Not reviewed unless documented
Physical Exam
-
General: Comfortable, Respiratory Distress (acute on chronic ) and Appears Chronically Ill
HEENT: Normocephalic, Atraumatic, Nose Appears Normal, Ears Appear Normal and Oxygen (currently on BIPAP)
Respiratory: Clear to Auscultation, Crackles and Non Labored Respirations; Negative Accessory Resp Muscle Use
Cardiac: Regular Rhythm and S1/S2
GI: Soft, Nontender, Nondistended and Normal Bowel Sounds
Skin: Warm and Dry
Psych: Calm
Data Reviewed
-
Diagnostic Radiology: Image personally visualized and interpreted and Report Reviewed by me
Labs: Labs Reviewed by me
--- NOTE | 2025-05-17 07:57 | W.PN.INTV ---
Today's Communication / Plan
Recommendations
Suspect crackles and left-sided radiographic findings may be chronic
Continue to wean oxygen, baseline appears to be around 5 L
Patient would not qualify for home BiPAP
HD today, continue negative fluid status
Disposition efforts
Assessment
-
Assessment: 44-year-old female with a past medical history of DM type I, hypertension, hyperlipidemia, chronic hypoxic respiratory failure and ESRD on HD MWF who presented from [facility] with shortness of breath. Arrived to the ER on
nonrebreather at 15 L/min. Last dialysis on Friday. At baseline does not make urine. Recent hospitalization from 04/27 - 05/04/2025 due to acute hypoxic respite failure from pulmonary edema and hypertensive crisis in setting of ESRD. He required
IV nitroglycerin drip for hypertensive emergency at the time and underwent dialysis. Currently in the ER, he was requiring 8 nonrebreather and was saturating 90%, hypertensive to 208/91, pulse rate 78, breathing at 20-27 breaths/min and he was
afebrile. Labs pertinent for Hb 8.9, WBC 10.1, sodium 132, potassium 5.9, and glucose 202. CXR showed interstitial opacification with mild interstitial edema with patchy airspace opacities in the left midlung concerning for pneumonia versus
atelectasis. CT head obtained due to headache showing no acute intracranial abnormalities. Nephrology consulted and given the pulmonary edema and hypoxia, emergent dialysis was arranged. Patient was admitted to the ICU for further care and
elderly caregiver service consulted for additional management/recommendations.
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
Impression:
#Acute on chronic hypoxic respiratory failure due to acute pulmonary edema in setting of hypertensive crisis + COPD on home O2
#Hypertensive crisis with history of resistant hypertension
#Chronic anemia
#ESRD on HD MWF
#History of COPD not in an acute exacerbation
#DM type I
#Diastolic heart failure
#Valvular heart disease with mild MR and mild�moderate TR (per TTE from 04/28/2025)
#Pulmonary hypertension likely group V in setting of ESRD as well as group 2 in setting of chronic diastolic heart failure and group 3 in setting of COPD
#Hypertension
#Hyperlipidemia
#Chronic hypoxic respite failure on 4 L O2 at home
Plan/recommendations:
At this time, patient appears to be improved objectively and subjectively.
Blood pressures overall improved, systolic pressure 130s to 180s
Remains on outpatient regiment
-4 L removed per HD 05/15. Pending HD today
Electrolytes stable
Hemoglobin 7.5
Desaturates to 85%, Requiring 6 to 8 L, without symptoms
Patient states he is on 5 L at home
Moving forward
Continue with supportive care
Continue with outpatient regimen
Nephrology continues to follow
Await HD today
Maintain negative fluid status
Chest x-ray with bilateral patchy infiltrates, slightly improved
Cannot differentiate between pneumonia versus heart failure but suspect the latter
No white count, no fevers
He does have some mild crackles in the left side. Upon reviewing old films he has some chronic interstitial changes on the left side per my review
Continue with BiPAP intermittently, 14/, 6 L
When off BiPAP, requires mid flow oxygen
Patient states he is on home oxygen, 5 L
Patient would not qualify for BiPAP based on current oxygenation/ventilation. If he likes to pursue this as an outpatient, will need to be seen in the outpatient sleep clinic or pulmonary clinic
This may be difficult as he states he will be moving closer to family
Continue to follow electrolytes
Patient refusing DVT prophylaxis
Will try to place sequential teds
Continue to follow blood sugars. Patient refused p.m. insulin on 05/15
Follow
PT/OT (of note, he is wheelchair bound but can stand to transfer)
DVT ppx: HSQ. Unfortunately patient is refusing. Attempted to place sequential teds
Patient refused placement of midline
Has upper extremity small IV
Reviewed with patient potential need for midline.
Pulmonary will continue to follow given oxygen requirement
Tobacco cessation, patient states he quit in March 2025
Disposition efforts
Data:
CXR 05/15/2025:
There is mild interstitial opacification which likely represents mild interstitial edema.
There is increased patchy airspace opacities projecting over the left midlung concerning for worsening pneumonia although atelectasis is possible.
Possible trace left pleural effusion.
Subjective Dataa
Subjective Data
Date of Service:
Date of Service: May 17, 2025
Subjective:
Patient is without complaints. He tolerates BiPAP, uses it overnight. He denies significant shortness of breath, nausea, abdominal pain. He is asking about going home. HD pending
Objective Data
Data Reviewed
Vital Signs / I&O / Oxygen:
Vital Signs
Temp Pulse Resp BP Pulse Ox
97.8 F 53 15 177/78 98
05/17/25 00:11 05/17/25 05:00 05/17/25 05:00 05/17/25 04:00 05/17/25 05:00
Intake and Output
05/16/25 05/17/25 05/18/25
06:59 06:59 06:59
Intake Total 300 / 300 1200 / 1200
Balance 300 / 300 1200 / 1200
SaO2 98
Nasal Cannula flow liters per 14
minute
Physical Exam
General: Comfortable and Other (Right anterior HD catheter)
HEENT: Normocephalic and Anicteric
Cardiovascular: S1-S2, Regular Rhythm, Murmur (n), Rub (n) and Peripheral Edema (n)
Respiratory: Wheeze (n), Crackles (Few left side), Rhonchi (n), Non-Labored Respirations and Stridor (n)
GI: Soft, Non Distended and Non Tender
Neurology: Awake, Alert and No Motor Deficits (Moves all extremities, generally weak)
Skin: Cyanosis (n), Jaundice (n) and Rash (n)
[2025-05-17] MEDS: NOVOLOG FLEXPEN SC (08:00)
[2025-05-17] MEDS: NOVOLOG FLEXPEN-LOW RESISTANCE SC ×3 (08:00→17:41)
[2025-05-17] MEDS: RENVELA PO (08:00)
[2025-05-17] MEDS: NEURONTIN 300 MG PO (08:18)
[2025-05-17] MEDS: VALIUM 5 MG PO ×2 (08:18→20:07)
[2025-05-17 08:41] LABS: Hematocrit 23.6 % (39.0-52.0); Hemoglobin 7.5 g/dL (13.0-18.0)
--- NOTE | 2025-05-17 09:00 | PTCARENOTE ---
Assumed care of pt at 0715 following shift report. Pt in Bipap, asleep at time assumed care. Woken to name. Denies c/o pain. HD RN in room to begin ordered tx. RT called to room to remove BiPap. Pt initially placed on O2 at 6l/min w/ Pox down to 86%
and pt reported c/o SOB. RR mid 20's. No acute distress noted. O2 increased to 12l/min to achieve POx >90%. Following assessment, med administration and care, pt asleep w/ POx improved to 98%. O2 decreased to 6l/min- Pox 91%. Will continue to
monitor. Call [facility] w/in pt reach and safe environment maintained.
[2025-05-17 09:02] LABS: Blood Urea Nitrogen 52 mg/dl (9-20); Calcium 8.9 mg/dl (8.4-10.2); Carbon Dioxide 27 mmol/L (22-30); Chloride 94 mmol/L (98-107); Estimated Creatinine Clearance 12 ml/min; Glucose 136 mg/dl (70-99); Potassium 4.9 mmol/L (3.5-5.1); Sodium 131 mmol/L (135-145); eGFR 7.53
[2025-05-17] MEDS: RETACRIT 10000 UNITS IV (09:18)
[2025-05-17] MEDS: IMDUR (EXTENDED RELEASE) 30 MG PO (09:25)
--- NOTE | 2025-05-17 10:25 | PTCARENOTE ---
Dr Steven notified of H/H results .. No new orders received
[2025-05-17] MEDS: TYLENOL 650 MG PO ×2 (10:36→18:36)
[2025-05-17 11:49] LABS: Glucose - Point of Care 132 mg/dl (70-99)
--- NOTE | 2025-05-17 11:55 | W.PN.NEPH.HD ---
Assessment
-
Pt seen on HD. no complaints. VSS, access ok
UF tomorrow if able
Progress Note - Hemodialysis
-
Date of Service: May 17, 2025
Duration: 30 minutes and 3 hours
Potassium Bath: 2
Calcium Bath: 2.5
Opti-Dialyzer: 160
Ultrafiltration: Other (4kg)
Blood Flow: 400
Dialysate Flow: 600
Heparin: 0
EPO: 80260 units
[2025-05-17] MEDS: APRESOLINE 100 MG PO ×3 (11:57→21:32)
[2025-05-17] MEDS: PLAVIX 75 MG PO (11:57)
[2025-05-17] MEDS: ABILIFY 5 MG PO (11:58)
[2025-05-17] MEDS: NORVASC 10 MG PO (11:58)
[2025-05-17] MEDS: LOW STRENGTH ASPIRIN 81 MG PO (11:59)
[2025-05-17] MEDS: ZESTRIL 40 MG PO (11:59)
[2025-05-17] MEDS: COREG 25 MG PO ×2 (11:59→20:07)
[2025-05-17] MEDS: ZOLOFT 50 MG PO (11:59)
[2025-05-17] MEDS: LOKELMA PO (12:00)
[2025-05-17] MEDS: HEPARIN 5000 UNITS SC (12:00)
[2025-05-17] MEDS: LIDOCAINE 4% PATCH 1 PATCH TOPICAL (12:00)
[2025-05-17] MEDS: RENVELA 800 MG PO ×2 (12:24→17:35)
[2025-05-17] MEDS: NOVOLOG FLEXPEN 5 UNITS SC ×2 (12:24→17:41)
--- NOTE | 2025-05-17 13:02 | PTCARENOTE ---
HD completed. Pt on O2 at 6l/min w/ Pox 95%. Pt ordered lunch. Refusing any hygiene until 'after I've eaten my lunch'. Reports improvement from Headache w/ Tylenol administration. Pt became agitated with enforcement of fluid restriction-
yelled/cursed at this RN and then stated 'you are rosa not to have to call security right now'. Transfer to tele order noted - transfer report called to 'Tracey' DIANE. Will transfer pt via bed once finished eating lunch.
--- NOTE | 2025-05-17 15:17 | CM ---
Transferred to Room 2124. Hgb-7.5 today. HD. Wean O2. Discharge POC: Therapy rec for SNF. Return to [facility] for STR. Will need insurance auth. Referral previously forwarded.
--- NOTE | 2025-05-17 17:16 | W.PN.UPDATE ---
Update Note
Progress Note Update
patient seen chart reviewed. patient seen by psych re ? of medical decision making and was found to have capacity. he wanted to leave for fear his belongings would be stolen at [place] which in my experience is a valid concern. he did however
remain and had dialysis today. he said he is due again for dialysis tomorrow and he thinks he will be dc then. nursing tells me he is not particularly compliant with his fluid restriction whcih we discussed. he said the amount of fluid he is allowed
is just too low and he has sensation constantly of dry mouth. will get him sugarless lozenges he could try to relieve dry mouth and there are also sprays that could be helpful for this issue that those zi gfor him could suggest. patient spoke of
his past life living in [place]..the things he had seen and done. he is hoping at some point he can be transferred closer to his family who live around [place] and [facility]. he does not feel well at [facility]. he is taking no psych meds
and i don't feel he needs any at this point despite psych hx. psych will sign off.
[2025-05-17 17:28] LABS: Glucose - Point of Care 129 mg/dl (70-99)
[2025-05-17] MEDS: LIPITOR 80 MG PO (17:35)
[2025-05-17] MEDS: OCEAN, SALINE MIST 2 SPRAYS NASAL ×2 (17:42→23:59)
[2025-05-17] MEDS: NICODERM TRANSDERMAL 14 MG TRANSDERM (18:32)
[2025-05-17] MEDS: HEPARIN SC (20:06)
[2025-05-17] MEDS: REMOVE LIDOCAINE PATCH 1 PATCH REMOVE (20:08)
[2025-05-17 22:18] LABS: Glucose - Point of Care 219 mg/dl (70-99)
[2025-05-17 23:47] LABS: Glucose - Point of Care 200 mg/dl (70-99)
[2025-05-18] VITALS (10 sets, daily range): BP systolic 143–181; BP diastolic 56–79; PULSE 2–51; O2SAT 99; BMI 27.0
--- NOTE | 2025-05-18 00:15 | PTCARENOTE ---
Addendum entered by Ben Segura RN 05/18/25 05:40:
Flu+Covid[-]. CXR Pending. Labs Resulted & INSTALLATION TECHNICIAN Notified. No new orders at this time. Pt is currently resting comfortably in bed w/o complaints related to SOB. Pt does endorse a headache & requested to be taken off BiPAP at this time.
Original Note:
At 2340, pt raised concern that they felt their sugar was low-POC Glucose taken [200]. Prior POC Glucose taken at 2212 for [219]. Pt then raised concern for SOB, difficulty with inspiration nausea and stated they felt as though 'it's not enough
oxygen'. Pt currently on 6L Midflow-previously on 14L Midflow on 05/16. VSS-see VS Intervention. INSTALLATION TECHNICIAN notified. New orders for stat labs, CXR, Flu+Covid Swabs & DuoNebs. See MAR. S/P DuoNebs-pt reports feeling better-continues to endorse difficulty
breathing. Pt now denies nausea-requests BiPAP again and is restarted on BiPAP.
--- NOTE | 2025-05-18 00:26 | W.PN.UPDATE ---
Update Note
Progress Note Update
Patient is complaining of sob, currently on 6 L of O2. Spo2 95% on 6L, bp 151/66, temp 98.4, hr 54.
diminished lung sound on exam.
Chest x-ray, vbg, covid, flu, cbc.
Duo nebs PRN for sob
-Flu and covid are neg.
-Chest x-ray is pending.
[2025-05-18] MEDS: TYLENOL 650 MG PO ×3 (00:28→22:47)
[2025-05-18] MEDS: DUONEB 3 ML INH (00:36)
[2025-05-18 01:11] LABS: COVID-19 Antigen Negative (Negative)
[2025-05-18 02:11] LABS: Hematocrit 23.2 % (39.0-52.0); Hemoglobin 7.6 g/dL (13.0-18.0); Mean Corp Hgb Conc. 32.8 g/dL (33.0-37.0); Mean Corpuscular Volume 90.3 fL (80.0-94.0); Platelet Count 269 10^3/uL (130-400); Red Cell Dist. Width 14.0 % (11.5-14.5)
[2025-05-18 02:24] LABS: Venous Blood Gas B.E. 8.2 mmol/L (-4 to +4); Venous Blood Gas O2 Sat % 97.5 %
[2025-05-18 02:34] LABS: Magnesium 2.0 mg/dl (1.6-2.3)
[2025-05-18] MEDS: ULTRAM 50 MG PO ×2 (04:43→17:11)
[2025-05-18 07:13] LABS: Glucose - Point of Care 175 mg/dl (70-99)
--- NOTE | 2025-05-18 08:14 | W.PN.HOSP.TC ---
Today's Communication/Plan
-
see A/P
Assessment / Plan
Assessment / Plan
HPI: 44 yo M NF Resident from [facility] with PMH ESRD on HD (MWF), hypertension, hyperlipidemia, insulin-dependent diabetes, anxiety and bipolar disorder; p/w acute on chronic shortness of breath, slight cough, diffuse headache and generalized
weakness.
Patient did report that he got dialysis on Friday but believes that he is only getting half sessions and is not sure as to why he is not getting full dialysis session.
At baseline, patient does not make urine anymore.
Echo 04/28/25
1. Normal left ventricular size and function.
2. Ejection fraction is 55-60% by visual assessment.
3. Mild concentric left ventricular hypertrophy.
4. Stage II diastolic dysfunction suggestive of abnormal relaxation and increased filling pressures.
5. Right ventricular size and systolic function are within normal limits.
6. Indexed left atrial volume is mildly abnormal (35-41 ml/m2).
7. Aortic sclerosis with no significant stenosis.
8. Mild mitral valve regurgitation.
9. Mild to moderate tricuspid regurgitation. Estimated pulmonary artery pressure of 38 mmHg assuming a right atrial pressure of 15 mmHg.
10. Left pleural effusion is noted.
11. There are no prior studies available for comparison.
Last hospitalist admission:Date of Admission: 04/27/25 - 05/04/25
Primary diagnoses:
Acute on chronic hypoxic respiratory failure due to pulmonary edema due to hypertensive emergency in the setting of ESRD
Secondary diagnoses:
A/P:
# Acute on chronic hypoxic respiratory failure due to pulmonary edema with hypertensive emergency POA
# Anasarca
# ESRD on HD
Was on 10L midflow -> 6L NC (baseline 5L NC)
BIPAP PRN per pt request
urgent volume removal via HD on admission, cont further HD per Renal, for ultrafiltration today per renal
s/p Nitro drip
cont Norvasc/Coreg/Clonidine/Hydralazine/Imdur for BP Control
CT head on admission: No acute intracranial abnormalities.
Renal on board
Appreciate Psych input, pt appears to be 'have capacity to decide his care' (in case pt wants to leave AMA)
Other medical problems:
# Migraine headaches,
Cont Tramadol/Tylenol PRN
# Probable coronary artery disease
cont ASA/Plavix/statin/BB
# Anemia of chronic renal disease
# Hyperlipidemia
cont statin
# Type 1 diabetes mellitus/ IDDM
Cont SOFTWARE TECHNICAL LEAD Lantus 15 units HS, Aspart 5 units AC
Cover with ISS
# Anxiety
# Bipolar disorder
cont Valium/Zoloft/Abilify
# HX Guillain-Smith� syndrome, Wheelchair-bound
DVT Px: HSQ
Full code
Anticipated Discharge: > 48 hours
Subjective/Interval History
-
Date of Service: May 18, 2025
Objective Data
-
Labs:
Laboratory Results
05/18/25 05/18/25
02:02 06:00
WBC 8.2
Hgb 7.6 L
Hct 23.2 L
Plt Count 269 D
Sodium Pending
Potassium Pending
Chloride Pending
Carbon Dioxide Pending
BUN Pending
Creatinine Pending
Glucose Pending
Calcium Pending
Vital Signs:
Vital Signs
Temp Pulse Resp BP Pulse Ox
37.3 C 54 19 162/67 98
05/18/25 03:26 05/18/25 03:26 05/18/25 03:26 05/18/25 03:26 05/18/25 03:26
I&O
05/17/25 05/18/25 05/19/25
06:59 06:59 06:59
Intake Total 1200 / 1200 640 / 640
Balance 1200 / 1200 640 / 640
Review of Systems
-
History Source: Patient
All other systems: Not reviewed unless documented
Physical Exam
-
General: Comfortable, Respiratory Distress (acute on chronic ) and Appears Chronically Ill
HEENT: Normocephalic, Atraumatic, Nose Appears Normal, Ears Appear Normal and Oxygen (currently on BIPAP)
Respiratory: Clear to Auscultation, Crackles and Non Labored Respirations; Negative Accessory Resp Muscle Use
Cardiac: Regular Rhythm and S1/S2
GI: Soft, Nontender, Nondistended and Normal Bowel Sounds
Skin: Warm and Dry
Psych: Calm
Data Reviewed
-
Diagnostic Radiology: Image personally visualized and interpreted and Report Reviewed by me
Labs: Labs Reviewed by me
[2025-05-18] MEDS: NOVOLOG FLEXPEN SC (08:55)
[2025-05-18] MEDS: NOVOLOG FLEXPEN-LOW RESISTANCE SC (08:56)
[2025-05-18] MEDS: NEURONTIN 300 MG PO (09:23)
[2025-05-18] MEDS: NICODERM TRANSDERMAL 14 MG TRANSDERM (09:55)
[2025-05-18] MEDS: LIDOCAINE 4% PATCH 1 PATCH TOPICAL (09:55)
[2025-05-18] MEDS: VALIUM 5 MG PO ×2 (09:55→19:46)
--- NOTE | 2025-05-18 09:55 | W.PN.NEPH.HD ---
Assessment
-
pt seen during HD
isolated UF of 4lit
CVC functions fine
reviewed imp of FR
HD vs UF tomorrow
Progress Note - Hemodialysis
-
Date of Service: May 18, 2025
Duration: 3 hours
Ultrafiltration: Other (3-4kg)
Blood Flow: 350
Dialysate Flow: 600
Heparin: no
EPO: no
[2025-05-18] MEDS: HEPARIN 3200 UNITS INTRACATH (10:37)
--- NOTE | 2025-05-18 11:00 | WOUNDNOTE ---
[facility] RN note: Patient seen during prevention rounds. Patient admitted with stage 1 sacral pressure injury. Patient's sacrum pink and intact mostly blanchable. Sacral shaped silicone border foam changed on sacrum. Patient is on a [employer] Accumax. He
can turn self in bed. R lateral ankle blanchable dull red. Protective silicone border foam applied to R lateral ankle. Skin on heels intact. Scrotum/groin fold dull red d/t moisture and possible yeast rash. Miconazole powder applied. Patient
declined elevating heels off bed with pillow. Heels off loaded with air chair cushion. Instructed patient importance of heel elevation and turning. Patient has a good appetite.
[2025-05-18] MEDS: RENVELA PO (11:06)
[2025-05-18] MEDS: ZESTRIL 40 MG PO (11:07)
[2025-05-18] MEDS: IMDUR (EXTENDED RELEASE) 30 MG PO (11:07)
[2025-05-18] MEDS: RENVELA 800 MG PO ×2 (11:07→17:03)
[2025-05-18] MEDS: ABILIFY 5 MG PO (11:07)
[2025-05-18 11:08] LABS: Glucose - Point of Care 244 mg/dl (70-99)
[2025-05-18 11:08] LABS: Glucose - Point of Care 254 mg/dl (70-99)
[2025-05-18] MEDS: PLAVIX 75 MG PO (11:08)
[2025-05-18] MEDS: APRESOLINE 100 MG PO ×3 (11:08→22:48)
[2025-05-18] MEDS: NORVASC 10 MG PO (11:09)
[2025-05-18] MEDS: LOW STRENGTH ASPIRIN 81 MG PO (11:09)
[2025-05-18] MEDS: COREG 25 MG PO (11:09)
[2025-05-18] MEDS: ZOLOFT 50 MG PO (11:09)
[2025-05-18] MEDS: NOVOLOG FLEXPEN 5 UNITS SC ×2 (11:10→17:47)
[2025-05-18] MEDS: NOVOLOG FLEXPEN-LOW RESISTANCE 2 UNITS SC (11:11)
[2025-05-18] MEDS: HEPARIN 5000 UNITS SC (11:11)
[2025-05-18 13:29] LABS: Blood Urea Nitrogen 38 mg/dl (9-20); Calcium 8.9 mg/dl (8.4-10.2); Carbon Dioxide 29 mmol/L (22-30); Chloride 92 mmol/L (98-107); Estimated Creatinine Clearance 19 ml/min; Glucose 166 mg/dl (70-99); Potassium 4.5 mmol/L (3.5-5.1); Sodium 131 mmol/L (135-145); eGFR 12.42
--- NOTE | 2025-05-18 13:33 | CM ---
Patient from [facility] but had been cut from his insurance prior to admission to . Per Liaison at [facility] patient had been working with cm at facility to arrange for home HD and VN. Liaison is to call back to confirm arrangements if patient
goes home. However, Patient is accepted to return to SNF when medically stable with insurance authorization needed. CM will continue to follow for discharge planning needs.
Plan; SNF; [facility] pending auth.
[2025-05-18] MEDS: LOKELMA 10 GRAM PO (13:49)
[2025-05-18 15:06] LABS: Glucose - Point of Care 311 mg/dl (70-99)
--- NOTE | 2025-05-18 15:22 | W.PN.PUL3 ---
Today's Communication / Plan
-
- Continue to wean supplemental oxygen, currently on 4 L supplemental oxygen
- Switch BiPAP to as needed tonight. If does well on supplemental oxygen only, will discontinue BiPAP altogether
- Continue to optimize volume status with hemodialysis
Assessment
-
Assessment: 44-year-old female with a past medical history of DM type I, hypertension, hyperlipidemia, chronic hypoxic respiratory failure and ESRD on HD MWF who presented from [facility] with shortness of breath. Arrived to the ER on
nonrebreather at 15 L/min. Last dialysis on Friday. At baseline does not make urine. Recent hospitalization from 04/27 - 05/04/2025 due to acute hypoxic respite failure from pulmonary edema and hypertensive crisis in setting of ESRD. He required
IV nitroglycerin drip for hypertensive emergency at the time and underwent dialysis. Currently in the ER, he was requiring 8 nonrebreather and was saturating 90%, hypertensive to 208/91, pulse rate 78, breathing at 20-27 breaths/min and he was
afebrile. Labs pertinent for Hb 8.9, WBC 10.1, sodium 132, potassium 5.9, and glucose 202. CXR showed interstitial opacification with mild interstitial edema with patchy airspace opacities in the left midlung concerning for pneumonia versus
atelectasis. CT head obtained due to headache showing no acute intracranial abnormalities. Nephrology consulted and given the pulmonary edema and hypoxia, emergent dialysis was arranged. Patient was admitted to the ICU for further care and
line supply service consulted for additional management/recommendations.
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
Impression:
#Acute on chronic hypoxic respiratory failure due to acute pulmonary edema in setting of hypertensive crisis + COPD on home O2
#Hypertensive crisis with history of resistant hypertension
#Chronic anemia
#ESRD on HD MWF
#History of COPD not in an acute exacerbation
#DM type I
#Diastolic heart failure
#Valvular heart disease with mild MR and mild�moderate TR (per TTE from 04/28/2025)
#Pulmonary hypertension likely group V in setting of ESRD as well as group 2 in setting of chronic diastolic heart failure and group 3 in setting of COPD
#Hypertension
#Hyperlipidemia
#Chronic hypoxic respite failure on 4 L O2 at home
Plan/recommendations:
At this time, patient appears to be improved objectively and subjectively.
Blood pressures overall improved, still intermittently hypertensive
Additional HD 05/18, nephrology service on case
Electrolytes stable
Hemoglobin 7.5
Currently down to 4 L supplemental oxygen. And nightly BiPAP. In view of clinical improvement, will switch nightly BiPAP to as needed and see patient clinical course. If continues to do well on supplemental oxygen alone, will discontinue BiPAP
therapy.
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 Patient seem to have strong cough.
DVT prophylaxis with subcu heparin
Data:
CXR 05/15/2025:
There is mild interstitial opacification which likely represents mild interstitial edema.
There is increased patchy airspace opacities projecting over the left midlung concerning for worsening pneumonia although atelectasis is possible.
Possible trace left pleural effusion.
Subjective Data
-
Date of Service:
Date of Service: May 18, 2025
Subjective:
Patient comfortably sitting in bed, currently on 4 L supplemental oxygen, doing well.
Review of Systems
Genitourinary: Other (All 14 systems reviewed and negative except as stated above in the history of present illness.)
Objective Data
Data Reviewed
Vital Signs / I&O / Oxygen:
Vital Signs
Temp Pulse Resp BP Pulse Ox
97.6 F 53 18 181/77 94
05/18/25 11:05 05/18/25 11:09 05/18/25 11:05 05/18/25 11:09 05/18/25 11:05
Intake and Output
05/17/25 05/18/25 05/19/25
06:59 06:59 06:59
Intake Total 1200 / 1200 640 / 640
Balance 1200 / 1200 640 / 640
SaO2 94
Nasal Cannula flow liters per 4
minute
Physical Exam
General: Comfortable
HEENT: Normocephalic
Cardiovascular: S1-S2
Respiratory: Crackles (Few basilar crackles bilaterally. No wheezing.)
GI: Soft and Non Distended
Neurology: Awake and Alert
Skin: Warm
Labs/Micro/Reports
Lab Data
05/18/25 02:02
05/18/25 06:00
Microbiology
05/18/25 00:42 Nasal Swab Influenza Types A & B (ANAMARIA) - Final
Negative for Influenza A & B, NAAT
Negative results must be combined with clinical observations
and patient history.
Nucleic Acid Amplification test (NAAT)performed on the
[employer] platform.
05/15/25 18:37 Nose MRSA Screen - Final
No Methicillin Resistant Staphylococcus aureus isolated.
[2025-05-18] MEDS: LIPITOR 80 MG PO (17:03)
[2025-05-18 17:46] LABS: Glucose - Point of Care 386 mg/dl (70-99)
[2025-05-18] MEDS: NOVOLOG FLEXPEN-LOW RESISTANCE 5 UNITS SC (17:48)
[2025-05-18] MEDS: COREG PO (19:36)
[2025-05-18] MEDS: HEPARIN SC (19:46)
[2025-05-18] MEDS: REMOVE LIDOCAINE PATCH 1 PATCH REMOVE (19:47)
[2025-05-18 21:27] LABS: Glucose - Point of Care 327 mg/dl (70-99)
--- NOTE | 2025-05-18 22:54 | W.PN.UPDATE ---
Update Note
Progress Note Update
pt seen for reassessment. now out of ICU, maintaining O2 sats on 4 liters (as he does as outpatient.) hoping to get to SNF nearer family in [place]; knows he needs to go to [place] first. Pleasant, cooperative, no complaints.
[2025-05-18] MEDS: NOVOLOG FLEXPEN 4 UNITS SC (23:05)
[2025-05-19] VITALS (7 sets, daily range): BP systolic 121–199; BP diastolic 62–88; BMI 26.5
[2025-05-19] MEDS: ULTRAM 50 MG PO ×2 (02:43→11:03)
[2025-05-19] MEDS: DUONEB 3 ML INH ×2 (06:09→21:52)
[2025-05-19] MEDS: TYLENOL 650 MG PO ×2 (06:39→14:48)
[2025-05-19 08:11] LABS: Glucose - Point of Care 227 mg/dl (70-99)
[2025-05-19] MEDS: NOVOLOG FLEXPEN 5 UNITS SC ×3 (08:20→16:06)
[2025-05-19] MEDS: NOVOLOG FLEXPEN-LOW RESISTANCE 2 UNITS SC ×2 (08:20→16:06)
[2025-05-19] MEDS: RENVELA PO (08:27)
[2025-05-19] MEDS: VALIUM 5 MG PO ×2 (09:33→19:09)
[2025-05-19] MEDS: NEURONTIN 300 MG PO (09:33)
--- NOTE | 2025-05-19 09:45 | W.PN.HOSP.TC ---
Today's Communication/Plan
-
see A/P
Assessment / Plan
Assessment / Plan
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
weakness.
Patient did report that he got dialysis on Friday but believes that he is only getting half sessions and is not sure as to why he is not getting full dialysis session.
At baseline, patient does not make urine anymore.
Echo 04/28/25
1. Normal left ventricular size and function.
2. Ejection fraction is 55-60% by visual assessment.
3. Mild concentric left ventricular hypertrophy.
4. Stage II diastolic dysfunction suggestive of abnormal relaxation and increased filling pressures.
5. Right ventricular size and systolic function are within normal limits.
6. Indexed left atrial volume is mildly abnormal (35-41 ml/m2).
7. Aortic sclerosis with no significant stenosis.
8. Mild mitral valve regurgitation.
9. Mild to moderate tricuspid regurgitation. Estimated pulmonary artery pressure of 38 mmHg assuming a right atrial pressure of 15 mmHg.
10. Left pleural effusion is noted.
11. There are no prior studies available for comparison.
Last hospitalist admission: 04/27/25 - 05/04/25
Primary diagnoses:
Acute on chronic hypoxic respiratory failure due to pulmonary edema due to hypertensive emergency in the setting of ESRD
Secondary diagnoses:
A/P:
# Acute on chronic hypoxic respiratory failure due to pulmonary edema with hypertensive emergency POA
# Anasarca, resolved
# ESRD on HD
Was on 10L midflow -> 4-6L NC (baseline 5L NC)
BIPAP PRN per pt request
urgent volume removal via HD on admission, cont further HD per Renal
d/w renal, pt likely would be stable for discharge after HD tmr 05/20
s/p Nitro drip
cont Norvasc/Coreg/Clonidine/Hydralazine/Imdur for BP Control
CT head on admission: No acute intracranial abnormalities.
Renal on board
Appreciate Psych input, pt appears to be 'have capacity to decide his care' (in case pt wants to leave AMA)
Other medical problems:
# Migraine headaches,
Cont Tramadol/Tylenol PRN
# Probable coronary artery disease
cont ASA/Plavix/statin/BB
# Anemia of chronic renal disease
# Hyperlipidemia
cont statin
# Type 1 diabetes mellitus/ IDDM
Cont [employer] Lantus 15 units HS, Aspart 5 units AC
Cover with ISS
# Anxiety
# Bipolar disorder
cont Valium/Zoloft/Abilify
# HX Guillain-Smith� syndrome, Wheelchair-bound
DVT Px: HSQ
Full code
DW Renal
Anticipated Discharge: Within 24 hours
Subjective/Interval History
-
Date of Service: May 19, 2025
Objective Data
-
Labs:
Laboratory Results
05/19/25
08:13
Sodium Pending
Potassium Pending
Chloride Pending
Carbon Dioxide Pending
BUN Pending
Creatinine Pending
Glucose Pending
Calcium Pending
Vital Signs:
Vital Signs
Temp Pulse Resp BP Pulse Ox
36.7 C 52 18 146/62 94
05/19/25 07:20 05/19/25 07:20 05/19/25 07:20 05/19/25 07:20 05/19/25 09:12
I&O
05/18/25 05/19/25 05/20/25
06:59 06:59 06:59
Intake Total 640 / 640 480 / 480
Balance 640 / 640 480 / 480
Review of Systems
-
History Source: Patient
All other systems: Not reviewed unless documented
Physical Exam
-
General: Comfortable, Respiratory Distress (chronic ) and Appears Chronically Ill
HEENT: Normocephalic, Atraumatic, Nose Appears Normal, Ears Appear Normal and Oxygen (4L NC )
Respiratory: Clear to Auscultation and Non Labored Respirations; Negative Accessory Resp Muscle Use
Cardiac: Regular Rhythm and S1/S2
GI: Soft, Nontender, Nondistended and Normal Bowel Sounds
Skin: Warm and Dry
Psych: Calm
Data Reviewed
-
Diagnostic Radiology: Image personally visualized and interpreted and Report Reviewed by me
Labs: Labs Reviewed by me
[2025-05-19 09:56] LABS: Blood Urea Nitrogen 48 mg/dl (9-20); Calcium 8.5 mg/dl (8.4-10.2); Carbon Dioxide 25 mmol/L (22-30); Chloride 96 mmol/L (98-107); Glucose 216 mg/dl (70-99); Potassium 4.6 mmol/L (3.5-5.1); Sodium 135 mmol/L (135-145)
[2025-05-19 11:02] LABS: Estimated Creatinine Clearance 14 ml/min; eGFR 9.10
[2025-05-19 11:06] LABS: Glucose - Point of Care 167 mg/dl (70-99)
--- NOTE | 2025-05-19 11:13 | W.PN.NEPH.HD ---
Assessment
-
pt seen during HD
vitals stable
UF as tolerates
HD again tomorrow hopefully pt will allow to get him back to MWF schedule
CVC functions fine
Progress Note - Hemodialysis
-
Date of Service: May 19, 2025
Duration: 30 minutes and 3 hours
Potassium Bath: 2
Calcium Bath: 2.5
Opti-Dialyzer: 160
Ultrafiltration: Other (3.5-4kg)
Blood Flow: 400
Dialysate Flow: 600
Heparin: no
EPO: 20245
--- NOTE | 2025-05-19 11:45 | W.PN.PUL3 ---
Today's Communication / Plan
-
- D/c BIPAP. PRN use for increased work of breathing or hypoxia
- Wean O2 as tolerated. Patient very reluctant to lowering supplemental O2
- CXR and VBG in AM.
Assessment
-
Assessment: 44-year-old female with a past medical history of DM type I, hypertension, hyperlipidemia, chronic hypoxic respiratory failure and ESRD on HD MWF who presented from [facility] with shortness of breath. Arrived to the ER on
nonrebreather at 15 L/min. Last dialysis on Friday. At baseline does not make urine. Recent hospitalization from 04/27 - 05/04/2025 due to acute hypoxic respite failure from pulmonary edema and hypertensive crisis in setting of ESRD. He required
IV nitroglycerin drip for hypertensive emergency at the time and underwent dialysis. Currently in the ER, he was requiring 8 nonrebreather and was saturating 90%, hypertensive to 208/91, pulse rate 78, breathing at 20-27 breaths/min and he was
afebrile. Labs pertinent for Hb 8.9, WBC 10.1, sodium 132, potassium 5.9, and glucose 202. CXR showed interstitial opacification with mild interstitial edema with patchy airspace opacities in the left midlung concerning for pneumonia versus
atelectasis. CT head obtained due to headache showing no acute intracranial abnormalities. Nephrology consulted and given the pulmonary edema and hypoxia, emergent dialysis was arranged. Patient was admitted to the ICU for further care and
motion study engineer service consulted for additional management/recommendations.
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
Impression:
#Acute on chronic hypoxic respiratory failure due to acute pulmonary edema in setting of hypertensive crisis + COPD on home O2
#Hypertensive crisis with history of resistant hypertension
#Chronic anemia
#ESRD on HD MWF
#History of COPD not in an acute exacerbation
#DM type I
#Diastolic heart failure
#Valvular heart disease with mild MR and mild�moderate TR (per TTE from 04/28/2025)
#Pulmonary hypertension likely group V in setting of ESRD as well as group 2 in setting of chronic diastolic heart failure and group 3 in setting of COPD
#Hypertension
#Hyperlipidemia
#Chronic hypoxic respiratiry failure on 4 L O2 at home
Plan/recommendations:
At this time, patient appears to be improved objectively and subjectively.
Blood pressures overall improved, still intermittently hypertensive
Receiving HD 05/19 during my evaluation, nephrology service on case
Electrolytes stable
Currently down to 2 L supplemental oxygen. PRN BIPAP, used 10 min at a time, mostly for anxiety than respiratory insufficiency. Continue supplemental oxygen alone, will discontinue BiPAP therapy. Check CXR and VBG in AM, if re-assuring, no further
need for BIPAP.
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 Patient seem to have strong cough.
DVT prophylaxis with subcu heparin
Data:
CXR 05/15/2025:
There is mild interstitial opacification which likely represents mild interstitial edema.
There is increased patchy airspace opacities projecting over the left midlung concerning for worsening pneumonia although atelectasis is possible.
Possible trace left pleural effusion.
Subjective Data
-
Date of Service:
Date of Service: May 19, 2025
Subjective:
Comfortably sitting in bed, currently down to 2 L supplemental oxygen.
Review of Systems
Genitourinary: Other (No new symptoms reported.)
Objective Data
Data Reviewed
Vital Signs / I&O / Oxygen:
Vital Signs
Temp Pulse Resp BP Pulse Ox
97.4 F 55 16 199/86 94
05/19/25 11:10 05/19/25 11:10 05/19/25 11:10 05/19/25 11:10 05/19/25 11:13
Intake and Output
05/18/25 05/19/25 05/20/25
06:59 06:59 06:59
Intake Total 640 / 640 480 / 480
Balance 640 / 640 480 / 480
SaO2 94
Nasal Cannula flow liters per 2
minute
Physical Exam
General: Comfortable
HEENT: Normocephalic
Cardiovascular: S1-S2
Respiratory: Crackles (Few basilar crackles bilaterally, improving. No wheezing.)
GI: Soft and Non Distended
Neurology: Awake and Alert
Skin: Warm
Labs/Micro/Reports
Lab Data
05/18/25 02:02
05/19/25 08:13
Microbiology
05/18/25 00:42 Nasal Swab Influenza Types A & B (ANAMARIA) - Final
Negative for Influenza A & B, NAAT
Negative results must be combined with clinical observations
and patient history.
Nucleic Acid Amplification test (NAAT)performed on the
[employer] platform.
05/15/25 18:37 Nose MRSA Screen - Final
No Methicillin Resistant Staphylococcus aureus isolated.
[2025-05-19] MEDS: ABILIFY 5 MG PO (12:03)
[2025-05-19] MEDS: RENVELA 800 MG PO ×2 (12:03→16:03)
[2025-05-19] MEDS: IMDUR (EXTENDED RELEASE) 30 MG PO (12:03)
[2025-05-19] MEDS: PLAVIX 75 MG PO (12:03)
[2025-05-19] MEDS: APRESOLINE 100 MG PO ×3 (12:04→21:25)
[2025-05-19] MEDS: COREG PO ×2 (12:05→19:09)
[2025-05-19] MEDS: HEPARIN SC ×2 (12:06→19:05)
[2025-05-19] MEDS: LIDOCAINE 4% PATCH 1 PATCH TOPICAL (12:07)
[2025-05-19] MEDS: NICODERM TRANSDERMAL 14 MG TRANSDERM (12:08)
--- NOTE | 2025-05-19 12:08 | CM ---
Patient updated about plan for admission to [facility] with new auth if approved. Patient was not set up for outpatient HD or home DME prior to discharge to . CM will start auth with [employer]. CM will continue to follow for discharge planning needs.
Plan; return to [facility]
[2025-05-19] MEDS: ZESTRIL 40 MG PO (12:09)
[2025-05-19] MEDS: LOW STRENGTH ASPIRIN 81 MG PO (12:09)
[2025-05-19] MEDS: ZOLOFT 50 MG PO (12:09)
[2025-05-19] MEDS: NORVASC 10 MG PO (12:10)
[2025-05-19] MEDS: LOKELMA 10 GRAM PO (12:10)
[2025-05-19] MEDS: NOVOLOG FLEXPEN-LOW RESISTANCE 1 UNITS SC (12:16)
[2025-05-19 16:01] LABS: Glucose - Point of Care 201 mg/dl (70-99)
[2025-05-19] MEDS: DILAUDID 2 MG PO (16:03)
--- NOTE | 2025-05-19 16:12 | CM ---
SNF auth by Michelle to [facility] :
Auth number [id number] -05/26/2025 approved
Spoke with Laura at [facility] to inform above
Updates to [phone]
Report to be given to
[facility] SNF with HD
Call [phone] ask for 1st floor nurse's station to give report
Fax number [phone]
Cm will continue to follow up for needs; Tx to SNF tomorrow
[2025-05-19] MEDS: LIPITOR 80 MG PO (17:00)
[2025-05-19] MEDS: REMOVE LIDOCAINE PATCH 1 PATCH REMOVE (19:09)
[2025-05-19 21:23] LABS: Glucose - Point of Care 250 mg/dl (70-99)
[2025-05-20] MEDS: TYLENOL 650 MG PO ×2 (01:20→07:51)
[2025-05-20 03:09] VITALS: BP 168/71
[2025-05-20] MEDS: ULTRAM 50 MG PO ×2 (04:07→09:53)
[2025-05-20] MEDS: DUONEB 3 ML INH (04:20)
[2025-05-20 05:35] VITALS: BMI 25.5
[2025-05-20 07:28] VITALS: BP 177/77
[2025-05-20 07:32] LABS: Glucose - Point of Care 280 mg/dl (70-99)
[2025-05-20] MEDS: NOVOLOG FLEXPEN-LOW RESISTANCE 3 UNITS SC (07:50)
[2025-05-20] MEDS: NOVOLOG FLEXPEN 5 UNITS SC ×2 (07:51→12:41)
[2025-05-20] MEDS: RENVELA 800 MG PO ×2 (08:02→12:07)
[2025-05-20] MEDS: NICODERM TRANSDERMAL 14 MG TRANSDERM (08:02)
[2025-05-20] MEDS: LIDOCAINE 4% PATCH 1 PATCH TOPICAL (08:03)
[2025-05-20] MEDS: VALIUM 5 MG PO (08:04)
[2025-05-20] MEDS: ABILIFY 5 MG PO (08:04)
[2025-05-20] MEDS: ZOLOFT 50 MG PO (08:05)
[2025-05-20] MEDS: NEURONTIN 300 MG PO (08:05)
[2025-05-20] MEDS: LOW STRENGTH ASPIRIN 81 MG PO (08:05)
[2025-05-20] MEDS: HEPARIN 500 UNITS IV ×2 (08:10→09:10)
--- NOTE | 2025-05-20 09:01 | W.PN.HOSP.TC ---
Today's Communication/Plan
-
DC home today after HD
Assessment / Plan
Assessment / Plan
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
weakness.
Patient did report that he got dialysis on Friday but believes that he is only getting half sessions and is not sure as to why he is not getting full dialysis session.
At baseline, patient does not make urine anymore.
Echo 04/28/25
1. Normal left ventricular size and function.
2. Ejection fraction is 55-60% by visual assessment.
3. Mild concentric left ventricular hypertrophy.
4. Stage II diastolic dysfunction suggestive of abnormal relaxation and increased filling pressures.
5. Right ventricular size and systolic function are within normal limits.
6. Indexed left atrial volume is mildly abnormal (35-41 ml/m2).
7. Aortic sclerosis with no significant stenosis.
8. Mild mitral valve regurgitation.
9. Mild to moderate tricuspid regurgitation. Estimated pulmonary artery pressure of 38 mmHg assuming a right atrial pressure of 15 mmHg.
10. Left pleural effusion is noted.
11. There are no prior studies available for comparison.
Last hospitalist admission: 04/27/25 - 05/04/25
Primary diagnoses:
Acute on chronic hypoxic respiratory failure due to pulmonary edema due to hypertensive emergency in the setting of ESRD
Secondary diagnoses:
A/P:
# Acute on chronic hypoxic respiratory failure due to pulmonary edema with hypertensive emergency POA
# Anasarca, resolved
# ESRD on HD
Was on 10L midflow -> 4L NC (baseline 5L NC)
BIPAP PRN per pt request
urgent volume removal via HD on admission, cont further HD per Renal
d/w renal, pt could be discharged today 05/20 after HD
s/p Nitro drip
cont Norvasc/Coreg/Clonidine/Hydralazine/Imdur for BP Control
CT head on admission: No acute intracranial abnormalities.
Renal on board
Appreciate Psych input, pt appears to be 'have capacity to decide his care' (in case pt wants to leave AMA)
Other medical problems:
# Migraine headaches,
Cont Tramadol/Tylenol PRN
# Probable coronary artery disease
cont ASA/Plavix/statin/BB
# Anemia of chronic renal disease
# Hyperlipidemia
cont statin
# Type 1 diabetes mellitus/ IDDM
Cont [employer] Lantus adjust to 20 units HS,
Cont Aspart 5 units AC
Cover with ISS
# Anxiety
# Bipolar disorder
cont Valium/Zoloft/Abilify
# HX Guillain-Smith� syndrome, Wheelchair-bound
DVT Px: HSQ
Full code
DW RN
DW CM
Anticipated Discharge: Today
Subjective/Interval History
-
Date of Service: May 20, 2025
Objective Data
-
Labs:
Laboratory Results
05/20/25
08:26
Sodium Pending
Potassium Pending
Chloride Pending
Carbon Dioxide Pending
BUN Pending
Creatinine Pending
Glucose Pending
Calcium Pending
Vital Signs:
Vital Signs
Temp Pulse Resp BP Pulse Ox
36.3 C 56 18 177/77 99
05/20/25 07:28 05/20/25 07:28 05/20/25 07:28 05/20/25 07:28 05/20/25 07:28
I&O
05/19/25 05/20/25 05/21/25
06:59 06:59 06:59
Intake Total 480 / 480 1440 / 1440
Balance 480 / 480 1440 / 1440
Review of Systems
-
History Source: Patient
All other systems: Not reviewed unless documented
Physical Exam
-
General: Comfortable, Respiratory Distress (chronic ) and Appears Chronically Ill
HEENT: Normocephalic, Atraumatic, Nose Appears Normal, Ears Appear Normal and Oxygen (4L NC )
Respiratory: Clear to Auscultation and Non Labored Respirations; Negative Accessory Resp Muscle Use
Cardiac: Regular Rhythm and S1/S2
GI: Soft, Nontender, Nondistended and Normal Bowel Sounds
Skin: Warm and Dry
Psych: Calm
Data Reviewed
-
Diagnostic Radiology: Image personally visualized and interpreted and Report Reviewed by me
Labs: Labs Reviewed by me
[2025-05-20 09:13] LABS: Blood Urea Nitrogen 32 mg/dl (9-20); Calcium 9.3 mg/dl (8.4-10.2); Carbon Dioxide 30 mmol/L (22-30); Chloride 90 mmol/L (98-107); Estimated Creatinine Clearance 18 ml/min; Glucose 275 mg/dl (70-99); Potassium 4.6 mmol/L (3.5-5.1); Sodium 129 mmol/L (135-145); eGFR 11.64
[2025-05-20] MEDS: RETACRIT 10000 UNITS IV (09:13)
[2025-05-20 10:03] LABS: Venous Blood Gas B.E. 7.1 mmol/L (-4 to +4); Venous Blood Gas O2 Sat % 97.6 %
--- NOTE | 2025-05-20 10:16 | CM ---
CM called and updated Liaison at [facility]. Please call [phone]/fax [phone]. Patient for ambulance transportation. CM will complete transportation forms and reviewed IMM with patient and vm left regarding discharge and IMM for patient
mother. VM left for patient mother. CM will continue to follow for discharge planning needs.
Plan; return to [facility] today
--- NOTE | 2025-05-20 10:26 | W.PN.PUL3 ---
Today's Communication / Plan
-
- Continue to wean oxygen as tolerated
- Pulmonary service will sign off, please call as needed
Assessment
-
Assessment: 44-year-old female with a past medical history of DM type I, hypertension, hyperlipidemia, chronic hypoxic respiratory failure and ESRD on HD MWF who presented from [facility] with shortness of breath. Arrived to the ER on
nonrebreather at 15 L/min. Last dialysis on Friday. At baseline does not make urine. Recent hospitalization from 04/27 - 05/04/2025 due to acute hypoxic respite failure from pulmonary edema and hypertensive crisis in setting of ESRD. He required
IV nitroglycerin drip for hypertensive emergency at the time and underwent dialysis. Currently in the ER, he was requiring 8 nonrebreather and was saturating 90%, hypertensive to 208/91, pulse rate 78, breathing at 20-27 breaths/min and he was
afebrile. Labs pertinent for Hb 8.9, WBC 10.1, sodium 132, potassium 5.9, and glucose 202. CXR showed interstitial opacification with mild interstitial edema with patchy airspace opacities in the left midlung concerning for pneumonia versus
atelectasis. CT head obtained due to headache showing no acute intracranial abnormalities. Nephrology consulted and given the pulmonary edema and hypoxia, emergent dialysis was arranged. Patient was admitted to the ICU for further care and
newspaper subscription solicitor service consulted for additional management/recommendations.
Chronic conditions DELIVERY OF SHOPPING NEWS: ESRD on HD MWF via permacath, bipolar disorder, hypertension, DM type I (diagnosed at age 24) complicated by peripheral neuropathy, chronic right shoulder pain, angina, hypertension, hyperlipidemia, history of COPD on
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
Impression:
#Acute on chronic hypoxic respiratory failure due to acute pulmonary edema in setting of hypertensive crisis + COPD on home O2
#Hypertensive crisis with history of resistant hypertension
#Chronic anemia
#ESRD on HD MWF
#History of COPD not in an acute exacerbation
#DM type I
#Diastolic heart failure
#Valvular heart disease with mild MR and mild�moderate TR (per TTE from 04/28/2025)
#Pulmonary hypertension likely group V in setting of ESRD as well as group 2 in setting of chronic diastolic heart failure and group 3 in setting of COPD
#Hypertension
#Hyperlipidemia
#Chronic hypoxic respiratiry failure on 4 L O2 at home
Plan/recommendations:
At this time, patient appears to be improved objectively and subjectively.
Blood pressures overall improved, still intermittently hypertensive
Receiving HD 05/20 during my evaluation, nephrology service on case
Electrolytes stable
Patient is very reluctant to lowering oxygen. I again counseled him that as more fluid is being removed with HD, he will likely not need as much oxygen going forward.
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 Patient seem to have strong cough.
DVT prophylaxis with subcu heparin
Continue to wean oxygen. BiPAP only if needed for respiratory distress or hypoxia. Pulmonary team will sign off, please call as needed
Data:
CXR 05/15/2025:
There is mild interstitial opacification which likely represents mild interstitial edema.
There is increased patchy airspace opacities projecting over the left midlung concerning for worsening pneumonia although atelectasis is possible.
Possible trace left pleural effusion.
Subjective Data
-
Date of Service:
Date of Service: May 20, 2025
Subjective:
Patient comfortably lying in bed in no acute distress.
Review of Systems
Genitourinary: Other (All 14 systems reviewed and negative except as stated above in the history of present illness.)
Objective Data
Data Reviewed
Vital Signs / I&O / Oxygen:
Vital Signs
Temp Pulse Resp BP Pulse Ox
97.3 F 56 18 177/77 99
05/20/25 07:28 05/20/25 07:28 05/20/25 07:28 05/20/25 07:28 05/20/25 07:28
Intake and Output
05/19/25 05/20/25 05/21/25
06:59 06:59 06:59
Intake Total 480 / 480 1440 / 1440
Balance 480 / 480 1440 / 1440
SaO2 99
Nasal Cannula flow liters per 4
minute
Physical Exam
General: Comfortable
HEENT: Normocephalic
Cardiovascular: S1-S2
Respiratory: Crackles (Essentially resolved)
GI: Soft and Non Distended
Neurology: Awake and Alert
Skin: Warm
Labs/Micro/Reports
Lab Data
05/18/25 02:02
05/20/25 08:26
Microbiology
05/18/25 00:42 Nasal Swab Influenza Types A & B (ANAMARIA) - Final
Negative for Influenza A & B, NAAT
Negative results must be combined with clinical observations
and patient history.
Nucleic Acid Amplification test (NAAT)performed on the
[employer] platform.
05/15/25 18:37 Nose MRSA Screen - Final
No Methicillin Resistant Staphylococcus aureus isolated.
[2025-05-20] MEDS: HEPARIN 3200 UNITS INTRACATH (11:39)
[2025-05-20 11:44] VITALS: BP 156/87
[2025-05-20] MEDS: PLAVIX 75 MG PO (12:03)
[2025-05-20] MEDS: APRESOLINE 100 MG PO (12:03)
[2025-05-20] MEDS: IMDUR (EXTENDED RELEASE) 30 MG PO (12:03)
[2025-05-20] MEDS: NORVASC 10 MG PO (12:04)
[2025-05-20] MEDS: COREG PO (12:04)
[2025-05-20] MEDS: ZESTRIL 40 MG PO (12:04)
[2025-05-20] MEDS: HEPARIN SC (12:08)
[2025-05-20] MEDS: CATAPRES-TTS-3 0.3 MG TRANSDERM (12:08)
[2025-05-20] MEDS: LOKELMA PO (12:08)
[2025-05-20 12:20] LABS: Glucose - Point of Care 163 mg/dl (70-99)
[2025-05-20] MEDS: NOVOLOG FLEXPEN-LOW RESISTANCE 1 UNITS SC (12:42)
--- NOTE | 2025-05-20 13:21 | W.DCSUMMARY ---
Discharge Summary
Discharge Data
Date of Admission: 05/15/25
Date of Discharge: 05/20/25
Total time spent discharging patient (in min): 40
-
Pending Results: No
Hospital Course
Principal Diagnosis:
Acute on chronic hypoxic respiratory failure due to pulmonary edema with hypertensive emergency on admission
Anasarca, resolved
Chronic Diagnoses:�
ESRD on HD Friday
Migraine headaches, on Tramadol/Tylenol PRN
Probable coronary artery disease
Anemia of chronic renal disease
Hyperlipidemia
Type 1 diabetes mellitus/IDDM
Anxiety
Bipolar disorder, on Valium/Zoloft/Abilify
History of Guillain-Smith� syndrome, Wheelchair-bound
Consultations:�
Pulmonary
Nephrology
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
Psychiatry
Procedures:�
None
Clinical course:�
This is a 44-year-old male from [facility], with past medical history as stated above, presented with acute on chronic shortness of breath.
Problem 1:
Acute on chronic hypoxic respiratory failure due to pulmonary edema with hypertensive emergency on admission.
He initially required O2 support as high as 10 L mid flow, which was later weaned down to his baseline O2 requirement at 4 L nasal cannula.
He was also maintained on BiPAP as needed.
He underwent urgent dialysis for volume removal and received continued hemodialysis while in the hospital.
He received nitro drip in the hospital for hypertension emergency. Nitro drip was subsequently discontinued.
He can continue prior to admission Norvasc/Coreg/Clonidine/Hydralazine/Imdur for BP control.
He can continue ongoing dialysis outpatient after discharge.
As for the rest of his medical problems, they were stable during his hospital stay.
Discharge Plan
-
Patient Disposition: Assisted/SNF
Discharge Diagnosis/Procedures: # Acute on chronic hypoxic respiratory failure due to pulmonary edema with hypertensive emergency on admission
# Anasarca, resolved
# ESRD on HD
Condition: Fair
Diet: As tolerated, Diabetic, Carb Controlled and Restrict fluids to 64 oz
Activity: As tolerated
Driving Restrictions: As prior to admission
Activity Restrictions/Additional Instructions:
Elevate heels off bed with pillow and/or air chair cushion
Presure redistributing chair cushion (i.e. air, gel).
Miconazole powder to groin/scrotal skin twice a day.
Referrals:
Suad Sears MD [Family Provider] - in less than 1 week
Additional Discharge Medication Instructions: Lantus dose increased from 15 to 20 units at night
Prescriptions:
Continued
atorvastatin [Lipitor] 80 mg Tablet
80 mg PO QPM
carvedilol [Coreg] 25 mg Tablet
25 mg PO BID
acetaminophen [Tylenol] 325 mg Tablet
650 mg PO Q6HPRN PRN (Reason: mild pain)
nicotine 14 mg/24 hr Patch 24 Hour
1 patch TRANSDERMAL DAILY
isosorbide mononitrate 30 mg Tablet Extended Release 24 Hr
30 mg PO DAILY
clopidogrel [Plavix] 75 mg Tablet
75 mg PO DAILY
amlodipine [Norvasc] 10 mg Tablet
10 mg PO DAILY
bisacodyl [Dulcolax (bisacodyl)] 10 mg Suppository
10 mg CO DAILYPRN PRN (Reason: if no bm aftr mom)
hydralazine 100 mg Tablet
100 mg PO TID
lidocaine 5 % Adhesive Patch,Medicated
1 patch TOPICAL DAILY
gabapentin 300 mg Capsule
300 mg PO DAILY
aspirin 81 mg Tablet,Chewable
81 mg PO DAILY
clonidine 0.3 mg/24 hr Patch Weekly
1 patch TRANSDERMAL FR
sorbitol 70 % Solution
30 ml PO DAILYPRN PRN (Reason: constipation)
sertraline 50 mg Tablet
50 mg PO DAILY
insulin lispro 100 unit/mL Insulin Pen
6 sliding scale dose SC AC
Rx Instructions:
151-200=4units, 201-250=6units
aripiprazole [Abilify] 5 mg Tablet
5 mg PO DAILY
sevelamer carbonate 800 mg Tablet
800 mg PO AC
patiromer calcium sorbitex 16.8 gram Powder In Packet
16.8 g PO DAILY
lisinopril 40 mg Tablet
40 mg PO DAILY
tramadol 50 mg Tablet
50 mg PO BIDPRN PRN (Reason: moderate pains) Qty: 2 0RF
diazepam [Valium] 5 mg Tablet
5 mg PO BID Qty: 2 0RF
Changed
insulin glargine [Lantus Solostar U-100 Insulin] 100 unit/mL (3 mL) Insulin Pen
20 unit SC HS Qty: 0 0RF
Discharge Orders:
Discharge Patient (As Directed); Ordered 05/20/25
Ordered By: Aditi Steevn
Discharge Date and Time
Print Language: MOZAMBICAN
--- NOTE | 2025-05-20 13:48 | W.PN.NEPH.HD ---
Assessment
-
Pt seen on HD. no complaints. VSS, access ok
Progress Note - Hemodialysis
-
Date of Service: May 20, 2025
Duration: 30 minutes and 3 hours
Potassium Bath: 2
Calcium Bath: 2.5
Opti-Dialyzer: 160
Ultrafiltration: Other (4kg)
Blood Flow: 400
Dialysate Flow: 600
Heparin: 500x2
EPO: 96651 units
== END 2025-05-20 13:39 | DRG 189 ==
LOC: 2 NORTH 13:02
PROVIDERS: Clinical Nurse Specialist Family Health; Internal Medicine; Nurse Practitioner Family; Physician Assistant Medical; Specialist; ADMITTING PHYSICIAN Internal Medicine; ATTENDING PHYSICIAN Internal Medicine; CONSULT PHYSICIAN Internal Medicine Critical Care Medicine; CONSULT PHYSICIAN Psychiatry & Neurology Psychiatry; CONSULT PHYSICIAN Specialist; EMERGENCY PHYSICIAN Emergency Medicine; FAMILY PHYSICIAN Internal Medicine
PROC: 5A1D70Z Performance of Urinary Filtration, Intermittent, Less than 6 Hours Per Day (ICD-10-PCS; 2025-05-17)
DX: J96.00 Acute respiratory failure, unspecified whether with hypoxia or hypercapnia (principal); N18.6 End stage renal disease; J44.0 Chronic obstructive pulmonary disease with (acute) lower respiratory infection; I50.32 Chronic diastolic (congestive) heart failure; I16.1 Hypertensive emergency; G61.0 Guillain-Barre syndrome; E87.1 Hypo-osmolality and hyponatremia; I13.2 Hypertensive heart and chronic kidney disease with heart failure and with stage 5 chronic kidney disease, or end stage renal disease; J96.21 Acute and chronic respiratory failure with hypoxia; Z99.2 Dependence on renal dialysis; G89.29 Other chronic pain; M25.511 Pain in right shoulder; I25.119 Atherosclerotic heart disease of native coronary artery with unspecified angina pectoris; F31.9 Bipolar disorder, unspecified; F17.200 Nicotine dependence, unspecified, uncomplicated; F41.9 Anxiety disorder, unspecified; D63.1 Anemia in chronic kidney disease; E10.22 Type 1 diabetes mellitus with diabetic chronic kidney disease; E10.42 Type 1 diabetes mellitus with diabetic polyneuropathy; Z79.4 Long term (current) use of insulin; Z99.3 Dependence on wheelchair; G43.909 Migraine, unspecified, not intractable, without status migrainosus; L89.151 Pressure ulcer of sacral region, stage 1; Z11.52 Encounter for screening for COVID-19; I27.20 Pulmonary hypertension, unspecified; Z79.02 Long term (current) use of antithrombotics/antiplatelets; Z79.82 Long term (current) use of aspirin; Z79.899 Other long term (current) drug therapy; Z99.81 Dependence on supplemental oxygen
CPT/HCPCS: 70450; 71045; 80048; 80053; 82805; 82962; 83735; 83880; 84100; 84484; 85014; 85018; 85025; 85027; 85610; 85730; 86850; 86900; 86901; 87070; 87502; 87811; 93005; 94640; 94660; 97163; 97530; 99291; G0257; P9047; Q5106

== ENCOUNTER 2025-05-29 14:45 | Emergency (ER) | payer MEDICARE, SELFPAY ==
[2025-05-29] VITALS (8 sets, daily range): BP systolic 145–172; BP diastolic 70–92
[2025-05-29 14:51] LABS: Glucose - Point of Care 284 mg/dl (70-99)
--- NOTE | 2025-05-29 15:03 | ED.CVA ---
History of Present Illness
General
Chief Complaint: CVA/TIA Symptoms
Source: patient and ambulance crew
Time Seen by Provider: 05/29/25 14:58
Onset of Stroke Symptoms
Onset of symptoms known: Yes
Date of onset of symptoms: 05/29/25
History of Present Illness
History of Present Illness:
44-year-old male presents the emergency room complaint right-sided weakness. Patient has a complex medical history including end-stage renal disease, previous CVA, hypertension, bipolar disease, residual weakness from Guillain-Smith�. Patient
resides at [facility]. He receives dialysis Friday. He states he did have his dialysis on Friday. Patient states he woke up this morning feeling at his baseline but then developed right arm weakness. Patient is
wheelchair-bound. He requires help with all his activities of daily living. Patient is on 3 L of oxygen for COPD
Past History
Past History
ED Past Medical History: COPD, HTN, Hypercholesterolemia, IDDM, Renal failure, Psychiatric (anxiety, depression, bipolar) and Other (Hyperkalemia, hypoxia )
ED Past Surgical History: None
Social History
Tobacco: Non-smoker
Alcohol: None
Drug: None
Personal: Single
Living: fdc
Phy Exam
Physical Exam
Physical Exam:
General: Awake, Alert, Oriented X3. No acute distress.
Vitals: unremarkable
Head: Atraumatic
Eyes: Pupils equal, EOMI
Throat: Airway intact, no exudates
Neck: Trachea midline
Lungs: Clear and equal b/l
Heart: Regular rate, no murmurs
Abd: Soft, Nontender, No pulsatile mass
Neuro: Mild right facial droop, right arm strength 4 out of 5 with tremor, right leg strength out of 5. Muscle strength 5 out of 5 on the left side. Decree sensation perhaps on the right though inconsistent. No apparent visual field cut. Patient
does not look past the midline to the right
Skin: Warm, dry, no rash
Extremities: pulses equal b/l, no edema
Course
Orders/Labs/Results
Orders:
Orders
05/29/25 14:46
CT HEAD STROKE ALERT W/o Cont Urgent
Comment:
Reason For Exam: stroke alert
05/29/25 15:02
CR Chest Portable - 1 View Urgent
Comment:
Reason For Exam: right sided weakness
Reason Study Needs to be Portable: Patient Unstable
05/29/25 15:49
Basic Metabolic Panel Urgent
Comment: BMP NO K
Complete Blood Count/With Diff Urgent
Abnormal Lab Results
05/29/25 05/29/25
14:50 15:49
RBC 2.62 L 10^6/uL
(4.70-6.10)
Hgb 7.7 L g/dL
(13.0-18.0)
Hct 23.3 L %
(39.0-52.0)
Absolute Lymphs (auto) 0.8 L 10^3/uL
(1.2-3.4)
Absolute Monos (auto) 0.7 H 10^3/uL
(0.1-0.6)
Lymphocytes % 11.6 L %
(20.5-51.1)
Sodium 134 L mmol/L
(135-145)
Carbon Dioxide 19 L mmol/L
(22-30)
BUN 85 H mg/dl
(9-20)
Creatinine 10.6 H* mg/dL
(0.7-1.3)
Glucose 241 H mg/dl
(70-99)
POC Glucose 284 H mg/dl
(70-99)
05/29/25 15:49
05/29/25 15:49
Vital Signs
Initial and Last Documented VS:
Initial Vital Signs
Pulse Ox
86
11/09/25 14:50
Last Documented Vital Signs
Temp Pulse Resp BP Pulse Ox
97.6 F 59 19 151/75 100
05/29/25 15:09 05/29/25 18:00 05/29/25 18:00 05/29/25 18:00 05/29/25 18:00
MDM/Problems Addressed
Differential Diagnosis Includes:
Ischemic stroke, hemorrhagic stroke, recrudescence of previous CVA symptoms from acute illness, electrolyte abnormality
MDM/Problems Addressed:
Patient presents with perhaps right arm weakness. It appears she has some residual right-sided weakness from previous strokes and Guillain-Smith�. Unclear how much of what worsening today is new. He is articulating well. He is awake and alert
follows commands. He does take Plavix but no other oral anticoagulant. Not clear that he is a candidate for TNK as it is not clear that he is having an acute ischemic event. Patient is not a candidate for IAT given his modified Watchung score.
Neurology, after reevaluating the patient, feels the patient may actually benefit from a CTA and if there is a large vessel occlusion they would at least consider intervention. IV team unable to obtain IV access. I approached the patient about
placing a central line in order to perform this study. I explained the potential benefit of removing a clot that could be causing a large stroke. Patient states he has had such lines before and he absolutely refuses a central line. He does not
believe he is having a stroke despite our explanations. Patient was adamant about not consenting to a central line
Patient now refusing hospitalization. We discussed that would like to observe him and perhaps get an MRI which may change the medications he is on to prevent any further strokes. Patient is adamant that he does not want to stay in the hospital he
was to go back to his fdc. His vital signs are acceptable. He has no urgent need for acute intervention. He is not consenting to a central line which would allow us to do further testing. Therefore patient will be discharged back to
[facility].
Chronic conditions affecting care: HTN, Kidney disease (ESRD) and Other
*Radiology
Radiology exam reviewed: radiology read reviewed
*Pulse Oximetry
SaO2: 86
Oxygen Mode of Delivery: Room air
Patient hypoxic: yes
*Unit Nurse Interpretation
Rate: normal
Interpretation: normal
Rhythm: sinus
*Critical Care Note
Total Time (30-74mins, 75-104mins- exclusive of procedures): Not Applicable
ED Attending Note
-
Portions of this chart may have been created with voice recognition software.� Occasional wrong word or��sound alike� substitutions may have occurred due to the inherent limitations of voice recognition software.
Discharge Plan
Departure
Patient Disposition: Against Medical Advice
Date of Disposition: 05/29/25
Time of Disposition: 16:04
Condition: Fair
Discharge Problem:
Acute CVA (cerebrovascular accident)
Instructions: Stroke (DC)
Prescriptions:
No Action
atorvastatin [Lipitor] 80 mg Tablet
80 mg PO QPM
carvedilol [Coreg] 25 mg Tablet
25 mg PO BID
acetaminophen [Tylenol] 325 mg Tablet
650 mg PO Q6HPRN PRN (Reason: mild pain)
nicotine 14 mg/24 hr Patch 24 Hour
1 patch TRANSDERMAL DAILY
isosorbide mononitrate 30 mg Tablet Extended Release 24 Hr
30 mg PO DAILY
clopidogrel [Plavix] 75 mg Tablet
75 mg PO DAILY
amlodipine [Norvasc] 10 mg Tablet
10 mg PO DAILY
bisacodyl [Dulcolax (bisacodyl)] 10 mg Suppository
10 mg IA DAILYPRN PRN (Reason: if no bm aftr mom)
hydralazine 100 mg Tablet
100 mg PO TID
lidocaine 5 % Adhesive Patch,Medicated
1 patch TOPICAL DAILY
gabapentin 300 mg Capsule
300 mg PO DAILY
aspirin 81 mg Tablet,Chewable
81 mg PO DAILY
clonidine 0.3 mg/24 hr Patch Weekly
1 patch TRANSDERMAL FR
sorbitol 70 % Solution
30 ml PO DAILYPRN PRN (Reason: constipation)
sertraline 50 mg Tablet
50 mg PO DAILY
insulin lispro 100 unit/mL Insulin Pen
6 sliding scale dose SC AC
Rx Instructions:
151-200=4units, 201-250=6units
aripiprazole [Abilify] 5 mg Tablet
5 mg PO DAILY
sevelamer carbonate 800 mg Tablet
1,600 mg PO AC
patiromer calcium sorbitex 16.8 gram Powder In Packet
16.8 g PO DAILY
lisinopril 40 mg Tablet
40 mg PO DAILY
tramadol 50 mg Tablet
50 mg PO BIDPRN PRN (Reason: moderate pains) Qty: 2 0RF
diazepam [Valium] 5 mg Tablet
5 mg PO BID Qty: 2 0RF
insulin glargine [Lantus Solostar U-100 Insulin] 100 unit/mL (3 mL) Insulin Pen
20 unit SC HS Qty: 0 0RF
miconazole nitrate 2 % Aerosol Powder
1 spray TOPICAL BID
Referrals:
Suad Sears MD [Family Provider]
Interventions
Interventions:
*Risk Screen - Suicide Last Done: 05/29/25 15:00
*General Assessment Last Done: 05/29/25 15:00
*Neglect/Abuse Screening Last Done: 05/29/25 15:00
*ED COVID-19 Vaccine History Last Done: 05/29/25 14:46
*ED Influenza Vaccine History Last Done: 05/29/25 14:46
*Nursing Disposition Last Done: 05/29/25 18:30
ED- Pulmonary Assessment Last Done: 05/29/25 15:00
ED- Neurological Assessment Last Done: 05/29/25 15:00
ED- Cardiac Assessment Last Done: 05/29/25 15:39
ED Swallowing Screen Last Done: 05/29/25 16:12
Discharge Date and Time
Discharge Date/Time: 05/29/25 18:30
Print Language: FINNISH
--- NOTE | 2025-05-29 15:22 | CON.NEURO ---
Neuro Assessment/Plan
Assessment
#R sided weakness
#concern for L sided stroke
He has a history of multiple CVA, but his stroke mechanism is unclear to me. According to our documentation, he was on Aspirin and plavix on 05/20/25, but according to EMS he is solely on plavix. He states that his last stroke was a few months ago
and unclear timing of the last stroke. He clearly had right sided weakness, and he states that his LKN was 10am on the day of presentation (05/29/25). He was outside TNK window on arrival. CTA was discussed and there was difficulty with IV access to
get CTA to assess for LVO. He refused to try and get IV access. I highly suspect stroke as a cause of his Right sided weakness. Unable to get CTA and get MRI head/MRA head and neck instead. He states that he chronically has right sided weakness and
it is worse now. It is unlikely that he would be a thrombectomy candidate given such a poor baseline (baseline right sided weakness and wheelchair bound).
Plan
- MRI Head w/o contrast, MRA head and neck w/o contrast
- give loading dose 325mg aspirin and then continue 81mg aspirin and 75mg plavix daily
- continue with atorvastatin 80mg daily
- Order Lipid panel and HgbA1c
- TTE already done 04/2025. EF 55-60%
- telemetry to assess for afib
- infectious work-up to assess for stroke recrudesence
Consultation
Order
Date of Consultation: 05/29/25
Requesting Provider:
Reason for Consult: R sided weakness
Subjective/Objective
Subjective Data
Date of Service: May 29, 2025
HPI: 44-year-old male with PMH of ESRD on dialysis (MWF), multiple past CVAs, HTN, COPD (3L of O2), bipolar disorder, residual weakness from [place] who presents from long-term for right sided weakness. He woke up normal and then at
10-10:30AM, he developed right sided weakness. He is wheel-chair bound at baseline. He is unable to do his ADLs and iADLs on his own and requires assistance.
Past Medical History: COPD, HTN, Hypercholesterolemia, IDDM, Renal failure, Psychiatric (anxiety, depression, bipolar)
Past Surgical History: None
FH: unable to assess, patient was agitated during H&P
SH: Per chart review because patient was agitated during H&P
Objective Data
Vital Signs
Temp Pulse Resp BP
36.4 C 58 19 145/70
05/29/25 15:09 05/29/25 15:00 05/29/25 15:00 05/29/25 15:00
Patient Allergies
No Known Allergies Allergy (Verified 05/15/25 09:01)
CVA Assessment
Onset of Stroke Symptoms
Date of onset of symptoms: 05/29/25
Time of onset of symptoms: 10:30
Date last time pt seen normal: 05/29/25
Time last time pt seen normal: 10:30
NIH Stroke Score
Level of Consciousness: 0 - Alert
LOC Questions: 1-Answers one correctly
LOC Commands: 0-Performs both correctly
Best Horizontal Gaze: 1-Partial gaze palsy
Visual Patricia: 0=Normal, no visual loss
Facial Palsy: 0=Normal, symmetrical
Motor - Right Arm: 1=Drift < 10 seconds
Motor - Left Arm: 0=No drift 10 seconds
Motor - Right Le-Partial vs. gravity
Motor - Left Le-No drift 5 seconds
Limb Ataxia: 0-Absent
Sensation: 1-Mild loss
Best Language: 0-No aphasia
Dysarthria: 0-Normal
Extinction and Inattention: 1-Sensory inattention
NIH Total Score:: 7
Tenecteplase Contraindications
Inclusion and Exclusion criteria reviewed: Yes
Reasons for NON-Tx with Thrombolytics ABSOLUTE Exclusions: Time-out of window
Reasons for NON-Tx with Thrombolytics POSSIBLE Exclusions: Recent ischemic stroke within 3 months (unclear timing of past stroke)
Modified Hughes Score (MRS)
-
Modified Hughes Scale (mRS): Severe disability. Requires constant nursing care.
Score: 5
Physical Exam
-
General: Well Developed and Well Nourished
Eyes: Unremarkable
HEENT: Normocephalic and Atraumatic
Respiratory: Clear to Auscultation
Cardiac: Regular Rhythm
GI: Normal Bowel Sounds
Skin: Unremarkable
Extremities: No Clubbing
Psych: Unremarkable
Extended Neurological Exam
Mood & Affect: Mood Unremarkable and Affect Unremarkable
Attention Span & Concentration: Awake, Alert and Interactive (Thought it was April. He is agitated and difficult to get full neuro exam from. )
Memory: Unable to Assess
Involuntary Movement: Other (resting right sided tremor hand tremor also present with posture and intention. Not new according to him. )
Speech: Quality Unremarkable, Quantity Unremarkable and Rate of Production Unremarkable
Cranial Nerve II: Left Eye: Pupillary Reactivity Unremarkable and Visual Patricia Grossly Intact (jerky myoclonic movements of R hand that he says bother him and are new)
Cranial Nerve II: Right Eye: Pupillary Reactivity Unremarkable and Visual Patricia Grossly Intact (difficult to assess visual patricia due to agitation)
Cranial Nerves III, IV, : Extraocular Movement: Other (Initially there left gaze preference and couldn't volitionally cross the midline but was able to cross with VOR. This improved to full EOMs on reassessment.)
Cranial Nerve V: Facial Sensation: Intact to Light Touch
Cranial Nerve VII: Facial Symmetry: Normal Facial Symmetry
Cranial Nerve VIII: Hearing: Unremarkable Hearing to Normal Conversational Volume
Cranial Nerves IX, X: Palate Movement: Palate Elevation Symmetric
Cranial Nerve XII: Tongue Protusion: Midline
Muscle Strength, Overall: Other (confrontational testing was initially difficult due agitation. On re-exam He was 5/5 on LUE and LLE. 4/5 on RUE and RLE.)
Muscle Bulk & Tone: Bulk Unremarkable
Deep Tendon Reflexes: Unable to Assess
Touch Sensation: Other (initially said had decreased sensation on the left but then had extinction to double simultaneous sensation on the right)
Coordination: Unable to Assess
Gait & Station: Unable to Assess
Data Reviewed
-
CT Head: Image Reviewed (no acute hemorrhage)
Medications
-
Home Medications
�Medication �Instructions �Recorded
acetaminophen 325 mg tablet 650 mg PO Q6HPRN PRN mild pain 04/27/25
(Tylenol)
amlodipine 10 mg tablet (Norvasc) 10 mg PO DAILY Blood Pressure 04/27/25
aripiprazole 5 mg tablet (Abilify) 5 mg PO DAILY Mental Health/Anxiety 04/27/25
aspirin 81 mg chewable tablet 81 mg PO DAILY Blood Pressure 04/27/25
atorvastatin 80 mg tablet (Lipitor) 80 mg PO QPM High Cholesterol 04/27/25
bisacodyl 10 mg rectal suppository 10 mg [place] DAILYPRN PRN if no bm 04/27/25
(Dulcolax (bisacodyl)) aftr mom
carvedilol 25 mg tablet (Coreg) 25 mg PO BID Blood Pressure 04/27/25
clonidine 0.3 mg/24 hr weekly 1 patch transdermal FR Blood 04/27/25
transdermal patch Pressure
clopidogrel 75 mg tablet (Plavix) 75 mg PO DAILY Blood Clot 04/27/25
Prevention/Tx
gabapentin 300 mg capsule 300 mg PO DAILY Pain 04/27/25
hydralazine 100 mg tablet 100 mg PO TID Blood Pressure 04/27/25
insulin lispro 100 unit/mL 6 sliding scale dose SC AC Diabetes 04/27/25
subcutaneous pen
isosorbide mononitrate 30 mg 30 mg PO DAILY Blood Pressure 04/27/25
tablet,extended release 24 hr
lidocaine 5 % topical patch 1 patch topical DAILY 04/27/25
nicotine 14 mg/24 hr daily 1 patch transdermal DAILY SMOKING 04/27/25
transdermal patch CESSASION
patiromer calcium sorbitex 16.8 16.8 g PO DAILY Kidney Disease 04/27/25
gram oral powder packet
sertraline 50 mg tablet 50 mg PO DAILY Mental 04/27/25
Health/Anxiety
sevelamer carbonate 800 mg tablet 1,600 mg PO AC Kidney Disease 04/27/25
sorbitol 70 % solution 30 ml PO DAILYPRN PRN constipation 04/27/25
lisinopril 40 mg tablet 40 mg PO DAILY Blood Pressure 05/15/25
diazepam 5 mg tablet (Valium) 5 mg PO BID Mental Health/Anxiety 05/20/25
#2 tabs
insulin glargine 100 unit/mL (3 20 unit (0.2 mL) SC HS Diabetes #0 05/20/25
mL) subcutaneous pen (Lantus mL
Solostar U-100 Insulin)
tramadol 50 mg tablet 50 mg PO BIDPRN PRN moderate pains 05/20/25
#2 tabs
miconazole nitrate 2 % topical 1 spray topical BID groin,scrotal 05/29/25
spray powder
[2025-05-29 16:09] LABS: Hematocrit 23.3 % (39.0-52.0); Hemoglobin 7.7 g/dL (13.0-18.0); Mean Corp Hgb Conc. 33.0 g/dL (33.0-37.0); Mean Corpuscular Volume 88.9 fL (80.0-94.0); Red Cell Dist. Width 14.1 % (11.5-14.5)
[2025-05-29 16:29] LABS: Blood Urea Nitrogen 85 mg/dl (9-20); Calcium 8.7 mg/dl (8.4-10.2); Carbon Dioxide 19 mmol/L (22-30); Chloride 100 mmol/L (98-107); Glucose 241 mg/dl (70-99); Sodium 134 mmol/L (135-145); eGFR 5.53
[2025-05-29 16:34] LABS: Nucleated Red Blood Cells % 0 % (-); Platelet Count 241 10^3/uL (130-400)
== END 2025-05-29 18:30 | disposition left against medical advice (07) ==
LOC: EMR 14:45
PROVIDERS: EMERGENCY PHYSICIAN Emergency Medicine; FAMILY PHYSICIAN Internal Medicine
DX: I63.9 Cerebral infarction, unspecified (principal); E11.22 Type 2 diabetes mellitus with diabetic chronic kidney disease; I13.11 Hypertensive heart and chronic kidney disease without heart failure, with stage 5 chronic kidney disease, or end stage renal disease; N18.6 End stage renal disease; J44.9 Chronic obstructive pulmonary disease, unspecified; Z79.02 Long term (current) use of antithrombotics/antiplatelets; Z79.4 Long term (current) use of insulin; Z79.82 Long term (current) use of aspirin; Z99.2 Dependence on renal dialysis; Z99.3 Dependence on wheelchair
CPT/HCPCS: 99284; 70450; 71045; 80048; 82962; 85025

== ENCOUNTER 2025-05-31 22:53 | Inpatient (IN) | payer MEDICARE, SELFPAY ==
[2025-05-31] VITALS (7 sets, daily range): BP systolic 175–193; BP diastolic 71–85; PULSE 3–58; BMI 28.2
[2025-05-31 19:15] LABS: Hematocrit 23.4 % (39.0-52.0); Hemoglobin 7.7 g/dL (13.0-18.0); Mean Corp Hgb Conc. 32.9 g/dL (33.0-37.0); Mean Corpuscular Volume 89.3 fL (80.0-94.0); Nucleated Red Blood Cells % 0 % (-); Platelet Count 219 10^3/uL (130-400); Red Cell Dist. Width 14.0 % (11.5-14.5)
[2025-05-31 19:43] LABS: Troponin I 0.045 ng/ml
[2025-05-31 20:02] LABS: ALT (SGPT) < 10 U/L (0-50); AST (SGOT) 13 U/L (17-59); Albumin 4.4 g/dl (3.5-5.0); Alkaline Phosphatase 135 U/L (38-126); Blood Urea Nitrogen 75 mg/dl (9-20); Calcium 8.9 mg/dl (8.4-10.2); Carbon Dioxide 20 mmol/L (22-30); Chloride 99 mmol/L (98-107); Estimated Creatinine Clearance 9 ml/min; Glucose 119 mg/dl (70-99); Potassium 5.8 mmol/L (3.5-5.1); Sodium 135 mmol/L (135-145); Total Protein 7.5 g/dl (6.3-8.2); eGFR 5.29
--- NOTE | 2025-05-31 21:35 | ED.GENMED ---
History of Present Illness
General
Chief Complaint: Breathing Problem
Source: patient
Exam Limitations: none
Time Seen by Provider: 05/31/25 18:54
Nursing documentation reviewed up to this point in time: agreed with
History of Present Illness
History of Present Illness:
Patient with history of end-stage renal disease on hemodialysis (Friday, Friday, Friday), presents to ED secondary to recurrent shortness of breath. Patient did not receive full dialysis session yesterday, as he reports feeling uncomfortable on
the chair. Denies chest pain. Denies vomiting or diarrhea. Denies fever or chills. Denies coughing. Denies recent illness. Denies recent change in medications or diet. Patient does not make urine.
Past History
Past History
ED Past Medical History: COPD, HTN, Hypercholesterolemia, IDDM, Renal failure, Psychiatric (anxiety, depression, bipolar) and Other (Hyperkalemia, hypoxia )
ED Past Surgical History: None
Social History
Tobacco: Non-smoker
Alcohol: None
Drug: None
Personal: Single
Living: shelter
Review of Systems
Review of Systems
Allergies reviewed?: Yes
All Other Systems: ROS reviewed and negative except as documented in HPI and ROS
Constitutional: Reports no symptoms; Denies fever
EENT: Reports no symptoms
Respiratory: Reports trouble breathing; Denies cough
Cardiac: Reports no symptoms; Denies chest pain
ABD/GI: Reports no symptoms; Denies vomiting or diarrhea
Musculoskeletal: Reports no symptoms
Skin: Reports no symptoms
Neurological: Reports no symptoms
Phy Exam
Physical Exam
Physical Exam:
Physical Exam
General: mild respiratory distress, not acutely ill. afebrile
Head: nc/at. eomi
Neck: supple. normal range of motion.
Heart: s1/s2 regular rate and rhythm.
Lungs: mild respiratory distress. diminished breath sounds bilaterally
Abdomen: normal bowel sounds. not tender.
Neuro: alert and oriented x 3. no focal neurological deficits
Skin: no rash
Psychiatric: well kept. interactive and cooperative
Extremities: no edema. no calf tenderness.
Scores
Heart Failure Risk
Heart Failure Risk Score: Not Applicable
Course
Orders/Labs/Results
Orders:
Orders
05/31/25 19:08
Electrocardiogram (*1) Urgent
Reason for Study: Other
Other Reason for Exam: Respiratory Distress
Cardiac Monitoring- Treatment ONCE
EKG- Treatment ONCE
IV Insert/Care/Rem.- Treatment PRN
CR Chest Portable - 1 View Urgent
Comment:
Reason For Exam: respiratory distress
Reason Study Needs to be Portable: Patient Unstable
O2 Therapy [RESP] Urgent
Titrate/Wean O2 to maintain O2 sat greater than (%): 93
Special Instructions: TO MAINTAIN CONTINUOUS O2 SATS >/= 93%
Pulse Ox/cont/shift [RESP] Urgent
Quantity: 1
Special Instructions: continuous pulse ox
05/31/25 19:09
Complete Blood Count/With Diff Urgent
Comprehensive Metabolic Panel Urgent
NT-proBNP Urgent
Troponin I Urgent
05/31/25 21:41
Sodium Zirconium Cyclosilicate [Lokelma] 10 gram PO NOW STA
05/31/25 22:03
HydrALAZINE [Apresoline] 100 mg PO NOW STA
05/31/25 22:05
Admit/Transfer Patient As Directed
Co-Sign Provider:
Level of Care: Inpatient admission
Assign to:: IMU- Intermediate Care
Physician / Group: cesar rubin
Diagnosis: esrd on hd w/ volume overload, hyperk 2/2 esrd,acute chron hypoxia
Reason for Hospitalization: esrd on hd w/ volume overload, hyperk 2/2 esrd,acute chron hypoxia
Expected length of stay greater than two midnights?: Yes
ELOS- Estimated Length of Stay in days: 4
I certify the patient meets the requirements for IP care: Yes
Code Status As Directed
Resuscitation Status: Full Code
05/31/25 22:12
PRN Pain Medication Management As Directed
May give lesser potent ordered pain med per pt: Yes
preference::
Protocol:: Medication orders for pain may be administered in a
manner that supports deferring to patient preference
when the pt is:
- Requesting an ordered lesser potent pain medication.
Least to most potent pain medications are defined
as: acetaminophen < NSAID < tramadol < opioids
(morphine, oxycodone, hydromorphone).
- Requesting a lesser dose of the same medication IF
ORDERED.
- Requesting a less intrusive route of administration
if both routes are prescribed by the provider (PO <
IV).
05/31/25 22:18
Hemodialysis treatment As Directed
Treatment date:: 06/01/25
Treatment type: Hemodialysis
Ultrafiltration (kg): 3-4
Treatment time (duration): 3 hours 30 minutes
Use dialysis access:: Tunneled Cath
Dialyzer:: Optiflux 160
Blood flow rate minimum: 350
Blood flow rate maximum: 400
Dialysis flow rate: 600 mL/min
Dialysate temperature: 36 degrees Celsius
Sodium (Na): 137
Potassium (K): 2
Calcium (Ca): 2.5
Bicarbonate (HCO3): 35
05/31/25 22:26
Consult Notification Routine
Specialty to Notify: Nephrology
NEPHROLOGY CONSULT Routine
Consulting Provider: Jenifer Mckeon
Was physician already notified: No
Reason for consult: esrd needs dialysis
06/01/25 08:00
Albumin Human 25% 50 ml [Flexbumin 25% For Hemodialysis] 12.5 grams IV HD-Q1HPRN PRN
Epoetin Kamron-Epbx [Retacrit] 10,000 units IV HD-ONCE ONE
Heparin 500 units IV HD-ONCE ONE
Heparin 500 units IV HD-ONCE ONE
Heparin See Dose Instructions INTRACATH HD-ONCE ONE
Mannitol 25% 12.5 grams IV HD-Q1HPRN PRN
06/03/25 11:00
DC Protocol for Telemetry ONCE
Abnormal Lab Results
05/31/25
19:09
RBC 2.62 L 10^6/uL
(4.70-6.10)
Hgb 7.7 L g/dL
(13.0-18.0)
Hct 23.4 L %
(39.0-52.0)
MCHC 32.9 L g/dL
(33.0-37.0)
Absolute Neuts (auto) 7.0 H 10^3/uL
(1.4-6.5)
Absolute Monos (auto) 0.7 H 10^3/uL
(0.1-0.6)
Neutrophils % 77.1 H %
(42.2-75.2)
Lymphocytes % 13.8 L %
(20.5-51.1)
Potassium 5.8 H mmol/L
(3.5-5.1)
Carbon Dioxide 20 L mmol/L
(22-30)
BUN 75 H mg/dl
(9-20)
Creatinine 11.0 H* mg/dL
(0.7-1.3)
Glucose 119 H mg/dl
(70-99)
AST 13 L U/L
(17-59)
Alkaline Phosphatase 135 H U/L
(38-126)
Troponin I 0.045 H* ng/ml
05/31/25 19:09
05/31/25 19:09
Vital Signs
Initial and Last Documented VS:
Initial Vital Signs
Pulse Resp Pulse Ox
62 18 92
05/31/25 18:52 05/31/25 18:52 05/31/25 18:52
Last Documented Vital Signs
Temp Pulse Resp BP Pulse Ox
98.1 F 60 24 177/71 90
05/31/25 19:06 05/31/25 23:00 05/31/25 23:00 05/31/25 23:00 05/31/25 23:00
MDM/Problems Addressed
MDM/Problems Addressed:
History and exam, along with blood work and chest x-ray consistent with likely mild fluid overload. Patient will be admitted for further evaluation and treatment, including dialysis. In the meantime, hyperkalemia will be treated with Lokelma only,
as there is no acute EKG changes at this time.
Nephrology, Dr. Mckeon, notified via [place] text.
*Pulse Oximetry
SaO2: 96
Nasal Cannula flow liters per minute: 6
Patient hypoxic: no
*Critical Care Note
Total Time (30-74mins, 75-104mins- exclusive of procedures): Not Applicable
ED Attending Note
-
Portions of this chart may have been created with voice recognition software.� Occasional wrong word or��sound alike� substitutions may have occurred due to the inherent limitations of voice recognition software.
Discharge Plan
Departure
Patient Disposition: Admit
Date of Disposition: 05/31/25
Time of Disposition: 21:43
Admit to: Telemetry
Presentation/result/management discussed w/ accepting MD/DO: Hospitalist
Discharge Problem:
Dyspnea, End-stage renal disease (ESRD), Acute hyperkalemia
Interventions
Interventions:
*Risk Screen - Suicide Last Done: 05/31/25 18:52
*General Assessment Last Done: 05/31/25 18:52
*Neglect/Abuse Screening Last Done: 05/31/25 18:52
*ED- Fall Risk Assessment Last Done: 05/31/25 18:52
*ED COVID-19 Vaccine History Last Done: 05/31/25 19:38
*ED Influenza Vaccine History Last Done: 05/31/25 18:52
ED- Cardiac Assessment Last Done: 05/31/25 18:59
ED- Pulmonary Assessment Last Done: 05/31/25 18:59
[2025-05-31] MEDS: LOKELMA 10 GRAM PO (21:47)
--- NOTE | 2025-05-31 21:49 | HPS.HSE ---
Family Physician
-
Family Physician: Suad Sears
Chief Complaint
-
Shortness of breath, completed half session dialysis
History of Present Illness
44-year-old male from [facility] complaining of shortness of breath. He did not receive full dialysis yesterday as he was uncomfortable in the chair. He has had multiple visits for half dialysis sessions due to multiple different
complaints.. He was seen 2 days ago 05/29/2025 for right sided weakness at that time he did not want any central line placed to have CT angiogram to rule out large vessel occlusion and signed AMA to go back to [facility]. He denies current
headache, chest pain, palpitations, cough, abdominal pain, nausea, vomiting, diarrhea, fever, chills. He does not make urine.
He past medical history ESRD dialysis Friday, diabetic type 1 diagnosed age 24, diabetic neuropathy feet,angina chronic right shoulder pain, HTN, HLD, COPD, chronic 4 L oxygen, former smoker 1 pack a day quit March 2025, bipolar
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
Medical History
Past Medical History
Past Medical History: Reports Other
Additional Past Medical History:
ESRD dialysis Friday
diabetic type 1 diagnosed age 24,
diabetic neuropathy feet
chronic right shoulder pain
angina
HTN
HLD
COPD, chronic 4 L oxygen
former smoker 1 pack a day quit approximately 4 weeks ago March 2025
bipolar disorder
anxiety
depression
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
Past Surgical History: Reports Other
Additional Past Surgical History:
Right upper chest wall catheter
Social History
Tobacco: Former Smoker (stopped mar )
Alcohol: None
Drug: None
Personal: Single
Living: Custodial ([facility])
Employment: Disabled
Family History
Family History: Not pertinent
Allergies / Home Medications
Allergies reflects when Allergies were last updated in Contacts[facility]
Home Medications with original date entered in Contacts[facility]
Allergy/Medication List:
Allergies
Allergy/AdvReac Type Severity Reaction Status Date / Time
No Known Allergies Allergy Verified 05/15/25 09:01
Home Medications
acetaminophen 325 mg tablet (Tylenol) 650 mg PO Q6HPRN PRN mild pain 04/27/25
amlodipine 10 mg tablet (Norvasc) 10 mg PO DAILY Blood Pressure 04/27/25
aripiprazole 5 mg tablet (Abilify) 5 mg PO DAILY Mental Health/Anxiety 04/27/25
aspirin 81 mg chewable tablet 81 mg PO DAILY Blood Pressure 04/27/25
atorvastatin 80 mg tablet (Lipitor) 80 mg PO QPM High Cholesterol 04/27/25
bisacodyl 10 mg rectal suppository (Dulcolax (bisacodyl)) 10 mg ID DAILYPRN PRN if no bm aftr mom 04/27/25
carvedilol 25 mg tablet (Coreg) 25 mg PO BID Blood Pressure 04/27/25
clonidine 0.3 mg/24 hr weekly transdermal patch 1 patch transdermal FR Blood Pressure 04/27/25
clopidogrel 75 mg tablet (Plavix) 75 mg PO DAILY Blood Clot Prevention/Tx 04/27/25
diazepam 5 mg tablet (Valium) 5 mg PO BID Mental Health/Anxiety 04/27/25
gabapentin 300 mg capsule 300 mg PO DAILY Pain 04/27/25
hydralazine 100 mg tablet 100 mg PO TID Blood Pressure 04/27/25
insulin glargine 100 unit/mL (3 mL) subcutaneous pen (Lantus Solostar U-100 Insulin) 15 unit SC HS Diabetes 04/27/25
insulin lispro 100 unit/mL subcutaneous pen 6 sliding scale dose SC AC Diabetes 04/27/25
isosorbide mononitrate 30 mg tablet,extended release 24 hr 30 mg PO DAILY Blood Pressure 04/27/25
lidocaine 5 % topical patch 1 patch topical DAILY 04/27/25
nicotine 14 mg/24 hr daily transdermal patch 1 patch transdermal DAILY SMOKING CESSASION 04/27/25
patiromer calcium sorbitex 16.8 gram oral powder packet 16.8 g PO DAILY Kidney Disease 04/27/25
sertraline 50 mg tablet 50 mg PO DAILY Mental Health/Anxiety 04/27/25
sevelamer carbonate 800 mg tablet 800 mg PO AC Kidney Disease 04/27/25
sorbitol 70 % solution 30 ml PO DAILYPRN PRN constipation 04/27/25
tramadol 50 mg tablet 50 mg PO BIDPRN PRN moderate pains 04/27/25
lisinopril 40 mg tablet 40 mg PO DAILY 05/15/25
Review of Systems
-
History Source: Patient
A 12 point ROS was completed and negative except as noted: Yes
Constitutional: Reports Weight Gain; Denies Fever or Chills
EENT: Reports Other (Bilateral eyelids with mild to moderate edema); Denies Sore Throat or Runny Nose
Respiratory: Reports Trouble Breathing and Other (Hypoxia requiring 8 L nasal cannula versus baseline for); Denies Cough
Cardiac: Denies Chest Pain, Diaphoresis, Palpitations or Syncope
Abdomen/GI: Denies Abdominal Pain, Nausea, Vomiting, Diarrhea or Constipated
: Reports Other (Patient does not make urine due to dialysis)
Musculoskeletal: Denies Joint Pain or Edema
Skin: Denies Itching or Rash
Neurological: Denies Dizzy
Endocrine: Reports No Symptoms
Hematologic/Lymphatic: Reports No Symptoms
Psych: Reports Calm
Physical Exam
Vital Signs
Vital Signs
Temp Pulse Resp BP Pulse Ox
98.1 F 56 13 192/78 96
05/31/25 19:06 05/31/25 21:15 05/31/25 21:15 05/31/25 21:00 05/31/25 21:36
Physical Exam
General: No Pain, Fever or Chills
HEENT: NormoCephalic, Anicteric, PERRLA (Bilateral upper and lower eyelids swollen), [place] Conjunctivae, No Ptosis, Oxygen (Getting placed on mid flow O2) and Other (Dry oral mucosa)
Respiratory: Rales (Left lower lung); No Wheezes
Cardiac: S1/S2 and Regular Rhythm; No Murmur, Rub, Gallop or Peripheral Edema
Breast: Deferred by me
GI: Soft, Non Tender, Non Distended, Normal Bowel Sounds and No Hepatosplenomegaly
Rectal: Deferred by Provider
Genito-urinary: Deferred by me
Musculoskeletal: No Clubbing, No Cyanosis and No Edema
Skin: Warm, Dry and Other (Dialysis catheter right upper chest wall)
Neuro: AO x 3, No Motor Deficits (While in bed), Nonfocal/grossly intact, Cranial Nerves Intact and No Sensory Deficits; No Slurred Speech, Facial Droop, Tremors or Sedated
Psych: Calm
Laboratory Results
-
05/31/25 19:09
05/31/25 19:09
Laboratory Results
Total Bilirubin 0.6 mg/dl (0.2-1.3) 05/31/25 19:09
AST 13 U/L (17-59) L 05/31/25 19:09
ALT < 10 U/L (0-50) 05/31/25 19:09
Alkaline Phosphatase 135 U/L (38-126) H 05/31/25 19:09
Troponin I 0.045 ng/ml H* 05/31/25 19:09
Data Reviewed
-
Lab Data: Labs Reviewed by me
Impression/Plan
-
Impression/plan:
Admit to telemetry
#Acute hyperkalemia secondary to ESRD and half session HD
-K5.8
Lokelma to be given in ER
-Follow BMP at 3 AM
#ESRD on dialysis Friday
Completed 1.5 hours out of 3-hour session today at [facility] 05/13/2025
As right upper chest dialysis catheter x 2 years
Patient does not make urine
-Consult Nephro- for dilaysis
- Continue sevelamer 800 mg AC, Patiromer calcium sorbitex 16.8 g daily
# Chronic anemia anemia history ESRD on dialysis
Patient did require 1 unit PRBC on recent admission 04/27/2025
Hgb 7.7 baseline for pt
-Type and screen
# Acute on chronic chronic hypoxic respiratory failure due to volume overload now requiring mid flow 8 L
#Chronic respiratory failure typically uses 4 to 5 L nasal cannula at baseline
#History of COPD on chronic 4 L nasal cannula since March 2025
Reports has been on chronic 4 L of oxygen since March 2025 when seen at [facility] for pneumonia
-Continue mid flow 8 L titrate down to baseline of 4
#HTN�benign
BP 192/78
--Continue Norvasc 10 mg daily, Coreg 25 mg twice daily, clonidine 1 patch transdermal Fridays,
- Continue hydralazine 100 mg 3 times daily
#History angina
-Continue Imdur 30 mg daily
- Continue Plavix 75 mg daily
#Diabetic type 1 Dx age 24
Accu-Cheks with SSI, check HgbA1c
Will continue Lantus 10 units at bedtime(patient typically on Lantus 20 units at bedtime) if sugar stable current blood sugar 119
-Continuelispro 6 units with meals
#HLD
-Continue atorvastatin 80 mg every afternoon
#Bipolar disorder/anxiety/depression
-Continue Abilify 5 mg daily, Zoloft 50 mg daily
#Constipation
-Continue sorbitol 30 mL daily as needed constipation
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
DVT proph subcu heparin
Full code
--- NOTE | 2025-05-31 21:55 | W.PN.UPDATE ---
Update Note
Progress Note Update
This note serves as an addendum to the H&P by rail layer SOPHIE Stefanie Marcos
HPI
44M��R hand dominant WC bound [facility] Res at [facility], Anuric, ESRD, HD MWF was seen at ER on 05/29/25 for prehospital stroke alert: abrupt onset of R sided weakness to eval for �L sided stroke ( R handed )
Outside TNK window on arrival. NEG HCT.� Neuro� evaluated. Suggest CTA H & N. Patient absolutely refused peripheral access to hospitalist, ER attd and IV team. Henceforth Neuro suggest MRI brain, MRA of H & N without IV contrast. Subsequently
patient decided to leave AMA. ER attd ( Dr Maurizio HERRERA'donnie )�
Tonight:
- pw recurrent shortness of breath
- did not receive full dialysis session on Friday05/30/25 , as he reports feeling uncomfortable on the chair.
- Denies chest pain. Denies vomiting or diarrhea.
- Patient does not make urine.
- K 5.8 without EKG changes. Tx with Lokalma 10 gm # ER
Known complex PMHX:
ESRD HD ( MWF)
2L O2 dependent COPD
HTN
HLD
IDDM,
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
Vital Signs
Temp Pulse Resp BP Pulse Ox
98.1 F 62 17 192/78 96
05/31/25 19:06 05/31/25 21:45 05/31/25 21:45 05/31/25 21:00 05/31/25 21:36
PE
Gen: NAD, Alert and cooperative
HEENT: symmetric face expression
Neck: supple
Lungs: CTA
Cor: RRR S1 S2
Abdomen:
Relevant Data
05/29/25 05/31/25
15:49 19:09
WBC 7.3 9.1
RBC
Hgb 7.7 L 7.7 L
Plt Count 241 219
Potassium
Creatinine
eGFR
Calcium
05/29/25 05/31/25
15:49 19:09
Sodium 134 L
Potassium 5.8 H
Carbon Dioxide 19 L 20 L
BUN 85 H 75 H
Creatinine 10.6 H* 11.0 H*
eGFR 5.29
Total Bilirubin 0.6
AST 13 L
Alkaline Phosphatase 135 H
Troponin I 0.045 H*
05/31/25 CXR
highly suggestive of pulmonary edema pattern, slightly increasing compared to examination of May 29, 2025. Small bilateral pleural effusions.
Echo
1. Normal left ventricular size and function.
2. Ejection fraction is 55-60% by visual assessment.
3. Mild concentric left ventricular hypertrophy.
4. Stage II diastolic dysfunction suggestive of abnormal relaxation and increased filling pressures.
5. Right ventricular size and systolic function are within normal limits.
6. Indexed left atrial volume is mildly abnormal (35-41 ml/m2).
7. Aortic sclerosis with no significant stenosis.
8. Mild mitral valve regurgitation.
9. Mild to moderate tricuspid regurgitation. Estimated pulmonary artery pressure of 38 mmHg assuming a right atrial pressure of 15 mmHg.
10. Left pleural effusion is noted.
11. There are no prior studies available for comparison.
Last hospitalist admission:: 04/27/25 - 05/04/25
Last hospitalist admission: 05/15/25 - 05/20/25
ASSESSMENT & PLAN
Peripheral acces at Lt antecubital fossa tonight
Dyspnea and acute hypoxic RF due to acute pulmonary edema due to vol. overload
Associated with PARTIAL compliance with HD
Vol. is managed by HD on MWF
HD cath at Rt upper chest wall
ESRD on MWF
- Renal consult for additional day of HD tomorrow
Hyperkalemia (5.8) without EKG changes due to PARTIAL compliance with HD
- s/p Lokalma at ER
- Repeat at 3 am - if K 5.8 , repeat Lokalma
Uncontrol HTN suspect volume mediated
- PO Hydralazine 100 tonight and then tid
- c/w Carvedilol 25 mg tonight and BID
- c/w Amlodipine
- Await Renal eval for HD tomorrow
Brief summary of recent Prehospital stroke alert ( 06/18/25)
- Abrupt onset of R sided weakness to eval for L sided stroke ( R handed )
- outside TNK window on arrival on 05/29/25
- he was DC'd on Aspirin and Plavix per 05/20/25 DC summary
- according to EMS he is only on Plavix.
- Per ER attd patient declined central line - cannot have CTA H & N
- Neurology at bed side - suggest Brain MRI and H & N MRA WITHOUT CONTRAST
- loading dose 325mg aspirin and then continue 81mg aspirin and 75mg plavix daily
- continue with atorvastatin 80mg daily
- He then Absolute refusal for line in the presence of COMPENSATION ADJUSTER and Hospitalist AP, he acknowledged the risk of unable to adequate delivered chemical resuscitation in the the event
- patient signed out AMA ( 05/29/25)
Other problems:
Migraine h/a: Tramadol/Tylenol PRN
Probable CAD: cont ASA/Plavix/statin/BB
Anemia of chronic renal disease: Hyperlipidemia: cont statin
DM1 BG 119: 50 percent of Lantus tomorrow nigh/premeal Novolog/SSI/accuchecks/diabetic diet
Anxiety/Bipolar: cont Valium/Zoloft/Abilify
HX Guillain-Smith� syndrome: Wheelchair-bound
HX Right hip and shoulder pain: NEG prior XR for Fx.
DVT Px: SQH
Full code
IP TLM
[2025-05-31] MEDS: APRESOLINE 100 MG PO (22:19)
[2025-06-01] VITALS (32 sets, daily range): BP systolic 144–209; BP diastolic 61–116; PULSE 3–78; BMI 25.9
[2025-06-01 00:30] LABS: Glucose - Point of Care 133 mg/dl (70-99)
[2025-06-01] MEDS: COREG PO ×2 (00:47→08:30)
[2025-06-01] MEDS: APRESOLINE 10 MG IV (00:53)
[2025-06-01] MEDS: LIPITOR 80 MG PO ×2 (00:53→17:31)
--- NOTE | 2025-06-01 01:00 | PTCARENOTE ---
Patient admitted to room 3363 from ED
Admitted with volume overload and hyperkalemia
Patient AAOx3, lethargic but arousable to verbal stimuli. Wheelchair bound at baseline, WADE. Lungs diminished, on Bipap. SB on tele, hypertensive, +3 LE edema noted. Patient reports he is anuric. Blanchable red area noted on sacrum, protective foam
applied. 1 PIV in LAC, R chest wall permacath in place.
Nephrology consult placed for dialysis. Trending BMPs per order. Call davis within reach and use encouraged.
[2025-06-01 03:57] LABS: Blood Urea Nitrogen 79 mg/dl (9-20); Calcium 8.7 mg/dl (8.4-10.2); Carbon Dioxide 21 mmol/L (22-30); Chloride 100 mmol/L (98-107); Estimated Creatinine Clearance 9 ml/min; Glucose 108 mg/dl (70-99); Potassium 5.6 mmol/L (3.5-5.1); Sodium 132 mmol/L (135-145); eGFR 5.12
[2025-06-01] MEDS: TYLENOL 650 MG PO ×2 (04:36→17:33)
[2025-06-01 05:34] LABS: Hematocrit 21.2 % (39.0-52.0); Hemoglobin 7.0 g/dL (13.0-18.0); Mean Corp Hgb Conc. 33.0 g/dL (33.0-37.0); Mean Corpuscular Volume 91.0 fL (80.0-94.0); Nucleated Red Blood Cells % 0 % (-); Platelet Count 191 10^3/uL (130-400); Red Cell Dist. Width 13.9 % (11.5-14.5)
--- NOTE | 2025-06-01 06:08 | W.PN.HOSP.TC ---
Today's Communication/Plan
-
cont HD as per Nephro
stable for downgrade to Tele
wean O2 supplementation as tolerated
cont BIPAP HS and prn sob
Glycemic control
Blood Pressure control
Neuro Eval
MRI Brain, MRA Head/neck pending
Assessment / Plan
Assessment / Plan
Physical Exam
General: No acute distress, appears relatively comfortable at this time
HEENT: NormoCephalic, Anicteric, PERRLA, stable respiratory status on midflow
Respiratory: Clear to auscultation b/l
Cardiac: S1/S2 and Regular Rhythm; No Murmur, Rub, Gallop or Peripheral Edema
GI: Soft, Non Tender, Non Distended, Normal Bowel Sounds and No Hepatosplenomegaly
Musculoskeletal: No Clubbing, No Cyanosis, +1 pedal Edema b/l
Skin: Warm, Dry, Dialysis catheter right upper chest wall
Neuro: AO x 3 conversant, largely coherent, RUE strength 4/5, LUE strength 5/5, LE strength 3/5 b/l
Psych: Calm
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 Patient was also recently
evaluated in ED 05/29 d/t concerns for CVA, new onset RUE weakness, out of window for TNK, patient was recommended hospitalization/further work up/imaging but he declined, requested to sign out AMA and return to [facility].
#Acute hyperkalemia secondary to ESRD and half session HD
-K 5.8
-Monitor K
-Daily Lokelma
-K restricted diet
-HD as per Nephro
#ESRD on dialysis Friday
Has right upper chest dialysis catheter x 2 years
Patient Anuric
Continue sevelamer 800 mg AC, Patiromer calcium sorbitex 16.8 g daily
HD as per Nephro
# Chronic anemia anemia history ESRD on dialysis
Patient did require 1 unit PRBC on recent admission 04/27/2025
Type and screen
Monitor H&H
Transfuse prn Hgb<7.0
# Acute on chronic chronic hypoxic respiratory failure due to volume overload now required mid flow 12 L since weaned down
#Chronic respiratory failure typically uses 4 to 5 L nasal cannula at baseline
#History of COPD on chronic 4 L nasal cannula since March 2025
Reports has been on chronic 4 L of oxygen since March 2025 when seen at [facility] for pneumonia
-Wean O2 as tolerated down to baseline 4
-BIPAP HS and PRN SOB/Naps
#HTN
--Continue Norvasc 10 mg daily, Coreg 25 mg twice daily, clonidine 1 patch transdermal Fridays,
- Continue hydralazine 100 mg 3 times daily
#History angina
-Continue Imdur 30 mg daily
- Continue Plavix 75 mg daily
#Diabetic type 1 Dx age 24
A1c inaccurate w/ recent blood transfusions 04/27, 04/28
Accu-Cheks with SSI,
Will continue Lantus 10 units at bedtime (patient typically on Lantus 20 units at bedtime) reduced dose for now given relatively low/normal sugars
#HLD
-Continue atorvastatin 80 mg every afternoon
#Bipolar disorder/anxiety/depression
-Continue Abilify 5 mg daily, Zoloft 50 mg daily
#Constipation
-Continue sorbitol 30 mL daily as needed constipation
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
#recent ED evaluation 05/29 concerning for stroke, new onset RUE weakness
Had declined further imaging at the time and requested to leave AMA.
Currently agreeable.
Pending MRI Brain, MRA Head/Neck w/o contrast
Neuro Eval requested.
DVT proph subcu heparin
Full code
I spent a total of 50 minutes with the patient or on the floor. More than 50% of this time involved counseling and coordination of care.
Anticipated Discharge: 24 - 48 hours
Subjective/Interval History
-
Date of Service: June 01, 2025
AOx3 conversant largely coherent. Reports sob improved with BIPAP. Oxygen requirement 12L midflow weaned down to 6L over the course of the day, and following dialysis.
Objective Data
-
Labs:
Laboratory Results
05/31/25 06/01/25 06/01/25
19:09 03:10 05:25
WBC 9.1 7.7
Hgb 7.7 L 7.0 L
Hct 23.4 L 21.2 L
Plt Count 219 191
Sodium 135 132 L Pending
Potassium 5.8 H 5.6 H Pending
Chloride 99 100 Pending
Carbon Dioxide 20 L 21 L Pending
BUN 75 H 79 H Pending
Creatinine 11.0 H* 11.3 H* Pending
Glucose 119 H 108 H Pending
Calcium 8.9 8.7 Pending
Total Bilirubin 0.6 Pending
AST 13 L Pending
ALT < 10 Pending
Alkaline Phosphatase 135 H Pending
Vital Signs:
Vital Signs
Temp Pulse Resp BP Pulse Ox
97.1 F 56 16 184/78 94
06/01/25 00:13 06/01/25 00:47 06/01/25 00:13 06/01/25 00:53 06/01/25 04:17
I&O
05/30/25 05/31/25 06/01/25
06:59 06:59 06:59
Intake Total 120 / 120
Balance 120 / 120
[2025-06-01 06:12] LABS: ALT (SGPT) < 10 U/L (0-50); AST (SGOT) 11 U/L (17-59); Albumin 3.8 g/dl (3.5-5.0); Alkaline Phosphatase 118 U/L (38-126); Blood Urea Nitrogen 80 mg/dl (9-20); Calcium 8.8 mg/dl (8.4-10.2); Carbon Dioxide 21 mmol/L (22-30); Chloride 100 mmol/L (98-107); Estimated Creatinine Clearance 9 ml/min; Glucose 126 mg/dl (70-99); Magnesium 2.2 mg/dl (1.6-2.3); Potassium 5.6 mmol/L (3.5-5.1); Sodium 135 mmol/L (135-145); Total Protein 6.4 g/dl (6.3-8.2); eGFR 5.18
--- NOTE | 2025-06-01 06:14 | PTCARENOTE ---
Patient taken off bipap and placed on 15L Midflow. Sating 100%, oxygen titrated down to 12L. Patient breathing 12-16 breaths a minute, sating >92% however states he feels like he has increased WOB and requests to go back on Bipap. Placed back on
bipap, patient resting comfortably in bed.
[2025-06-01 06:18] LABS: Troponin I 0.036 ng/ml
--- NOTE | 2025-06-01 07:45 | PHANOTE ---
med rec note-called [facility] [phone] for missing paperwork
[2025-06-01 08:02] LABS: Glucose - Point of Care 308 mg/dl (70-99)
--- NOTE | 2025-06-01 08:15 | PTCARENOTE ---
Assumed care of pt at 0715 following shift report. Unable to verify VS prior to 714. Pt received on Bipap at ordered settings w/ POx 100%. Woken to name for assessment and care. Resp Therapy in room to remove BiPap and placed pt on Midflow O2 @
10l/min w/ POx 97%. Pt denies pain. Physical assessment completed as documented. Comfort care provided. HD RN in room to begin ordered HD. Call susan w/in pt reach and safe environment maintained.
[2025-06-01] MEDS: HEPARIN 500 UNITS IV ×2 (08:25→09:25)
[2025-06-01] MEDS: RENVELA PO (08:30)
[2025-06-01] MEDS: NOVOLOG FLEXPEN-LOW RESISTANCE SC ×2 (09:51→12:23)
--- NOTE | 2025-06-01 10:00 | CON.NEURO4 ---
Addendum entered and electronically signed by Augustin Caban MD 06/01/25 20:28:
Plan to get get MRA of the brain and MRA of the neck, along with the MRI of the brain, when the patient is able to tolerate the test.
Original Note:
Consultation - Neurology 4
-
CONSULTING PHYSICIAN: Dr. Augustin Caban
REFERRING PHYSICIAN: Sejal GALLEGOS
DICTATED BY: Dr. Augustin Caban
DATE/TIME OF REQUEST: 06/01/2025
DATE/TIME OF CONSULTATION: 06/01/2025
Reason for Consultation: Shortness of breath
ASSESSMENT AND PLAN:
44-year-old male from [facility] complaining of shortness of breath. There was also concern about right-sided weakness and patient was seen in the ER on 05/29/2025 for prehospital stroke alert. He was outside the TNK time window on
arrival. He did not receive full dialysis on 05/30/2025, as he was uncomfortable in the chair. He has had multiple visits for half dialysis sessions due to multiple different complaints. He was seen 2 days ago 05/29/2025 for right sided weakness at
that time he did not want any central line placed to have CT angiogram to rule out large vessel occlusion and signed AMA to go back to the residential.
. The CT of the head done on 05/29/2025 did not show acute intracranial pathology.
. The plan is to get a carotid ultrasound and an echocardiogram.
He may have had a transient ischemic attack versus stroke.
The patient is going to be on stroke pathway.
The patient is also going to be on aspirin 81 mg daily, Plavix 75 mg daily and atorvastatin 80 mg daily.
Will get MRI of the brain without contrast when the patient is able to tolerate the test.
History of Present Illness:
44-year-old male from [facility] complaining of shortness of breath. There was also concern about right-sided weakness and patient was seen in the ER on 05/29/2025 for prehospital stroke alert. He was outside the TNK time window on
arrival. He did not receive full dialysis on 05/30/2025, as he was uncomfortable in the chair. He has had multiple visits for half dialysis sessions due to multiple different complaints. He was seen 2 days ago 05/29/2025 for right sided weakness
at that time he did not want any central line placed to have CT angiogram to rule out large vessel occlusion and signed AMA to go back to the residential. He denies current headache, chest pain, palpitations, cough, abdominal pain, nausea,
vomiting, diarrhea, fever, chills. He does not make urine.
He past medical history of ESRD, dialysis Friday, Friday, diabetic type 1 diagnosed age 24, diabetic neuropathy, feet, angina, chronic right shoulder pain, HTN, HLD, COPD, chronic 4 L oxygen, former smoker 1 pack a day quit March 2025,
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
Review of Systems: Unable to obtain review of systems due to the acuity of the medical condition.
Neurologic Examination:
The patient is alert and his speech is clear,
The cranial nerves II to XII grossly intact,
The patient has antigravity strength in bilateral upper and lower extremities.
Vital Signs and Labs
-
Vital Signs and Labs:
Vital Signs
Temp Pulse Resp BP Pulse Ox
36.4 C 58 12 165/69 99
06/01/25 07:13 06/01/25 09:16 06/01/25 09:16 06/01/25 09:16 06/01/25 09:16
Lab Results
06/01/25 05:25
06/01/25 05:25
Sodium 135 mmol/L (135-145) 06/01/25 05:25
Potassium 5.6 mmol/L (3.5-5.1) H 06/01/25 05:25
BUN 80 mg/dl (9-20) H 06/01/25 05:25
Glucose 126 mg/dl (70-99) H 06/01/25 05:25
Calcium 8.8 mg/dl (8.4-10.2) 06/01/25 05:25
Phosphorus 8.5 mg/dl (2.5-4.5) H 06/01/25 05:25
Jku-N-Hrpqxhvnkko Pept 45440 pg/ml 05/31/25 19:09
Medications
-
Active Medications
Generic Name Dose Route Start Last Admin
Trade Name Freq PRN Reason Stop Dose Admin
Acetaminophen 650 mg 06/01/25 04:18 06/01/25 04:36
Acetaminophen 325 Mg Tablet PO 06/29/25 04:17 650 mg
Q4HPRN PRN Administration
mild pain/ fever>100.5F
Albumin Human 12.5 grams 06/01/25 08:00
Albumin 12.5 Grams/50 Ml Bag *For Hemodialysis* IV 06/01/25 23:59
HD-Q1HPRN PRN
SBP < 90 mmHg
Amlodipine Besylate 10 mg 06/01/25 08:00
Amlodipine 10 Mg Tablet PO 06/29/25 07:59
DAILY DORIAN
Aripiprazole 5 mg 06/01/25 08:00
Aripiprazole 5 Mg Tablet PO 06/29/25 07:59
DAILY DORIAN
Aspirin 81 mg 06/01/25 08:00
Aspirin 81 Mg Chewable Tablet PO 06/29/25 07:59
DAILY DORIAN
Atorvastatin Calcium 80 mg 05/31/25 23:48 06/01/25 00:53
Atorvastatin (Lipitor) 80 Mg Tablet PO 06/28/25 23:47 80 mg
QPM DORIAN Administration
Carvedilol 25 mg 05/31/25 23:48 06/01/25 00:47
Carvedilol 25 Mg Tablet PO 06/28/25 23:47 Not Given
BID DORIAN
Clopidogrel Bisulfate 75 mg 06/01/25 08:00
Clopidogrel 75 Mg Tablet PO 06/29/25 07:59
DAILY DORIAN
Diazepam 5 mg 06/01/25 08:00
Diazepam 5 Mg Tablet PO 06/29/25 07:59
BID DORIAN
Gabapentin 300 mg 06/01/25 08:00
Gabapentin 300 Mg Capsule PO 06/29/25 07:59
DAILY DORIAN
Heparin Sodium 5,000 units 06/01/25 08:00
Heparin 5,000 Units/Ml 1 Ml Vial SC 06/29/25 07:59
Q12 DORIAN
Hydralazine HCl 100 mg 06/01/25 08:00
Hydralazine 50 Mg Tablet PO 06/29/25 07:59
TID DORIAN
Insulin Glargine 10 units/ 0.1 mls @ 0 mls/hr 06/01/25 22:00
Device SC 06/29/25 21:59
HS DORIAN
As Directed
Insulin Aspart 0 units 06/01/25 07:30 06/01/25 09:51
Insulin Aspart Low Resistance 300 Units/3 Ml Pen.Injctr SC 06/29/25 07:29 Not Given
AC DORIAN
Protocol
Isosorbide Mononitrate 30 mg 06/01/25 08:00
Isosorbide Mononitrate 30 Mg Extended Release Tablet PO 06/29/25 07:59
DAILY DORIAN
Lisinopril 40 mg 06/01/25 08:00
Lisinopril 20 Mg Tablet PO 06/29/25 07:59
DAILY DORIAN
Mannitol 12.5 grams 06/01/25 08:00
Mannitol 25% (12.5 Grams/50 Ml) Vial IV 06/01/25 23:59
HD-Q1HPRN PRN
SBP < 90 mmHg
Miconazole Nitrate 0 applic 06/01/25 08:00
Miconazole Powder Bottle TOPICAL 06/29/25 07:59
BID DORIAN
Nicotine 14 mg 06/01/25 08:00
Nicotine 14 Mg Patch TRANSDERM 06/29/25 07:59
DAILY DORIAN
Sertraline HCl 50 mg 06/01/25 08:00
Sertraline 50 Mg Tablet PO 06/29/25 07:59
DAILY DORIAN
Sevelamer Carbonate 1,600 mg 06/01/25 07:30 06/01/25 08:30
Sevelamer Carbonate (Renvela) 800 Mg Tablet PO 06/29/25 07:29 Not Given
AC DORIAN
Sodium Chloride 0 flush 05/31/25 23:00
Sodium Chloride 0.9% (Flush) Syringe IV 06/28/25 22:59
PER PROTOCOL DORIAN
Sodium Zirconium Cyclosilicate 10 gram 06/01/25 08:00
Sodium Zirconium Cyclosilicate (Lokelma) 10 Gram Powder Packet PO 06/29/25 07:59
DAILY DORIAN
Sorbitol 30 ml 05/31/25 23:48
Sorbitol 70% (Oral Solution) 30 Ml Cup PO 06/28/25 23:47
DAILYPRN PRN
constipation
Tramadol HCl 50 mg 05/31/25 23:48
Tramadol Hcl 50 Mg Tablet PO 06/28/25 23:47
BIDPRN PRN
moderate pains
Home Medications
�Medication �Instructions �Recorded
acetaminophen 325 mg tablet 650 mg PO Q6HPRN PRN mild pain 04/27/25
(Tylenol)
amlodipine 10 mg tablet (Norvasc) 10 mg PO DAILY Blood Pressure 04/27/25
aripiprazole 5 mg tablet (Abilify) 5 mg PO DAILY Mental Health/Anxiety 04/27/25
aspirin 81 mg chewable tablet 81 mg PO DAILY Blood Pressure 04/27/25
atorvastatin 80 mg tablet (Lipitor) 80 mg PO HS High Cholesterol 04/27/25
bisacodyl 10 mg rectal suppository 10 mg NH DAILYPRN PRN if no bm 04/27/25
(Dulcolax (bisacodyl)) aftr mom
carvedilol 25 mg tablet (Coreg) 25 mg PO BID Blood Pressure 04/27/25
clonidine 0.3 mg/24 hr weekly 1 patch transdermal FR Blood 04/27/25
transdermal patch Pressure
clopidogrel 75 mg tablet (Plavix) 75 mg PO DAILY Blood Clot 04/27/25
Prevention/Tx
gabapentin 300 mg capsule 300 mg PO DAILY Neurological 04/27/25
Condition
hydralazine 100 mg tablet 100 mg PO TID Blood Pressure 04/27/25
insulin lispro 100 unit/mL 1 sliding scale dose SC AC Diabetes 04/27/25
subcutaneous pen
isosorbide mononitrate 30 mg 30 mg PO DAILY Blood Pressure 04/27/25
tablet,extended release 24 hr
lidocaine 5 % topical patch 1 patch topical DAILY 04/27/25
nicotine 14 mg/24 hr daily 1 patch transdermal DAILY SMOKING 04/27/25
transdermal patch CESSASION
patiromer calcium sorbitex 16.8 16.8 g PO DAILY Kidney Disease 04/27/25
gram oral powder packet
sertraline 50 mg tablet 50 mg PO DAILY Mental 04/27/25
Health/Anxiety
sevelamer carbonate 800 mg tablet 1,600 mg PO AC Kidney Disease 04/27/25
sorbitol 70 % solution 30 ml PO DAILYPRN PRN constipation 04/27/25
lisinopril 40 mg tablet 40 mg PO DAILY Blood Pressure 05/15/25
diazepam 5 mg tablet (Valium) 5 mg PO BID Mental Health/Anxiety 05/20/25
#2 tabs
insulin glargine 100 unit/mL (3 20 unit (0.2 mL) SC HS Diabetes #0 05/20/25
mL) subcutaneous pen (Lantus mL
Solostar U-100 Insulin)
tramadol 50 mg tablet 50 mg PO BIDPRN PRN moderate pains 05/20/25
#2 tabs
miconazole nitrate 2 % topical 1 spray topical BID groin,scrotal 05/29/25
spray powder
torsemide 10 mg tablet 10 mg PO BID Fluid 06/01/25
Retention/Swelling
[2025-06-01 10:01] LABS: Glucose - Point of Care 117 mg/dl (70-99)
--- NOTE | 2025-06-01 10:10 | PTCARENOTE ---
Pt asking to have Bipap replaced as he wants to sleep during HD. Resp Therapy aware and to bedside to replace Bipap.
[2025-06-01] MEDS: RETACRIT 10000 UNITS IV (10:30)
--- NOTE | 2025-06-01 11:25 | W.CON.NEPH ---
Consultation
-
Date/Time Consultation Requested: May 31, 2025 2100
Date/Time Consultation Performed: June 01, 2025 9 AM
Requesting Provider: Puma Palumbo
Performing Provider: Dr. Teixeira
Reason for Consultation: ESRD
Medical History
-
Chief Complaint: Hypoxic respiratory failure/ESRD
History of Present Illness:
44-year-old with insulin-dependent diabetes since age of 24, end-stage renal disease on hemodialysis Friday currently via [facility] at [facility] bipolar on Abilify, valium, sertraline, uncontrolled hypertension on Amlodipine,
hydralazine, clonidine, coreg, ?CAD on imdur, aspirin and Plavix who presents to the emergency department from from [facility] with hypoxia and shortness of breath. He apparently had a short treatment on Friday which appears to be from a crampy
while on dialysis. Renal consult for end-stage renal disease management in the setting of CHF
Past Medical History
ESRD dialysis Friday
diabetic type 1 diagnosed age 24,
diabetic neuropathy feet
chronic right shoulder pain
angina
HTN
HLD
COPD, chronic 4 L oxygen
former smoker 1 pack a day quit approximately 4 weeks ago March 2025
bipolar disorder
anxiety
depression
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
Past Surgical History: Other (Right upper chest wall catheter)
Social History
Tobacco: Smoker
Alcohol: None
Drug: None
Personal: Single
Living: Long-Term
Employment: Disabled
Family History
Family History: Not Pertinent
Allergies / Home Medications
Allergy/AdvReac Type Severity Reaction Status Date / Time
No Known Allergies Allergy Verified 05/31/25 18:51
�Medication �Instructions �Recorded �Confirmed �Type
acetaminophen 325 mg tablet 650 mg PO Q6HPRN PRN mild pain 04/27/25 06/01/25 History
(Tylenol)
amlodipine 10 mg tablet (Norvasc) 10 mg PO DAILY Blood Pressure 04/27/25 06/01/25 History
aripiprazole 5 mg tablet (Abilify) 5 mg PO DAILY Mental Health/Anxiety 04/27/25 06/01/25 History
aspirin 81 mg chewable tablet 81 mg PO DAILY Blood Pressure 04/27/25 06/01/25 History
atorvastatin 80 mg tablet (Lipitor) 80 mg PO HS High Cholesterol 04/27/25 06/01/25 History
bisacodyl 10 mg rectal suppository 10 mg PA DAILYPRN PRN if no bm 04/27/25 06/01/25 History
(Dulcolax (bisacodyl)) aftr mom
carvedilol 25 mg tablet (Coreg) 25 mg PO BID Blood Pressure 04/27/25 06/01/25 History
clonidine 0.3 mg/24 hr weekly 1 patch transdermal FR Blood 04/27/25 06/01/25 History
transdermal patch Pressure
clopidogrel 75 mg tablet (Plavix) 75 mg PO DAILY Blood Clot 04/27/25 06/01/25 History
Prevention/Tx
gabapentin 300 mg capsule 300 mg PO DAILY Neurological 04/27/25 06/01/25 History
Condition
hydralazine 100 mg tablet 100 mg PO TID Blood Pressure 04/27/25 06/01/25 History
insulin lispro 100 unit/mL 1 sliding scale dose SC AC Diabetes 04/27/25 06/01/25 History
subcutaneous pen
isosorbide mononitrate 30 mg 30 mg PO DAILY Blood Pressure 04/27/25 06/01/25 History
tablet,extended release 24 hr
lidocaine 5 % topical patch 1 patch topical DAILY 04/27/25 06/01/25 History
nicotine 14 mg/24 hr daily 1 patch transdermal DAILY SMOKING 04/27/25 06/01/25 History
transdermal patch CESSASION
patiromer calcium sorbitex 16.8 16.8 g PO DAILY Kidney Disease 04/27/25 06/01/25 History
gram oral powder packet
sertraline 50 mg tablet 50 mg PO DAILY Mental 04/27/25 06/01/25 History
Health/Anxiety
sevelamer carbonate 800 mg tablet 1,600 mg PO AC Kidney Disease 04/27/25 06/01/25 History
sorbitol 70 % solution 30 ml PO DAILYPRN PRN constipation 04/27/25 06/01/25 History
lisinopril 40 mg tablet 40 mg PO DAILY Blood Pressure 05/15/25 06/01/25 History
diazepam 5 mg tablet (Valium) 5 mg PO BID Mental Health/Anxiety 05/20/25 06/01/25 Rx
#2 tabs
insulin glargine 100 unit/mL (3 20 unit (0.2 mL) SC HS Diabetes #0 05/20/25 06/01/25 Rx
mL) subcutaneous pen (Lantus mL
Solostar U-100 Insulin)
tramadol 50 mg tablet 50 mg PO BIDPRN PRN moderate pains 05/20/25 06/01/25 Rx
#2 tabs
miconazole nitrate 2 % topical 1 spray topical BID groin,scrotal 05/29/25 06/01/25 History
spray powder
torsemide 10 mg tablet 10 mg PO BID Fluid 06/01/25 06/01/25 History
Retention/Swelling
Review of Systems
-
Shortness of breath
All other systems: Negative unless noted
Physical Exam
Vital Signs
Vital Signs
Temp Pulse Resp BP Pulse Ox
97.5 F 58 12 165/69 99
06/01/25 07:13 06/01/25 09:16 06/01/25 09:16 06/01/25 09:16 06/01/25 09:16
Lab Results
WBC 7.7 10^3/uL (4.8-10.8) 06/01/25 05:25
RBC 2.33 10^6/uL (4.70-6.10) L 06/01/25 05:25
Hgb 7.0 g/dL (13.0-18.0) L 06/01/25 05:25
Hct 21.2 % (39.0-52.0) L 06/01/25 05:25
Plt Count 191 10^3/uL (130-400) 06/01/25 05:25
Sodium 135 mmol/L (135-145) 06/01/25 05:25
Potassium 5.6 mmol/L (3.5-5.1) H 06/01/25 05:25
Chloride 100 mmol/L (98-107) 06/01/25 05:25
Carbon Dioxide 21 mmol/L (22-30) L 06/01/25 05:25
BUN 80 mg/dl (9-20) H 06/01/25 05:25
Creatinine 11.2 mg/dL (0.7-1.3) H* 06/01/25 05:25
eGFR 5.18 06/01/25 05:25
Glucose 126 mg/dl (70-99) H 06/01/25 05:25
Calcium 8.8 mg/dl (8.4-10.2) 06/01/25 05:25
Phosphorus 8.5 mg/dl (2.5-4.5) H 06/01/25 05:25
Xbw-J-Mwvrcjzzwhp Pept 03252 pg/ml 05/31/25 19:09
Albumin 3.8 g/dl (3.5-5.0) 06/01/25 05:25
Physical Exam
General: Awake, Alert, Oriented, AOx3 and Other (Severe respiratory distress on BiPAP)
HEENT: EOMI, Conjunctivae Clear, Facial Symmetry and Other (Periorbital edema)
Respiratory: Crackels, Normal Excursion and Other (on BIPAP, labored respiration)
Cardiac: S1/S2 and Regular Rate/Rhythm
Breast: Deferred by me
Abdomen: Soft, Nontender and Nondistended
Genito-urinary: Other (And uric baseline)
Musculoskeletal: Edema (3+)
Skin: No Rash
Neuro: Nonfocal/Grossly Intact
Psych: Appropriate
Vascular Access: CVC (Tunneled right IJ catheter)
Data Reviewed
-
Radiology: Image Personally Visualized and interpreted
CT Scan: Image Personally Visualized and interpreted
Labs: Labs Reviewed by me, Discussed with Nurse and Discussed with Patient
Assessment/Plan
-
IMP:
Shortness of breath volume overloaded
Weakness rule out stroke= negative CAT scan
Hyperkalemia
History of COPD on chronic 4 L nasal cannula since March 2025
Acute symptomatic anemia history ESRD on dialysis
ESRD on dialysis Friday at [facility]
HTN
Hyponatremia
mild hyperkalemia
CAD
Diabetic type 1 Dx age 24
HLD
Bipolar disorder/anxiety/depression
Constipation
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
Hyperphosphatemia
Right IJ catheter
Plan:
Dialysis today ultrafiltration with 4+ liters as Toller
2 potassium bath
Neurology noted
See orders
--- NOTE | 2025-06-01 11:31 | W.PN.NEPH.HD ---
Assessment
-
Dialysis tolerating 4 L
Progress Note - Hemodialysis
-
Date of Service: June 01, 2025
Duration: 30 minutes and 3 hours
Potassium Bath: 2
Calcium Bath: 2.5
Opti-Dialyzer: 160
Ultrafiltration: Other (4kg)
Blood Flow: 400
Dialysate Flow: 600
EPO: 81592 units
[2025-06-01] MEDS: HEPARIN 3200 UNITS INTRACATH (11:49)
[2025-06-01] MEDS: NORVASC 10 MG PO (12:18)
[2025-06-01] MEDS: IMDUR (EXTENDED RELEASE) 30 MG PO (12:19)
[2025-06-01] MEDS: VALIUM 5 MG PO ×2 (12:19→20:10)
[2025-06-01] MEDS: RENVELA 1600 MG PO ×2 (12:19→17:31)
[2025-06-01] MEDS: ZESTRIL 40 MG PO (12:19)
[2025-06-01] MEDS: ABILIFY 5 MG PO (12:19)
[2025-06-01] MEDS: NEURONTIN 300 MG PO (12:19)
[2025-06-01] MEDS: PLAVIX 75 MG PO (12:19)
[2025-06-01] MEDS: ULTRAM 50 MG PO (12:20)
[2025-06-01] MEDS: LOW STRENGTH ASPIRIN 81 MG PO (12:20)
[2025-06-01 12:21] LABS: Glucose - Point of Care 104 mg/dl (70-99)
[2025-06-01] MEDS: NICODERM TRANSDERMAL 14 MG TRANSDERM (12:21)
[2025-06-01] MEDS: ZOLOFT 50 MG PO (12:21)
[2025-06-01] MEDS: DESENEX/MITRAZOL/ZEASORB 1 APPLIC TOPICAL ×2 (12:22→20:11)
[2025-06-01] MEDS: APRESOLINE PO (12:23)
[2025-06-01] MEDS: HEPARIN 5000 UNITS SC (12:28)
[2025-06-01] MEDS: LOKELMA 10 GRAM PO (12:28)
--- NOTE | 2025-06-01 13:00 | PTCARENOTE ---
HD completed around noon. Pt tolerated well and w/o complication. Pt off Bipap and O2 tapered down to 6l/min via Midflow NC w/ Pox 93-97%. Pt denies SOB. TT to Dr Rodriguez w/ update that HD is complete and O2 requirement down to 6l/min via NC. Pt to be
downgraded to tele level of care and OK to go to MRI w/o RN. No additional changes from previous assessment findings. Pt called and placed order for lunch.
--- NOTE | 2025-06-01 14:36 | CM ---
Spoke with Admissions at [facility]. Patient is a Short Term Rehab resident of [facility] in [place]. He is W/CH dependent. Can stand/pivot/transfer with staff. Does not drive. On continuous O2 @ 4-6L. On HD -- schedule. No HC-POA. No VA benefits. No
Psychiatric hospitalizations (Hx Bipolar).
PCP is Dr. Suad Sears. Pharmacy is [facility] through [facility]. Discharge POC: Return to [facility]. Will need another insurance auth. PLAN is to move in with mother. [facility] is setting up outpatient HD and O2. Patient does not
want LTC because he does not want his money to be accessed.
--- NOTE | 2025-06-01 14:50 | PTCARENOTE ---
Transfer report called to '[facility]'. Pt to transfer via bed to Rm 320. No changes noted from previous assessment findings or new complaints received.
[2025-06-01] MEDS: APRESOLINE 100 MG PO ×2 (15:24→21:09)
[2025-06-01 17:36] LABS: Glucose - Point of Care 195 mg/dl (70-99)
[2025-06-01] MEDS: NOVOLOG FLEXPEN-LOW RESISTANCE 1 UNITS SC (17:55)
[2025-06-01] MEDS: HEPARIN SC ×2 (20:10→21:07)
[2025-06-01] MEDS: COREG 25 MG PO (20:10)
[2025-06-01 20:57] LABS: Glucose - Point of Care 199 mg/dl (70-99)
[2025-06-02] VITALS (7 sets, daily range): BP systolic 170–181; BP diastolic 65–88; PULSE 3–71; BMI 25.5
--- NOTE | 2025-06-02 02:59 | PTCARENOTE ---
Pt. was weighed with 2 extra pillows on bed.
[2025-06-02] MEDS: TYLENOL 650 MG PO (03:17)
--- NOTE | 2025-06-02 06:07 | PTCARENOTE ---
Around 0300, pt's manual BP 170/84 HR 58. Pt c/o 3/10 headache. PRN tylenol given. TRAP OPERATOR notified about BP, no new orders. Plan of care ongoing.
--- NOTE | 2025-06-02 06:12 | PTCARENOTE ---
This RN attempted to complete an NIH on pt d/t neuro consult and Brain MRI order. Pt not willing to participate in stroke scale and was agitated. Pt educated on importance of completing the scale. After multiple attempts, pt still refusing to
participate.
Pt also refused lantus and stated 'I did not have any carbs today'. Pt drinking apple juice. Pt educated that apple juice has carbs. Pt yelled at RN 'Why are you arguing with me? Just stop'. Plan of care ongoing.
--- NOTE | 2025-06-02 07:42 | W.PN.HOSP.TC ---
Today's Communication/Plan
-
cont HD as per Nephro
ID eval requested
wean O2 supplementation as tolerated
bp glycemic control
Assessment / Plan
Assessment / Plan
Physical Exam
General: No acute distress, appears relatively comfortable at this time
HEENT: NormoCephalic, Anicteric, PERRLA, stable respiratory status on midflow
Respiratory: Clear to auscultation b/l
Cardiac: S1/S2 and Regular Rhythm; No Murmur, Rub, Gallop or Peripheral Edema
GI: Soft, Non Tender, Non Distended, Normal Bowel Sounds and No Hepatosplenomegaly
Musculoskeletal: No Clubbing, No Cyanosis, +1 pedal Edema b/l
Skin: Warm, Dry, Dialysis catheter right upper chest wall
Neuro: AO x 3 conversant, largely coherent, RUE strength 4/5, LUE strength 5/5, LE strength 3/5 b/l
Psych: Calm
44M [facility] Resident ESRD MWF IDDM HTN HLD COPD 4L baseline Bipolar Anxiety Depression hx GBS from COVID vaccination 2022 wheelchair bound ever since here for SOB likely fluid overload 2/2 noncompliance HD sessions. Patient was also recently
evaluated in ED 05/29 d/t concerns for CVA, new onset RUE weakness, out of window for TNK, patient was recommended hospitalization/further work up/imaging but he declined, requested to sign out AMA and return to [facility].
#Acute hyperkalemia secondary to ESRD and half session HD
-K 5.8
-Monitor K
-Daily Lokelma
-K restricted diet
-HD as per Nephro
#ESRD on dialysis Friday
Has right upper chest dialysis catheter x 2 years
Patient Anuric
Continue sevelamer 800 mg AC, Patiromer calcium sorbitex 16.8 g daily
HD as per Nephro
#Non-ischemic myocardial injury
troponin peak 0.045 since trended down
# Chronic anemia anemia history ESRD on dialysis
Patient did require 1 unit PRBC on recent admission 04/27/2025
Type and screen
Monitor H&H
Transfuse prn Hgb<7.0
# Acute on chronic chronic hypoxic respiratory failure due to volume overload now required mid flow 12 L since weaned down
#Chronic respiratory failure typically uses 4 to 5 L nasal cannula at baseline
#History of COPD on chronic 4 L nasal cannula since March 2025
Reports has been on chronic 4 L of oxygen since March 2025 when seen at [facility] for pneumonia
-Wean O2 as tolerated down to baseline 4
-BIPAP HS and PRN SOB/Naps
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
#recent ED evaluation 05/29 concerning for stroke, new onset RUE weakness
Had declined further imaging at the time and requested to leave AMA.
Currently agreeable.
MRI Brain, MRA Head/Neck w/o contrast results appreciated no acute abn's noted but findings suggesting chronic fungal rhinosinusitis noted
Neuro Eval appreciated
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
patient endorses chronic intermittent nasal congestion, question if contributing to patient's frequent hospitalizations w/ SOB
ID eval requested
#HTN
--Continue Norvasc 10 mg daily, Coreg 25 mg twice daily, clonidine 1 patch transdermal Fridays,
- Continue hydralazine 100 mg 3 times daily
#History angina
-Continue Imdur 30 mg daily
- Continue Plavix 75 mg daily
#Diabetic type 1 Dx age 24
A1c inaccurate w/ recent blood transfusions 04/27, 04/28
Accu-Cheks with SSI,
Will continue Lantus 10 units at bedtime (patient typically on Lantus 20 units at bedtime) reduced dose for now given relatively low/normal sugars
#HLD
-Continue atorvastatin 80 mg every afternoon
#Bipolar disorder/anxiety/depression
-Continue Abilify 5 mg daily, Zoloft 50 mg daily
#Constipation
-Continue sorbitol 30 mL daily as needed constipation
#Stage 1 sacrum pressure injury, POA
cont local wound care
DVT proph subcu heparin
Full code
Offered to update NOK/family, patient declined.
I spent a total of 45 minutes with the patient or on the floor. More than 50% of this time involved counseling and coordination of care.
Anticipated Discharge: 24 - 48 hours
Subjective/Interval History
-
Date of Service: June 02, 2025
Reports improvement in symptoms. Endorses persistent intermittent nasal congestion. Remains on 6L to maintain sat.
Objective Data
-
Labs:
Laboratory Results
06/02/25
06:00
WBC Pending
Hgb Pending
Hct Pending
Plt Count Pending
Sodium Pending
Potassium Pending
Chloride Pending
Carbon Dioxide Pending
BUN Pending
Creatinine Pending
Glucose Pending
Calcium Pending
Vital Signs:
Vital Signs
Temp Pulse Resp BP Pulse Ox
98.4 F 58 15 170/84 98
06/02/25 03:00 06/02/25 03:00 06/02/25 03:00 06/02/25 03:00 06/02/25 03:00
I&O
06/01/25 06/02/25 06/03/25
06:59 06:59 06:59
Intake Total 120 / 120 1080 / 1080
Balance 120 / 120 1080 / 1080
[2025-06-02 08:10] LABS: Glucose - Point of Care 140 mg/dl (70-99)
--- NOTE | 2025-06-02 09:30 | PN.CDI ---
CDI
- -
CDI:
Physician Documentation Request
Admit Date: 05/31/25 22:53
Dear Doctor Jennifer,
Please review the following and provide your response in the progress notes.
Clinical Indicators:
- RN skin assessments indicate Stage 1 sacrum pressure injury, POA
Physician documentation of the type and location of wounds is required for compliant documentation. Based on the above clinical findings and your assessment, please provide the following in your progress note:
1. Location of the ulcer/wound, including laterality.
2. Type (etiology) of ulcer/wound:
- Diabetic ulcer
- Arterial (ischemic) ulcer
- Traumatic wound
- Venous stasis ulcer
- Pressure (decubitus) ulcer
- Other
Use of terms such as suspected, likely, concern for, or probable (associated with a specific diagnosis that is being evaluated, monitored, or treated as if it exists) are acceptable and can be coded in the inpatient setting, when documented at the
time of discharge.
Thank you,
Can Miller RN
CDI Specialist
Please use your independent medical judgment in providing your response.
*Source: National Pressure Ulcer Advisory Panel (NPUAP)
--- NOTE | 2025-06-02 09:31 | PN.CDI ---
CDI
- -
CDI:
Physician Documentation Request
Admit Date: 05/31/25 22:53
Dear Doctor Jennifer,
Please review the following and provide your response in the progress notes.
Clinical Indicators:
- Patient admit for shortness of breath and hyperkalemia with half session HD
- 06/01 PN 'Acute on chronic chronic hypoxic respiratory failure due to volume overload'
- Documented VS 4-10L O2, pulse ox >89%
- Troponin labs:
Laboratory Tests
05/31/25 06/01/25
19:09 05:25
Troponin I 0.045 H* 0.036 H*
Please clarify the following regarding the documented elevated troponins:
Non-ischemic myocardial injury
Abnormal lab value only
Other (please specify)
Use of terms such as suspected, likely, concern for, or probable (associated with a specific diagnosis that is being evaluated, monitored, or treated as if it exists) are acceptable and can be coded in the inpatient setting, when documented at the
time of discharge.
Thank you,
Can Miller RN
CDI Specialist
Please use your independent medical judgment in providing your response.
[2025-06-02] MEDS: NOVOLOG FLEXPEN-LOW RESISTANCE SC (09:52)
[2025-06-02] MEDS: RENVELA PO ×3 (10:47→16:54)
[2025-06-02] MEDS: ABILIFY 5 MG PO (10:48)
[2025-06-02] MEDS: APRESOLINE 100 MG PO ×3 (10:48→22:15)
[2025-06-02] MEDS: COREG PO (10:50)
[2025-06-02] MEDS: DESENEX/MITRAZOL/ZEASORB 1 APPLIC TOPICAL ×2 (10:50→20:31)
[2025-06-02] MEDS: HEPARIN SC ×2 (10:51→20:30)
[2025-06-02] MEDS: IMDUR (EXTENDED RELEASE) 30 MG PO (10:52)
[2025-06-02] MEDS: LOW STRENGTH ASPIRIN 81 MG PO (10:53)
[2025-06-02] MEDS: NEURONTIN 300 MG PO (10:54)
[2025-06-02] MEDS: NICODERM TRANSDERMAL 14 MG TRANSDERM (10:54)
[2025-06-02] MEDS: NORVASC 10 MG PO (10:55)
[2025-06-02] MEDS: PLAVIX 75 MG PO (10:56)
[2025-06-02] MEDS: ZESTRIL 40 MG PO (10:57)
[2025-06-02] MEDS: VALIUM 5 MG PO ×2 (10:57→20:31)
[2025-06-02] MEDS: ZOLOFT 50 MG PO (10:59)
[2025-06-02 11:13] LABS: Hematocrit 24.8 % (39.0-52.0); Hemoglobin 7.9 g/dL (13.0-18.0); Mean Corp Hgb Conc. 31.9 g/dL (33.0-37.0); Mean Corpuscular Volume 93.2 fL (80.0-94.0); Platelet Count 225 10^3/uL (130-400); Red Cell Dist. Width 13.9 % (11.5-14.5)
--- NOTE | 2025-06-02 11:41 | W.PN.NEURO.1 ---
Addendum entered and electronically signed by Augustin Caban MD 06/02/25 22:52:
I saw and examined the patient along with the nurse practitioner Fidelia Campbell, and I agree with her assessment and management plan. Given below is my addendum.
44-year-old male from [facility] complaining of shortness of breath. There was also concern about right-sided weakness and patient was seen in the ER on 05/29/2025 for prehospital stroke alert. He was outside the TNK time window on
arrival. He was seen on 05/29/2025 for right sided weakness at that time he did not want any central line placed to have CT angiogram to rule out large vessel occlusion and signed AMA to go back to the [facility].
. The CT of the head done on 05/29/2025 did not show acute intracranial pathology.
MRI of the brain was done today that did not show any acute intracranial abnormality.
MRA of the brain was done that did not show focal hemodynamically significant stenosis, aneurysm or occlusion.
The echocardiogram done on 04/28/2025, showed an ejection fraction of 55 to 60% and the interatrial septum is normal and intact with no evidence of interatrial shunting
On neurologic examination, patient's speech is clear, he is alert and oriented x 3 and he has antigravity strength in all 4 extremities.
He likely had a transient ischemic attack.
The patient is going to be on stroke pathway.
The patient is also going to be on aspirin 81 mg daily, Plavix 75 mg daily and atorvastatin 80 mg daily.
Follow-up with the neurology as an outpatient.
Will sign off. Please call if you have any question.
Original Note:
Today's Communication / Plan
-
.
Neuro Assessment/Plan
Assessment
44-year-old male from [facility] [place] complaining of shortness of breath on 06/01/25. There was also concern about right-sided weakness and patient was seen in the ER on 05/29/2025 for prehospital stroke alert. He was outside the TNK time
window on arrival. He did not receive full dialysis on 05/30/2025, as he was uncomfortable in the chair. He has had multiple visits for half dialysis sessions due to multiple different complaints. He was seen 2 days ago 05/29/2025 for right sided
weakness at that time he did not want any central line placed to have CT angiogram to rule out large vessel occlusion and signed AMA to go back to the [facility].
CT head 05/29/25: No acute intracranial pathology. Mild atrophy. Nonacute sinusitis. ASPECT score: 10.
I. Transient right-sided weakness; etiology is possibly a transient ischemic attack, a small ischemic stroke, vs recrudesence of old stroke symptoms.
Plan
-Continue DAPT with aspirin 81mg and clopidogrel 75mg daily.
-MRI brain noncontrast, MRA COW pending.
-Carotid ultrasound pending.
-Goal normotension.
-LDL goal <70. Lipid panel is pending.
-Goal normoglycemia, hbA1c is 6.0.
-NIHSS and neurological checks per unit guidelines.
-Provide patient with a stroke education packet.
-PT/PT/ST evaluations.
-DVT prophylaxis.
Subjective/Objective
Subjective Data
Date of Service: June 02, 2025
No acute events overnight. Patient reports that his right-sided weakness has not returned.
Objective Data
Vital Signs
Temp Pulse Resp BP Pulse Ox
98.4 F 51 18 171/82 98
06/02/25 03:00 06/02/25 10:57 06/02/25 07:58 06/02/25 10:57 06/02/25 07:58
Lab Results
06/02/25 11:00
Sodium 135 mmol/L (135-145) 06/01/25 05:25
Potassium 5.6 mmol/L (3.5-5.1) H 06/01/25 05:25
BUN 80 mg/dl (9-20) H 06/01/25 05:25
Glucose 126 mg/dl (70-99) H 06/01/25 05:25
Calcium 8.8 mg/dl (8.4-10.2) 06/01/25 05:25
Phosphorus 8.5 mg/dl (2.5-4.5) H 06/01/25 05:25
Ymz-B-Chhajypqdxe Pept 26650 pg/ml 05/31/25 19:09
Patient Allergies
No Known Allergies Allergy (Verified 05/31/25 18:51)
Review of Systems
-
History Source: Patient
Neuro: Tremors; Negative Dizzy, Headache, Weakness, Numbness, Ataxia or Speech Problem
Physical Exam
-
General: Appears Chronically Ill and Wearing Oxygen
Eyes: No Ptosis and PERRLA
HEENT: Normocephalic and Atraumatic
Neck: Full Range of Motion
GI: Non-distended
Extended Neurological Exam
Mood & Affect: Mood Unremarkable and Affect Unremarkable
Attention Span & Concentration: Awake, Alert and Interactive
Memory: Unremarkable and Able to Recall
Tremor: Other (tardive dyskinesia, RUE pill rolling tremor); Negative Hand Tremor Absent
Speech: Quality Unremarkable, Quantity Unremarkable and Rate of Production Unremarkable
Cranial Nerve II: Left Eye: Pupillary Reactivity Unremarkable, Pupillary Size Unremarkable and Visual Jung Intact
Cranial Nerve II: Right Eye: Pupillary Reactivity Unremarkable, Pupillary Size Unremarkable and Visual Jung Intact
Cranial Nerve VII: Facial Symmetry: Normal Facial Symmetry
Cranial Nerve VIII: Hearing: Unremarkable Hearing to Normal Conversational Volume
Cranial Nerve XII: Tongue Protusion: Midline
Muscle Strength, Overall: Reduced Bilaterally (BLE)
Pronator Drift: No Drift in Upper Extremities
Coordination: Thibyc-nzlw-ywuwza Testing Unremarkable
Modified [place] Score (MRS)
-
Modified Brock Scale (mRS): Moderately severe disability. Unable to attend to bodily needs/walk.
Score: 4
Data Reviewed
-
CT Head: Report Reviewed and Image Reviewed
MRI Head: Pending
MRA Head: Pending
MRA Neck: Pending
Labs: Report Reviewed
Lipid Profile: Report Reviewed
HgbA1C: Report Reviewed
Reviewed with: Physician and Patient
Medications
-
Active Medications
Generic Name Dose Route Start Last Admin
Trade Name Freq PRN Reason Stop Dose Admin
Acetaminophen 650 mg 06/01/25 04:18 06/02/25 03:17
Acetaminophen 325 Mg Tablet PO 06/29/25 04:17 650 mg
Q4HPRN PRN Administration
mild pain/ fever>100.5F
Amlodipine Besylate 10 mg 06/01/25 08:00 06/02/25 10:55
Amlodipine 10 Mg Tablet PO 06/29/25 07:59 10 mg
DAILY DORIAN Administration
Aripiprazole 5 mg 06/01/25 08:00 06/02/25 10:48
Aripiprazole 5 Mg Tablet PO 06/29/25 07:59 5 mg
DAILY DORIAN Administration
Aspirin 81 mg 06/01/25 08:00 06/02/25 10:53
Aspirin 81 Mg Chewable Tablet PO 06/29/25 07:59 81 mg
DAILY DORIAN Administration
Atorvastatin Calcium 80 mg 05/31/25 23:48 06/01/25 17:31
Atorvastatin (Lipitor) 80 Mg Tablet PO 06/28/25 23:47 80 mg
QPM DORIAN Administration
Carvedilol 25 mg 05/31/25 23:48 06/02/25 10:50
Carvedilol 25 Mg Tablet PO 06/28/25 23:47 Not Given
BID DORIAN
Clopidogrel Bisulfate 75 mg 06/01/25 08:00 06/02/25 10:56
Clopidogrel 75 Mg Tablet PO 06/29/25 07:59 75 mg
DAILY DORIAN Administration
Dextrose 12.5 grams 06/01/25 18:00
Dextrose 50% (0.5 Grams/Ml) 50 Ml Syringe IV 06/29/25 17:59
[id number] PRN
hypoglycemia
Protocol
Diazepam 5 mg 06/01/25 08:00 06/02/25 10:57
Diazepam 5 Mg Tablet PO 06/29/25 07:59 5 mg
BID DORIAN Administration
Gabapentin 300 mg 06/01/25 08:00 06/02/25 10:54
Gabapentin 300 Mg Capsule PO 06/29/25 07:59 300 mg
DAILY DORIAN Administration
Glucagon 1 mg 06/01/25 18:00
Glucagon 1 Mg Vial IM 06/29/25 17:59
PRN PRN
hypoglycemia - no IV access
Protocol
Heparin Sodium 5,000 units 06/01/25 08:00 06/02/25 10:51
Heparin 5,000 Units/Ml 1 Ml Vial SC 06/29/25 07:59 Not Given
Q12 DORIAN
Hydralazine HCl 100 mg 06/01/25 08:00 06/02/25 10:48
Hydralazine 50 Mg Tablet PO 06/29/25 07:59 100 mg
TID DORIAN Administration
Insulin Glargine 10 units/ 0.1 mls @ 0 mls/hr 06/01/25 22:00 06/01/25 21:14
Device SC 06/29/25 21:59 Not Given
HS DORIAN
As Directed
Insulin Aspart 0 units 06/01/25 07:30 06/02/25 09:52
Insulin Aspart Low Resistance 300 Units/3 Ml Pen.Injctr SC 06/29/25 07:29 Not Given
AC DORIAN
Protocol
Isosorbide Mononitrate 30 mg 06/01/25 08:00 06/02/25 10:52
Isosorbide Mononitrate 30 Mg Extended Release Tablet PO 06/29/25 07:59 30 mg
DAILY DORIAN Administration
Lisinopril 40 mg 06/01/25 08:00 06/02/25 10:57
Lisinopril 20 Mg Tablet PO 06/29/25 07:59 40 mg
DAILY DORIAN Administration
Miconazole Nitrate 0 applic 06/01/25 08:00 06/02/25 10:50
Miconazole Powder Bottle TOPICAL 06/29/25 07:59 1 applic
BID DORIAN Administration
Nicotine 14 mg 06/01/25 08:00 06/02/25 10:54
Nicotine 14 Mg Patch TRANSDERM 06/29/25 07:59 14 mg
DAILY DORIAN Administration
Sertraline HCl 50 mg 06/01/25 08:00 06/02/25 10:59
Sertraline 50 Mg Tablet PO 06/29/25 07:59 50 mg
DAILY DORIAN Administration
Sevelamer Carbonate 1,600 mg 06/01/25 07:30 06/02/25 10:47
Sevelamer Carbonate (Renvela) 800 Mg Tablet PO 06/29/25 07:29 Not Given
AC DORIAN
Sodium Chloride 0 flush 05/31/25 23:00
Sodium Chloride 0.9% (Flush) Syringe IV 06/28/25 22:59
PER PROTOCOL DORIAN
Sodium Zirconium Cyclosilicate 10 gram 06/01/25 08:00 06/01/25 12:28
Sodium Zirconium Cyclosilicate (Lokelma) 10 Gram Powder Packet PO 06/29/25 07:59 10 gram
DAILY DORIAN Administration
Sorbitol 30 ml 05/31/25 23:48
Sorbitol 70% (Oral Solution) 30 Ml Cup PO 06/28/25 23:47
DAILYPRN PRN
constipation
Tramadol HCl 50 mg 05/31/25 23:48 06/01/25 12:20
Tramadol Hcl 50 Mg Tablet PO 06/28/25 23:47 50 mg
BIDPRN PRN Administration
moderate pains
Home Medications
�Medication �Instructions �Recorded
acetaminophen 325 mg tablet 650 mg PO Q6HPRN PRN mild pain 04/27/25
(Tylenol)
amlodipine 10 mg tablet (Norvasc) 10 mg PO DAILY Blood Pressure 04/27/25
aripiprazole 5 mg tablet (Abilify) 5 mg PO DAILY Mental Health/Anxiety 04/27/25
aspirin 81 mg chewable tablet 81 mg PO DAILY Blood Pressure 04/27/25
atorvastatin 80 mg tablet (Lipitor) 80 mg PO HS High Cholesterol 04/27/25
bisacodyl 10 mg rectal suppository 10 mg IA DAILYPRN PRN if no bm 04/27/25
(Dulcolax (bisacodyl)) aftr mom
carvedilol 25 mg tablet (Coreg) 25 mg PO BID Blood Pressure 04/27/25
clonidine 0.3 mg/24 hr weekly 1 patch transdermal FR Blood 04/27/25
transdermal patch Pressure
clopidogrel 75 mg tablet (Plavix) 75 mg PO DAILY Blood Clot 04/27/25
Prevention/Tx
gabapentin 300 mg capsule 300 mg PO DAILY Neurological 04/27/25
Condition
hydralazine 100 mg tablet 100 mg PO TID Blood Pressure 04/27/25
insulin lispro 100 unit/mL 1 sliding scale dose SC AC Diabetes 04/27/25
subcutaneous pen
isosorbide mononitrate 30 mg 30 mg PO DAILY Blood Pressure 04/27/25
tablet,extended release 24 hr
lidocaine 5 % topical patch 1 patch topical DAILY 04/27/25
nicotine 14 mg/24 hr daily 1 patch transdermal DAILY SMOKING 04/27/25
transdermal patch CESSASION
patiromer calcium sorbitex 16.8 16.8 g PO DAILY Kidney Disease 04/27/25
gram oral powder packet
sertraline 50 mg tablet 50 mg PO DAILY Mental 04/27/25
Health/Anxiety
sevelamer carbonate 800 mg tablet 1,600 mg PO AC Kidney Disease 04/27/25
sorbitol 70 % solution 30 ml PO DAILYPRN PRN constipation 04/27/25
lisinopril 40 mg tablet 40 mg PO DAILY Blood Pressure 05/15/25
diazepam 5 mg tablet (Valium) 5 mg PO BID Mental Health/Anxiety 05/20/25
#2 tabs
insulin glargine 100 unit/mL (3 20 unit (0.2 mL) SC HS Diabetes #0 05/20/25
mL) subcutaneous pen (Lantus mL
Solostar U-100 Insulin)
tramadol 50 mg tablet 50 mg PO BIDPRN PRN moderate pains 05/20/25
#2 tabs
miconazole nitrate 2 % topical 1 spray topical BID groin,scrotal 05/29/25
spray powder
torsemide 10 mg tablet 10 mg PO BID Fluid 06/01/25
Retention/Swelling
[2025-06-02 12:09] LABS: Blood Urea Nitrogen 45 mg/dl (9-20); Calcium 8.8 mg/dl (8.4-10.2); Carbon Dioxide 28 mmol/L (22-30); Chloride 95 mmol/L (98-107); Estimated Creatinine Clearance 14 ml/min; Glucose 175 mg/dl (70-99); Potassium 5.0 mmol/L (3.5-5.1); Sodium 133 mmol/L (135-145); eGFR 8.38
[2025-06-02 12:14] LABS: HDL Cholesterol 32 mg/dl; LDL Cholesterol, Calculated 20 mg/dl; Very Low Density Lipoprotein 21 mg/dl (0-30)
[2025-06-02 13:01] LABS: Glucose - Point of Care 199 mg/dl (70-99)
--- NOTE | 2025-06-02 13:17 | W.PN.NEPH.PH ---
Today's Communication / Plan
-
No acute need for dialysis today
Assessment/Plan
-
IMP:
Shortness of breath volume overloaded
Weakness rule out stroke= negative CAT scan
Hyperkalemia
History of COPD on chronic 4 L nasal cannula since March 2025
Acute symptomatic anemia history ESRD on dialysis
ESRD on dialysis Friday at [facility]
HTN
Hyponatremia
mild hyperkalemia
CAD
Diabetic type 1 Dx age 24
HLD
Bipolar disorder/anxiety/depression
Constipation
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
Hyperphosphatemia
Right IJ catheter
Plan:
Continue Friday no acute need for dialysis today
On 5 L oxygen at baseline
2 potassium bath
Neurology noted= 4 possible TIA or ischemic stroke
See orders
-
-
Date of Service: June 02, 2025
CC / HPI / ROS
-
Chief Complaint:
Shortness of breath
History of Present Illness:
ESRD presents with shortness of breath treatment: Short for apparent cramping patient
Review of Systems:
On his baseline nasal cannula
No chest pain
Labs
-
Labs:
WBC 8.2 10^3/uL (4.8-10.8) 06/02/25 11:00
RBC 2.66 10^6/uL (4.70-6.10) L 06/02/25 11:00
Hgb 7.9 g/dL (13.0-18.0) L 06/02/25 11:00
Hct 24.8 % (39.0-52.0) L 06/02/25 11:00
Plt Count 225 10^3/uL (130-400) 06/02/25 11:00
Sodium 133 mmol/L (135-145) L 06/02/25 11:00
Potassium 5.0 mmol/L (3.5-5.1) 06/02/25 11:00
Chloride 95 mmol/L (98-107) L 06/02/25 11:00
Carbon Dioxide 28 mmol/L (22-30) 06/02/25 11:00
BUN 45 mg/dl (9-20) H 06/02/25 11:00
Creatinine 7.5 mg/dL (0.7-1.3) H* 06/02/25 11:00
eGFR 8.38 06/02/25 11:00
Glucose 175 mg/dl (70-99) H 06/02/25 11:00
Calcium 8.8 mg/dl (8.4-10.2) 06/02/25 11:00
Phosphorus 8.5 mg/dl (2.5-4.5) H 06/01/25 05:25
Zod-A-Irlgbbweftm Pept 17216 pg/ml 05/31/25 19:09
Albumin 3.8 g/dl (3.5-5.0) 06/01/25 05:25
Physical Exam
-
Vital Signs:
Vital Signs
Temp Pulse Resp BP Pulse Ox
98.8 F 62 18 179/75 98
06/02/25 12:41 06/02/25 12:41 06/02/25 12:41 06/02/25 12:41 06/02/25 12:41
Cardiovascular:: Regular rate and rhythm
Respiratory:: Bilateral: Coarse
Lung Excursion:: Normal
Abdomen:: Nontender and Soft
Bowel Sounds:: Normal
Extremity Edema:: +1: Bilateral:
[2025-06-02] MEDS: LOKELMA 10 GRAM PO (14:26)
[2025-06-02] MEDS: NOVOLOG FLEXPEN-LOW RESISTANCE 1 UNITS SC (14:29)
[2025-06-02] MEDS: ULTRAM 50 MG PO (16:53)
[2025-06-02 17:09] LABS: Glucose - Point of Care 229 mg/dl (70-99)
[2025-06-02] MEDS: LIPITOR 80 MG PO (17:32)
[2025-06-02] MEDS: NOVOLOG FLEXPEN-LOW RESISTANCE 2 UNITS SC (17:33)
--- NOTE | 2025-06-02 18:30 | PTCARENOTE ---
Assumed care of pt from previous nurse. pt denies pain. Pt NIH 4. Pt call davis is within reach, pt rings mary. will cont to monitor.
[2025-06-02] MEDS: COREG 25 MG PO (20:30)
[2025-06-02 21:52] LABS: Glucose - Point of Care 269 mg/dl (70-99)
[2025-06-03] VITALS (7 sets, daily range): BP systolic 164–189; BP diastolic 67–81; PULSE 63; O2SAT 97; BMI 25.2
[2025-06-03] MEDS: ULTRAM 50 MG PO ×2 (02:51→18:15)
[2025-06-03] MEDS: ZOLOFT 50 MG PO (07:37)
[2025-06-03] MEDS: PLAVIX 75 MG PO (07:37)
[2025-06-03] MEDS: VALIUM 5 MG PO (07:37)
[2025-06-03] MEDS: RENVELA PO ×3 (07:37→16:54)
[2025-06-03] MEDS: ABILIFY 5 MG PO (07:37)
[2025-06-03] MEDS: NEURONTIN 300 MG PO (07:37)
[2025-06-03] MEDS: LOW STRENGTH ASPIRIN 81 MG PO (07:37)
[2025-06-03] MEDS: NICODERM TRANSDERMAL 14 MG TRANSDERM (07:38)
[2025-06-03] MEDS: HEPARIN SC (07:39)
[2025-06-03] MEDS: DESENEX/MITRAZOL/ZEASORB 1 APPLIC TOPICAL (07:39)
--- NOTE | 2025-06-03 07:49 | W.PN.HOSP.TC ---
Today's Communication/Plan
-
discharge
Assessment / Plan
Assessment / Plan
Physical Exam
General: No acute distress, appears relatively comfortable at this time
HEENT: NormoCephalic, Anicteric, PERRLA, stable respiratory status on baseline 4L
Respiratory: Clear to auscultation b/l
Cardiac: S1/S2 and Regular Rhythm; No Murmur, Rub, Gallop or Peripheral Edema
GI: Soft, Non Tender, Non Distended, Normal Bowel Sounds and No Hepatosplenomegaly
Musculoskeletal: No Clubbing, No Cyanosis, +1 pedal Edema b/l
Skin: Warm, Dry, Dialysis catheter right upper chest wall
Neuro: AO x 3 conversant coherent
Psych: Calm
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 Patient was also recently
evaluated in ED 05/29 d/t concerns for CVA, new onset RUE weakness, out of window for TNK, patient was recommended hospitalization/further work up/imaging but he declined, requested to sign out AMA and return to snf.
#Acute hyperkalemia secondary to ESRD and half session HD
-received Lokelma
-K restricted diet
-HD as per Nephro
-Hyperkalemia since resolved
#ESRD on dialysis Friday
Has right upper chest dialysis catheter x 2 years
Patient Anuric
Continue sevelamer 800 mg AC, Patiromer calcium sorbitex 16.8 g daily
HD as per Nephro
discontinue Home Torsemide, no clear benefit
#Non-ischemic myocardial injury
troponin peak 0.045 since trended down
# Chronic anemia anemia history ESRD on dialysis
Patient did require 1 unit PRBC on recent admission 04/27/2025
H&H stable no need for transfusion at this time
# Acute on chronic chronic hypoxic respiratory failure due to volume overload now required mid flow 12 L since weaned down
#Chronic respiratory failure typically uses 4 to 5 L nasal cannula at baseline
#History of COPD on chronic 4 L nasal cannula since March 2025
Reports has been on chronic 4 L of oxygen since March 2025 when seen at [facility] for pneumonia
-weaned down to baseline O2 4L
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
#recent ED evaluation 05/29 concerning for stroke, new onset RUE weakness
Had declined further imaging at the time and requested to leave AMA.
Currently agreeable.
MRI Brain, MRA Head/Neck w/o contrast results appreciated no acute abn's noted but findings suggesting chronic fungal rhinosinusitis noted
Neuro Eval appreciated
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
patient endorses chronic intermittent nasal congestion
ID eval appreciated, patient currently asymptomatic, no need for antifungals at this time
outpt follow up with ENT recommended
#HTN
--Continue Norvasc 10 mg daily, Coreg 25 mg twice daily, clonidine 1 patch transdermal Fridays,
- Continue hydralazine 100 mg 3 times daily
#History angina
-Continue Imdur 30 mg daily
- Continue Plavix 75 mg daily
#Diabetic type 1 Dx age 24
A1c inaccurate w/ recent blood transfusions 04/27, 04/28
Accu-Cheks with SSI,
Lantus at bedtime, ok to resume home dose
#HLD
-Continue atorvastatin 80 mg every afternoon
#Bipolar disorder/anxiety/depression
-Continue Abilify 5 mg daily, Zoloft 50 mg daily
#Constipation
-Continue sorbitol 30 mL daily as needed constipation
#Stage 1 sacrum pressure injury, POA
cont local wound care
DVT proph subcu heparin
Full code
Medically stable for discharge back to SNF w/ outpt follow up recommendations
Offered to update NOK/family, patient declined.
Total Time Preparing Discharge ___40____ minutes including examination of the patient, summary of the hospital stay, instructions for continuing care to all relevant caregivers; and preparation of discharge records, prescriptions, and referral
forms if necessary.
Anticipated Discharge: Today
Subjective/Interval History
-
Date of Service: June 03, 2025
Seen and examined at bedside in no acute distress. Overall reports feeling well. Denies new acute issues. Eager to go back to [place].
Objective Data
-
Labs:
Laboratory Results
06/03/25
06:00
WBC Pending
Hgb Pending
Hct Pending
Plt Count Pending
Sodium Pending
Potassium Pending
Chloride Pending
Carbon Dioxide Pending
BUN Pending
Creatinine Pending
Glucose Pending
Calcium Pending
Vital Signs:
Vital Signs
Temp Pulse Resp BP Pulse Ox
98.4 F 62 16 189/81 100
06/03/25 07:33 06/03/25 07:33 06/03/25 07:33 06/03/25 07:33 06/03/25 07:33
I&O
06/02/25 06/03/25 06/04/25
06:59 06:59 06:59
Intake Total 1080 / 1080 840 / 840
Balance 1080 / 1080 840 / 840
[2025-06-03] MEDS: LOKELMA PO (07:51)
[2025-06-03 08:05] LABS: Glucose - Point of Care 228 mg/dl (70-99)
[2025-06-03 08:33] LABS: Hematocrit 24.1 % (39.0-52.0); Hemoglobin 7.7 g/dL (13.0-18.0); Mean Corp Hgb Conc. 32.0 g/dL (33.0-37.0); Mean Corpuscular Volume 94.1 fL (80.0-94.0); Platelet Count 255 10^3/uL (130-400); Red Cell Dist. Width 13.8 % (11.5-14.5)
[2025-06-03] MEDS: RETACRIT 10000 UNITS IV (08:57)
[2025-06-03 09:08] LABS: Blood Urea Nitrogen 57 mg/dl (9-20); Calcium 8.8 mg/dl (8.4-10.2); Chloride 93 mmol/L (98-107); Estimated Creatinine Clearance 11 ml/min; Glucose 206 mg/dl (70-99); Potassium 4.8 mmol/L (3.5-5.1); Sodium 133 mmol/L (135-145); eGFR 6.64
[2025-06-03 09:21] LABS: Carbon Dioxide 25 mmol/L (22-30)
[2025-06-03] MEDS: NOVOLOG FLEXPEN-LOW RESISTANCE 2 UNITS SC ×2 (09:54→16:55)
[2025-06-03] MEDS: MANNITOL 25% 12.5 GRAMS IV (10:53)
--- NOTE | 2025-06-03 11:02 | CON.ID ---
Consultation
-
Date/Time Consultation Requested: 06/02/2025 1530
Date/Time Consultation Performed: 06/03/2025 1100
Requesting Provider: Dr. Rodriguez
Performing Provider: Dr. Hernandez
Reason for Consultation: Chronic sinusitis
Chief Complaint / Past History
History of Present Illness
Diogenes Og is a 44-year-old man being seen in infectious ease consultation at the request of Dr. Rodriguez regarding MRI findings suggestive of chronic fungal sinusitis. History is obtained from chart review, along with patient interview.
The patient has a significant past medical history of ESRD�HD and presented to the emergency room here at [facility] on 05/31/2025 with complaints of shortness of breath. According to reviewed notes the patient has had multiple visits for
partial dialysis sessions which he cut short secondary to multiple different issues.
He presented to the ER on 05/29/2025 secondary to right sided weakness, but patient refused admission and signed out AMA. He presented back to the ER on 05/31 secondary to shortness of breath. During this admission he has consented to further
stroke workup, and an MRI performed yesterday revealed partial opacification of the left maxillary sinus and 'blooming artifact' which reportedly can be seen with chronic fungal rhinosinusitis.
At this time, the patient denies any sinus symptoms. He denies any pressure or pain in the frontal or maxillary sinus area. He reports occasional congestion, but none today. He denies any postnasal drip. He denies any current rhinorrhea or
chronic drainage from the sinuses.
Past History
Additional Past Medical History:
HTN
Hx CVA
HLD
COPD (chronic 4L oxygen)
DM
Diabetic neuropathy
Anxiety/depression
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
Additional Past Surgical History:
(R) ACW HD cath placement
Allergy History:
No Known Allergies Allergy (Verified 05/31/25 18:51)
Medications Reviewed: Yes
Current Antibiotics:
None
Social History
Tobacco: Former Smoker
Alcohol: None
Drug: None
Personal: Single
Living: [place]
Employment: Disabled
Family History
Family History: Not Pertinent
Review of Systems
Vital Signs
Temp Pulse Resp BP Pulse Ox
98.4 F 62 16 189/81 100
06/03/25 07:33 06/03/25 07:33 06/03/25 07:33 06/03/25 07:33 06/03/25 09:30
Physical Exam
Physical Exam
Constitutional: No Acute Distress, Comfortable and Non-toxic
Head: Normocephalic and Other (No frontal / maxillary sinus tenderness.)
Eyes: Pupils Equal, Pupils Round, No Conjunctival Hemorrhage and Sclera Anicteric
Oral: No Thrush and No Ulcers
Cardiovascular: Regular Rate and S1/S2; Negative S3/S4
Pulmonary: Clear and Non Labored; Negative Wheezes or Rales
Gastrointestinal: Soft, Non Tender and Non Distended
Extremities: Edema; Negative Cyanosis or Erythema
Neurological: Awake and Alert
Psychological: Calm
Lab / Diagnostic Study Results
06/03/25 08:14
06/03/25 08:14
Abs Immat Gran (auto) 0.0 10^3/uL (0-0.05) 06/01/25 05:25
Absolute Neuts (auto) 5.7 10^3/uL (1.4-6.5) 06/01/25 05:25
Absolute Lymphs (auto) 1.1 10^3/uL (1.2-3.4) L 06/01/25 05:25
Absolute Monos (auto) 0.7 10^3/uL (0.1-0.6) H 06/01/25 05:25
Absolute Basos (auto) 0.1 10^3/uL (0-0.2) 06/01/25 05:25
Immature Gran % 0.3 % (0-0.5) 06/01/25 05:25
Neutrophils % 74.3 % (42.2-75.2) 06/01/25 05:25
Lymphocytes % 14.5 % (20.5-51.1) L 06/01/25 05:25
Monocytes % 9.5 % (1.7-9.3) H 06/01/25 05:25
Eosinophils % 0.0 % (0-6) 06/01/25 05:25
Basophils % 1.4 % (0-2) 06/01/25 05:25
Microbiology Results
Micro:
06/01/25 04:07 MRSA Screen - Final
Nose No Methicillin Resistant Staphylococcus aureus isolated.
Imaging:
06/02/2025 MRI brain without contrast: scattered hyperintensities within the subcortical and periventricular white matter of the bilateral cerebral hemispheres which is nonspecific but likely sequela of mild small vessel ischemic disease. Mild
atrophy noted. A small focus of blooming artifact within the left posterior temporal lobe which may be sequela of prior microhemorrhage. No mass or mass effect noted. There is partial opacification of the left maxillary sinus with central T1
hyperintense secretions which demonstrate blooming artifact which can be seen with chronic fungal rhinorrhea sinusitis. Moderate right mastoid effusion noted. Please see full dictation for additional detail
Assessment / Plan
Abnormal findings on MRI suggestive of sinusitis
- Patient without signs or symptoms of sinusitis
Suspected TIA
HTN
Hx CVA
HLD
COPD (chronic 4L oxygen)
DM
Diabetic neuropathy
Anxiety/depression
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
Recommendations:
At present, patient without signs or symptoms of sinusitis. Findings on MRI should be interpreted with caution.
If the patient should develop signs or symptoms of sinusitis, would refer to ENT for further workup, which could include direct sinus visualization +/- culture or biopsy.
No need for antibiotics at the present time.
Little more to offer from a Infectious disease standpoint at the present time.
Will see again at your request.
--- NOTE | 2025-06-03 11:42 | W.PN.NEPH.HD ---
Assessment
-
pt seen during HD
vitals stable
UF as much he can tolerates, try to keep EDW low
CVC functions fine
MRA brain neg
d/c plan per primary
Progress Note - Hemodialysis
-
Date of Service: June 03, 2025
Duration: 30 minutes and 3 hours
Potassium Bath: 2
Calcium Bath: 2.5
Opti-Dialyzer: 160
Ultrafiltration: Other (4kg)
Blood Flow: 400
Dialysate Flow: 600
Heparin: no
EPO: [id number]
[2025-06-03] MEDS: NORVASC 10 MG PO (11:58)
[2025-06-03] MEDS: APRESOLINE 100 MG PO ×2 (11:58→15:26)
[2025-06-03] MEDS: COREG 25 MG PO (11:58)
[2025-06-03] MEDS: IMDUR (EXTENDED RELEASE) 30 MG PO (11:59)
[2025-06-03] MEDS: CATAPRES-TTS-3 0.3 MG TRANSDERM (11:59)
[2025-06-03] MEDS: ZESTRIL 40 MG PO (11:59)
[2025-06-03] MEDS: TYLENOL 650 MG PO (12:03)
[2025-06-03 12:05] LABS: Glucose - Point of Care 156 mg/dl (70-99)
--- NOTE | 2025-06-03 12:32 | CM ---
Addendum entered by Montse Coto 06/03/25 14:01:
Approved skilled rehab
Start date 06/03/25, NRD 06/09/25
Updates to [phone]
Auth# [id number]
Addendum entered by Montse Coto 06/03/25 13:59:
all auth information given to Laura at [facility]
auth approved
Original Note:
patient seen at bedside
HD today
oxygen at 4L currently
tentative dc today to [facility] STR -referral entered in careport/spoke with Laura at [facility]
will need PT/OT evals-ordered -pending & aware
will need INS AUTH from [employer]
[facility] NPI #: [id number]
Dr. Sears NPI #: [id number]
PLAN: [facility] SNF, ONCE AUTH APPROVED
REPORT #: [phone] 1ST FLOOR Nursing
FAX #: [phone]
Transport forms on chart
[2025-06-03] MEDS: NOVOLOG FLEXPEN-LOW RESISTANCE 1 UNITS SC (13:04)
--- NOTE | 2025-06-03 13:38 | CM ---
Authorization for [facility] skilled rehab initiated in [facility].
Approved skilled rehab
Start date 06/03/25, NRD 06/09/25
Updates to [phone]
Auth# [id number]
--- NOTE | 2025-06-03 14:48 | W.DCSUMMARY ---
Discharge Summary
Discharge Data
Date of Admission: 05/31/25
Date of Discharge: 06/03/25
-
Pending Results: No
Discharge Plan
-
Patient Disposition: Usp/SNF
Discharge Diagnosis/Procedures: Hyperkalemia
Acute on Chronic Respiratory Failure secondary to Fluid overload
End stage Renal Disease on Dialysis
Chronic Anemia
Transient Ischemic Attack (TIA)
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
Hypertension
Diabetes
Condition: Fair
Diet: 2 Gram Sodium and Diabetic, Carb Controlled
Additional Diets: 40 oz fluid restriction, 2 gram Potassium restriction
Activity: With assistance and As tolerated
Driving Restrictions: Not until seen by your Dr
Bathing Restrictions: None
Blood Work: Repeat CBC and BMP with primary care provider in 1 week of discharge.
Other Services: PT and OT
Activity Restrictions/Additional Instructions:
Follow up with primary care provider in 1 week of discharge, ENT in 2-4 weeks of discharge, and Neurology in 1 month of discharge.
Referrals:
Suad Sears MD [Family Provider] - in one week
Keshawn Correia MD [Active, Neurology] - in one month
Gilmar Hsieh MD [Active, ENT] - in two to four weeks
Additional Discharge Medication Instructions: Torsemide was discontinued as there is no clear benefit given anuria. Follow up with primary care provider, nephrology, and/or other healthcare provider involved in care before considering to resume.
Prescriptions:
Continued
atorvastatin [Lipitor] 80 mg Tablet
80 mg PO HS
carvedilol [Coreg] 25 mg Tablet
25 mg PO BID
acetaminophen [Tylenol] 325 mg Tablet
650 mg PO Q6HPRN PRN (Reason: mild pain)
nicotine 14 mg/24 hr Patch 24 Hour
1 patch TRANSDERMAL DAILY
isosorbide mononitrate 30 mg Tablet Extended Release 24 Hr
30 mg PO DAILY
clopidogrel [Plavix] 75 mg Tablet
75 mg PO DAILY
amlodipine [Norvasc] 10 mg Tablet
10 mg PO DAILY
bisacodyl [Dulcolax (bisacodyl)] 10 mg Suppository
10 mg DE DAILYPRN PRN (Reason: if no bm aftr mom)
hydralazine 100 mg Tablet
100 mg PO TID
lidocaine 5 % Adhesive Patch,Medicated
1 patch TOPICAL DAILY
gabapentin 300 mg Capsule
300 mg PO DAILY
aspirin 81 mg Tablet,Chewable
81 mg PO DAILY
clonidine 0.3 mg/24 hr Patch Weekly
1 patch TRANSDERMAL FR
sorbitol 70 % Solution
30 ml PO DAILYPRN PRN (Reason: constipation)
sertraline 50 mg Tablet
50 mg PO DAILY
insulin lispro 100 unit/mL Insulin Pen
1 sliding scale dose SC AC
Rx Instructions:
151-200=4units, 201-250=6units
aripiprazole [Abilify] 5 mg Tablet
5 mg PO DAILY
sevelamer carbonate 800 mg Tablet
1,600 mg PO AC
patiromer calcium sorbitex 16.8 gram Powder In Packet
16.8 g PO DAILY
lisinopril 40 mg Tablet
40 mg PO DAILY
tramadol 50 mg Tablet
50 mg PO BIDPRN PRN (Reason: moderate pains) Qty: 2 0RF
diazepam [Valium] 5 mg Tablet
5 mg PO BID Qty: 2 0RF
insulin glargine [Lantus Solostar U-100 Insulin] 100 unit/mL (3 mL) Insulin Pen
20 unit SC HS Qty: 0 0RF
miconazole nitrate 2 % Aerosol Powder
1 spray TOPICAL BID
Discontinued
torsemide 10 mg Tablet
10 mg PO BID
Discharge Orders:
Discharge Patient (As Directed); Ordered 06/03/25
Ordered By: Jorge Rodriguez
Discharge Date and Time
Print Language: ROMANSH
[2025-06-03 16:26] LABS: Glucose - Point of Care 217 mg/dl (70-99)
[2025-06-03] MEDS: LIPITOR 80 MG PO (16:54)
== END 2025-06-03 20:35 | DRG 640 ==
LOC: 3 WEST ACU 22:53
PROVIDERS: Clinical Nurse Specialist Family Health; Internal Medicine; Registered Nurse; ADMITTING PHYSICIAN Internal Medicine; ATTENDING PHYSICIAN Internal Medicine; CONSULT PHYSICIAN Psychiatry & Neurology Neurology; EMERGENCY PHYSICIAN Emergency Medicine; FAMILY PHYSICIAN Internal Medicine; OTHER PHYSICIAN Internal Medicine Infectious Disease; OTHER PHYSICIAN Internal Medicine Nephrology
PROC: 5A1D70Z Performance of Urinary Filtration, Intermittent, Less than 6 Hours Per Day (ICD-10-PCS; 2025-06-01)
DX: E87.70 Fluid overload, unspecified (principal); J81.0 Acute pulmonary edema; J96.21 Acute and chronic respiratory failure with hypoxia; N18.6 End stage renal disease; G45.9 Transient cerebral ischemic attack, unspecified; I5A Non-ischemic myocardial injury (non-traumatic); G61.0 Guillain-Barre syndrome; I12.0 Hypertensive chronic kidney disease with stage 5 chronic kidney disease or end stage renal disease; E87.5 Hyperkalemia; Z99.2 Dependence on renal dialysis; D63.1 Anemia in chronic kidney disease; J32.9 Chronic sinusitis, unspecified; J44.9 Chronic obstructive pulmonary disease, unspecified; F31.9 Bipolar disorder, unspecified; Z99.3 Dependence on wheelchair; Z79.02 Long term (current) use of antithrombotics/antiplatelets; E78.00 Pure hypercholesterolemia, unspecified; K59.00 Constipation, unspecified; L89.151 Pressure ulcer of sacral region, stage 1; E10.40 Type 1 diabetes mellitus with diabetic neuropathy, unspecified; E10.22 Type 1 diabetes mellitus with diabetic chronic kidney disease; G89.29 Other chronic pain; F41.9 Anxiety disorder, unspecified; Z79.82 Long term (current) use of aspirin; Z79.4 Long term (current) use of insulin; Z79.899 Other long term (current) drug therapy; Z86.73 Personal history of transient ischemic attack (TIA), and cerebral infarction without residual deficits; Z99.81 Dependence on supplemental oxygen; E87.1 Hypo-osmolality and hyponatremia; F17.200 Nicotine dependence, unspecified, uncomplicated
CPT/HCPCS: 70544; 70551; 71045; 80048; 80053; 80061; 82962; 83735; 83880; 84100; 84443; 84484; 85025; 85027; 86850; 86900; 86901; 87070; 93005; 93880; 94660; 94760; 97163; 97167; 99285; 99406; P9047; Q5106